=== PATIENT | female | born 1970 | race Caucasian/White ===

== ENCOUNTER 2016-10-04 16:50 | Inpatient (IN) | payer BC, OTHER ==
[~2016-10-04] VITALS: Ht 157.5 cm; Wt 90.0 kg
[~2016-10-04 16:50] MED LIST: ALBU1AER9 INH; BUPR-79 PO; CLOP1TAB5 PO; DOXY1TAB6 PO; LISI-461 PO; OMEP40CA PO; SIMV10TA2 PO
[2016-10-04] MEDS ORDERED: SODIUM CHLORIDE 0.9% 1000ML 1,000 ML IV STA (17:05)
[2016-10-04] MEDS ORDERED: DiphenhydrAMINE HCL 50 MG/ML VIAL IV STA (17:05)
[2016-10-04] MEDS ORDERED: PROCHLORPERAZINE 5 MG/ML 2 ML VIAL IV STA (17:05)
[2016-10-04] MEDS ORDERED: WARF4TAB8 PO (17:19)
[2016-10-04] MEDS ORDERED: GABA-113 PO (17:19)
[2016-10-04] MEDS ORDERED: GLC/500 PO (17:19)
[2016-10-04] MEDS ORDERED: ATOR-24 PO (17:19)
[2016-10-04] MEDS ORDERED: GLIP10TA10 PO (17:19)
--- NOTE | 2016-10-04 17:22 | DIAGNOSTIC IMAGING REPORT ---
HEAD WITHOUT CONTRAST (CT) CT DOSE: 623.48 mGy.cm HISTORY: Mental status change Stroke TECHNIQUE: Multiaxial CT images of the head were performed without the use of intravenous contrast. A dose lowering technique was utilized adhering to the principles of ALARA. Comparison: 02/04/2013 Findings: The paranasal sinuses and mastoid air cells are clear. The calvarium and skull base are intact. The ventricles and sulci are within normal limits. There is no mass, hematoma, midline shift, or acute infarct. Impression: No acute intracranial abnormality. The above report was generated using voice recognition software. It may contain grammatical, syntax or spelling errors. Electronically signed by: Jonnathan Landers M.D. 10/04/2016 5:20 PM Dictated Date/Time: 10/04/2016 5:19 PM
[2016-10-04 17:25] LABS: BASO % 0.3 %; BASO ABS # 0.03 K/uL (0-0.2); COMPLETE YES; EOS % 1.3 %; HEMATOCRIT 46.3 % (37-47); IG% 0.4 %; LYMPH % 24.1 %; LYMPH ABS # 2.79 K/uL (1.2-3.4); MEAN CELL VOLUME 91.1 fL (80-100); MEAN CORPUSCULAR HEMOGLOBIN 30.9 pg (25-34); MEAN CORPUSCULAR HGB CONC 33.9 g/dl (32-36); MEAN PLATELET VOLUME 11.5 fL (7.4-10.4); MONO % 4.8 %; NEUT % 69.1 %; PLATELET COUNT 243 K/uL (130-400); RED BLOOD COUNT 5.08 M/uL (4.2-5.4); WHITE BLOOD COUNT 11.58 K/uL (4.8-10.8)
--- NOTE | 2016-10-04 17:32 | DIAGNOSTIC IMAGING REPORT ---
CHEST ONE VIEW PORTABLE CLINICAL HISTORY: Stroke dyspnea COMPARISON STUDY: 11/30/2012 FINDINGS: The bones soft tissues and hemidiaphragms are normal. The cardiomediastinal silhouette is normal. The lungs are clear. The pulmonary vasculature is normal. IMPRESSION: Negative chest. The above report was generated using voice recognition software. It may contain grammatical, syntax or spelling errors. Electronically signed by: Jonnathan Landers M.D. 10/04/2016 5:31 PM Dictated Date/Time: 10/04/2016 5:31 PM
[2016-10-04 17:43] LABS: INR 1.7 (0.9-1.1); PARTIAL THROMBOPLASTIN RATIO 2.1; PROTHROMBIN TIME (PATIENT) 18.3 SECONDS (9.0-12.0)
[2016-10-04 17:46] LABS: BLOOD UREA NITROGEN 7 mg/dl (7-18); BUN/CREATININE RATIO 7.5 (10-20); CARBON DIOXIDE 27 mmol/L (21-32); CHLORIDE 108 mmol/L (98-107); CREATININE 0.89 mg/dl (0.60-1.20); GLUCOSE 135 mg/dl (70-99); SODIUM 140 mmol/L (136-145)
[2016-10-04 17:51] LABS: CKMB/CK RATIO 0.9 (0-3.0)
[2016-10-04 18:18] VITALS: O2SAT 95; BMI 34.7
[2016-10-04] MEDS ORDERED: ACETAMINOPHEN 325 MG TAB PO PRN (18:45)
[2016-10-04] MEDS ORDERED: ONDANSETRON INJ 2 MG/ML 2 ML VIAL IV PRN (18:45)
[2016-10-04] MEDS ORDERED: CMD5 PO (18:47)
[2016-10-04] MEDS ORDERED: ASPIRIN 81 MG ECTAB PO ONE (18:47)
[2016-10-04] MEDS ORDERED: METF1000 PO (18:47)
[2016-10-04] MEDS ORDERED: LISI-461 PO (18:47)
[2016-10-04] MEDS ORDERED: PHARMACIST DISCHARGE MED REC CONSULT PRN (19:00)
[2016-10-04] MEDS ORDERED: DEXTROSE 50% 50 ML SYR IV PRN (19:15)
[2016-10-04] MEDS ORDERED: WARFARIN SOD 2.5 MG TAB PO ONE (19:15)
[2016-10-04] MEDS ORDERED: GLUCOSE 40% GEL 15 GM TUBE PO PRN (19:15)
[2016-10-04] MEDS ORDERED: GLUCOSE 10 TABS/TUBE PO PRN (19:15)
[2016-10-04] MEDS ORDERED: GLUCAGON FOR INJ 1 MG VIAL SQ PRN (19:15)
[2016-10-04] MEDS: WARFARIN SOD 5 MG TAB PO SCH ×3 (19:33→19:35)
[2016-10-04 20:00] VITALS: BP 115/82; PULSE 89; TEMP 36.4; O2SAT 99
[2016-10-04] MEDS: SODIUM CHLORIDE 0.9% 1000ML 1,000 ML IV SCH (20:17)
[2016-10-04] MEDS: INSULIN ASPART 100 UNITS/ML 3 ML PEN SC SCH (20:57)
[2016-10-04] MEDS: GABAPENTIN 300 MG CAP PO SCH (20:58)
--- NOTE | 2016-10-04 21:11 | History and Physical ---
History & Physical Date & Time of Service: Oct 04, 2016 at 18:47 Chief Complaint: Migraine,Dizzy,Balance Issues Primary Care Physician: Hector Sullivan MD History of Present Illness Source: patient, clinic records, hospital records This is a 46 year old female with PMH of CVA x 2 in 2012, HTN, HL, DM type 2, antiphospholipid antibody syndrome on Coumadin, tobacco abuse, migraines, and other problems listed below who presents to the ED for headache. Patient states around 3:15 PM today she developed severe throbbing headache in bilateral frontal regions and behind her left eye. She reports associated worsening baseline balance difficulty, throat tightness, photophobia, chills. She reports visual aura yesterday with black spots. Patient reports similar array of symptoms with prior migraines. She usually takes 4 ibuprofen, a soda, and a candy bar for her migraines, however did not take anything at home today. Shortly after CALHOUN started patient presented to an appointment at Dr. Kebede's office (hematology) and was advised to present to ER via ambulance, however she declined and was driven to ER by her . In the ER patient had an unremarkable head CT. She was treated with compazine and Benadryl and states she is feeling much better. She reports chronic slight right facial droop and LUE and LLE weakness from prior strokes which are unchanged. Has chronic numbness of toes bilaterally from neuropathy but no acute numbness. Has chronic R ear tinnitus and hearing loss. Denies slurred speech, swallowing difficulty, neck stiffness, fever, URI symptoms, cough, SOB, chest pain, vomiting, diarrhea , urinary symptoms. Patient notes 3-4 weeks ago she had a 20 minute episode of worsened balance, "deer in the headlights" look as per her , and difficulty remember the letter "G" when reciting the alphabet. She had a slight CALHOUN at that time. Patient states the episode was "no big deal" and therefore she did not seek evaluation. Patient states she has not seen a neurologist since hospitalization in 2012 due to losing her insurance. She was seen by Dr. Bynum when hospitalized in 2012 twice for left cerebellar stroke and left frontoparietal stroke. JULIET in 01/2013 showed mild atrial septal wall aneurysm but no PFO or ASD. It appears on 01/2013 discharge she was supposed to change from aspirin to Plavix. However according to the patient she was on aspirin until she self- discontinued it in 2012 when she started Coumadin. Patient was recently seen by rheumatology Dr. Roberson who suspected antiphospholipid antibody syndrome and she was continued on Coumadin and referred her to hematology. Pt denies hx of arrhythmia. Past Medical/Surgical History Medical Problems: (1) Antiphospholipid antibody syndrome Status: Chronic (2) CVA (cerebral vascular accident) Status: Chronic (3) DM type 2 (diabetes mellitus, type 2) Status: Chronic (4) Dyslipidemia Status: Chronic (5) Hearing loss Permanent Comment: R ear Status: Chronic (6) Hypertension Status: Chronic (7) Migraine Status: Chronic (8) Migraine with aura Status: Chronic (9) Ovarian cyst Status: Chronic (10) Unspecified ulcers Status: Chronic Surgical Problems: (1) H/O tympanostomy Status: Chronic (2) S/P tonsillectomy and adenoidectomy Status: Chronic Family History Cardiac disorder FATHER Diabetes mellitus FATHER FH: lupus SISTER Hypertension FATHER MOTHER SISTER Social History Smoking Status: Current Every Day Smoker (1/2 ppd, trying to quit) Alcohol Use: occasionally Drug Use: none Marital Status: Housing status: lives with family Occupational Status: other Immunizations History of Influenza Vaccine: Yes Influenza Vaccine Date: Feb 06, 2013 History of Tetanus Vaccine?: Yes Tetanus Immunization Date: Feb 03, 2011 History of Pneumococcal: No History of Hepatitis B Vaccine: No Multi-Drug Resistant Organisms History of MDRO: No Allergies Coded Allergies: No Known Allergies (Verified , 02/03/13) Home Medications Scheduled Atorvastatin (Lipitor), 40 MG PO DAILY Gabapentin (Neurontin), 300 MG PO TID Glipizide (Glipizide), 10 MG PO BID Lisinopril (Lisinopril), 10 MG PO DAILY Metformin Hcl (Glucophage), 500 MG PO QPM Metformin Hcl (Glucophage), 1,000 MG PO QAM Warfarin Sod (Coumadin), 5 MG PO UD Warfarin Sod (Coumadin), 2.5 MG PO UD Review of Systems Ten systems reviewed and negative except as noted in HPI. Physical Exam Vital Signs Date Time Temp Pulse Resp B/P (MAP) Pulse Ox O2 Delivery O2 Flow Rate FiO2 10/04/16 18:18 95 Room Air 10/04/16 18:16 85 124/88 95 Room Air 10/04/16 18:00 82 20 119/78 94 Room Air 10/04/16 17:59 85 10/04/16 17:34 98 Room Air 10/04/16 16:52 37.0 112 16 123/81 93 Room Air General Appearance: WD/WN, no apparent distress, + pertinent finding (alert cooperative 46 year old female) Head: normocephalic, atraumatic Eyes: normal inspection, PERRL, EOMI, sclerae normal ENT: hearing grossly normal, TMs normal, pharynx normal Neck: supple, trachea midline Respiratory/Chest: lungs clear, normal breath sounds, no respiratory distress Cardiovascular: regular rate, rhythm, no murmur Abdomen/GI: normal bowel sounds, non tender, soft Extremities/Musculoskelatal: no calf tenderness, no pedal edema Neurologic/Psych: medical officer psychiatry II-XII nml as tested, alert, normal mood/affect, oriented x 3, + pertinent finding (chronic LUE and LLE mild weakness (motor 4/5 ) from prior stroke. no sensory deficit. no drift. finger to nose intact on the right, not done on the left due to pain from bending elbow at IV site.) Skin: normal color, warm/dry Diagnostics Laboratory Results Results Past 24 Hours Test 10/04/16 17:11 10/04/16 17:12 10/04/16 17:22 Range/Units Bedside Prothrombin Time INR 1.9 0.9-1.1 White Blood Count 11.58 4.8-10.8 K/uL Red Blood Count 5.08 4.2-5.4 M/uL Hemoglobin 15.7 12.0-16.0 g/dL Hematocrit 46.3 37-47 % Mean Corpuscular Volume 91.1 80-100 fL Mean Corpuscular Hemoglobin 30.9 25-34 pg Mean Corpuscular Hemoglobin Concent 33.9 32-36 g/dl Platelet Count 243 130-400 K/uL Mean Platelet Volume 11.5 7.4-10.4 fL Neutrophils (%) (Auto) 69.1 % Lymphocytes (%) (Auto) 24.1 % Monocytes (%) (Auto) 4.8 % Eosinophils (%) (Auto) 1.3 % Basophils (%) (Auto) 0.3 % Neutrophils # (Auto) 8.00 1.4-6.5 K/uL Lymphocytes # (Auto) 2.79 1.2-3.4 K/uL Monocytes # (Auto) 0.56 0.11-0.59 K/uL Eosinophils # (Auto) 0.15 0-0.5 K/uL Basophils # (Auto) 0.03 0-0.2 K/uL RDW Standard Deviation 43.8 36.4-46.3 fL RDW Coefficient of Variation 13.2 11.5-14.5 % Immature Granulocyte % (Auto) 0.4 % Immature Granulocyte # (Auto) 0.05 0.00-0.02 K/uL Prothrombin Time 18.3 9.0-12.0 SECONDS Prothromb Time International Ratio 1.7 0.9-1.1 Activated Partial Thromboplast Time 53.6 21.0-31.0 SECONDS Partial Thromboplastin Ratio 2.1 Sodium Level 140 136-145 mmol/L Potassium Level 4.0 3.5-5.1 mmol/L Chloride Level 108 98-107 mmol/L Carbon Dioxide Level 27 21-32 mmol/L Anion Gap 5.0 3-11 mmol/L Blood Urea Nitrogen 7 7-18 mg/dl Creatinine 0.89 0.60-1.20 mg/dl Est Creatinine Clear Calc Drug Dose 79.5 ml/min Estimated GFR () 89.5 Estimated GFR (Non- 77.2 BUN/Creatinine Ratio 7.5 10-20 Random Glucose 135 70-99 mg/dl Calcium Level 9.0 8.5-10.1 mg/dl Total Creatine Kinase 102 26-192 U/L Creatine Kinase MB 0.9 0.5-3.6 ng/ml Creatine Kinase MB Ratio 0.9 0-3.0 Troponin I < 0.015 0-0.045 ng/ml Bedside Glucose 126 70-90 mg/dl Diagnostic Radiology HEAD WITHOUT CONTRAST (CT)- per radiology Impression: No acute intracranial abnormality. CHEST ONE VIEW PORTABLE- per radiology IMPRESSION: Negative chest. EKG NSR, 84 bpm, no ectopy, no ischemic findings Impression Assessment and Plan HEADACHE With dizziness and throat tightness Possibly 2/2 migraine; rule out acute CVA given hx of CVA x 2, antiphospholipid antibody syndrome (on Coumadin; INR 1.7), HTN, HL, DM 2, tobacco use Hx of left cerebellar stroke and left frontoparietal stroke in 2013 with chronic left sided weakness JULIET in 01/2013- mild atrial septal wall aneurysm but no PFO or ASD CT head- no acute findings Improved with Benadryl, Compazine, IVF's in ER Check MRI brain, MRA head and neck, echo w/ bubble study, telemetry monitoring to r/o arrhythmia Continue Coumadin, statin Add aspirin 81 mg [facility] (seen by Dr. Bynum on prior admissions) PT, OT, speech evaluations HYPERTENSION Continue lisinopril DM TYPE 2 Check A1c Hold oral agents Novolog sliding scale coverage DYSLIPIDEMIA Check lipid panel Continue atorvastatin DVT PROPHYLAXIS On Coumadin FULL CODE DISPOSITION Admit to telemetry Lives w/ Follows with Dr. Sullivan for primary care Patient seen in collaboration with Dr. Zimmer. Please see his addendum. Agree with above hand p. Briefly 46f with hx of prior strokes developed severe headache bifrontal and left occipital region. She has migraines before. She didn 't take any medications for pain and presented to hematology office for her appointment. Also her balance worsened from baseline and has dysphagia feeling and was dizzy. At that time she was advised to go to ER. In the Er after she got compazine and Benadryl symptoms improved though she still has some headache now. Ct head was fine. Currently resting comfortably and hemodynamically stable. 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 Y/N: Yes Risk Level: High Given or contraindicated: Warfarin (Coumadin)
[2016-10-04 23:27] VITALS: BP 114/76; PULSE 76; TEMP 36.6; O2SAT 93
[2016-10-05] VITALS (11 sets, daily range): BP systolic 111–138; BP diastolic 60–79; PULSE 68–94; TEMP 36.4–36.6; O2SAT 90–98; Ht 157.5 cm; Wt 90.0 kg
--- NOTE | 2016-10-05 00:12 | EMERGENCY ROOM VISIT NOTE ---
History Report prepared by Karo: Mariola Zavala Under the Supervision of: Dr. Armando Ji M.D. First contact with patient: 16:56 Chief Complaint: NEURO SYMPTOMS Stated Complaint: MIGRAINE,DIZZY,BALANCE ISSUES History of Present Illness The patient is a 46 year old female who presents to the Emergency Room with complaints of a sudden headache starting two hours ago. The patient states that it is on the left side and that the pain feels like "someone pushed her into a wall." She states that light is making her pain worse. The patient notes that she has a history of migraines. She reports that this feels different then her past migraines because she is also experiencing a loss of balance. The patient reports that she is experiencing weakness on the left side of her body, but notes that this is from a past stroke. She denies experiencing worsening weakness and any numbness. The patient states that she is also feeling someone is choking her and is having a little trouble swallowing. The patient denies vomiting, fever, and change in speech. The patient notes that she normally treats her migraines by taking four Advil, a bottle of Mountain Dew, eating a candy bar, and sleeping for half an hour. She notes that she is on Warfarin for her past strokes. She was diagnosed with lupus anticoagulant. Source of History: patient Onset: two hours ago Position: head Symptom Intensity: severe Quality: other ("someone pushing her into a wall") Timing: other (sudden) Modifying Factors (Worsening): other (light) Associated Symptoms: + weakness, No fevers, No vomiting, No numbness Note: The patient complains of a loss of balance, feeling like someone his choking her , and trouble swallowing. The patient denies any change in speech. Review of Systems See HPI for pertinent positives & negatives. A total of 10 systems reviewed and were otherwise negative. Past Medical & Surgical Medical Problems: (1) Antiphospholipid antibody syndrome (2) CVA (cerebral vascular accident) (3) DM type 2 (diabetes mellitus, type 2) (4) Dyslipidemia (5) Hearing loss (6) Hypertension (7) Migraine (8) Migraine with aura (9) Ovarian cyst (10) Stroke-like symptoms (11) Unspecified ulcers Surgical Problems: (1) H/O tympanostomy (2) S/P tonsillectomy and adenoidectomy Family History No pertinent family history Social History Smoking Status: Current Every Day Smoker Alcohol Use: occasionally Marital Status: Housing Status: lives with family Occupation Status: employed, other Current/Historical Medications Scheduled Atorvastatin (Lipitor), 40 MG PO DAILY Gabapentin (Neurontin), 300 MG PO TID Glipizide (Glipizide), 10 MG PO BID Lisinopril (Lisinopril), 10 MG PO DAILY Metformin Hcl (Glucophage), 500 MG PO QPM Metformin Hcl (Glucophage), 1,000 MG PO QAM Warfarin Sod (Coumadin), 5 MG PO UD Warfarin Sod (Coumadin), 2.5 MG PO UD Allergies Coded Allergies: No Known Allergies (Verified , 02/03/13) Physical Exam Vital Signs Date Time Temp Pulse Resp B/P (MAP) Pulse Ox O2 Delivery O2 Flow Rate FiO2 10/04/16 18:00 82 20 119/78 94 Room Air 10/04/16 17:59 85 10/04/16 17:34 98 Room Air 10/04/16 16:52 37.0 112 16 123/81 93 Room Air Physical Exam Constitutional: Vital signs reviewed. Eyes: Pupils are equal round reactive to light. Conjunctiva are noninjected. ENT: Pharynx is clear without erythema or exudate. Mucous membranes are moist. Neck supple without meningeal signs. Respiratory: Clear to auscultation bilaterally. Breath sounds are equal bilaterally. Cardiovascular: Regular rate and rhythm. No rubs or gallops. GI: Soft, nondistended and nontender. Bowel sounds are present. Musculoskeletal: No peripheral edema. No lower extremity tenderness. Integumentary: No cyanosis. Neurological: The patient is awake and alert. Cranial nerves II-XII are intact except for right-sided chronic hearing loss. Motor is 5 out of 5 all extremities except the left lower extremity which is 4/5. Sensation is intact to light touch all extremities. Normal speech. No pronator drift. No limb ataxia. Psychiatric: Slightly anxious. Medical Decision & Procedures ER Provider Diagnostic Interpretation: Radiology results as stated below per my review and the radiologist's interpretation: HEAD WITHOUT CONTRAST (CT) CT DOSE: 623.48 mGy.cm HISTORY: Mental status change Stroke TECHNIQUE: Multiaxial CT images of the head were performed without the use of intravenous contrast. A dose lowering technique was utilized adhering to the principles of ALARA. Comparison: 02/04/2013 Findings: The paranasal sinuses and mastoid air cells are clear. The calvarium and skull base are intact. The ventricles and sulci are within normal limits. There is no mass, hematoma, midline shift, or acute infarct. Impression: No acute intracranial abnormality. The above report was generated using voice recognition software. It may contain grammatical, syntax or spelling errors. Electronically signed by: Jonnathan Landers M.D. 10/04/2016 5:20 PM Dictated Date/Time: 10/04/2016 5:19 PM CHEST ONE VIEW PORTABLE CLINICAL HISTORY: Stroke dyspnea COMPARISON STUDY: 11/30/2012 FINDINGS: The bones soft tissues and hemidiaphragms are normal. The cardiomediastinal silhouette is normal. The lungs are clear. The pulmonary vasculature is normal. IMPRESSION: Negative chest. The above report was generated using voice recognition software. It may contain grammatical, syntax or spelling errors. Electronically signed by: Jonnathan Landers M.D. 10/04/2016 5:31 PM Dictated Date/Time: 10/04/2016 5:31 PM Laboratory Results 10/04/16 17:12 Red Blood Count 5.08, Mean Corpuscular Volume 91.1, Mean Corpuscular Hemoglobin 30.9, Mean Corpuscular Hemoglobin Concent 33.9, Mean Platelet Volume 11.5, Neutrophils (%) (Auto) 69.1, Lymphocytes (%) (Auto) 24.1, Monocytes (%) (Auto) 4.8, Eosinophils (%) (Auto) 1.3, Basophils (%) (Auto) 0.3, Neutrophils # (Auto) 8.00, Lymphocytes # (Auto) 2.79, Monocytes # (Auto) 0.56, Eosinophils # (Auto) 0.15, Basophils # (Auto) 0.03 10/04/16 17:12 Test 10/04/16 17:11 10/04/16 17:12 Bedside Prothrombin Time INR 1.9 (0.9-1.1) White Blood Count 11.58 K/uL (4.8-10.8) Red Blood Count 5.08 M/uL (4.2-5.4) Hemoglobin 15.7 g/dL (12.0-16.0) Hematocrit 46.3 % (37-47) Mean Corpuscular Volume 91.1 fL (80-100) Mean Corpuscular Hemoglobin 30.9 pg (25-34) Mean Corpuscular Hemoglobin Concent 33.9 g/dl (32-36) Platelet Count 243 K/uL (130-400) Mean Platelet Volume 11.5 fL (7.4-10.4) Neutrophils (%) (Auto) 69.1 % Lymphocytes (%) (Auto) 24.1 % Monocytes (%) (Auto) 4.8 % Eosinophils (%) (Auto) 1.3 % Basophils (%) (Auto) 0.3 % Neutrophils # (Auto) 8.00 K/uL (1.4-6.5) Lymphocytes # (Auto) 2.79 K/uL (1.2-3.4) Monocytes # (Auto) 0.56 K/uL (0.11-0.59) Eosinophils # (Auto) 0.15 K/uL (0-0.5) Basophils # (Auto) 0.03 K/uL (0-0.2) RDW Standard Deviation 43.8 fL (36.4-46.3) RDW Coefficient of Variation 13.2 % (11.5-14.5) Immature Granulocyte % (Auto) 0.4 % Immature Granulocyte # (Auto) 0.05 K/uL (0.00-0.02) Prothrombin Time 18.3 SECONDS (9.0-12.0) Prothromb Time International Ratio 1.7 (0.9-1.1) Activated Partial Thromboplast Time 53.6 SECONDS (21.0-31.0) Partial Thromboplastin Ratio 2.1 Anion Gap 5.0 mmol/L (3-11) Est Creatinine Clear Calc Drug Dose 79.5 ml/min Estimated GFR () 89.5 Estimated GFR (Non- 77.2 BUN/Creatinine Ratio 7.5 (10-20) Calcium Level 9.0 mg/dl (8.5-10.1) Total Creatine Kinase 102 U/L (26-192) Creatine Kinase MB 0.9 ng/ml (0.5-3.6) Creatine Kinase MB Ratio 0.9 (0-3.0) Troponin I < 0.015 ng/ml (0-0.045) Laboratory results as reviewed by me. Medications Administered Medications (Trade) Dose Ordered Sig/Pricilla Route Start Time Stop Time Status Last Admin Dose Admin Prochlorperazine Edisylate (Compazine Inj) 10 mg NOW STAT IV 10/04/16 17:05 10/04/16 17:07 DC 10/04/16 17:43 10 MG Diphenhydramine HCl (Benadryl Inj) 50 mg NOW STAT IV 10/04/16 17:05 10/04/16 17:07 DC 10/04/16 17:43 50 MG Sodium Chloride 1,000 ml @ 999 mls/hr Q1H1M STAT IV 10/04/16 17:05 10/04/16 18:05 DC 10/04/16 17:40 999 MLS/HR ECG Indication: other (stroke symptoms) Rate (beats per minute): 84 Rhythm: normal sinus Findings: no acute ischemic change, other (low voltage QRS) ED Course 1658: The patient was evaluated in room B3. A complete history and physical exam was performed. 1705: Ordered NSS 1000 ml @ 999 mls/hr IV, Benadryl Inj 50 mg IV, Compazine Inj 10 mg IV. 1730: I reevaluated the patient and her headache is improving. I discussed the CT and INR with her. 1753: I reevaluated the patient and she states that her headache is much better now. 1756: I spoke with Dr. Zimmer of [facility]. We discussed the patient and test results. The patient will be further evaluated by Dr. Zimmer. Medical Decision This is a 46-year-old female who presents with headache and dizziness. Differential diagnosis includes migraine headache, tension headache, intracranial hemorrhage, CVA, TIA, intracranial mass. I did perform a limited focused review of portions of the patient's old chart on the electronic medical record. The patient was admitted in 2012 for a cerebella stroke and then again later that year for a left frontal temporal stroke. Blood Pressure Screening: Patient was found to have normal blood pressure on screening and does not require follow-up. Medication Reconciliation: I attest that I have personally reviewed the patient' s current medication list. I did evaluate the patient as noted above. The patient is presenting with a headache starting at 3:15 PM today. She states she has a history of migraines but usually does not have accompanying dizziness. She does have a prior history of cerebellar stroke. She is neurologically intact except for prior deficits. IV access was established. 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 I did call a stroke alert. I did order a stat CT of the head. I did review the images myself as well as the radiology report as described above. There is no evidence of acute hemorrhage or CVA. I did order and personally review the patient's 12-lead EKG and chest x-ray as described above. I did order and review the patient's blood work as noted in the electronic medical record. I did reassess the patient. She states her headache is improving. I did discuss the test results with her. Her INR is 1.9 which is an absolute contraindication for IV TPA. I reassessed her once again and she stated that her headache was significantly improved. I did recommend hospitalization for further workup given her history of multiple strokes and subtherapeutic INR. She will require MRI and MRA of the brain. I did discuss the case with the hospitalist and case folder. Consults Time Called: [phone] Consulting Physician: Dr. Mesha Perkins Returned Call: [phone] Zimmer of [facility]. We discussed the patient and test results. The patient will be further evaluated by Dr. Zimmer. Impression Primary Impression: Dizziness Additional Impressions: Headache Subtherapeutic international normalized ratio (INR) Lupus anticoagulant disorder Scribe Attestation The scribe's documentation has been prepared under my direct and personally reviewed by me in its entirety. I confirm that the note above accurately reflects all work, treatment, procedures, and medical decision making performed by me. Departure Information Dispostion Being Evaluated By Hospitalist Referrals Hector Sullivan MD (PCP) Patient Instructions My [facility] Problem Qualifiers Additional Impressions: Headache Headache type: unspecified Headache chronicity pattern: acute headache Intractability: not intractable Qualified Codes: R51 - Headache
[2016-10-05] MEDS: SODIUM CHLORIDE 0.9% 1000ML 1,000 ML IV SCH (04:51)
--- NOTE | 2016-10-05 06:28 | DIAGNOSTIC IMAGING REPORT ---
MRA NECK COMBO HISTORY: Mental status change Stroke TECHNIQUE: [id number]-[id number] and gadolinium-enhanced MRA of the neck was performed both before and after the intravenous administration of contrast. All measurements were calculated based on NASCET criteria. COMPARISON STUDY: 09/30/2012 FINDINGS: The aortic arch and proximal great vessels are widely patent. Dominant right vertebral artery which has been described previously. Congenitally small left vertebral artery also unchanged. No significant stenotic process of the carotid vasculature. IMPRESSION: No significant stenosis, occlusion, or dissection identified within the carotid or vertebral arteries. Congenitally small left vertebral artery unchanged from prior studies The above report was generated using voice recognition software. It may contain grammatical, syntax or spelling errors. Electronically signed by: Jonnathan Landers M.D. 10/05/2016 6:27 AM Dictated Date/Time: 10/05/2016 6:23 AM
--- NOTE | 2016-10-05 06:41 | DIAGNOSTIC IMAGING REPORT ---
MRA HEAD WITHOUT CONTRAST HISTORY: No status change Stroke - Attention to [facility] [place] TECHNIQUE: 3-D [id number] MRA of the brain was performed without contrast. COMPARISON STUDY: 02/03/2013 FINDINGS: Visualized intracranial internal carotid arteries, distal vertebral arteries, and basilar artery are widely patent. 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 Congenitally small left vertebral artery IMPRESSION: No significant stenosis, occlusion, or aneurysm within the [place] of [place]. Congenitally small left vertebral artery which has been described previously The above report was generated using voice recognition software. It may contain grammatical, syntax or spelling errors. Electronically signed by: Jonnathan Landers M.D. 10/05/2016 6:40 AM Dictated Date/Time: 10/05/2016 6:39 AM
[2016-10-05] MEDS: GABAPENTIN 300 MG CAP PO SCH ×2 (07:02→12:47)
[2016-10-05 07:12] LABS: ESTIMATED AVERAGE GLUCOSE 220 mg/dl; HA1C FLAG Normal (Normal)
[2016-10-05 07:17] LABS: BASO % 0.1 %; BASO ABS # 0.01 K/uL (0-0.2); COMPLETE YES; EOS % 1.8 %; HEMATOCRIT 40.2 % (37-47); IG% 0.5 %; LYMPH % 30.7 %; LYMPH ABS # 2.33 K/uL (1.2-3.4); MEAN CELL VOLUME 92.2 fL (80-100); MEAN CORPUSCULAR HEMOGLOBIN 31.7 pg (25-34); MEAN CORPUSCULAR HGB CONC 34.3 g/dl (32-36); MEAN PLATELET VOLUME 11.6 fL (7.4-10.4); MONO % 6.6 %; NEUT % 60.3 %; PLATELET COUNT 180 K/uL (130-400); RED BLOOD COUNT 4.36 M/uL (4.2-5.4); WHITE BLOOD COUNT 7.58 K/uL (4.8-10.8)
--- NOTE | 2016-10-05 07:18 | DIAGNOSTIC IMAGING REPORT ---
BRAIN WITHOUT CONTRAST HISTORY: 46 years-old Female acute strokelike symptoms with headache. History of prior left frontal infarction COMPARISON: MRA of the brain 10/04/2016, CT head 10/04/2016, MRI brain 02/03/2013. TECHNIQUE: Multiplanar multisequence MRI of the brain was obtained without contrast. FINDINGS: There is no evidence of restricted diffusion to suggest acute ischemia. The corpus callosum, brainstem, optic chiasm, pituitary and pineal glands appear unremarkable. No cerebellar tonsillar herniation. There is no pathologic blooming artifact identified. There is no acute intracranial hemorrhage, midline shift, hydrocephalus, intracranial mass or abnormal extra-axial collections identified. There are a few scattered areas of T2/flair prolongation within the subcortical white matter of the cerebral hemispheres bilaterally, seen best on the coronal FLAIR sequence, likely of no clinical significance. These may reflect minimal chronic microvascular ischemic changes. No significant gliosis or volume loss seen within the area of prior small cortical infarction of the left frontoparietal lobe. There is a small right mastoid effusion. Mild to moderate ethmoid sinus disease noted with rightward bowing of the nasal septum. 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 Flow voids at the skull base appear patent. IMPRESSION: 1. No acute intracranial abnormality. Negative for acute ischemia. 2. Small right mastoid effusion with mild to moderate ethmoid sinus disease. The above report was generated using voice recognition software. It may contain grammatical, syntax or spelling errors. Electronically signed by: Abiodun Cope M.D. 10/05/2016 7:17 AM Dictated Date/Time: 10/05/2016 7:04 AM
[2016-10-05 07:23] LABS: INR 1.5 (0.9-1.1); PROTHROMBIN TIME (PATIENT) 16.1 SECONDS (9.0-12.0)
[2016-10-05 07:48] LABS: BUN/CREATININE RATIO 11.2 (10-20); CALCIUM 8.3 mg/dl (8.5-10.1); CREATININE 0.6 mg/dl (0.60-1.20); POTASSIUM 3.8 mmol/L (3.5-5.1)
[2016-10-05 07:51] LABS: CHOLESTEROL/HDL RATIO 3.2
[2016-10-05] MEDS: INSULIN ASPART 100 UNITS/ML 3 ML PEN SC SCH ×2 (08:00→12:51)
[2016-10-05] MEDS ORDERED: ASPIRIN 81 MG ECTAB PO SCH (09:00)
[2016-10-05] MEDS ORDERED: ATORVASTATIN 40 MG TAB PO SCH (09:00)
[2016-10-05] MEDS ORDERED: LISINOPRIL 10 MG TAB PO SCH (09:00)
--- NOTE | 2016-10-05 11:09 | Neurology Consultation ---
Neurology Consultation Date of Consultation: Oct 05, 2016. Attending Physician: Serafin Feliz DO Primary Care Physician: Hector Sullivan MD Reason for Consultation: Consult for stroke like symptoms with headaches History of Present Illness Source: patient, hospital records This is a 46-year-old female who presented to the hospital due to severe intractable headache. Patient reports that normally she only rarely gets a migraine headache. She's been getting migraine headaches since her 20s. She will get light and sound sensitivity with her headaches. She will get nausea. She reports that she's been having an intractable daily migraine headache for the last week. She reports that the headache is similar in quality past migraine headaches except that it was lasting longer than normal. Typically for migraine headaches do not last more than a day. Typically she will take a Mountain Dew, ibuprofen, and a candy bar with good results of resolving her headache. She reports that she did do this time because of concerns about her diabetes. In addition she is not supposed to be taking NSAIDs due to Coumadin use. Patient denies any new neurological deficits. She reports having baseline mild left-sided weakness due to previous stroke in 2012. She also reports that friends and family noticed sometimes her having a mild right facial droop since her stroke in 2012. She also reports decreased hearing and tinnitus on the right since her stroke in 2012. Also has chronic toe numbness. For this admission she denies any new numbness or weakness. Denies any changes in her vision or speech. Denies any trouble eating or swallowing. Denies any changes with her walking or gait. She reports that she since her stroke she always feels a little off balance or discoordinated. She reports that since getting Compazine and Benadryl in the emergency room, her headache is currently a 2 or 3 out of 10 this morning. In the past the patient used Imitrex injections in her 20s with good results but has not had any prescription headache medication since then. MRI of the brain report and images were reviewed by myself and unremarkable. No acute stroke MRA of head and neck was also unremarkable Total cholesterol 93, LDL 25, HDL 29, triglycerides 193, and hemoglobin A1c 9.3 Patient reports that her sleep is poor. She has trouble with sleep maintenance. There is reports of mild snoring. She is already set up to see a sleep medicine for evaluation. No caffeine overuse. She reports that she drinks one soda per day. In terms of the patient's stroke history, patient initially had 2 strokes a few months apart in 2013. She was originally evaluated by Dr. Bynum in hospital but was lost to follow up due to insurance issues. At the time of her evaluation of her last stroke there was some signs of mild expressive aphasia but this appeared to have improved. Patient later on as an outpatient was found to have what was believed to be an antiphospholipid antibody syndrome and a positive lupus anticoagulant which would predispose her towards increased clotting and likely the etiology for her 2 strokes in 2013. The patient denies any additional stroke like symptoms since 2013 and being put on Coumadin. The patient is still smoking. She also has other vascular risk factors such as diabetes type 2, dyslipidemia, and hypertension. Past Medical/Surgical History Medical Problems: (1) Dizziness Status: Acute (2) Headache Status: Acute (3) Lupus anticoagulant disorder Status: Acute (4) Subtherapeutic international normalized ratio (INR) Status: Acute PMHx: Ischemic strokes 2 in 2013 believed to be secondary to antiphospholipid antibody syndrome, hypertension, dyslipidemia, diabetes type 2, tobacco use, migraine headaches Family History Family history is negative for grandmother with strokes in her 40s No significant family history of migraine headaches Social History Patient is normally independent in her activities of daily living. She smokes a half a pack to 1 pack of cigarettes per day. Rare alcohol use. No illegal drug use or supplement use. No stimulant use. Smoking Status: Current every day smoker Alcohol Use: occasionally Drug Use: none Marital Status: Housing Status: lives with family Occupation Status: employed, other Allergies Coded Allergies: No Known Allergies (Verified , 02/03/13) Current Inpatient Medications Current Inpatient Medications Medications (Trade) Dose Ordered Sig/Pricilla Route Start Time Stop Time Status Last Admin Dose Admin Acetaminophen (Tylenol Tab) 650 mg Q4H PRN PO 10/04/16 18:45 11/03/16 18:44 10/04/16 23:39 650 MG Ondansetron HCl (Zofran Inj) 4 mg Q6H PRN IV 10/04/16 18:45 11/03/16 18:44 Aspirin (Ecotrin Tab) 81 mg QAM PO 10/05/16 09:00 11/04/16 08:59 10/05/16 07:02 81 MG Miscellaneous Information (Pharmacist Discharge Med Rec Consult) 1 ea UD PRN N/A 10/04/16 19:00 11/03/16 18:59 Sodium Chloride 1,000 ml @ 100 mls/hr Q10H IV 10/04/16 18:47 11/03/16 18:46 10/05/16 04:51 100 MLS/HR Atorvastatin Calcium (Lipitor Tab) 40 mg DAILY PO 10/05/16 09:00 11/04/16 08:59 10/05/16 07:02 40 MG Gabapentin (Neurontin Cap) 300 mg TID PO 10/04/16 21:00 11/03/16 20:59 10/05/16 07:02 300 MG Lisinopril (Zestril Tab) 10 mg DAILY PO 10/05/16 09:00 11/04/16 08:59 10/05/16 07:03 10 MG Warfarin Sodium (Coumadin Tab) 2.5 mg SuTuThSa@1600 PO 10/06/16 16:00 11/05/16 15:59 Warfarin Sodium (Coumadin Tab) 5 mg MoWeFr@1600 PO 10/05/16 16:00 11/04/16 15:59 10/04/16 19:35 5 MG Insulin Aspart (novoLOG ASPART) SLIDING SCALE If C... ACHS SC 10/04/16 21:00 11/03/16 20:59 10/05/16 08:00 4 UNITS Glucose (Glucose 40% Gel) 15-30 GRAMS 15 GRAMS... UD PRN PO 10/04/16 19:15 11/03/16 19:14 Glucose (Glucose Chew Tab) 4-8 Tablets 4 Tabl... UD PRN PO 10/04/16 19:15 11/03/16 19:14 Dextrose (Dextrose 50% 50ML Syringe) 25-50ML OF 50% DW IV FOR... UD PRN IV 10/04/16 19:15 11/03/16 19:14 Glucagon (Glucagon Inj) 1 mg UD PRN SQ 10/04/16 19:15 11/03/16 19:14 Warfarin Sodium (Coumadin Tab) 5 mg NOW ONCE PO 10/05/16 10:45 10/05/16 10:46 UNV Review of Systems Complete review of systems otherwise negative except for the above noted in history of present illness Physical Exam Vital Signs (Past 24 Hrs): Date Time Temp Pulse Resp B/P (MAP) Pulse Ox O2 Delivery O2 Flow Rate FiO2 10/05/16 10:19 97 10/05/16 08:44 98 Room Air 10/05/16 08:41 98 Room Air 10/05/16 07:15 36.5 74 18 138/79 (98) 98 Room Air 10/05/16 04:00 Room Air 10/05/16 03:59 36.4 68 19 121/79 (93) 96 Room Air 10/05/16 00:00 Room Air 10/04/16 23:27 36.6 76 19 114/76 (89) 93 Room Air 10/04/16 20:00 36.4 89 18 115/82 (93) 99 Room Air 10/04/16 20:00 Room Air 10/04/16 18:18 95 Room Air 10/04/16 18:16 85 124/88 95 Room Air 10/04/16 18:00 82 20 119/78 94 Room Air 10/04/16 17:59 85 10/04/16 17:34 98 Room Air 10/04/16 16:52 37.0 112 16 123/81 93 Room Air Gen.: Patient is alert and sitting on the side of the bed, in no acute distress. HEENT: Normocephalic /atraumatic, no scleral icterus Heart: Regular rate and rhythm Extremities: No gross deformities or rashes noted Neurological examination: Mental status: Patient is alert and oriented x3. Attention and concentration normal for the situation. Good fund of knowledge. Able to give her own history. Speech is fluent without any dysarthria or aphasia noted Cranial nerve: Funduscopic examination was unremarkable. No papilledema. Pupils equally round and reactive to light. Extraocular muscles intact without nystagmus. No facial asymmetry noted. Facial sensation intact. Tongue is midline. Good palatal elevation. Good shoulder shrug bilaterally. Hearing grossly intact to voice. Strength: 5/5 both proximal and distally in all extremities with the exception of 4+/5 in left upper and lower extremity. There is no arm drift. Sensation: Grossly intact to light touch in all extremities. Deep tendon reflexes: +1 in bilateral biceps, brachioradialis and patellar. Coordination: Patient had good finger to nose without dysmetria Station sitting on the side of the bed was normal Laboratory Results Past 24 Hours: 10/05/16 06:45 Red Blood Count 4.36, Mean Corpuscular Volume 92.2, Mean Corpuscular Hemoglobin 31.7, Mean Corpuscular Hemoglobin Concent 34.3, Mean Platelet Volume 11.6, Neutrophils (%) (Auto) 60.3, Lymphocytes (%) (Auto) 30.7, Monocytes (%) (Auto) 6.6, Eosinophils (%) (Auto) 1.8, Basophils (%) (Auto) 0.1, Neutrophils # (Auto) 4.56, Lymphocytes # (Auto) 2.33, Monocytes # (Auto) 0.50, Eosinophils # (Auto) 0.14, Basophils # (Auto) 0.01 10/05/16 06:45 Test 10/04/16 17:11 10/04/16 17:12 10/05/16 06:29 10/05/16 06:45 Bedside Prothrombin Time INR 1.9 (0.9-1.1) Activated Partial Thromboplast Time 53.6 SECONDS (21.0-31.0) Partial Thromboplastin Ratio 2.1 Estimated Average Glucose 220 mg/dl Hemoglobin A1c 9.3 % (4.5-5.6) Total Creatine Kinase 102 U/L (26-192) Creatine Kinase MB 0.9 ng/ml (0.5-3.6) Creatine Kinase MB Ratio 0.9 (0-3.0) Troponin I < 0.015 ng/ml (0-0.045) Bedside Glucose 161 mg/dl (70-90) White Blood Count 7.58 K/uL (4.8-10.8) Red Blood Count 4.36 M/uL (4.2-5.4) Hemoglobin 13.8 g/dL (12.0-16.0) Hematocrit 40.2 % (37-47) Mean Corpuscular Volume 92.2 fL (80-100) Mean Corpuscular Hemoglobin 31.7 pg (25-34) Mean Corpuscular Hemoglobin Concent 34.3 g/dl (32-36) Platelet Count 180 K/uL (130-400) Mean Platelet Volume 11.6 fL (7.4-10.4) Neutrophils (%) (Auto) 60.3 % Lymphocytes (%) (Auto) 30.7 % Monocytes (%) (Auto) 6.6 % Eosinophils (%) (Auto) 1.8 % Basophils (%) (Auto) 0.1 % Neutrophils # (Auto) 4.56 K/uL (1.4-6.5) Lymphocytes # (Auto) 2.33 K/uL (1.2-3.4) Monocytes # (Auto) 0.50 K/uL (0.11-0.59) Eosinophils # (Auto) 0.14 K/uL (0-0.5) Basophils # (Auto) 0.01 K/uL (0-0.2) RDW Standard Deviation 45.1 fL (36.4-46.3) RDW Coefficient of Variation 13.3 % (11.5-14.5) Immature Granulocyte % (Auto) 0.5 % Immature Granulocyte # (Auto) 0.04 K/uL (0.00-0.02) Prothrombin Time 16.1 SECONDS (9.0-12.0) Prothromb Time International Ratio 1.5 (0.9-1.1) Anion Gap 8.0 mmol/L (3-11) Est Creatinine Clear Calc Drug Dose 120.9 ml/min Estimated GFR () 125.8 Estimated GFR (Non- 108.5 BUN/Creatinine Ratio 11.2 (10-20) Calcium Level 8.3 mg/dl (8.5-10.1) Triglycerides Level 193 mg/dl (0-150) Cholesterol Level 93 mg/dl (0-200) HDL Cholesterol 29 mg/dl LDL Cholesterol, Calculated 25 mg/dl VLDL Cholesterol, Calculated 39 mg/dl Cholesterol/HDL Ratio 3.2 Imaging As noted above in history of present illness Impression This is a 46-year-old female who presented with intractable migraine headaches for the last week. Patient does not have any new focal neurological symptoms concerning for acute stroke. Patient does have a history of stroke in 2013 secondary to antiphospholipid antibody syndrome with residual mild left hemiplegia and likely balance issues. Patient's migraine headache is improved although not completely resolved after IV Compazine and Benadryl in the emergency room. Plan Recommend as an outpatient patient try Compazine 10 mg with [id number] Benadryl as needed for migraine headaches. Can take with caffeine as well. If the above combination is ineffective, could consider limited prescription of Fioricet as needed for migraine headaches. Should not take Fioricet more than 2 days out of the week to avoid rebound headaches. Avoid vasoconstrictive medications in the setting of stroke history. Unfortunately the patient cannot use NSAIDs either secondary to being on Coumadin. No additional neurological workup indicated at this time. If the patient continues to have frequent or intractable migraine headaches as an outpatient, could consider follow-up in neurology clinic for further evaluation and treatment. I did briefly consider treatment of steroids for the patient due to her intractable migraine headaches for the past week, but likely would not do well considering her current uncontrolled diabetes. Thank you for allowing me to participate in this patient's care. If there is any questions or concerns, feel free to call/page me
[2016-10-05] MEDS ORDERED: WARFARIN SOD 5 MG TAB PO ONE (11:30)
--- NOTE | 2016-10-05 11:38 | Progress Note ---
Subjective Date of Service: Oct 05, 2016. Subjective Pt evaluation today including: conversation w/ patient, physical exam, lab review, review of studies, review of inpatient medication list Saw/examined the patient in room 242 patient is doing okay today, headache is much improved No other symptoms Would like to go home Discussed her uncontrolled diabetes - okay with speaking with diabetic education and pharmacy regarding possible insulin Problem List Medical Problems: (1) Dizziness Status: Acute (2) Headache Status: Acute (3) Lupus anticoagulant disorder Status: Acute (4) Subtherapeutic international normalized ratio (INR) Status: Acute Review of Systems Constitutional: No fever, No chills, No weakness ENT: + problem reported (+headache, improved) Respiratory: No cough, No sputum, No wheezing, No shortness of breath, No dyspnea on exertion, No dyspnea at rest, No hemoptysis Cardiac: No chest pain, No edema, No palpitations Abdomen: No pain, No nausea (resolved), No vomiting, No diarrhea, No constipation, No GI bleeding Neurologic: No memory loss, No paralysis, No weakness, No numbness/tingling, No vertigo, No balance problems Medications Current Inpatient Medications Medications (Trade) Dose Ordered Sig/Pricilla Route Start Time Stop Time Status Last Admin Dose Admin Acetaminophen (Tylenol Tab) 650 mg Q4H PRN PO 10/04/16 18:45 11/03/16 18:44 10/04/16 23:39 650 MG Ondansetron HCl (Zofran Inj) 4 mg Q6H PRN IV 10/04/16 18:45 11/03/16 18:44 Aspirin (Ecotrin Tab) 81 mg QAM PO 10/05/16 09:00 11/04/16 08:59 10/05/16 07:02 81 MG Miscellaneous Information (Pharmacist Discharge Med Rec Consult) 1 ea UD PRN N/A 10/04/16 19:00 11/03/16 18:59 Sodium Chloride 1,000 ml @ 100 mls/hr Q10H IV 10/04/16 18:47 11/03/16 18:46 10/05/16 04:51 100 MLS/HR Atorvastatin Calcium (Lipitor Tab) 40 mg DAILY PO 10/05/16 09:00 11/04/16 08:59 10/05/16 07:02 40 MG Gabapentin (Neurontin Cap) 300 mg TID PO 10/04/16 21:00 11/03/16 20:59 10/05/16 07:02 300 MG Lisinopril (Zestril Tab) 10 mg DAILY PO 10/05/16 09:00 11/04/16 08:59 10/05/16 07:03 10 MG Warfarin Sodium (Coumadin Tab) 2.5 mg SuTuThSa@1600 PO 10/06/16 16:00 11/05/16 15:59 Warfarin Sodium (Coumadin Tab) 5 mg MoWeFr@1600 PO 10/05/16 16:00 11/04/16 15:59 10/04/16 19:35 5 MG Insulin Aspart (novoLOG ASPART) SLIDING SCALE If C... ACHS SC 10/04/16 21:00 11/03/16 20:59 10/05/16 08:00 4 UNITS Glucose (Glucose 40% Gel) 15-30 GRAMS 15 GRAMS... UD PRN PO 10/04/16 19:15 11/03/16 19:14 Glucose (Glucose Chew Tab) 4-8 Tablets 4 Tabl... UD PRN PO 10/04/16 19:15 11/03/16 19:14 Dextrose (Dextrose 50% 50ML Syringe) 25-50ML OF 50% DW IV FOR... UD PRN IV 10/04/16 19:15 11/03/16 19:14 Glucagon (Glucagon Inj) 1 mg UD PRN SQ 10/04/16 19:15 11/03/16 19:14 Objective Vital Signs Date Time Temp Pulse Resp B/P (MAP) Pulse Ox O2 Delivery O2 Flow Rate FiO2 10/05/16 08:44 98 Room Air 10/05/16 08:41 98 Room Air 10/05/16 07:15 36.5 74 18 138/79 (98) 98 Room Air 10/05/16 04:00 Room Air 10/05/16 03:59 36.4 68 19 121/79 (93) 96 Room Air 10/05/16 00:00 Room Air 10/04/16 23:27 36.6 76 19 114/76 (89) 93 Room Air 10/04/16 20:00 36.4 89 18 115/82 (93) 99 Room Air 10/04/16 20:00 Room Air 10/04/16 18:18 95 Room Air 10/04/16 18:16 85 124/88 95 Room Air 10/04/16 18:00 82 20 119/78 94 Room Air 10/04/16 17:59 85 10/04/16 17:34 98 Room Air 10/04/16 16:52 37.0 112 16 123/81 93 Room Air Physical Exam General Appearance: no apparent distress Respiratory/Chest: lungs clear, normal breath sounds, no respiratory distress, no accessory muscle use Cardiovascular: regular rate, rhythm, no edema, no murmur Abdomen: normal bowel sounds, non tender, soft Extremities: normal inspection, no pedal edema Neurologic/Psychiatric: no motor/sensory deficits, alert, normal mood/affect Skin: normal color Laboratory Results Last 24 Hours Test 10/04/16 17:11 10/04/16 17:12 10/04/16 17:22 10/04/16 20:19 Bedside Prothrombin Time INR 1.9 White Blood Count 11.58 K/uL Red Blood Count 5.08 M/uL Hemoglobin 15.7 g/dL Hematocrit 46.3 % Mean Corpuscular Volume 91.1 fL Mean Corpuscular Hemoglobin 30.9 pg Mean Corpuscular Hemoglobin Concent 33.9 g/dl Platelet Count 243 K/uL Mean Platelet Volume 11.5 fL Neutrophils (%) (Auto) 69.1 % Lymphocytes (%) (Auto) 24.1 % Monocytes (%) (Auto) 4.8 % Eosinophils (%) (Auto) 1.3 % Basophils (%) (Auto) 0.3 % Neutrophils # (Auto) 8.00 K/uL Lymphocytes # (Auto) 2.79 K/uL Monocytes # (Auto) 0.56 K/uL Eosinophils # (Auto) 0.15 K/uL Basophils # (Auto) 0.03 K/uL RDW Standard Deviation 43.8 fL RDW Coefficient of Variation 13.2 % Immature Granulocyte % (Auto) 0.4 % Immature Granulocyte # (Auto) 0.05 K/uL Prothrombin Time 18.3 SECONDS Prothromb Time International Ratio 1.7 Activated Partial Thromboplast Time 53.6 SECONDS Partial Thromboplastin Ratio 2.1 Sodium Level 140 mmol/L Potassium Level 4.0 mmol/L Chloride Level 108 mmol/L Carbon Dioxide Level 27 mmol/L Anion Gap 5.0 mmol/L Blood Urea Nitrogen 7 mg/dl Creatinine 0.89 mg/dl Est Creatinine Clear Calc Drug Dose 79.5 ml/min Estimated GFR () 89.5 Estimated GFR (Non- 77.2 BUN/Creatinine Ratio 7.5 Random Glucose 135 mg/dl Estimated Average Glucose 220 mg/dl Hemoglobin A1c 9.3 % Calcium Level 9.0 mg/dl Total Creatine Kinase 102 U/L Creatine Kinase MB 0.9 ng/ml Creatine Kinase MB Ratio 0.9 Troponin I < 0.015 ng/ml Bedside Glucose 126 mg/dl 134 mg/dl Test 10/05/16 06:29 10/05/16 06:45 Bedside Glucose 161 mg/dl White Blood Count 7.58 K/uL Red Blood Count 4.36 M/uL Hemoglobin 13.8 g/dL Hematocrit 40.2 % Mean Corpuscular Volume 92.2 fL Mean Corpuscular Hemoglobin 31.7 pg Mean Corpuscular Hemoglobin Concent 34.3 g/dl Platelet Count 180 K/uL Mean Platelet Volume 11.6 fL Neutrophils (%) (Auto) 60.3 % Lymphocytes (%) (Auto) 30.7 % Monocytes (%) (Auto) 6.6 % Eosinophils (%) (Auto) 1.8 % Basophils (%) (Auto) 0.1 % Neutrophils # (Auto) 4.56 K/uL Lymphocytes # (Auto) 2.33 K/uL Monocytes # (Auto) 0.50 K/uL Eosinophils # (Auto) 0.14 K/uL Basophils # (Auto) 0.01 K/uL RDW Standard Deviation 45.1 fL RDW Coefficient of Variation 13.3 % Immature Granulocyte % (Auto) 0.5 % Immature Granulocyte # (Auto) 0.04 K/uL Prothrombin Time 16.1 SECONDS Prothromb Time International Ratio 1.5 Sodium Level 143 mmol/L Potassium Level 3.8 mmol/L Chloride Level 111 mmol/L Carbon Dioxide Level 24 mmol/L Anion Gap 8.0 mmol/L Blood Urea Nitrogen 7 mg/dl Creatinine 0.60 mg/dl Est Creatinine Clear Calc Drug Dose 120.9 ml/min Estimated GFR () 125.8 Estimated GFR (Non- 108.5 BUN/Creatinine Ratio 11.2 Random Glucose 146 mg/dl Calcium Level 8.3 mg/dl Triglycerides Level 193 mg/dl Cholesterol Level 93 mg/dl HDL Cholesterol 29 mg/dl LDL Cholesterol, Calculated 25 mg/dl VLDL Cholesterol, Calculated 39 mg/dl Cholesterol/HDL Ratio 3.2 Assessment and Plan This is a 46 year old female with a PMH of antiphospholipid syndrome on Coumadin , hx. of multiple ischemic CVAs in 2012, HTN, uncontrolled DM2, tobacco use disorder presents with headache, nausea Migraine Headache in the setting of previous CVA admitted to r/o stroke Head CT, Brain MRI/MRA shows no acute infarct seems to suggest more of a sinus headache aspirin 81mg started and should be continued will monitor and manage risk factors continue Lipitor 40mg daily continue Coumadin with a goal INR of 2-3 Compazine 10mg and Benadryl as outpatient if migraine persists Uncontrolled DM2 Ha1c = 9.3% patient takes metformin and glipizide at home states she has had issues with metformin side effects discussed insulin - she is agreeable to start insulin if it is not expensive diabetic education consult placed; spoke with pharmacy glycemic control consult - will come up with an insulin regimen as outpatient while in patient we can continue the sliding scale Antiphospholipid Syndrome continue Coumadin will give an extra dose of Coumadin 5mg today (10/05) INR goal of 2-3; outpatient f/u with rheumatology Tobacco Use Disorder smoking cessation discussed she is attempting to wean off herself does not want nicotine patch HTN continue Lisinopril BP stable DVT ppx Coumadin FULL CODE
--- NOTE | 2016-10-05 13:10 | ECHOCARDIOGRAM REPORT ---
*NOTICE TO RECEIVING CONSTITUTION PARTY AGENCY This information is strictly Confidential and protected under [place] law. [place] law prohibits you from making any further disclosure of this information unless further disclosure is expressly permitted by the written consent of the person to whom it pertains or is authorized by law. A general authorization for the release of medical or other information is not sufficient for this purpose. Hospital accepts no responsibility if the information is made available to any other person, INCLUDING THE PATIENT. Interpretation Summary * Name: MARGE MAI Study Date: 10/05/2016 08:32 AM BP: 121/79 mmHg * Patient Location: C.2T\S\S242\S\2 HR: 77 * : 1970 (M/d/yyyy) Gender: Female Height: 62 in * Age: 46 yrs Ethnicity: CA Weight: 189 lb * Ordering Physician: Dalia Barrios * Referring Physician: Smiley Kebede * Performed By: Keturah Mosquera RCS * * Reason For Study: STROKE * BSA: 1.9 m2 * The study was technically adequate. * Compared to prior study, there is no significant change. * -- Conclusions -- * Ejection Fraction = 65-70%. * The left ventricular wall motion is normal. * No significant valvular pathology. * Injection of contrast documented no interatrial shunt. Procedure Details * A saline contrast injection was performed to assess for cardiac shunting. * A total of 18 cc of agitated saline was given. * The injection was performed through an intravenous line in the left arm. * The attending nurse who injected the saline contrast was TOMASZ Alba. * A complete two-dimensional transthoracic echocardiogram was performed (2D, M-mode, Doppler and color flow Doppler). Left Ventricle * The left ventricle is normal in size. * There is no thrombus. * There is normal left ventricular wall thickness. * Ejection Fraction = 65-70%. * Left ventricular systolic function is normal. * The left ventricular wall motion is normal. Right Ventricle * The right ventricular cavity size is normal (basal dimension <4.2 cm in right ventricular apical 4-chamber view). * The right ventricular systolic function is normal as assessed by tricuspid annular plane systolic excursion (TAPSE) (normal >1.5 cm). Atria * The left atrial size is normal. * Right atrial size is normal. * Injection of contrast documented no interatrial shunt. Mitral Valve * The mitral valve is normal. * There is no mitral valve stenosis. * Significant mitral regurgitation is absent. Tricuspid Valve * The tricuspid valve is normal. * There is no tricuspid stenosis. * There is trace tricuspid regurgitation. Aortic Valve * The aortic valve is trileaflet. * Aortic stenosis is absent. * There is no significant aortic regurgitation. Pulmonic Valve * The pulmonary valve is not well seen, but the Doppler examination is normal without significant regurgitation or stenosis. Great Vessels * The aortic root and proximal ascending aorta are normal sized. Pericardium/Pleural * There is no pericardial effusion. Great Vessels * Normal inferior vena cava diameter and respiratory variation suggests normal central venous pressure. Left Ventricular Diastolic Function * Tissue doppler was not performed. MMode 2D Measurements and Calculations IVSd 0.95 cm LVIDd 3.6 cm LVIDs 2.2 cm LVPWd 0.89 cm IVS/LVPW 1.1 FS 39.2 % EDV(Teich) 56.1 ml ESV(Teich) 16.5 ml EF(Teich) 70.6 % EDV(cubed) 48.4 ml ESV(cubed) 10.9 ml EF(cubed) 77.6 % LV mass(C)d 97.5 grams LV mass(C)dI 52.3 grams/m\S\2 SV(Teich) 39.6 ml SI(Teich) 21.2 ml/m\S\2 SV(cubed) 37.5 ml SI(cubed) 20.1 ml/m\S\2 Ao root diam 2.7 cm Ao root area 5.6 cm\S\2 LVOT diam 2.0 cm LVOT area 3.2 cm\S\2 LVAd ap4 24.8 cm\S\2 LVLd ap4 8.4 cm EDV(MOD-sp4) 59.6 ml EDV(sp4-el) 62.7 ml LVAs ap4 14.0 cm\S\2 LVLs ap4 6.7 cm ESV(MOD-sp4) 25.3 ml ESV(sp4-el) 24.9 ml EF(MOD-sp4) 57.5 % EF(sp4-el) 60.3 % LVAd ap2 23.6 cm\S\2 LVLd ap2 8.8 cm EDV(MOD-sp2) 51.3 ml EDV(sp2-el) 54.1 ml LVAs ap2 8.3 cm\S\2 LVLs ap2 6.1 cm ESV(MOD-sp2) 9.9 ml ESV(sp2-el) 9.5 ml EF(MOD-sp2) 80.6 % EF(sp2-el) 82.4 % LVLd %diff 4.5 % EDV(MOD-bp) 56.1 ml LVLs %diff -8.73 % ESV(MOD-bp) 16.5 ml EF(MOD-bp) 70.7 % SV(MOD-sp4) 34.2 ml SI(MOD-sp4) 18.3 ml/m\S\2 SV(MOD-sp2) 41.4 ml SI(MOD-sp2) 22.2 ml/m\S\2 SV(MOD-bp) 39.7 ml SI(MOD-bp) 21.3 ml/m\S\2 SV(sp4-el) 37.8 ml SI(sp4-el) 20.3 ml/m\S\2 SV(sp2-el) 44.6 ml SI(sp2-el) 23.9 ml/m\S\2 Doppler Measurements and Calculations MV E max sonny 102.5 cm/sec MV A max sonny 60.9 cm/sec MV E/A 1.7 MV dec time 0.13 sec Ao V2 max 130.7 cm/sec Ao max PG 6.8 mmHg Ao max PG (full) 3.2 mmHg RACHANA(V,A) 2.3 cm\S\2 RACHANA(V,D) 2.3 cm\S\2 LV V1 max PG 3.6 mmHg LV V1 max 95.4 cm/sec TR max sonny 184.8 cm/sec
[2016-10-05] MEDS ORDERED: ASPEC81 PO (13:28)
[2016-10-05] MEDS ORDERED: INSDGIPEN SC (13:28)
[2016-10-05] MEDS ORDERED: PROC1TAB5 PO (15:25)
[2016-10-05] MEDS ORDERED: DIPH25CA65 PO (15:25)
--- NOTE | 2016-10-05 15:45 | Discharge Instructions ---
Discharge Instructions Date of Service Oct 05, 2016. Admission Reason for Admission: Stroke-Like Symptoms Discharge Discharge Diagnosis / Problem: Migraine headache, Hx. of CVA, Uncontrolled DM2 Discharge Goals Goal(s): Decrease discomfort, Improve function, Diagnostic testing, Therapeutic intervention Activity Recommendations Activity Limitations: resume your previous activity . Instructions / Follow-Up Instructions / Follow-Up Please follow-up with Dr. Sullivan on October 10 at 12:45PM Your diabetes is uncontrolled - please follow-up with diabetic education as outpatient Take Compazine 10mg as needed for migraines Current Hospital Diet Patient's current hospital diet: AHA Diet (Heart Healthy), Diabetes Type 2 Diet Discharge Diet Recommended Diet: AHA Diet (Heart Healthy), Diabetes Type 2 Diet Pending Studies Studies pending at discharge: no Laboratory Results Hemoglobin A1c Test 10/04/16 17:12 Range/Units Estimated Average Glucose 220 mg/dl Hemoglobin A1c 9.3 H 4.5-5.6 % Lipid Panel Test 10/05/16 06:45 Range/Units Triglycerides Level 193 H 0-150 mg/dl Cholesterol Level 93 0-200 mg/dl HDL Cholesterol 29 mg/dl Cholesterol/HDL Ratio 3.2 LDL Cholesterol, Calculated 25 mg/dl Medical Emergencies . Who to Call and When: Medical Emergencies: If at any time you feel your situation is an emergency, please call 911 immediately. . Non-Emergent Contact Non-Emergency issues call your: Primary Care Provider . . "Provider Documentation" section prepared by Serafin Feliz. . VTE Core Measure Inpt VTE Proph given/why not?: Warfarin (Coumadin)
--- NOTE | 2016-10-05 15:53 | Discharge Summary ---
Discharge Summary Date of Service Oct 05, 2016. Discharge Summary Admission Date: Oct 04, 2016 at 18:04 Discharge Date: Oct 05, 2016 Discharge Disposition: Home Principal Diagnosis: Migraine Hx. of CVA Uncontrolled DM2 Medication Reconciliation New Medications: Diphenhydramine Hcl (Benadryl Allergy) 25 Mg Cap 1 CAP PO HS PRN for Migraine for 10 Days, #30 CAP 0 Refills Prochlorperazine Maleate (Compazine) 10 Mg Tab 1 TAB PO Q6 PRN for Migraine for 10 Days, #40 TAB 0 Refills Aspirin (Aspirin EC Low Dose) 81 Mg Ectab 81 MG PO QAM for 30 Days, #30 TABS Continued Medications: Atorvastatin (Lipitor) 40 Mg Tab 40 MG PO DAILY, TAB Gabapentin (Neurontin) 300 Mg Cap 300 MG PO TID, CAP Glipizide (Glipizide) 10 Mg Tab 10 MG PO BID Lisinopril (Lisinopril) 10 Mg Tab 10 MG PO DAILY Metformin Hcl (Glucophage) 500 Mg Tab 500 MG PO QPM, TAB Metformin Hcl (Glucophage) 1,000 Mg Tab 1000 MG PO QAM, TAB Warfarin Sod (Coumadin) 5 Mg Tab 5 MG PO UD Take 5 mg by mouth on Saturday, Saturday, and Saturday. Warfarin Sod (Coumadin) 5 Mg Tab 2.5 MG PO UD Take 2.5 mg by mouth on Saturday, Saturday, , Saturday. Admission Information HPI (per Admitting provider): This is a 46 year old female with PMH of CVA x 2 in 2012, HTN, HL, DM type 2, antiphospholipid antibody syndrome on Coumadin, tobacco abuse, migraines, and other problems listed below who presents to the ED for headache. Patient states around 3:15 PM today she developed severe throbbing headache in bilateral frontal regions and behind her left eye. She reports associated worsening baseline balance difficulty, throat tightness, photophobia, chills. She reports visual aura yesterday with black spots. Patient reports similar array of symptoms with prior migraines. She usually takes 4 ibuprofen, a soda, and a candy bar for her migraines, however did not take anything at home today. Shortly after CALHOUN started patient presented to an appointment at Dr. Kebede's office (hematology) and was advised to present to ER via ambulance, however she declined and was driven to ER by her . In the ER patient had an unremarkable head CT. She was treated with compazine and Benadryl and states she is feeling much better. She reports chronic slight right facial droop and LUE and LLE weakness from prior strokes which are unchanged. Has chronic numbness of toes bilaterally from neuropathy but no acute numbness. Has chronic R ear tinnitus and hearing loss. Denies slurred speech, swallowing difficulty, neck stiffness, fever, URI symptoms, cough, SOB, chest pain, vomiting, diarrhea , urinary symptoms. Patient notes 3-4 weeks ago she had a 20 minute episode of worsened balance, "deer in the headlights" look as per her , and difficulty remember the letter "G" when reciting the alphabet. She had a slight CALHOUN at that time. Patient states the episode was "no big deal" and therefore she did not seek evaluation. Patient states she has not seen a neurologist since hospitalization in 2012 due to losing her insurance. She was seen by Dr. Bynum when hospitalized in 2012 twice for left cerebellar stroke and left frontoparietal stroke. JULIET in 01/2013 showed mild atrial septal wall aneurysm but no PFO or ASD. It appears on 01/2013 discharge she was supposed to change from aspirin to Plavix. However according to the patient she was on aspirin until she self- discontinued it in 2012 when she started Coumadin. Patient was recently seen by rheumatology Dr. Roberson who suspected antiphospholipid antibody syndrome and she was continued on Coumadin and referred her to hematology. Pt denies hx of arrhythmia. Physical Exam (per Admitting): General Appearance: WD/WN, no apparent distress, + pertinent finding (alert cooperative 46 year old female) Head: normocephalic, atraumatic Eyes: normal inspection, PERRL, EOMI, sclerae normal ENT: hearing grossly normal, TMs normal, pharynx normal Neck: supple, trachea midline Respiratory/Chest: lungs clear, normal breath sounds, no respiratory distress Cardiovascular: regular rate, rhythm, no murmur Abdomen/GI: normal bowel sounds, non tender, soft Extremities/Musculoskelatal: no calf tenderness, no pedal edema Neurologic/Psych: testing shaking shipping II-XII nml as tested, alert, normal mood/affect, oriented x 3, + pertinent finding (chronic LUE and LLE mild weakness (motor 4/5 ) from prior stroke. no sensory deficit. no drift. finger to nose intact on the right, not done on the left due to pain from bending elbow at IV site.) Skin: normal color, warm/dry Hospital Course This is a 46 year old female with a PMH of antiphospholipid syndrome on Coumadin , hx. of multiple ischemic CVAs in 2012, HTN, uncontrolled DM2, tobacco use disorder presents with headache, nausea Migraine Headache in the setting of previous CVA admitted to r/o stroke Head CT, Brain MRI/MRA shows no acute infarct seems to suggest more of a sinus headache aspirin 81mg started and should be continued will monitor and manage risk factors continue Lipitor 40mg daily continue Coumadin with a goal INR of 2-3 Compazine 10mg and Benadryl as outpatient if migraine persists Uncontrolled DM2 Ha1c = 9.3% patient takes metformin and glipizide at home states she has had issues with metformin side effects discussed insulin - she is agreeable to start insulin if it is not expensive diabetic education consult placed; spoke with pharmacy glycemic control consult - will come up with an insulin regimen as outpatient while in patient we can continue the sliding scale Antiphospholipid Syndrome continue Coumadin will give an extra dose of Coumadin 5mg today (10/05) INR goal of 2-3; outpatient f/u with rheumatology Tobacco Use Disorder smoking cessation discussed she is attempting to wean off herself does not want nicotine patch HTN continue Lisinopril BP stable DVT ppx Coumadin FULL CODE Total time spent on discharge = 55 minutes This includes examination of the patient, discharge planning, medication reconciliation, and communication with other providers. Discharge Instructions Please follow-up with Dr. Sullivan on October 10 at 12:45PM Your diabetes is uncontrolled - please follow-up with diabetic education as outpatient Take Compazine 10mg as needed for migraines
[2016-10-06] MEDS ORDERED: WARFARIN SOD 2.5 MG TAB PO SCH (16:00)
== END 2016-10-05 16:10 | disposition home or self-care (01) | DRG 103 ==
LOC: C.EDB 16:51 → C.2T 18:04 → ENRESERV 18:08 → C.2T 19:02
PROVIDERS: ADMIT Internal Medicine; ATTEND Family Medicine
DX: G43.919 Migraine, unspecified, intractable, without status migrainosus (principal); I69.354 Hemiplegia and hemiparesis following cerebral infarction affecting left non-dominant side; D68.62 Lupus anticoagulant syndrome; E11.65 Type 2 diabetes mellitus with hyperglycemia; E78.5 Hyperlipidemia, unspecified; I10 Essential (primary) hypertension; F17.200 Nicotine dependence, unspecified, uncomplicated; Z79.01 Long term (current) use of anticoagulants; Z79.84 Long term (current) use of oral hypoglycemic drugs; Z79.899 Other long term (current) drug therapy; Z83.3 Family history of diabetes mellitus

== ENCOUNTER → 2016-12-08 | Outpatient (CLI) | payer OTHER ==
[~2016-12-08] MED LIST changes: -ALBU1AER9 INH; +ASPEC81 PO; +ATOR-24 PO; -BUPR-79 PO; -CLOP1TAB5 PO; +CMD5 PO; +DIPH25CA65 PO; -DOXY1TAB6 PO; +GABA-113 PO; +GLC/500 PO; +GLIP10TA10 PO; +METF1000 PO; -OMEP40CA PO; +PROC1TAB5 PO; -SIMV10TA2 PO
--- NOTE | 2016-12-09 06:04 | PAP/PSG TECHNICIAN REPORT ---
[facility] Chain Sales Consultant Polysomnogram Report Study name: None Report date: 12/09/2016 Study date: 12/08/2016 Referring Physician: Minda JONES M.D. Name: MARGE HERRERA Interpreting Physician: Jaleesa Jones M.D. Date of : 1970 Chain Sales Consultant: Andreea Reynolds RPSGT. Sex: Female Age: 46 Study Type: PSG Weight: 190 lbs 15.5 in Height: 46 years, Height 5' 2" Neck Circum: BMI: 34.75 Medications: ASPIRIN 81 MG, METFORMIN 500 MG, GLIPIZIDE 10 MG, ATORVASTATIN 40 MG, LISINOPRIL 10 MG, WARFARIN 5 MG, GABAPENTIN 300 MG Patient History 46 yr-old female here for a baseline/split study. She has a history some insomnia, frequent awakenings, daytime sleepiness, and has had 2 CVAs that left her with balance and weakness issues. Her [place] scale is 13. The test was started on room air. ETCO2 testing was not utilized during this study. Room 1 Parameters Monitored NPSG: E1-M2, E2-M1, Fp1-M2, Fp2-M1, F3-M2, F4-M2, F4-M1, C3-M2, C4-M2, C4-M1, O1-M2, O2-M2, O2-M1, T3-M2, T4-M1, P3-M2, P4-M1, CHIN1, CHIN2, HR, EKG, Legs, PFLOW, SNOR, FLOW, CFLOW, Tidal Volume, THOR, ABDO, SpO2, PLTH, CPRESS, ETCO2 Wave, ETCO2, pH Sleep Architecture Sleep Stages Time at Lights Off 9:34:29 PM STAGES Time (min.) TST (%) Time at Lights On 5:37:59 AM Wake 76.5 -- Total Recording Time (TRT) 483.50 min. N1 37.0 9 Total Sleep Period (TSP) 473.5 min. N2 266.5 65 Total Sleep Time (TST) 407.0min. N3 35.0 9 Awake Time 76.5 min. REM 68.5 17 Wake after Sleep Onset 66.5 min. Sleep Efficiency (SE) 84 % Sleep Onset Latency (EDDIE) 10.0 min. Number of Stage 1 Shifts None Awakenings 14 Stage Changes 82 Number of REM periods 6 REM 68.5 17 REM Latency 86.0 min. NREM 338.5 83 Body Position Analysis Supine Right Left Side Prone Vertical Total Sleep Time (min.) 276.3 139.7 52.5 192.22 0.0 0.4 Total Sleep Time (%) 53% 34% 13% 47 0% N/A% Total Sleep Time REM (min.) 52.5 16.0 0.0 None 0.0 0.0 Total Sleep Time NREM (min.) 162.3 123.7 52.5 None 0.0 0.0 Intermittent Wake (min.) 61.5 5.6 8.8 None 0.0 0.4 Total Sleep Period (%) 56% None None None None None Arousals Myoclonus (PLM) * Events Count Index Events Count Index Spontaneous 19 3 Events Awake (PLMW) 89 69.8 Respiratory 8 1.2 Events Asleep w/ Arousal (PLMA) 9 1.3 PLM 9 1 Events Asleep w/o Arousal (PLMS) 24 3.5 Snoring 13 2 Total Asleep 33 4.9 Total 48 7 Total 122 15 Respiratory Analysis * CA OA MA CH H RERA Total Count 1 5 0 0 74 1 80 Index 0.1 0.7 0.0 0 10.9 0 11.9 Mean Duration 12.4 16.0 0.0 0.00 16.0 18.7 16.0 Longest Duration 12.4 23.4 0.0 0.00 0.0 18.7 43.6 Respiratory Event Summary Total Supine ~Supine Right Left Prone REM NREM Apneas Count 6 1 5 5 0 N/A 6 0 Index 0.9 0 2 2.1 0.0 N/A 5 0 Hypopneas (4% Desat) Count 74 66 8 8 0 N/A 65 9 Index 10.9 18.4 2 3.4 0.0 N/A 56.9 1.6 Apneas & All Hypopneas Count 80 67 13 13 0 N/A 71 9 Index 11.8 19 4 6 0 N/A 62.2 1.6 Respiratory Events (Pharmacy Customer Care Specialist+All Hyp+RERA) Count 80 68 13 13 0 N/A 71 9 Index 11.9 19 4 5.6 0.0 N/A 62.2 1.8 Respiratory Related Arousal Count 8 68 2 2 0 N/A 6 2 Index 1.2 2 1 1 0 N/A 5 0 Snoring Analysis Supine Right Left Prone REM NREM Total Snore duration 119.1 min Snores count 2,305 2,022 849 N/A 910 4,266 5,176 Snore mean duration 1.4 Sec Snores index 644 868 970 N/A 797.1 756.2 763.0 TST with snoring (%) 29.3% Desaturation Event Summary: Minimum %SpO2 Event Count Mean/Min/Max Duration(sec.) Desaturation Index % Time In Bed > 90 47 30.8 / 12.8 / 60.0 87.5 6.8 86 - 90 66 25.1 / 5.8 / 59.8 17.6 47.3 81 - 85 47 17.6 / 5.8 / 47.0 13.5 43.9 76 - 80 2 10.0 / 9.0 / 11.0 13.8 1.8 71 - 75 0 N/A 0.0 0.1 66 - 70 0 N/A 0.0 0.0 61 - 65 0 N/A 0.0 0.0 56 - 60 0 N/A 0.0 0.0 51 - 55 0 N/A 0.0 0.0 < 50 0 N/A 0.0 0.0 Total REM NREM Awake <50% 0.0 min. 0.0 min. 0.0 min. 0.0 min. 51 - 60% 0.0 min. 0.0 min. 0.0 min. 0.0 min. 61 - 70% 0.0 min. 0.0 min. 0.0 min. 0.0 min. 71 - 80% 9.3 min. 9.0 min. 0.3 min. 0.1 min. 81 - 90% 433.1 min. 55.4 min. 330.1 min. 47.6 min. 91 - 100% 32.2 min. 4.1 min. 8.1 min. 20.0 min. Average 86 85 86 89 Minimum SpO2 70 70 77 80 Desaturation Event Index 15.3 70.1 3.2 20.4 # Desat. Events below 89% 113 79 18 16 Time(%) with Saturation below 89% 77.4 11.8 57.8 7.8 Time(min.) with Saturation below 89% 367.3 56.0 274.5 36.8 Time (mins) REM (mins) NREM (mins) % of TST SpO2 Below 90% 97 79 N18 90.6 SpO2 Below 88% 38 0 0 70 Heart Rate Analysis Min (bpm) Max (bpm) Average (bpm) Awake 63 108 76 NREM 61 98 75 REM 61 96 79 Overall 61 98 76 Supplemental O2 Values Minimum O2 level: None Value Start Time End Time Chain Sales Consultant Comments Ms. Herrera slept in the right, left, and supine positions. No cardiac arrhythmias or PLMs noted. No bruxism noted. Snoring was noted and scored as a 3 on a scale of 1 through 5. (0=no snoring, 5=snoring loud enough to be heard through a closed door or down the carr way) She did not meet specific Split-Night criteria during the diagnostic portion of this study. She awoke to use the restroom two times during the night. Ms. Herrera stated that she slept poorly. The final report will be interpreted and signed by a sleep physician. The completed physician report will then be placed in the patient medical record. Therapy (cm H2O) 0 TIB (min.) 483.5 TST (min.) 407.0 Sleep Onset (min.) 10.0 REM Onset From Sleep (min.) 86.0 Sleep Efficiency % 84 Wakefulness (%) 16 Wakefulness (min.) 76.5 NREM 1 (%) 9 NREM 1 (min.) 37.0 NREM 2 (%) 65 NREM 2 (min.) 266.5 NREM 3 (%) 9 NREM 3 (min.) 35.0 REM (%) 17 REM (min.) 68.5 # Arousals 48 Arousal Index 7 # Snore 5,176 Snore Index 763.0 AHI 11.8 AHI Supine 19 AHI Non-Supine 4 NREM AHI 1.6 REM AHI 62.2 RDI 11.9 # Obstructive Apnea 5 # Central Apnea 1 # Mixed Apnea 0 # Hypopneas 74 RERAs 1 Total Respiratory Events 81 Time Below SpO2 89% (min.) 330.5 Mean NREM SpO2 (%) 86 Mean REM SpO2 (%) 85 Mean Sleep SpO2 (%) 86 Min NREM SpO2 (%) 77 Min REM SpO2 (%) 70 Position Supine (min.) 276.3 Position Non-supine (min.) 192.2 LM Index Sleep 4.9 LM Index NREM 3.9 LM Index REM 9.6 Mean Heart Rate (bpm) 76 Min Heart Rate (bpm) 61
--- NOTE | 2016-12-24 19:20 | POLYSOMNOGRAPH REPORT ---
REFERRING PERSON: Dr. Shen Jones. 8TH GRADE TEACHER: Andreea Reynolds. Ms. Herrera is a 46-year-old female sent for baseline sleep study. She has a history of some insomnia, frequent awakenings, excessive daytime sleepiness and has had 2 CVAs that have left her with balance and weakness tissues. Her [place] sleepiness scale score on the evening of this study is 13. BMI is 34.75. Following the technical and digital specifications of the [place] [employer] (AASM) a standard diagnostic polysomnogram was performed monitoring EEG, EOG, EMG (chin and leg deviations), oxygen saturation, body position, digital video, respiratory effort and airflow. The sleep Stage and event scoring was based on the AASM Manual for the Scoring of Sleep and Associated Events 2007 edition. Apneas are defined as a drop in the peak thermal sensor excursion by >90% of baseline for at least 10 seconds. Hypopneas were scored using the 4% oxygen desaturation rule (4A-Medicare) and a decrease in the nasal pressure excursions by >30% of baseline for at least 10 seconds. Respiratory effort-related arousal (RERA's) is defined as a sequence of breaths lasting at least 10 seconds characterized by increasing respiratory effort or flattening of the nasal pressure waveform leading to an arousal from sleep when the sequence of breaths does not meet criteria for an apnea or hypopnea. Apnea Hypopnea index (AHI) is defined as the number of apneas and hypopneas occurring in an hour of sleep. Respiratory disturbance index (RDI) is defined as the number of apneas, hypopneas, and RERA's occurring in an hour of sleep. Ms. Herrera's total sleep period time was 473.5 minutes. Total sleep time was 407 minutes. Sleep efficiency was 84%. Latency to sleep onset was 10 minutes. Wake after sleep onset was 66.5 minutes. Total non-REM sleep time was 338.5 minutes. She spent 9% of that time in N1 sleep, 65% in N2 sleep and 9% in N3 sleep. REM latency was 86 minutes. Total REM sleep time was 68.5 minutes or 17% of total sleep time. There were 48 cortical arousals from sleep. Nineteen of these arousals were spontaneous, 8 were due to respiratory events, 9 were due to periodic limb movements of sleep and 13 were due to snoring. There were 33 periodic limb movements noted on this test. Limb movement index was 4.9. Limb movement with arousal index was 1.3. There was 1 central, 5 obstructive and no mixed apnea on this test. There were 74 hypopneas and 1 RERA. Apnea-hypopnea index was 11.8 consistent with mild sleep apnea. Supine AHI was 19 and REM AHI was 62.2. Most of these respiratory events did occur when the patient was in REM sleep. Five thousand one hundred and seventy six snoring events were recorded. Total sleep time with snoring was 29.3%. This is significant snoring on this test. Mean saturation was low at 86% with desaturations with respiratory events to 70%. Saturations were less than 89% for 367.3 minutes of recorded time. This is very significant nocturnal hypoxemia. There was no cardiac ectopy noted on this study. Heart rates during sleep ranged from a low of 61 beats per minute to a high of 98 beats per minute during sleep. IMPRESSION AND PLAN: Ms. Herrera is a 46-year-old female with mild obstructive sleep apnea which is worse on her back and when in REM sleep, but this is very significant nocturnal hypoxemia which also worsens in REM sleep. 1. This patient would likely benefit from positive airway pressure therapy. She should return to sleep lab for a full night titration and then based on those results be started on equipment at home. A download from her machine should be reviewed in 1 month both to check compliance as well as apnea-hypopnea index and further pressure adjustments can occur at that time. 2. Should this patient be unwilling or unable to tolerate CPAP therapy, she should be started on nocturnal oxygen (if her insurance allows) and be referred to ear, nose and throat or oral surgery/dental medicine to discuss alternative treatments for sleep disorder breathing.
== END | disposition home or self-care (01) ==
LOC: C.NEUR 20:00
PROVIDERS: ATTEND Family Medicine
DX: G47.33 Obstructive sleep apnea (adult) (pediatric) (principal)

== ENCOUNTER 2017-07-14 13:09 | Emergency (ER) | payer OTHER ==
[~2017-07-14] VITALS: Ht 157.5 cm; Wt 92.5 kg
[~2017-07-14 13:09] MED LIST changes: -ASPEC81 PO; +ASPI-320 PO
[2017-07-14 13:12] VITALS: TEMP 36.6; Ht 157.5 cm; Wt 92.5 kg
[2017-07-14] MEDS ORDERED: SODIUM CHLORIDE 0.9% 1000ML 1,000 ML IV ONE (13:45)
[2017-07-14 14:07] LABS: BASO % 0.2 %; BASO ABS # 0.02 K/uL (0-0.2); EOS ABS # 0.17 K/uL (0-0.5); HEMATOCRIT 39.7 % (37-47); HEMOGLOBIN 14.1 g/dL (12.0-16.0); IG# 0.04 K/uL (0.00-0.02); LYMPH % 22.4 %; LYMPH ABS # 1.92 K/uL (1.2-3.4); MEAN CELL VOLUME 91.1 fL (80-100); MEAN CORPUSCULAR HEMOGLOBIN 32.3 pg (25-34); MEAN CORPUSCULAR HGB CONC 35.5 g/dl (32-36); MEAN PLATELET VOLUME 10.9 fL (7.4-10.4); MONO % 4.8 %; MONO ABS # 0.41 K/uL (0.11-0.59); NEUT % 70.1 %; NEUT ABS # 6.01 K/uL (1.4-6.5); PLATELET COUNT 209 K/uL (130-400); RED CELL DISTRIBUTION WIDTH CV 13.5 % (11.5-14.5); RED CELL DISTRIBUTION WIDTH SD 44.6 fL (36.4-46.3); WHITE BLOOD COUNT 8.57 K/uL (4.8-10.8)
[2017-07-14] MEDS ORDERED: CITA-295 PO (14:18)
[2017-07-14 14:25] LABS: ALBUMIN 3.3 gm/dl (3.4-5.0); CALCIUM 8.6 mg/dl (8.5-10.1); CREATININE 0.85 mg/dl (0.60-1.20); INR 1.8 (0.9-1.1); POTASSIUM 3.4 mmol/L (3.5-5.1)
--- NOTE | 2017-07-14 14:26 | DIAGNOSTIC IMAGING REPORT ---
CT SCAN OF THE ABDOMEN AND PELVIS WITHOUT IV CONTRAST CLINICAL HISTORY: Low back pain. Hematuria. COMPARISON STUDY: Pelvic ultrasound dated 12/02/2008. TECHNIQUE: CT scan of the abdomen and pelvis is performed from the lung bases to the proximal femora. Images are reviewed in the axial, sagittal, and coronal planes. IV contrast was not administered for this examination as per the referring clinician. Note that the examination was performed in suboptimal fashion without oral and IV contrast A dose lowering technique was utilized adhering to the principles of ALARA. CT DOSE: 786.63 mGy.cm FINDINGS: Lung bases: The heart is normal in size and without pericardial effusion. The lung bases are clear noting dependent atelectasis. Liver: The unenhanced liver is enlarged, measuring 19.3 cm in length. The liver demonstrates diffusely diminished attenuation consistent with hepatic steatosis. Fatty sparing is seen adjacent to gallbladder fossa. There is no intrahepatic biliary ductal dilatation. Gallbladder: Unremarkable. Spleen: Normal in size and attenuation. Pancreas: Unremarkable. Adrenal glands: Unremarkable. Kidneys: The unenhanced kidneys are normal in size and without hydronephrosis. There are no renal calculi identified. There is no evidence of contour deforming renal mass lesion. Abdominal vasculature: The abdominal aorta is normal in course and caliber. Bowel: The small bowel and colon are normal in course and caliber. The appendix is well-visualized and normal. Peritoneum: There is no intraperitoneal free air or abdominal ascites. There is a fat-containing umbilical hernia. Lymphadenopathy: None. Pelvic viscera: The bladder, uterus, and adnexa are normal as visualized. Skeletal structures: No lytic or blastic lesions are seen. IMPRESSION: 1. There are no acute infectious or inflammatory findings in the abdomen or pelvis. 2. Hepatomegaly and mild hepatic steatosis. Electronically signed by: Natan Hyde M.D. 07/14/2017 2:25 PM Dictated Date/Time: 07/14/2017 2:20 PM
[2017-07-14 14:28] LABS: TOTAL PROTEIN 7.3 gm/dl (6.4-8.2)
[2017-07-14 14:32] LABS: PTT PATIENT 49.3 SECONDS (21.0-31.0)
[2017-07-14 15:27] VITALS: BP 120/62; PULSE 73; O2SAT 97
[2017-07-14] MEDS ORDERED: CEPHALEXIN 500MG HOME PACK 1 EA BTL PO ONE (15:30)
[2017-07-14] MEDS ORDERED: CEPH500C PO (15:36)
--- NOTE | 2017-07-14 19:22 | EMERGENCY ROOM VISIT NOTE ---
History First contact with patient: 13:20 Chief Complaint: URINARY SYMPTOMS Stated Complaint: PEEING BLOOD,LEFT SIDE PAIN History of Present Illness The patient is a 47 year old female who presents to the Emergency Room with complaints of blood in her urine that began first thing this morning upon awakening. The patient states that she is on blood thinners for history of TIA/ CVA, and her last Coumadin number was 2.7. She forgot to take her dose last night. The patient is complaining of some very low left-sided back pain that began spontaneously today as well. The pain is not colicky and does not radiate. She has not had fever or chills. No chest pain, chest tightness, shortness of breath, or abdominal pain. The patient has not had similar symptoms like this in the past. She rates her current discomfort as 0/10. Review of Systems More than 10 systems were reviewed and otherwise negative with the exception of history of present illness. Past Medical/Surgical History Medical Problems: (1) Antiphospholipid antibody syndrome (2) CVA (cerebral vascular accident) (3) DM type 2 (diabetes mellitus, type 2) (4) Dyslipidemia (5) Hearing loss (6) Hypertension (7) Migraine (8) Migraine with aura (9) Ovarian cyst (10) Stroke-like symptoms (11) Unspecified ulcers Surgical Problems: (1) H/O tympanostomy (2) S/P tonsillectomy and adenoidectomy Family History Cardiac disorder FATHER Diabetes mellitus FATHER FH: lupus SISTER Hypertension FATHER MOTHER SISTER Social History Smoking Status: Current Every Day Smoker Alcohol Use: occasionally Drug Use: none Marital Status: Housing Status: lives with family Occupation Status: employed, other Current/Historical Medications Scheduled Aspirin (Aspirin EC Low Dose), 81 MG PO QAM Atorvastatin (Lipitor), 40 MG PO DAILY Cephalexin Monohydrate (Keflex), 500 MG PO TID Citalopram Hydrobromide (Citalopram), 20 MG PO DAILY Gabapentin (Neurontin), 300 MG PO TID Glipizide (Glipizide), 10 MG PO BID Lisinopril (Lisinopril), 10 MG PO DAILY Metformin Hcl (Glucophage), 500 MG PO AMPM Warfarin Sod (Coumadin), 5 MG PO 5XWK Warfarin Sod (Coumadin), 2.5 MG PO 2XWK Physical Exam Vital Signs Date Time Temp Pulse Resp B/P (MAP) Pulse Ox O2 Delivery O2 Flow Rate FiO2 07/14/17 15:27 73 18 120/62 97 Room Air 07/14/17 14:54 75 18 116/86 98 Room Air 07/14/17 13:12 36.6 93 18 128/86 96 Room Air Physical Exam VITALS: Vitals are noted on the nurse's note and reviewed by myself. Vital signs stable. GENERAL: Well-developed, well-nourished, white female, who is in no acute distress and resting comfortably. Patient is cooperative with the examination. HEAD: Normocephalic atraumatic. HEART: Regular rate and rhythm without murmurs gallops or rubs. LUNGS: Clear to auscultation bilaterally without wheezes, rales or rhonchi. No retractions or accessory muscle use. ABDOMEN: Positive normal bowel sounds x 4. Soft, nontender, without masses or organomegaly. No guarding or rebound tenderness. No CVA tenderness. MUSCULOSKELETAL: No muscle atrophy, erythema, or edema noted. Full range of motion in all extremities. No tenderness to palpation. Medical Decision & Procedures ER Provider Diagnostic Interpretation: CT SCAN OF THE ABDOMEN AND PELVIS WITHOUT IV CONTRAST CLINICAL HISTORY: Low back pain. Hematuria. COMPARISON STUDY: Pelvic ultrasound dated 12/02/2008. TECHNIQUE: CT scan of the abdomen and pelvis is performed from the lung bases to the proximal femora. Images are reviewed in the axial, sagittal, and coronal planes. IV contrast was not administered for this examination as per the referring clinician. Note that the examination was performed in suboptimal fashion without oral and IV contrast A dose lowering technique was utilized adhering to the principles of ALARA. CT DOSE: 786.63 mGy.cm FINDINGS: Lung bases: The heart is normal in size and without pericardial effusion. The lung bases are clear noting dependent atelectasis. Liver: The unenhanced liver is enlarged, measuring 19.3 cm in length. The liver demonstrates diffusely diminished attenuation consistent with hepatic steatosis. Fatty sparing is seen adjacent to gallbladder fossa. There is no intrahepatic biliary ductal dilatation. Gallbladder: Unremarkable. Spleen: Normal in size and attenuation. Pancreas: Unremarkable. Adrenal glands: Unremarkable. Kidneys: The unenhanced kidneys are normal in size and without hydronephrosis. There are no renal calculi identified. There is no evidence of contour deforming renal mass lesion. Abdominal vasculature: The abdominal aorta is normal in course and caliber. Bowel: The small bowel and colon are normal in course and caliber. The appendix is well-visualized and normal. Peritoneum: There is no intraperitoneal free air or abdominal ascites. There is a fat-containing umbilical hernia. Lymphadenopathy: None. Pelvic viscera: The bladder, uterus, and adnexa are normal as visualized. Skeletal structures: No lytic or blastic lesions are seen. IMPRESSION: 1. There are no acute infectious or inflammatory findings in the abdomen or pelvis. 2. Hepatomegaly and mild hepatic steatosis. Laboratory Results 07/14/17 13:50 Red Blood Count 4.36, Mean Corpuscular Volume 91.1, Mean Corpuscular Hemoglobin 32.3, Mean Corpuscular Hemoglobin Concent 35.5, Mean Platelet Volume 10.9, Neutrophils (%) (Auto) 70.1, Lymphocytes (%) (Auto) 22.4, Monocytes (%) (Auto) 4.8, Eosinophils (%) (Auto) 2.0, Basophils (%) (Auto) 0.2, Neutrophils # (Auto) 6.01, Lymphocytes # (Auto) 1.92, Monocytes # (Auto) 0.41, Eosinophils # (Auto) 0.17, Basophils # (Auto) 0.02 07/14/17 13:50 Test 07/14/17 13:50 White Blood Count 8.57 K/uL (4.8-10.8) Red Blood Count 4.36 M/uL (4.2-5.4) Hemoglobin 14.1 g/dL (12.0-16.0) Hematocrit 39.7 % (37-47) Mean Corpuscular Volume 91.1 fL (80-100) Mean Corpuscular Hemoglobin 32.3 pg (25-34) Mean Corpuscular Hemoglobin Concent 35.5 g/dl (32-36) Platelet Count 209 K/uL (130-400) Mean Platelet Volume 10.9 fL (7.4-10.4) Neutrophils (%) (Auto) 70.1 % Lymphocytes (%) (Auto) 22.4 % Monocytes (%) (Auto) 4.8 % Eosinophils (%) (Auto) 2.0 % Basophils (%) (Auto) 0.2 % Neutrophils # (Auto) 6.01 K/uL (1.4-6.5) Lymphocytes # (Auto) 1.92 K/uL (1.2-3.4) Monocytes # (Auto) 0.41 K/uL (0.11-0.59) Eosinophils # (Auto) 0.17 K/uL (0-0.5) Basophils # (Auto) 0.02 K/uL (0-0.2) RDW Standard Deviation 44.6 fL (36.4-46.3) RDW Coefficient of Variation 13.5 % (11.5-14.5) Immature Granulocyte % (Auto) 0.5 % Immature Granulocyte # (Auto) 0.04 K/uL (0.00-0.02) Prothrombin Time 18.6 SECONDS (9.0-12.0) Prothromb Time International Ratio 1.8 (0.9-1.1) Activated Partial Thromboplast Time 49.3 SECONDS (21.0-31.0) Partial Thromboplastin Ratio 1.9 Urine Color YELLOW Urine Appearance CLEAR (CLEAR) Urine pH 5.5 (4.5-7.5) Urine Specific Jenison 1.030 (1.000-1.030) Urine Protein NEG (NEG) Urine Glucose (UA) 3+ (NEG) Urine Ketones TRACE (NEG) Urine Occult Blood 2+ (NEG) Urine Nitrite NEG (NEG) Urine Bilirubin NEG (NEG) Urine Urobilinogen NEG (NEG) Urine Leukocyte Esterase NEG (NEG) Urine WBC (Auto) 1-5 /hpf (0-5) Urine RBC (Auto) 0-4 /hpf (0-4) Urine Hyaline Casts (Auto) 1-5 /lpf (0-5) Urine Epithelial Cells (Auto) >30 /lpf (0-5) Urine Bacteria (Auto) NEG (NEG) Urine Test NEG (NEG) Anion Gap 8.0 mmol/L (3-11) Est Creatinine Clear Calc Drug Dose 85.7 ml/min Estimated GFR () 93.9 Estimated GFR (Non- 81.0 BUN/Creatinine Ratio 11.3 (10-20) Calcium Level 8.6 mg/dl (8.5-10.1) Total Bilirubin 0.5 mg/dl (0.2-1) Aspartate Amino Transf (AST/SGOT) 17 U/L (15-37) Alanine Aminotransferase (ALT/SGPT) 38 U/L (12-78) Alkaline Phosphatase 124 U/L (45-117) Total Protein 7.3 gm/dl (6.4-8.2) Albumin 3.3 gm/dl (3.4-5.0) Globulin 4.0 gm/dl (2.5-4.0) Albumin/Globulin Ratio 0.8 (0.9-2) Lipase 291 U/L (73-393) Medications Administered Medications (Trade) Dose Ordered Sig/Pricilla Route Start Time Stop Time Status Last Admin Dose Admin Sodium Chloride 1,000 ml @ 999 mls/hr Q1H1M ONCE IV 07/14/17 13:45 07/14/17 14:45 DC 07/14/17 13:45 999 MLS/HR Cephalexin Monohydrate (Keflex 500MG Home Pack) 1 homepack NOW ONCE PO 07/14/17 15:30 07/14/17 15:31 DC 07/14/17 15:24 1 HOMEPACK ED Course Physical exam and history were performed. Nursing notes, EMR, and Medication List were personally reviewed. Patient appears to have hematuria with some vague left-sided low back pain that began today. The patient does have a picture of her toilet with obvious blood in the urine. The patient is on Coumadin. IV access was established and labs were obtained. She was hydrated with normal saline. Because of her discomfort I did elect to perform a CT scan of the abdomen and pelvis. The patient's blood work is as above and was reviewed. She does not have a significantly elevated white blood cell count, gross anemia, bandemia, or significant electrolyte imbalance. Transaminases are not diagnostic. Her urine does have blood. She is not . INR is 1.8. CT scan is as above and was reviewed by myself and radiology as showing no significant acute process. Specifically the patient does not appear to have a ureteral calculi or evidence of infection on CT. The patient case was discussed with my attending physician, Dr. Franco, who also independently evaluated the patient. The patient appears well and is felt to be stable for discharge home. She will be started on a short course of Keflex as infection may be the etiology of her symptoms with cultures pending. The patient is to follow-up with her PCP in the next few days for a recheck. She may need cystoscopy if symptoms persist without further obvious findings. The patient was otherwise invited back to the ER with any new, worsening, or concerning symptoms. She was pleased with this plan and voiced understanding. She was discharged home under the care of her who is acting as a motor pool driver today. The chart was completed utilizing [employer] Speech Voice Recognition Software. Grammatical errors, random word insertions, pronoun errors, and incomplete sentences are an occasional consequence of this system due to software limitations, ambient noise, and hardware issues. Any formal questions or concerns about the content, text, or information contained within the body of this dictation should be directly addressed to the provider for clarification. . Medical Decision Differential diagnosis: Etiologies such as renal colic, appendicitis, diverticulitis, mesenteric ischemia, aortic pathology, infections, inflammatory bowel disease, PUD, biliary pathology, UTI, as well as others were entertained. Impression Primary Impression: Hematuria Departure Information Dispostion Home / Self-Care Condition GOOD Prescriptions Cephalexin Monohydrate (Keflex) 500 Mg Cap 500 MG PO TID for 6 Days, #18 CAP Prov: Edgar Fung PA-C 07/14/17 Forms HOME CARE DOCUMENTATION FORM, IMPORTANT VISIT INFORMATION Patient Instructions My [facility] Additional Instructions You were seen and evaluated today on an emergency basis only. This is not a substitute for, or an effort to provide, complete comprehensive medical care. It is not possible to recognize and treat all injuries or illnesses in a single emergency department visit. For this reason it is recommended that you followup with your primary care physician this week for ongoing care and evaluation. Cephalexin(Keflex) 500mg: Take one pill 3 times daily for 7 total days for possible urine infection. All antibiotics can cause diarrhea. If this occurs and you feel worse or it does not resolve in 1-2 days follow up with your doctor or return to the Emergency Department as this could be signs of serious underlying problems. Any medication can cause an allergic reaction, stop the pills immediately and return to the ER for rash, hives, breathing difficulties, or swelling. Let your Coumadin clinic know that you were started on Keflex. They may wish to change your dosing. If symptoms continue you may need a scope (camera) of your bladder. This can be facilitated by your primary care physician's office. You are welcome to return to the emergency department anytime with new, worsening, or concerning symptoms.
--- NOTE | 2017-07-14 19:54 | EMERGENCY ROOM VISIT NOTE ---
ED Visit Note First contact with patient: 13:20 I have personally evaluated and examined this patient. I agree with assessment and plan of Edgar Fung PA-C.
== END 2017-07-14 15:40 | disposition home or self-care (01) ==
LOC: C.EDB 13:11
DX: R31.9 Hematuria, unspecified (principal); Z86.73 Personal history of transient ischemic attack (TIA), and cerebral infarction without residual deficits; E11.9 Type 2 diabetes mellitus without complications; I10 Essential (primary) hypertension; E78.5 Hyperlipidemia, unspecified; F17.200 Nicotine dependence, unspecified, uncomplicated; Z83.3 Family history of diabetes mellitus; Z82.49 Family history of ischemic heart disease and other diseases of the circulatory system; Z82.69 Family history of other diseases of the musculoskeletal system and connective tissue; Z79.01 Long term (current) use of anticoagulants; Z79.82 Long term (current) use of aspirin; Z79.84 Long term (current) use of oral hypoglycemic drugs; Z79.899 Other long term (current) drug therapy

== ENCOUNTER 2018-08-03 12:19 | Inpatient (IN) ==
--- OUTSIDE RECORDS SUMMARY | 2018-08-03 12:22 | External Medical Summary | Continuity of Care Document ---
:1970 Author Name Ashanti Olson Address Unavailable Unavailable , Care Team Providers Name Role Phone Srikanth Rosa M.D. Unavailable [email or web address] Thomas Unavailable Unavailable Unavailable Unavailable Unavailable Problems Ischemic Stroke (434.91) Type 2 diabetes mellitus (250.00) (E11.9) Hypertension (401.9) (I10) Esophageal reflux (530.81) (K21.9) Nicotine dependence (305.1) (F17.200) Lupus anticoagulant disorder (289.81) (D68.62) Primary hypercoagulable state (289.81) (D68.59) Depression with anxiety (300.4) (F41.8) Hyperlipidemia (272.4) (E78.5) Migraine headache (346.90) (G43.909) Allergies and Adverse Reactions No Known Drug Allergies (Allergy) Medications PriLOSEC 40 MG CPDR; TAKE 1 CAPSULE Bedtime Refills: 0 Simvastatin 10 MG Oral Tablet; Take 1 tablet twice daily Refills: 0 buPROPion HCl - 75 MG Oral Tablet; TAKE 2 TABLETS TWICE JHONATAN Y Refills: 0 Clopidogrel Bisulfate 75 MG Oral Tablet; TAKE 1 TABLET DAILY . Refills: 0 metFORMIN HCl - 500 MG Oral Tablet; TAKE 1 TABLET DAILY. Refills: 0 Lisinopril 10 MG Oral Tablet; TAKE 1 TABLET DAILY. Refills: 0 clonazePAM 0.5 MG Oral Tablet; TAKE 1 TABLET AT BEDTIME. Refills: 0 Procedures History of Tonsillectomy Status: Complet ed Immunizations Influenza On: Jan-2013 Family History Mother Family history of Hypertension (V17.49) Status: Active Father Family history of Diabetes Mellitus (V18.0) Status: Active Family history of Hypertension (V17.49) Status: Active Sister Family history of Hypertension (V17.49) Status: Active Family history of Hypertension (V17.49) Status: Active Plan of Treatment Planned Observations Planned Goals not documented Results No Known Results Results not documented
[2018-08-03] MEDS ORDERED: MECLIZINE HCL 25 MG TAB PO STA (12:40)
[2018-08-03 12:57] LABS: Basophils # (auto) 0.02 K/uL (0-0.2); Basophils % (auto) 0.2 %; Eosinophils # (auto) 0.22 K/uL (0-0.5); Eosinophils % (auto) 2.3 %; Hemoglobin 15.1 g/dL (12.0-16.0); Immature Granulocytes # (auto) 0.09 K/uL (0.00-0.02); Lymphocytes # (auto) 2.68 K/uL (1.2-3.4); Lymphocytes % (auto) 28.5 %; Mean Corpuscular Hgb Conc 36.8 g/dL (32-36); Mean Corpuscular Volume 90.1 fL (80-100); Mean Platelet Volume 11.8 fL (7.4-10.4); Monocytes # (auto) 0.48 K/uL (0.11-0.59); Monocytes % (auto) 5.1 %; Neutrophils # (auto) 5.93 K/uL (1.4-6.5); Neutrophils % (auto) 62.9 %; Platelet Count 213 K/uL (130-400); RDW Coefficient of Variation 13.9 % (11.5-14.5); RDW Standard Deviation 45.7 fL (36.4-46.3); Red Blood Count 4.55 M/uL (4.2-5.4); White Blood Count 9.42 K/uL (4.8-10.8)
--- NOTE | 2018-08-03 12:57 | CT Scan Report ---
CT OF THE HEAD WITHOUT CONTRAST CLINICAL HISTORY: Ataxia. COMPARISON STUDY: Head CT and MRI of the brain October 04, 2016. CT DOSE: 537.48 mGy.cm TECHNIQUE: Helical axial images of the head were obtained without IV contrast. Automated exposure con trol was utilized for the study. A dose lowering technique was utilized adhering to the principles o f ALARA. FINDINGS: No acute intracranial hemorrhage, midline shift or mass effect is present. Ventricular syst em is normal. Basilar cisterns are patent. There are no extra-axial collections. There are no finding s to suggest acute dural sinus thrombosis or acute territorial infarct. There is an old lacunar infar ct within left cerebellar hemisphere. There are no significant calvarial abnormalities. IMPRESSION: 1. No acute intracranial findings. 2. No change in an old lacunar infarct within the left cerebellar hemisphere. Electronically signed by: Kraig Blair M.D. 08/03/2018 12:56 PM
[2018-08-03 13:20] LABS: INR 1.9 (0.9-1.1); Prothrombin Time 18.3 Seconds (9.0-12.0)
[2018-08-03 13:22] LABS: Partial Thromboplastin Time 53.2 Seconds (21.0-31.0)
[2018-08-03 13:37] LABS: Alanine Aminotransferase 32 U/L (12-78); Albumin Level 3.6 gm/dl (3.4-5.0); Alkaline Phosphatase 113 U/L (45-117); BUN Creatinine Ratio 8.5 (10-20); Bilirubin,Total 0.4 mg/dl (0.2-1); Blood Urea Nitrogen 9 mg/dl (7-18); Calcium 8.5 mg/dl (8.5-10.1); Carbon Dioxide 22 mmol/L (21-32); Chloride 105 mmol/L (98-107); Creatinine Clr Calc Pharmacy 68.3 ml/min; Est GFR (African American) 71.4; Est GFR (Non-African American) 61.6; Globulin 3.7 gm/dl (2.5-4.0); Glucose 278 mg/dl (70-99); Total Protein 7.3 gm/dl (6.4-8.2); Troponin I < 0.015 ng/ml (0-0.045)
[2018-08-03 13:51] LABS: Aspartate Aminotransferase 17 U/L (15-37); Magnesium 1.3 mg/dl (1.8-2.4); Potassium 3.9 mmol/L (3.5-5.1)
[2018-08-03 13:52] LABS: Sodium 137 mmol/L (136-145)
[2018-08-03] MEDS: MAGNESIUM SULFATE / D5W 1 GM/100 ML BAG IV SCH ×4 (14:29→19:12)
--- NOTE | 2018-08-03 15:17 | History & Physical Report ---
Date of Service August 03, 2018 Assessment & Plan (1) Dizziness: (2) Paresthesias: This is a 48-year-old female who has a significant past medical history of antiphospholipid antibody syndrome on long-term anti-coagulation with Coumadin, history of CVA x2 with residual left-sided weakness and left hearing loss, T2DM, HTN, HLD, DAIN on CPAP, history of migraine who presents to [facility] ED secondary to dizziness x2 days. In ED patient's CBC, BMP is relatively unremarkable except elevated glucose 278, troponin and LFTs WNL, Magnesium 1.3 CT brain revealed old left lacunar cerebellar infarct Brain MRI ordered and revealed : No areas of restricted diffusion to suggest a cute infarction. Small right mastoid effusion is again noted. The paranasal sinuses and left mastoid air cells are clear. The orbits are unremarkable. The major vascular flow-voids at the skull base are well-maintained. Old lacunar infarct within the left cerebellar hemisphere is again noted. There is no mass, hematoma, midline shift. The ventricles are normal in size. A single punctate focus of T2 hyperintensity seen within the white matter of the left posterior frontal lobe. This is of doubtful clinical significance and may be due to chronic microvascular ischemic change. This remains unchanged. IMPRESSION: No significant change compared to the prior study. No acute intracranial abnormality. Given history symptoms concerning initially for acute CVA or central lesion. MRI unchanged. ? If secondary to peripheral etiology of vertigo admit to med/surg tele consult neurology given hx of prior cva and antiphospholipid syndrome Patient had MRI of head and neck back in 2017 which was unremarkable except for congenitally small left vertebral artery Consult PT/OT/ST Replace electrolytes and repeat in a.m. Neuro checks (3) Hypomagnesemia: Mag 1.3 in ED 4 g mag sulfate ordered Repeat mag in a.m. (4) History of CVA (cerebrovascular accident): x 2 in 2012 and left cerebellar and left frontal parietal region She is left-hand dominant and has residual deficits of left-sided weakness, ambulates with walker, hearing loss, dizziness and off-balance Continue ASA, statin, warfarin (5) Antiphospholipid antibody syndrome: Continue warfarin INR subtherapeutic at 1.9 On 08/01 was 1.3 and she was encouraged to take 10 mg Coumadin that day and to increase to 5 mg daily Will continue 5 mg daily Repeat INR in a.m. (6) DM type 2 (diabetes mellitus, type 2): Last A1c 8.7 02/04/2018 Check A1c in a.m. Hold outpatient metformin and glipizide Lantus/NovoLog per sliding scale adjust accordingly (7) Hypertension: Blood pressure controlled continue lisinopril (8) Dyslipidemia: Continue statin Lipid panel in a.m. (9) DAIN on CPAP: CPAP at bedtime (10) DVT prophylaxis: Continue warfarin Disposition: DC to home when able, PT/OT/ST consult Follow-up: Dr. Sullivan upon discharge as well as appropriate neurology follow-up Patient was seen and examined in collaboration with Dr. Berg, please see addendum History of Present Illness Chief Complaint: Dizziness x 2 days. Primary Care Provider: Hector Sullivan MD This is a 48-year-old female who has a significant past medical history of antiphospholipid antibody syndrome on long-term anti-coagulation with Coumadin, history of CVA x2 with residual left-sided weakness and left hearing loss, T2DM, HTN, HLD, DAIN on CPAP, history of migraine who presents to [facility] ED secondary to dizziness x2 days. Of significance patient does have a history of 2 prior CVAs back in 2012 left cerebellar and left frontoparietal which has left her with residual left-sided weakness and left-sided hearing loss as well as positional dizziness and being off-balance. She ambulates with a cane/walker. Prior to previous stroke she was left side dominant. She does have frequent falls secondary to being off balance no recent injury. She presents today due to worsening of her dizziness over the past 2 days. She states she feels like her tongue and lips are tingling. She describes episodes as a "zap or jolt, like getting electrocuted." Symptoms last seconds and then resolve but over the past 24 hours have become more frequent. Exacerbated with quick movements or lying flat. She denies any headache or burning sensation. She describes episodes as quick dizzy spells like, "everything is bottoming out." Increasingly feeling off balance and has nausea associated with. Further describes her heart racing. She denies any recent illness, fever, chills, sweats, syncope, lightheadedness or presyncope, chest pain, shortness of breath, MILTON, cough, hemoptysis, emesis, abdominal pain, change in her bowel or urinary habits. Her appetite has been normal and she denies any weight gain or loss. She is a diabetic in which she takes metformin and glipizide. She did monitor her blood sugar during events and was elevated last being 240s. During my examination when having patient lie flat and moving head quickly to right she developed an episode where she states, "my arms are heavy I cannot move them." Patient became very tearful and frightened. She states "this happens out of a blue romano I have been telling my doctor this but nobody knows what is going on." She states this is not the symptoms that she has been experienced over the past 2 days. Initially patient was unable to lift right arm but after approximately 1 minute she was able to. Again patient very tearful and states "I am sorry." She overall gets a feeling of her arms and s houlder being very heavy. "It is like I have been swimming for miles in my arms and shoulders are just exhausted." Allergies Allergy/AdvReac Type Severity Reaction Status Date / Time No Known Allergies Allergy Verified 08/03/18 13:31 Home Medications Home Medications Medication Instructions Recorded Confirmed Type aspirin [Aspirin Low Dose] 81 mg PO QPM 08/03/18 08/03/18 History atorvastatin 40 mg PO QPM 08/03/18 08/03/18 History citalopram 20 mg PO QPM 08/03/18 08/03/18 History glipizide 10 mg PO BID 08/03/18 08/03/18 History lisinopril 10 mg PO QPM 08/03/18 08/03/18 History metformin 500 mg PO BID 08/03/18 08/03/18 History warfarin 5 mg PO DAILY 08/03/18 08/03/18 History Past Med/Surg History Medical History History of CVA (cerebrovascular accident) DAIN on CPAP (Chronic) Depression (Chronic) CVA (cerebral infarction) (Chronic) Hypertension (Chronic) Dyslipidemia (Chronic) Migraine with aura (Chronic) DM type 2 (diabetes mellitus, type 2) (Chronic) Hearing loss (Chronic) "R ear" Antiphospholipid antibody syndrome (Chronic) Ovarian cyst (Chronic) CVA (cerebral vascular accident) (Acute) Diabetes (Chronic) HTN (hypertension) (Chronic) Hearing loss (Chronic) Surgical History History of cystoscopy (Chronic) H/O tympanostomy (Chronic) S/P tonsillectomy and adenoidectomy (Chronic) Family History Father Diabetes Hypertension Mother Aneurysm brain and aortic Hypertension Sister Lupus Sister Thyroid disease Grandmother (Maternal) Stroke Social History Preferred Language: Polish Communication Ability: Effective Beliefs That Will Affect Care: None Current Living Situation: Spouse Other Information That Helps Us Care for You: No Feels Safe at Home: Yes Safety Concerns: Feels Safe At This Time Smoking Status: Current every day smoker Tobacco Type: cigarettes Age Started Using Tobacco: 12 packs per day: 0.5 Years Smoked: 40 Cigarettes Per Day: 10 Do You Dip or Chew Tobacco: No Tobacco Cessation Education Requested by Patient: No Hx Alcohol Use: No Hx Substance Use: No Review of Systems Review of Systems: As noted per HPI, 10 systems reviewed and negative unless noted above. Physical Exam Physical Exam: Gen: WD/WN, F, NAD, sitting up in bed, pleasant, conversing easily Head: Normocephalic, Atraumatic Eyes: Sclera normal, no conjunctival injection, PERRLA, EOMI ENT: Gross hearing intact, normal pharynx, mucous membranes moist Neck: supple, no adenopathy, No JVD, no bruit, Resp: Clear to auscultation b/l, no wheeze, rales, rhonchi. 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 Requested to move head quickly to left which did not reproduce symptoms. She then quickly moved head to right when she developed a episode that brought on significant fearfulness, anxiety, patient became very tearful and stating "I cannot move my arm." She states this is happened in the past and states it occurs in a, "blue romano." The symptoms are not similar to what brought her in today. Symptoms resolved with rest the patient was very anxious and tearful. Initially patient was unable to lift right arm but it approximately 30 seconds to 1 minute symptoms resolved. She did not have any further neurological deficit at that time. Results & Data Vital Signs (Past 12 Hours) Vital Signs Temp Pulse Pulse Resp BP BP Pulse Ox 08/03/18 14:28 79 20 137/81 100 08/03/18 12:52 85 18 120/83 100 08/03/18 12:24 36.5 C 97 H 20 98 Laboratory Results Short CBC 08/03/18 Range/Units 12:39 WBC 9.42 (4.8-10.8) K/uL Hgb 15.1 (12.0-16.0) g/dL Hct 41.0 (37-47) % Plt Count 213 (130-400) K/uL BMP 08/03/18 12:39 Sodium 137 Potassium 3.9 Chloride 105 Carbon Dioxide 22 BUN 9 Creatinine 1.06 Glucose 278 H Calcium 8.5 Cardiac Enzymes 08/03/18 Range/Units 12:39 Troponin I < 0.015 (0-0.045) ng/ml Liver Function 08/03/18 Range/Units 12:39 Total Bilirubin 0.4 (0.2-1) mg/dl AST 17 (15-37) U/L ALT 32 (12-78) U/L Alkaline Phosphatase 113 (45-117) U/L Albumin 3.6 (3.4-5.0) gm/dl Diagnostic Findings Head CT: IMPRESSION: 1. No acute intracranial findings. 2. No change in an old lacunar infarct within the left cerebellar hemisphere. MRI: FINDINGS: No areas of restricted diffusion to suggest acute infarction. Small right mastoid effusion is again noted. The paranasal sinuses and left mastoid air cells are clear. The orbits are unremarkable. The major vascular flow-voids at the skull base are well-maintained. Old lacunar infarct within the left cerebellar hemisphere is again noted. There is no mass, hematoma, midline shift. The ventricles are normal in size. A single punctate focus of T2 hyperintensity seen within the white matter of the left posterior frontal lobe. This is of doubtful clinical significance and may be due to chronic microvascular ischemic change. This remains unchanged. IMPRESSION: No significant change compared to the prior study. No acute intracranial abnormality. Medications Administered Magnesium Sulfate/Dextrose (Magnesium Sulfate / D5w) 1 gm in 100 mls @ 100 mls/hr IV Q1H ANTWAN Stop: 08/03/18 15:59 Last Admin: 08/03/18 14:29 Dose: 100 mls/hr Documented by: [id number] Discontinued Medications Meclizine HCl (Antivert) 25 mg PO NOW STA Stop: 08/03/18 12:41 Last Admin: 08/03/18 13:03 Dose: 25 mg Documented by: [id number] ECG Rhythm: normal sinus Code Status & VTE Plan Code Status Full code VTE Prophylaxis Plan VTE Prophylaxis will be ordered: Yes Supervising Physician Co-Signing Physician Notes I have seen and examined the patient and have discussed the case with the provider above. I agree with the assessment and plan as stated with the following exceptions. Ms. Herrera is not describing vertigo to me, only more disequilibrium, but even this is questionable as this is more chronic for her. She does report 2-3 bowel movements daily which may be contributing to her hypomagnesemia. Symptoms including tetanic symptoms experienced on occasion where her arms stiffen up are consistent with possible hypomagnesemia. Perioral numbness would be more worse consistent with hypocalcemia which is not present, however this may also be associated with this electrolyte disturbance. She is reporting more of a zing as if touching an electric fence, that is fleeting. She does not examine to have a new focal neurologic deficit and repeat MRI of the brain is negative. Physical exam reveals no focal deficit and normal strength throughout. I do not see a reason for a repeat echocardiogram at this time. This patient had an echocardiogram on 10/05/2016 revealing ejection fraction 65 to 70% with normal wall motion and no significant valvular pathology. Injection of contrast documented no intra-atrial shunt at that time. Appreciate neurology recommendations on this and the need for further work-up. At this time will continue with repletion of magnesium and repeat in a.m. We will also check TSH, parathyroid, and vitamin D levels which may be associated. Calcium again was normal and we will repeat this in the morning. Uncertain cause for multiple bowel movements, but in this setting would discharge her with chronic magnesium supplementation and close follow-up with primary care. DO Otis
--- NOTE | 2018-08-03 15:45 | Magnetic Resonance Report ---
Brain MRI WITHOUT CONTRAST HISTORY: Stroke symptoms. TECHNIQUE: Multiplanar multisequence MRI of the brain was performed without the use of contrast. COMPARISON STUDY: Brain MRI 10/04/2016. Head CT 08/03/2018. FINDINGS: No areas of restricted diffusion to suggest acute infarction. Small right mastoid effusion is again noted. The paranasal sinuses and left mastoid air cells are clear. The orbits are unremarkab le. The major vascular flow-voids at the skull base are well-maintained. Old lacunar infarct within t he left cerebellar hemisphere is again noted. There is no mass, hematoma, midline shift. The ventricl es are normal in size. A single punctate focus of T2 hyperintensity seen within the white matter of t he left posterior frontal lobe. This is of doubtful clinical significance and may be due to chronic m icrovascular ischemic change. This remains unchanged. IMPRESSION: No significant change compared to the prior study. No acute intracranial abnormality. Electronically signed by: Angel Justin M.D. 08/03/2018 3:44 PM
[2018-08-03] MEDS ORDERED: MAGNESIUM HYDROXIDE SUSP 30 ML UDC PO PRN (16:17)
[2018-08-03] MEDS ORDERED: ONDANSETRON INJ 2 MG/ML 2 ML VIAL IV PRN (16:17)
[2018-08-03] MEDS ORDERED: GLUCOSE 40% GEL 15 GM TUBE PO PRN (16:17)
[2018-08-03] MEDS ORDERED: PHARMACIST DISCHARGE MED REC CONSULT PRN (16:17)
[2018-08-03] MEDS ORDERED: ALUMINUM/MAGNESIUM SUSP 30 ML UDC PO PRN (16:17)
[2018-08-03] MEDS ORDERED: GLUCAGON FOR INJ 1 MG VIAL SQ PRN (16:17)
[2018-08-03] MEDS ORDERED: DEXTROSE 50% 50 ML SYRINGE IV PRN (16:17)
[2018-08-03] MEDS ORDERED: GLUCOSE 10 TABS/TUBE PO PRN (16:17)
[2018-08-03] MEDS ORDERED: POLYETHYLENE (MIRALAX) 17 GM PACK PO PRN (16:17)
[2018-08-03] MEDS ORDERED: ACETAMINOPHEN 325 MG TAB PO PRN (16:17)
[2018-08-03] MEDS ORDERED: CARBOHYDRATES FOR HYPOGLYCEMIA PO PRN (16:17)
[2018-08-03] MEDS ORDERED: WARFARIN SOD 5 MG TAB PO SCH (17:00)
[2018-08-03] MEDS: INSULIN ASPART 100 UNITS/ML 3 ML PEN SC SCH ×2 (17:18→20:39)
--- NOTE | 2018-08-03 17:35 | Emergency Department Note ---
Entered by Silke Licona acting as a scribe for Armando Ji MD History of Present Illness General Chief complaint: Neuro Symptoms/Deficit Stated complaint: TONGUE AND LIPS NUMBNESS,HEART POUNDING HARD Source: patient and family History of Present Illness Provider complaint: stroke symptoms Onset (ago): day(s) 2 Location: head and face Quality: + other (stroke symptoms) Associated symptoms: + denies other symptoms (denies problems with speech) and + other (feels "electric shocks" all over head, heart pounding, numbness in tongue); no chest pain, no fever/chills and no nausea/vomiting The patient is a 48 year old female who presents to the Emergency Department with complaints of stroke symptoms beginning 2 nights ago. She states that her symptoms worsened yesterday. The patient states that she feels "electric shocks" all over her head. The patient also reports that she can feel her heart pounding and states that her tongue has been numb since yesterday. She also reports having numbness in her lips since yesterday. She denies having problems with her speech. She denies having chest pain, fevers, and vomiting. The patient reports that she felt "sick to her stomach" 2 days ago. Per , the patient has been more unsteady than usual the last couple of days. The patient reports that she has had more than 4 strokes in the past. Her states that her first stroke was in 2012 and that it affected the left side of her body. Her states that the patient still has weakness from this stroke. Per , the patient's second stroke affected her speech. The patient reports that she lost hearing in her right ear. The patient denies having ringing in her ears. She states that she is on Warfarin as she has antiphospolipid syndrome. She states that her INR has been low lately at 1.3. She states that she has been taking her Warfarin. The patient states that her symptoms today feel different than her strokes in the past. Home Medications Home Medications Medication Instructions Recorded Confirmed Type aspirin [Aspirin Low Dose] 81 mg PO QPM 08/03/18 08/03/18 History atorvastatin 40 mg PO QPM 08/03/18 08/03/18 History citalopram 20 mg PO QPM 08/03/18 08/03/18 History glipizide 10 mg PO BID 08/03/18 08/03/18 History lisinopril 10 mg PO QPM 08/03/18 08/03/18 History metformin 500 mg PO BID 08/03/18 08/03/18 History warfarin 5 mg PO DAILY 08/03/18 08/03/18 History Allergies Allergy/AdvReac Type Severity Reaction Status Date / Time No Known Allergies Allergy Verified 08/03/18 13:31 Past Med/Surg History Medical History History of CVA (cerebrovascular accident) DAIN on CPAP (Chronic) Depression (Chronic) CVA (cerebral infarction) (Chronic) Hypertension (Chronic) Dyslipidemia (Chronic) Migraine with aura (Chronic) DM type 2 (diabetes mellitus, type 2) (Chronic) Hearing loss (Chronic) "R ear" Antiphospholipid antibody syndrome (Chronic) Ovarian cyst (Chronic) CVA (cerebral vascular accident) (Acute) Diabetes (Chronic) HTN (hypertension) (Chronic) Hearing loss (Chronic) Surgical History History of cystoscopy (Chronic) H/O tympanostomy (Chronic) S/P tonsillectomy and adenoidectomy (Chronic) Family History Father Diabetes Hypertension Mother Aneurysm brain and aortic Hypertension Sister Lupus Sister Thyroid disease Grandmother (Maternal) Stroke Social History Preferred Language: Pashto Communication Ability: Effective Beliefs That Will Affect Care: None Current Living Situation: Spouse Other Information That Helps Us Care for You: No Feels Safe at Home: Yes Safety Concerns: Feels Safe At This Time Smoking Status: Current every day smoker Tobacco Type: cigarettes Age Started Using Tobacco: 12 packs per day: 0.5 Years Smoked: 40 Cigarettes Per Day: 10 Do You Dip or Chew Tobacco: No Tobacco Cessation Education Requested by Patient: No Hx Alcohol Use: No Hx Substance Use: No Review of Systems See HPI for pertinent positives & negatives. and A total of 10 systems reviewed and were otherwise negative Physical Exam Vital Signs Vital Signs - 24 hr 08/03/18 12:24 08/03/18 12:52 08/03/18 13:59 Temperature 36.5 C Temperature Source Oral Sepsis Recent Fever Within 48 Hours No Sepsis New/Unexplained Change in Mental Status No Sepsis Action Taken by Nursing No Action Required Pulse Rate 97 H 85 Pulse Rate [Finger] Pulse Rate from SpO2 Sensor 84 Pulse Rhythm Regular Pulse Strength Normal Respiratory Rate 20 18 Respiratory Effort / Characteristics Non-Labored Respiratory Depth Normal Respiratory Pattern Regular Regular Blood Pressure 120/83 Blood Pressure [Right Arm] Blood Pressure Mean 95 Blood Pressure Mean [Right Arm] Blood Pressure Position [Right Arm] Pulse Oximetry 98 100 Oxygen Delivery Method Room Air Room Air 08/03/18 14:28 Temperature Temperature Source Sepsis Recent Fever Within 48 Hours Sepsis New/Unexplained Change in Mental Status Sepsis Action Taken by Nursing Pulse Rate Pulse Rate [Finger] 79 Pulse Rate from SpO2 Sensor Pulse Rhythm Pulse Strength Respiratory Rate 20 Respiratory Effort / Characteristics Non-Labored Respiratory Depth Normal Respiratory Pattern Blood Pressure Blood Pressure [Right Arm] 137/81 Blood Pressure Mean Blood Pressure Mean [Right Arm] 99 Blood Pressure Position [Right Arm] Sitting Pulse Oximetry 100 Oxygen Delivery Method Room Air Constitutional: Vital signs reviewed. Eyes: Pupils are equal round reactive to light. Conjunctiva are noninjected. ENT: Pharynx is clear without erythema or exudate. Mucous membranes are moist. Neck supple without meningeal signs. Respiratory: Clear to auscultation bilaterally. Breath sounds are equal bilaterally. Cardiovascular: Regular rate and rhythm. No rubs or gallops. GI: Soft, nondistended and nontender. Bowel sounds are present. Musculoskeletal: No peripheral edema. No lower extremity tenderness. Integumentary: No cyanosis. Neurological: The patient is awake and alert. Cranial nerves II-XII are intact, except for chronic hearing loss to the right ear. Motor is 5 out of 5 all extremities. Sensation is intact to light touch all extremities. Normal speech. No pronator drift. No limb ataxia. Psychiatric: Very anxious. Course 1229: The patient was evaluated in room B1. A history and physical were performe d. 1348: The patient states that her dizziness is better but that she occasionally still has the electric shocks. 1356: The patient was unsteady when I tried to walk her but stated that this is not much above average for her. I recommended hospitalization and she agreed. 1401: I discussed the patient's case with Savannah Perkins who will evaluate the patient for further management. Consultations Consultation #1: Savannah Perkins Time: 14:01 Administered Medications Insulin Aspart (Novolog Flexpen) 0 units SC ACHS ANTWAN Stop: 09/02/18 16:29 Last Admin: 08/03/18 17:18 Dose: 4 units Documented by: [id number] Cosigned by: [id number] Warfarin Sodium (Coumadin) 5 mg PO DAILY@1600 ANTWAN Stop: 09/02/18 16:59 Last Admin: 08/03/18 17:19 Dose: 5 mg Documented by: [id number] Discontinued Medications Magnesium Sulfate/Dextrose (Magnesium Sulfate / D5w) 1 gm in 100 mls @ 100 mls/hr IV Q1H ANTWAN Stop: 08/03/18 15:59 Last Admin: 08/03/18 16:29 Dose: 100 mls/hr Documented by: [id number] Infusion: 08/03/18 15:29 Dose: 100 mls/hr Documented by: [id number] Admin: 08/03/18 14:29 Dose: 100 mls/hr Documented by: [id number] Meclizine HCl (Antivert) 25 mg PO NOW STA Stop: 08/03/18 12:41 Last Admin: 08/03/18 13:03 Dose: 25 mg Documented by: [id number] Medical Decision Making Differential Diagnosis Differentials include tension headache, migraine, ICH, CVA, BPVP, and neuralgia. Medical Records Attestation: I reviewed the patient's medical records. I did perform a limited focused review of portions of the patient's old chart on the electronic medical record. The patient was admitted for a migraine in 2017. Home Medications Current Medication List: was personally reviewed by me Laboratory Data Attestation: I reviewed the patient's lab results. Result diagrams: 08/03/18 12:39 08/03/18 12:39 Lab Results 08/03/18 08/03/18 08/03/18 Range/Units 12:39 12:39 12:39 WBC 9.42 (4.8-10.8) K/uL RBC 4.55 (4.2-5.4) M/uL Hgb 15.1 (12.0-16.0) g/dL Hct 41.0 (37-47) % MCV 90.1 (80-100) fL MCH 33.2 (25-34) pg MCHC 36.8 H (32-36) g/dL RDW Std Deviation 45.7 (36.4-46.3) fL RDW Coeff of Angelica 13.9 (11.5-14.5) % Plt Count 213 (130-400) K/uL MPV 11.8 H (7.4-10.4) fL Immature Gran % (Auto) 1.0 % Neut % (Auto) 62.9 % Lymph % (Auto) 28.5 % Banks % (Auto) 5.1 % Eos % (Auto) 2.3 % Baso % (Auto) 0.2 % Immature Gran # (Auto) 0.09 H (0.00-0.02) K/uL Neut # (Auto) 5.93 (1.4-6.5) K/uL Lymph # (Auto) 2.68 (1.2-3.4) K/uL Banks # (Auto) 0.48 (0.11-0.59) K/uL Eos # (Auto) 0.22 (0-0.5) K/uL Baso # (Auto) 0.02 (0-0.2) K/uL PT 18.3 H (9.0-12.0) Seconds INR 1.9 H (0.9-1.1) APTT 53.2 H* (21.0-31.0) Seconds PTT Ratio 2.0 Sodium 137 (136-145) mmol/L Potassium 3.9 (3.5-5.1) mmol/L Chloride 105 (98-107) mmol/L Carbon Dioxide 22 (21-32) mmol/L Anion Gap 12.0 H (3-11) BUN 9 (7-18) mg/dl Creatinine 1.06 (0.6-1.2) mg/dl Est Cr Clr Drug Dosing 68.3 ml/min Est GFR ( Amer) 71.4 Est GFR (Non-Af Amer) 61.6 BUN/Creatinine Ratio 8.5 L (10-20) Glucose 278 H (70-99) mg/dl Calcium 8.5 (8.5-10.1) mg/dl Magnesium 1.3 L (1.8-2.4) mg/dl Total Bilirubin 0.4 (0.2-1) mg/dl AST 17 (15-37) U/L ALT 32 (12-78) U/L Alkaline Phosphatase 113 (45-117) U/L Troponin I < 0.015 (0-0.045) ng/ml Total Protein 7.3 (6.4-8.2) gm/dl Albumin 3.6 (3.4-5.0) gm/dl Globulin 3.7 (2.5-4.0) gm/dl Albumin/Globulin Ratio 1.0 (0.9-2) Specimen Hemolysis Imaging Data Radiologist's Impression: Radiology results as stated below per my review and the radiologist's interpretation: CT OF THE HEAD WITHOUT CONTRAST CLINICAL HISTORY: Ataxia. COMPARISON STUDY: Head CT and MRI of the brain October 04, 2016. CT DOSE: 537.48 mGy.cm TECHNIQUE: Helical axial images of the head were obtained without IV contrast. Automated exposure control was utilized for the study. A dose lowering technique was utilized adhering to the principles of ALARA. FINDINGS: No acute intracranial hemorrhage, midline shift or mass effect is present. Ventricular system is normal. Basilar cisterns are patent. There are no extra-axial collections. There are no findings to suggest acute dural sinus thrombosis or acute territorial infarct. There is an old lacunar infarct within left cerebellar hemisphere. There are no significant calvarial abnormalities. IMPRESSION: 1. No acute intracranial findings. 2. No change in an old lacunar infarct within the left cerebellar hemisphere. Electronically signed by: Kraig Blair M.D. 08/03/2018 12:56 PM ECG Data Attestation: I personally reviewed and interpreted this ECG as follows: Indication: other (ataxia) Rate (beats per minute): 81 Rhythm: normal sinus Findings: no PVC and no ST elevation Blood Pressure Blood Pressure Findings: Normal blood pressure MDM Narrative I did evaluate the patient as noted above. The patient is presenting with paresthesias with a headache as well as ataxia and some vertigo. She has a prior history of multiple strokes due to antiphospholipid syndrome. She states she is on Coumadin but her last INR was low. A stroke alert was called by the nurse but she does not meet any criteria for IV TPA. Her symptoms started last night. The patient is also on Coumadin. Other than ataxia the patient is neurologically intact. She does have chronic hearing loss to the right ear. IV access was established. The patient was placed on a continuous clark driver. I did treat the patient with Antivert. I did order and personally review the patient's 12-lead EKG as described above. There is no evidence of acute ischemia. I did order and review the patient's blood work as noted in the electronic medical record. INR is 1.9. I did order a CT of the head. I did review the images myself as well as the radiology report as described above. There is no evidence of acute infarct. She does have an old cerebellar infarct. I did reassess the patient. She does state that she feels better. The pins and needle on electric sensation seems to have gotten better. She also states her dizziness is better. I did try to have her walk but she was still ataxic although she states this is not significantly above her baseline. The patient was fairly unsteady and she has a subtherapeutic INR with a history of multiple strokes including cerebellar strokes. I did feel she should be hospitalized for further evaluation and MRI. She was agreeable with this plan. I did discuss the case with the hospitalist and immigration case manager. Impression & Plan Ataxia, Headache, Paresthesias, Hypomagnesemia, Subtherapeutic international normalized ratio (INR) Discharge Plan Visit Data *Final* Discharge Date/Time: 08/03/18 15:27 Chief Complaint: Neuro Symptoms/Deficit Stated Complaint: TONGUE AND LIPS NUMBNESS,HEART POUNDING HARD ED Provider: Armando Ji Discharge Problem: Ataxia, Headache, Paresthesias, Hypomagnesemia, Subtherapeutic international normalized ratio (INR) Patient Disposition: Admitted As Inpatient Discharge Instructions Interventions: ED Discharge Assessment Last Done: 08/03/18 15:27 Discharge Problem: Headache Qualifiers: Headache type: unspecified Headache chronicity pattern: unspecified pattern Intractability: not intractable Qualified Code(s): R51 - Headache The jeanneibe's documentation has been prepared under my direction and personally reviewed by me in its entirety. I confirm that the note above accurately reflects all work, treatment, procedures, and medical decision making performed by me.
[2018-08-03] MEDS: INSULIN GLARGINE SOLOSTAR 100 UNITS/ML 3 ML PEN SC SCH (20:36)
[2018-08-03] MEDS ORDERED: ASPIRIN 81 MG ECTAB PO SCH (21:00)
[2018-08-03] MEDS ORDERED: CITALOPRAM 20 MG TAB PO SCH (21:00)
[2018-08-03] MEDS ORDERED: ATORVASTATIN 40 MG TAB PO SCH (21:00)
[2018-08-03] MEDS ORDERED: LISINOPRIL 10 MG TAB PO SCH (21:00)
[2018-08-04 06:09] LABS: Basophils # (auto) 0.02 K/uL (0-0.2); Basophils % (auto) 0.2 %; Eosinophils # (auto) 0.17 K/uL (0-0.5); Hematocrit (blood only) 41.3 % (37-47); Hemoglobin 14.5 g/dL (12.0-16.0); Immature Granulocytes # (auto) 0.04 K/uL (0.00-0.02); Immature Granulocytes % (auto) 0.5 %; Lymphocytes # (auto) 1.92 K/uL (1.2-3.4); Lymphocytes % (auto) 22.1 %; Mean Corpuscular Hgb Conc 35.1 g/dL (32-36); Mean Corpuscular Volume 91.8 fL (80-100); Mean Platelet Volume 11.6 fL (7.4-10.4); Monocytes # (auto) 0.49 K/uL (0.11-0.59); Monocytes % (auto) 5.7 %; Neutrophils # (auto) 6.03 K/uL (1.4-6.5); Neutrophils % (auto) 69.5 %; Platelet Count 196 K/uL (130-400); RDW Coefficient of Variation 13.9 % (11.5-14.5); RDW Standard Deviation 46.9 fL (36.4-46.3); White Blood Count 8.67 K/uL (4.8-10.8)
[2018-08-04 06:20] LABS: Estimated Average Glucose 229 mg/dl; Hemoglobin A1C 9.6 % (4.5-5.6)
[2018-08-04 06:24] LABS: INR 1.9 (0.9-1.1); Prothrombin Time 18.9 Seconds (9.0-12.0)
[2018-08-04 06:45] LABS: BUN Creatinine Ratio 11.1 (10-20); Calcium 8.5 mg/dl (8.5-10.1); Creatinine Clr Calc Pharmacy 83.2 ml/min; Est GFR (African American) 90.7; Est GFR (Non-African American) 78.2; Magnesium 2.1 mg/dl (1.8-2.4); Potassium 4.3 mmol/L (3.5-5.1)
[2018-08-04] MEDS: INSULIN GLARGINE SOLOSTAR 100 UNITS/ML 3 ML PEN SC SCH (08:22)
[2018-08-04] MEDS: INSULIN ASPART 100 UNITS/ML 3 ML PEN SC SCH ×2 (08:24→12:51)
--- NOTE | 2018-08-04 13:57 | Neurology Consultation ---
Date of Consultation August 04, 2018 Assessment & Plan (1) History of CVA (cerebrovascular accident): 1. MRI with no new findings 2. TTE - not ordered for this event- not needed 3. carotid doppler not assessed-not needed 4. PT/OT speech for discharge needs 5. continue aspirin 81 mg 6. coumadin -needs therapeutic INR - 2.0-3.0 7. optimize HTN, HLD, DM LDL <70 8. smoking cessation strongly recommended 9. ok to discharge when medically stable (2) Subtherapeutic international normalized ratio (INR): 1. outpatient monitoring for INR 2.0-3.0 Supervising Physician Co-Signing Physician Notes I have seen and discussed above patient with Dr Papito Lockwood. Patient was seen and examined. at bedside. Reports back to baseline. Denies symptoms. Had dizziness yesterday with tinnitus in right ear. MRI brain reviewed. No acute stroke. Left cerebellar encephalomalcia and T2 hyperintensity in left frontal lobe. Continue home medications. Discussed INR was subtheraputic. Agree with magnesium replacement. Patient can follow up with PCP. History of Present Illness Reason for Consultation: CVA with antiphosolipid antibody hx of CVA x 2 Requesting Physician: Bren Berg DO Attending Physician: Bren Berg DO History of Present Illness Colette is a 45 year old female who has a PMH- antiphospholipid antibody syndrome on long-term anti-coagulation with Coumadin, history of CVA x2 with residual left-sided weakness and left hearing loss, DM2, HTN, HLD, DAIN on CPAP, history of migraine who presents to [facility] ED secondary to dizziness x2 days. Her stroke in 2012 was a left cerebellar and left frontoparietal which has left her with residual left-sided weakness and left- sided hearing loss as well as positional dizziness and being off-balance. She ambulates with a cane/walker. She does have frequent falls secondary to being off balance no recent injury. She states she feels like her tongue and lips are tingling. She describes episodes as a "zap or jolt, like getting electrocuted." Symptoms last seconds and then resolve but over the past 24 hours have become more frequent. Exacerbated with quick movements or lying flat. She does have some heart racing. Her appetite has been normal and she denies any weight gain or loss. She is a diabetic in which she takes metformin and glipizide. She is not always compliant with her DM diet and she is also a smoker of 1/2 ppd cigarettes. Currently she states she is back to baseline and wants to be discharged. denies CP, SOB, abdominal pain, vision changes, bowel or bladder symptoms, N, V. Allergies Allergy/AdvReac Type Severity Reaction Status Date / Time No Known Allergies Allergy Verified 08/03/18 13:31 Home Medications Home Medications Medication Instructions Recorded Confirmed Type aspirin [Aspirin Low Dose] 81 mg PO QPM 08/03/18 08/03/18 History atorvastatin 40 mg PO QPM 08/03/18 08/03/18 History citalopram 20 mg PO QPM 08/03/18 08/03/18 History glipizide 10 mg PO BID 08/03/18 08/03/18 History lisinopril 10 mg PO QPM 08/03/18 08/03/18 History metformin 500 mg PO BID 08/03/18 08/03/18 History warfarin 5 mg PO DAILY 08/03/18 08/03/18 History ergocalciferol (vitamin D2) 50,000 units PO Q7D #12 cap 08/04/18 Rx magnesium oxide 400 mg PO BID #60 tab 08/04/18 Rx Patient History Medical History History of CVA (cerebrovascular accident) DAIN on CPAP (Chronic) Depression (Chronic) CVA (cerebral infarction) (Chronic) Hypertension (Chronic) Dyslipidemia (Chronic) Migraine with aura (Chronic) DM type 2 (diabetes mellitus, type 2) (Chronic) Hearing loss (Chronic) "R ear" Antiphospholipid antibody syndrome (Chronic) Ovarian cyst (Chronic) CVA (cerebral vascular accident) (Acute) Diabetes (Chronic) HTN (hypertension) (Chronic) Hearing loss (Chronic) Surgical History History of cystoscopy (Chronic) H/O tympanostomy (Chronic) S/P tonsillectomy and adenoidectomy (Chronic) Family History Father Diabetes Hypertension Mother Aneurysm brain and aortic Hypertension Sister Lupus Sister Thyroid disease Grandmother (Maternal) Stroke Social History Preferred Language: Armenian Communication Ability: Effective Beliefs That Will Affect Care: None marital status: Current Living Situation: Spouse Other Information That Helps Us Care for You: No Feels Safe at Home: Yes Safety Concerns: Feels Safe At This Time Smoking Status: Current every day smoker Tobacco Type: cigarettes Age Started Using Tobacco: 12 packs per day: 0.5 Years Smoked: 40 Cigarettes Per Day: 10 Do You Dip or Chew Tobacco: No Tobacco Cessation Education Requested by Patient: No Hx Alcohol Use: No Hx Substance Use: No Physical Exam Physical Exam: Physical Exam: Constitutional: appearance over nourished, healthy Ears, Nose, Mouth and Throat: mucous membranes moist, no injection and skin normal, eyes normal Cardiovascular: normal S-1 and S-2 and regular rate and rhythm Respiratory: inspiratory wheezing KISHOR Musculoskeletal: no peripheral edema Skin: no stigmata of neurocutaneous disease noted and normal and intact Eyes: extraocular muscles intact (EOMI) and pupils equal, round and reactive to light (PERRL) NEUROLOGIC EXAMINATION: Mental status: Alert and interactive Oriented to full date and location Oriented to person Speech fluent no slurring of speech Cranial Nerves smile eye brow raise symmetric Reflexes: Deep tendon reflexes were symmetrical and graded 2/5. Sensory: intact to cool and light touch Coordination: finger to nose no bi pass. romberg + with eyes closed Gait/Stance: Posture sitting on bed able to reposition and rise from sitting without assistance. walks with right limp (from previous stroke) Motor: Negative for pronator drift of out stretched arms with eyes closed. Strength: Normal - 5/5 all extremities Results & Data Vital Signs (Past 12 Hours) Vital Signs Temp Pulse Pulse Resp BP Pulse Ox 08/04/18 11:49 36.6 C 66 18 135/86 98 08/04/18 07:51 36.7 C 66 70 18 142/86 H 96 08/04/18 04:29 36.5 C 69 18 108/79 91 Laboratory Results Abnormal lab results 08/03/18 08/03/18 08/04/18 Range/Units 17:00 20:13 05:49 RDW Std Deviation 46.9 H (36.4-46.3) fL MPV 11.6 H (7.4-10.4) fL Immature Gran # (Auto) 0.04 H (0.00-0.02) K/uL PT (9.0-12.0) Seconds INR (0.9-1.1) Glucose (70-99) mg/dl POC Glucose 167 H 205 H (70-99) Hemoglobin A1c (4.5-5.6) % Triglycerides (0-150) mg/dl 25-OH Vitamin D Total (30-100) ng/ml PTH Intact (18.4-80.1) pg/ml 08/04/18 08/04/18 08/04/18 Range/Units 05:49 05:49 05:49 RDW Std Deviation (36.4-46.3) fL MPV (7.4-10.4) fL Immature Gran # (Auto) (0.00-0.02) K/uL PT 18.9 H (9.0-12.0) Seconds INR 1.9 H (0.9-1.1) Glucose 243 H (70-99) mg/dl POC Glucose (70-99) Hemoglobin A1c 9.6 H (4.5-5.6) % Triglycerides 247 H (0-150) mg/dl 25-OH Vitamin D Total (30-100) ng/ml PTH Intact (18.4-80.1) pg/ml 08/04/18 08/04/18 08/04/18 Range/Units 05:49 05:49 07:46 RDW Std Deviation (36.4-46.3) fL MPV (7.4-10.4) fL Immature Gran # (Auto) (0.00-0.02) K/uL PT (9.0-12.0) Seconds INR (0.9-1.1) Glucose (70-99) mg/dl POC Glucose 252 H (70-99) Hemoglobin A1c (4.5-5.6) % Triglycerides (0-150) mg/dl 25-OH Vitamin D Total 15.6 L (30-100) ng/ml PTH Intact 85.1 H (18.4-80.1) pg/ml 08/04/18 Range/Units 12:02 RDW Std Deviation (36.4-46.3) fL MPV (7.4-10.4) fL Immature Gran # (Auto) (0.00-0.02) K/uL PT (9.0-12.0) Seconds INR (0.9-1.1) Glucose (70-99) mg/dl POC Glucose 251 H (70-99) Hemoglobin A1c (4.5-5.6) % Triglycerides (0-150) mg/dl 25-OH Vitamin D Total (30-100) ng/ml PTH Intact (18.4-80.1) pg/ml Diagnostic Findings MRI brain- No areas of restricted diffusion to suggest acute infarction. Small right mastoid effusion is again noted. The paranasal sinuses and left mastoid air cells are clear. The orbits are unremarkable. The major vascular flow-voids at the skull base are well-maintained. Old lacunar infarct within the left cerebellar hemisphere is again noted. There is no mass, hematoma, midline shift. The ventricles are normal in size. A single punctate focus of T2 hyperintensity seen within the white matter of the left posterior frontal lobe. This is of doubtful clinical significance and may be due to chronic microvascular ischemic change. This remains unchanged. CT head- No acute intracranial findings. No change in an old lacunar infarct within the left cerebellar hemisphere.
[2018-08-04] MEDS ORDERED: STROKE PATIENT DISCHARGE STA (15:13)
--- NOTE | 2018-08-04 15:13 | Discharge Summary ---
Date of Service August 04, 2018 Admission HPI Per Admitting Provider This is a 48-year-old female who has a significant past medical history of antiphospholipid antibody syndrome on long-term anti-coagulation with Coumadin, history of CVA x2 with residual left-sided weakness and left hearing loss, T2DM, HTN, HLD, DAIN on CPAP, history of migraine who presents to [facility] ED secondary to dizziness x2 days. Of significance patient does have a history of 2 prior CVAs back in 2012 left cerebellar and left frontoparietal which has left her with residual left-sided weakness and left-sided hearing loss as well as positional dizziness and being off-balance. She ambulates with a cane/walker. Prior to previous stroke she was left side dominant. She does have frequent falls secondary to being off balance no recent injury. She presents today due to worsening of her dizziness over the past 2 days. She states she feels like her tongue and lips are tingling. She describes episodes as a "zap or jolt, like getting electrocuted." Symptoms last seconds and then resolve but over the past 24 hours have become more frequent. Exacerbated with quick movements or lying flat. She denies any headache or burning sensation. She describes episodes as quick dizzy spells like, "everything is bottoming out." Increasingly feeling off balance and has nausea associated with. Further describes her heart racing. She denies any recent illness, fever, chills, sweats, syncope, lightheadedness or presyncope, chest pain, shortness of breath, MILTON, cough, hemoptysis, emesis, abdominal pain, change in her bowel or urinary habits. Her appetite has been normal and she denies any weight gain or loss. She is a diabetic in which she takes metformin and glipizide. She did monitor her blood sugar during events and was elevated last being 240s. During my examination when having patient lie flat and moving head quickly to right she developed an episode where she states, "my arms are heavy I cannot move them." Patient became very tearful and frightened. She states "this happens out of a blue romano I have been telling my doctor this but nobody knows what is going on." She states this is not the symptoms that she has been experienced over the past 2 days. Initially patient was unable to lift right arm but after approximately 1 minute she was able to. Again patient very tearful and states "I am sorry." She overall gets a feeling of her arms and shoulder being very heavy. "It is like I have been swimming for miles in my arms and shoulders are just exhausted." Admission Exam Per Admitting Provider Gen: WD/WN, F, NAD, sitting up in bed, pleasant, conversing easily Head: Normocephalic, Atraumatic Eyes: Sclera normal, no conjunctival injection, PERRLA, EOMI ENT: Gross hearing intact, normal pharynx, mucous membranes moist Neck: supple, no adenopathy, No JVD, no bruit, Resp: Clear to auscultation b/l, no wheeze, rales, rhonchi. 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 Requested to move head quickly to left which did not reproduce symptoms. She then quickly moved head to right when she developed a episode that brought on significant fearfulness, anxiety, patient became very tearful and stating "I cannot move my arm." She states this is happened in the past and states it occurs in a, "blue romano." The symptoms are not similar to what brought her in today. Symptoms resolved with rest the patient was very anxious and tearful. Initially patient was unable to lift right arm but it approximately 30 seconds to 1 minute symptoms resolved. She did not have any further neurological deficit at that time. Principal Diagnosis Hypomagnesemia h/o CVA vitamin D deficiency Discharge Data Allergies Allergy/AdvReac Type Severity Reaction Status Date / Time No Known Allergies Allergy Verified 08/03/18 13:31 Consultations 08/03/18 14:02 ED Decision to Admit Stat 08/03/18 16:17 Consult Case Management - Discharge Planning Routine Consult Case Management - Discharge Planning Routine Consult Neurology Routine Ordered Studies 08/03/18 12:39 CT head/brain wo con Stat 08/03/18 14:58 MR brain wo con Routine Hospital Course (1) Hypomagnesemia: (2) Dizziness: (3) Paresthesias: (4) History of CVA (cerebrovascular accident): (5) Antiphospholipid antibody syndrome: (6) DM type 2 (diabetes mellitus, type 2): (7) Hypertension: (8) Dyslipidemia: (9) DAIN on CPAP: 48-year-old female with history of stroke presented to the emergency room with electric shocks all over her head, which were fleeting. She also had some tongue numbness and lip numbness that persisted. A stroke alert was called by the nurse but she did not meet IV TPA criteria as her symptoms had started the night before and she was also on Coumadin. Work-up in the ER revealed CT scan of the head without contrast with no acute intracranial findings and no changes in an old lacunar infarct within the left cerebellar hemisphere. EKG revealed sinus rhythm with a rate of 81 and no evidence of ST elevations. On exam she was neurologically intact other than ataxia. She was given 1 dose of meclizine with some improvement. INR was noted at 1.9. She was walked in the ER but thought she was too unsteady to go home, so she was admitted to the hospitalist service for further evaluation. An MRI was performed which revealed no acute intracranial abnormalities. Neurology was consulted and agreed there was no acute stroke, and she should continue her home therapy with no changes. Notably on lab work she was seen to have low magnesium, 1.3. She was given magnesium replacement with a repeat magnesium the following day of 2.1 and a resolution of her symptoms. Vitamin D was also low and was given at discharge for the next 3 months. Close primary care follow-up is recommended to ensure magnesium has not fallen again. At time of discharge she was hemodynamically stable and afebrile and mentating at baseline. She was somewhat agitated because she wanted to leave the hospital as she felt better. There was no neurologic deficit on exam and physical exam was otherwise unremarkable. She was discharged in stable condition. Total Time Total Time Spent Total Time Spent (In Minutes): 60 Total Time Includes: Examination of the Patient, Discharge Planning, Medication Reconciliation, Communication With Other Providers and Other (followup scheduling) Discharge Plan Discharge Items Patient Disposition: Home - Self-Care Reason For Visit: DIZZINESS,INCREASED WEAKNESS Discharge Diagnosis: Hypomagnesemia h/o CVA vitamin D deficiency Condition: Good Discharge Goals: Increase independence Activity: Resume your previous activity Non-emergency contact: Primary Care Provider Call non-emergency contact if: you have any medication questions, your symptoms worsen, your pain is not controlled and you have a fever Follow-up/Referrals: Hector Sullivan MD [Primary Care Provider] - Diet: Carb Consistent or DM2 and Low Sodium (2gm) Addtl Provider Instructions: Please take all medications as instructed on discharge list below. PRIMARY CARE FOLLOW-UP: 08/08/2018 11:20 AM Hector Sullivan MD General Internal Medicine [facility] It was a pleasure taking care of you! Please call if you have any questions or problems. You can reach a [facility] hospitalist on duty at [facility] 24 hours a day by calling [phone]. Take care of yourself. DO [facility] Prescriptions: New magnesium oxide 400 mg (241.3 mg magnesium) tablet 400 mg PO BID Qty: 60 RF: 1 ergocalciferol (vitamin D2) 50,000 unit capsule 50,000 units PO Q7D Qty: 12 RF: 0 Continued atorvastatin 40 mg tablet 40 mg PO QPM RF: 0 metformin 500 mg Tablet 500 mg PO BID RF: 0 glipizide 10 mg Tablet 10 mg PO BID RF: 0 aspirin [Aspirin Low Dose] 81 mg Tablet,Delayed Release (Dr/Ec) 81 mg PO QPM RF: 0 citalopram 20 mg tablet 20 mg PO QPM RF: 0 lisinopril 10 mg tablet 10 mg PO QPM RF: 0 warfarin 5 mg tablet 5 mg PO DAILY RF: 0 Stand-Alone Forms: [facility] Discharge Orders: Discharge Order (Routine); Ordered 08/04/18 Ordered By: Bren Berg Admission Data Admit Date/Time: 08/03/18 14:58 Attending Provider: Bren Berg Admit Provider: Bren Berg Primary Care Provider: Hector Sullivan Other Providers: Papito Lockwood ; Bren Berg Service: Telemetry Medical Other Interventions: Discharge Summary Assessment (RN) Last Done: 08/04/18 15:38 DC Date/Time DO NOT enter until pt leaves facility: 08/04/18 15:49
== END 2018-08-04 15:49 | disposition home or self-care (01) | DRG 92 ==
LOC: ED 12:19 → 2N 14:58

== ENCOUNTER 2024-07-11 11:32 | Inpatient (IN) ==
--- OUTSIDE RECORDS SUMMARY | 2024-07-11 11:37 | External Medical Summary | Summary of Care ---
Author Name Unknown Organization [facility] Address [address] [place] [address] Phone [phone] Care Team Providers Care Photographic Equipment Assembler Name Role Phone Hector Sullivan MD Primary Care Provider + Reason for Visit * Reason Comments Outpatient Testing Encounter Details Date Type Department Care Team (Late st Contact Info) Description 07/04/2024 1:50 PM EDT Laboratory Laboratory, [facility] [address] [place] [id number] [facility] [address] [place] [address] History of CVA (cerebrovascular accident) Allergies No known active allergiesdocumented as of this encounter (statuses as of 07/04/2024) Medications Glucose Blood In Vitro Strip Test once daily. Active Blood Glucose Monitoring Suppl (RELION CONFIRM GLUCOSE MONITOR) W/DEVICE KIT Use as directed. Active Aspirin 81 MG Tablet Take 1 Tablet by mouth at bedtime. Active Slow Magnesium/Calcium 70-117 MG Oral Tablet Delayed Release (Magnesium Cl-Calcium Carbonate)Indicat ions:Hypomagnesem ia 2 tablets in PM 180 Tab 3 1 Active CPAP every night at bedtime. Active B Complex Vitamins Oral Capsule Take 1 Capsule by mouth in the morning. Active Iron 325 (65 Fe) MG Oral Tablet Take 1 Tablet by mouth in the morning. Active Childrens Chewable Multi Vits Oral Tablet Chewable Take 1 Tablet by mouth in the morning and 1 Tablet before bedtime. Active Calcium Citrate+D3 Petites 200-6.25 MG-MCG Oral Tablet (Calcium Citrate-Vitamin D) Take 2 Tablets by mouth in the morning and 2 Tablets at noon and 2 Tablets before bedtime. Active Cyanocobalamin 1000 MCG/ML Injection Solution (Cyanocobalamin)I ndications:Postsu rgical nonabsorption,Int estinal postoperative nonabsorption,S/P gastric bypass Inject 1 mL into a large muscle every 3 months. 1 mL 5 4 Active Folic Acid 1 MG Oral Tablet Take 1 Tablet by mouth in the morning. 30 Tablet 1 4 Active Warfarin Sodium 5 MG Oral Tablet (Coumadin)Indicat ions:Cerebrovascu lar accident (CVA) due to other mechanism (HCC) Take 1 Tablet by mouth every evening Or as directed by antico clinic. 100 Tablet 3 03/31/2024 8:41 AM EST 5 03/27/19 26 Active Citalopram Hydrobromide 40 MG Oral Tablet (CeleXA) TAKE ONE TABLET BY MOUTH EVERY MORNING 90 Tablet 1 06/26/2024 5:09 PM EDT 5 03/30/19 26 Active buPROPion HCl ER (XL) 150 MG Oral Tablet Extended Release 24 Hour (Wellbutrin XL)Indications:Ma lucia depressive disorder with single episode, in partial remission (HCC) TAKE ONE TABLET BY MOUTH EVERY MORNING 90 Tablet 1 06/26/2024 5:09 PM EDT 5 03/30/19 26 Active Zinc Sulfate 220 (50 Zn) MG Oral Capsule Take 1 Capsule by mouth in the morning. 30 Capsule 5 Active Mometasone Furoate 0.1 % External OintmentIndicatio ns:Vulvar pruritus,Vulvar dermatitis Apply topically to affected area daily. For up to 2 weeks at one time as needed. 45 g 5 Active Luer Lock Safety Syringes 25G X 5/8" 3 ML (Syringe/Needle (Disp))Indication s:Postsurgical nonabsorption,Int estinal postoperative nonabsorption,S/P gastric bypass USE FOR VITAMIN B12 INJECTIONS 4 Each 5 Active documented as of this encounter (statuses as of 07/04/2024) Active Problems Problem Noted Date Diagnosed Date 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 S/P gastric bypass 01/03/2023 AMANDA (nonalcoholic steatohepatitis) 01/03/2023 Gastroesophageal reflux disease 01/03/2023 Former smoker 01/03/2023 Type 2 diabetes mellitus wit hout complication, with long-term current use of insulin 01/03/2023 AMANDA RESEARCH OTHER*[id number] 12/26/2022 Hemiplegia and hemiparesis f ollowing cerebral infarction affecting left non-dominant side 07/26/2022 Food insecurity 04/30/2022 Overview: Per [facility] Protocol Type 2 diabetes mellitus wit h diabetic neuropathy, without long-term current use of insulin 03/23/2020 Light chain disease 12/18/2019 Hypomagnesemia 12/18/2019 APL (antiphospholipid syndrome) 04/20/2019 Major depressive disorder wi th single episode, in partial remission 02/04/2018 History of CVA (cerebrovascular accident) 2017 DAIN on CPAP 01/08/2017 Overview (01/25/2017): CPAP 7 cwp Care Plus Oxygen Mixed conductive and sensori neural hearing loss of right ear with restricted hearing of left ear 12/04/2016 Type 2 diabetes mellitus wit h hemoglobin A1c goal of less than 8.0% 06/13/2016 HTN, goal below 140/90 06/13/2016 Hyperlipidemia 06/13/2016 Systemic lupus erythematosus , unspecified SLE type, unspecified organ involvement status 06/13/2016 Overview (12/17/2023): ICD-10 update of inactive term DM type 2 with diabetic peripheral neuropathy OVARIAN CYST NEC-NOS 07/19/1999 CLASSICAL MIGRAINE WITHOU MENTION OF INTRACTABLE MIGRAINE 06/05/1999 documented as of this encounter (statuses as of 07/04/2024) Resolved Problems Problem Noted Date Diagnosed Date Resolved Date Morbid obesity 01/03/2023 08/16/2023 Major depressive disorder 01/03/2023 Hypertension 01/03/2023 08/16/2023 Pre-operative examination 12/25/2022 PMB (postmenopausal bleeding) 01/19/2021 01/15/2022 Food insecurity 11/28/2020 12/29/2020 Overview: Per [facility] Protocol Neuropathy 03/23/2020 01/15/2022 Tobacco abuse 09/17/2019 12/18/2019 Cigarette nicotine dependenc e without complication 02/04/2018 07/26/2022 Depression with anxiety 04/05/201707/17 Sensorineural hearing loss (SNHL) of left ear 12/05/19 17 01/15/2022 CVA (cerebrovascular accident) 06/13/2016 07/30/2017 Overview (06/13/2016): x2 Hearing loss 06/13/2016 01/15/2022 ACUTE PEPTIC ULCER NOS 06/01/200306/13 Overview (06/17/2024): ICD-10 Update of Inactive Term Hematuria 08/10/2001 10/31/2018 Overview (06/09/2015): ICD-10 update of inactive term Tension headache 06/05/1999 06/13/2016 History of tobacco use 04/26/199908/15 documented as of this encounter (statuses as of 07/04/2024) Immunizations Name Administration Dates Next Due COVID-19 mRNA, LNP-s, No Pre serve, 2-Dose Series (Moderna) 08/19/2020,07/22/2020 Hepatitis B, 20+ yrs 02/08/2017,09/06/2016,08/06 Pneumococcal Conjugate Vacci ne, 20-valent (Ctcpkat19) 09/05/2021 Pneumococcal Polysaccharide PPV23 (Pneumovax) 06/13/2016 Seasonal Influenza, PF, 6 M & above, IM , (FluLaval or Fluzone) 01/06/2023,12/18/2021,12/12/2020,12/17,02/04/2019,01/30/2017 Seasonal Influenza, Trivalen t, (IIV3), PF, (Fluzone) 03/09/2024 TDAP (age 10 and older)(Boostrix) 08/16/2023 TDAP, Age 7 and older, IM (Adacel) 03/26/2011 Zoster Vaccine Recombinant (Shingrix) 08/16/2023 documented as of this encounter Social History Tobacco Use Types Packs/Day Years Used Date Smoking Tobacco: Former Cigarettes 0.5 35 0 04/01/2022 - 06/2022 Smokeless Tobacco: Never Alcohol Use Standard Drinks/Week Comments Not Currently 0 (1 standard drink = 0.6 oz pur e alcohol) "once in a blue romano" AUDIT-C Answer Date Recorded Frequency of Alcohol Consumption Never 08/21/2018 Average Number of Drinks Not on file 019 Frequency of Binge Drinking Not on file 08/2018 PHQ-2 Answer Date Recorded PHQ Adult Total Score 4 05/08/2022 Hunger Vital Sign Answer Date Recorded Within the past 12 months, y ou worried that your food would run out before you got the money to buy more. Sometimes true Within the past 12 months, t he food you bought just didn't last and you didn't have money to get more. Sometimes true 05/2022 Personal Safety Answer Date Recorded Do you feel unsafe or have concerns for your saf ety? No 01/03/2023 Do you have concerns for you r family's safety? (Household - for ages 0-17 years) Not on file 01/03/2023 Utilities Answer Date Recorded Do you have trouble paying y our heating, water, or electric bill? No 01/03/2023 Is your family able to pay t he heat, water, or electric bill? (Household - for ages 0-17 years) Not on file 01/03/2023 Does your family have access to good internet? (Household - for ages 0-17 years) Not on file 01/03/2023 Transportation Needs Answer Date Record ed READ ONLY Do you have troubl e getting a ride to medical visits or work? Never True 01/03/2023 Does your family have a hard time getting a ride to doctors visits? (Household - for ages 0-17 years) Not on file 01/03/2023 Has lack of transportation k ept you from medical appointments, meetings, work, or from getting things needed for daily living? Check all that apply. (Adult - for ages 18 years and over) Not on file 01/03/2023 Do you (or your family) have trouble finding or paying for a ride (transportation)? (Household - for ages 0-17 years) Not on file 01/03/2023 Housing Stability Answer Date Recorded Do you currently live in a s helter or have no steady place to sleep at night? (Adult - for ages 18 years and over) Not on file 01/03/2023 READ ONLY Do you think you a re at risk of becoming homeless? No 01/03/2023 Does your family worry about paying for your home or becoming homeless? (Household - for ages 0-17 years) Not on file 1 Are you homeless or worried that you might be in the future? (Adult - for ages 18 years and over) Not on file Are you (or your family) lorna eless or worried that you might be in the future? (Household - for ages 0-17 years) Not on file Food Insecurity Answer Date Recorded Do you need food for this week? No 01/03/2023 Are you able to get enough f ood for your family? (Household - for ages 0-17 years) Not on file 01/03/2023 Does your family need food t his week? (Household - for ages 0-17 years) Not on file 01/03/2023 Do you always have enough fo od for your family? (Household - for ages 0-17 years) Not on file 01/03/2023 Comments No Sex and Gender Information Value Date Recorded Sex Assigned at Female 10/31/2018 8:52 AM EDT Legal Sex Female 5:55 AM EST Gender Identity Female 10/31/2018 8:52 AM EDT Sexual Orientation Straight 10/31/2018 8: 52 AM EDT Occupation Industry Job Start Date Job End Date disabled Not on file Not on file Not on file documented as of this encounter Functional Status * Are you deaf or do you have serious difficulty hearing? Answer Date of Assessment Author No 01/03/2023 6:47 PM EDT Mariana Minaya RN * Are you blind or do you have serious difficulty seeing, even when wearing glasses? Answer Date of Assessment Author No 01/03/2023 6:47 PM EDT Mariana Minaya RN * Do you have serious difficulty walking or climbing stairs? (5 years old or older) Answer Date of Assessment Author No 01/03/2023 6:47 PM EDT Mariana Minaya RN * Do you have difficulty dressing or bathing? (5 years old or older) Answer Date of Assessment Author No 01/03/2023 6:47 PM EDT Mariana Minaya RN * Because of a physical, mental, or emotional condition, do you have difficulty doing errands alone such as visiting a doctor’s office or shopping? (15 years old or older) Answer Date of Assessment Author No 01/03/2023 6:47 PM EDT Mariana Minaya RN documented as of this encounter Mental Status * Because of a physical, mental, or emotional condition, do you have serious difficulty concentrating, remembering, or making decisions? (5 years old or older) Answer Entry Date Author No 01/03/2023 6:47 PM EDT Mariana Minaya RN documented in this encounter Plan of Treatment Upcoming Encounters Date Type Department Care Team (Late st Contact Info) Description 07/06/2024 6:15 AM EDT Anticoagulation [facility], [facility] [address] [place] [address] [place] [address] [place] [id number] 08/21/2024 9:00 AM EDT Imaging Radiology [facility] [address] [place] [phone] 09/04/2024 10:20 AM EDT Office Visit Dermatology [facility] [address] [place] [address] Shelia Cota PA-C [address] [place] [address] Pending Results Name Type Priority Associated Diagnoses Date /Time PT INR Lab Routine History of CVA (cerebrovascular accident) 07/04/2024 1:48 PM EDT Scheduled Procedures Name Priority Associated Diagnoses Date/Ti me COLONOSCOPY FLEXIBLE PROXIMAL DIAGNOSTIC Recall Screen for colon cancer Health Maintenance Due Date Last Done Comments Cologuard 2014 Fecal Occult Blood Test 2014 Sigmoidoscopy 2014 Depression Monitoring 05/08/2023 05/08/2022 Zoster Vaccines (2 of 2) 10/11/2023 08/16/2023 COVID-19 Vaccine ( season) 2023 08/19/2020, 07/22/2020 Diabetic Eye Exam 07/09/2024 07/10/2023, , 07/06/2022, Additional history exists Diabetic Foot Exam 08/15/2024 08/16/2023, 0 04/20/2022, 04/20/2022, Additional history exists Mammogram 08/15/2024 08/16/2023, 0504/2022, 08/06/2022, Additional history exists HbA1c 09/11/2024 03/13/2024, 09/15, 05/25/2023, Additional history exists Albumin/Creatinine Ratio 10/02/202410/02/ 024, 10/31/2022, 07/08/2021, Additional history exists B-12 03/13/2025 03/13/2024, 03/0 11/2023, 10/31/2022, Additional history exists GFR 03/13/2025 03/13/2024, 120 09/2023, 10/03/2023, Additional history exists Colonoscopy 08/03/2025 08/03/2020, 07/16, 03/24/2019, Additional history exists Colorectal Cancer Screening 08/03/2025 Pap Smear 10/17/2026 10/18/2023, 06/0 11/2019, 06/28/2016, Additional history exists Cervical Cancer Screening 10/17/2028 HPV/Co-Test 10/17/2028 10/18/2023 Lipid Panel 03/27/2029 03/27/2024, 09/15, 05/25/2023, Additional history exists DTap/Tdap Vaccines (3 - Td or Tdap) 08/15/2033 08/16/2023, 03/26/2011, 09/26/1998 Hepatitis B Vaccine Completed 02/08/2017, 09/06/2016, 08/06/2016 RETIRED - COLONOSCOPY-ANNUAL AGES 18-100 Discontinued 08/03/2020, 08/03/2020, 03/24/2019, Additional history exists RETIRED - COLONOSCOPY-EVERY 5 YRS AGES 18-100 Discontinued 08/03/2020, 08/03/2020, 03/24/2019, Additional history exists Pneumococcal Vaccine: 50+ Years Completed 09/05/2021, 06/13/2016 Influenza Vaccine (FLU shot) Completed 03/09/2024, 01/06/2023, 12/18/2021, Additional history exists HPV (Gardasil) Vaccine Aged Out No lo nger eligible based on patient's age to complete this topic MENINGOCOCCAL (MENACTRA/MENVEO) Aged Out No longer eligible based on patient's age to complete this topic Meningitis B Vaccine (Bexsero/Trumemba) Aged Out No longer eligible based on patient's age to complete this topic documented as of this encounter Medical Devices Not on filedocumented as of this encounter Visit Diagnoses Diagnosis History of CVA (cerebrovascular accident) Transient ischemic attack (TIA), and cerebral infarction without residual deficits documented in this encounter Advance Directives * Full Code (Latest Code Status on File) Date Activated Date Inactivated Comments 01/03/2023 4:53 PM 01/06/2023 3:50 PM This order reflects the patients wishes and were consensually agreed upon. Question Answer Comments Discussion of Advance Directives occurred with: Patient * Full Code Date Activated Date Inactivated Comments 01/03/2023 11:01 AM 01/03/2023 4:53 PM This orde r reflects the patients wishes and were consensually agreed upon. Question Answer Comments Discussion of Advance Directives occurred with: Patient Does the patient have a Living Will? No Does the patient have Health Care Power of Attor pat? No Care Teams Photographic Equipment Assembler Relationship Specialty Start Date End Date Hector Sullivan MD [address] [place] [address] PCP - General Internal Medicine 06/24/17 documented as of this encounter
--- OUTSIDE RECORDS SUMMARY | 2024-07-11 11:37 | External Medical Summary ---
Author Name Unknown Address Unknown Organization K0G:[facility] [address] [place] [address] Laboratory Report Ordering Provider Test Date Status KIARALISSET 06/13/2024 12:25:23 Final Please draw PT/INR every 1-4 weeks or as requested by the [facility] Coumadin Clinic

Warfarin Therapy
INR: 2.0-3.0 conventional anticoagulation
INR: 2.5-3.5 high intensity anticoagulation Observation Date Value Abnormality Reference (Units ) Status PT 06/13/2024 12:25:23 24.5 Above high normal 11 .6-15.2 (seconds) Final INR 06/13/2024 12:25:23 2.2 Above high normal 0. 8-1.2 Final Performing Location [facility] [place] [id number]
--- OUTSIDE RECORDS SUMMARY | 2024-07-11 11:37 | External Medical Summary | Summary of Care ---
Author Name Unknown Organization [facility] Address [address] [facility] [place] [address] Phone [phone] Care Team Providers Care Policeman Name Role Phone Hector Sullivan MD Primary Care Provider + Reason for Visit * Reason Comments Dosage Adjustment Via Phone (anticoag Cl inic) Encounter Details Date Type Department Care Team (Late st Contact Info) Description 07/06/2024 6:15 AM EDT Anticoagulation Centralized Clinical Pharmacy Services, Lucretia Pealr [address] [place] [address] [place] [address] [place] [address] Systemic lupus erythematosus, unspecified SLE type, unspecified organ involvement status (HCC)*; History of CVA (cerebrovascular accident) Allergies No known active allergiesdocumented as of this encounter (statuses as of 07/07/2024) Medications Glucose Blood In Vitro Strip Test [...] directed by antico clinic. 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 S/P gastric bypass 01/03/2023 AMANDA (nonalcoholic steatohepatitis) 01/03/2023 Gastroesophageal reflux disease 01/03/2023 Former smoker 01/03/2023 Type 2 diabetes mellitus wit hout complication, with long-term current use of insulin 01/03/2023 AMANDA RESEARCH OTHER*[id number] 12/26/2022 Hemiplegia and hemiparesis f ollowing cerebral infarction affecting left non-dominant side 07/26/2022 Food insecurity 04/30/2022 Overview: Per [facility] Protocol Type 2 diabetes mellitus [...] as of this encounter (statuses as of 07/07/2024) Resolved Problems Problem Noted Date Diagnosed Date [...] as of this encounter (statuses as of 07/07/2024) Immunizations Name Administration Dates Next Due COVID-19 mRNA, LNP-s, No Pre serve, 2-Dose Series (Moderna) 08/19/2020,07/22/2020 Hepatitis B, 20+ yrs 02/08/2017,09/06/2016,08/06 Pneumococcal Conjugate Vacci ne, 20-valent ([id number]) 09/05/2021 Pneumococcal Polysaccharide PPV23 (Pneumovax) 06/13/2016 Seasonal [...] Author No 01/03/2023 6:47 PM EDT Mariana Minaya, RN * Are you blind or do [...] Mariana Minaya RN documented in this encounter Progress Notes * Dalia Bauer RPh - 07/06/2024 9:17 AM EDT Agree with plan. Dalia Bauer Rph, Pharm.D. Clinical Pharmacist Telepharmacy [phone] 07/06/2024,9:17 AM documented in this encounter Plan of Treatment Upcoming Encounters Date Type Department Care Team (Late st Contact Info) Description 07/24/2024 1:50 PM EDT Laboratory Laboratory State Leti Salcedo [address] [place] [phone] Elvira Lim [address] [facility] [place] [address] 07/27/2024 6:15 AM EDT [facility] Clinical Pharmacy Services, Lucretia Pearl [address] [place] [address] [place] [address] [facility] [address] [place] [address] 08/21/2024 9:00 AM EDT Imaging Radiology [facility] [address] [place] [phone] 09/04/2024 10:20 AM EDT Office Visit Dermatology [facility] [address] [place] [address] Shelia Cota PA-C [address] [place] [address] Scheduled Procedures Name Priority Associated Diagnoses Date/Ti [...] 04/20/2022, Additional history exists Mammogram 08/15/2024 08/16/2023, 07/17, 08/06/2022, Additional history exists HbA1c 09/11/2024 03/13/2024, 09/15, 05/25/2023, Additional history exists Albumin/Creatinine Ratio 10/02/2024 024, 10/31/2022, 07/08/2021, Additional history exists B-12 03/13/2025 03/13/2024, 03/0 11/2023, 10/31/2022, Additional history exists GFR 03/13/2025 03/13/2024, 09/2023, 10/03/2023, Additional history exists Colonoscopy 08/03/2025 08/03/2020, 07/16, 03/24/2019, Additional history exists Colorectal Cancer Screening 08/03/2025 Pap Smear 10/17/2026 10/18/2023, 11/2019, 06/28/2016, Additional history exists Cervical Cancer [...] as of this encounter Visit Diagnoses Diagnosis Systemic lupus erythematosus, unspecified SLE type, unspecified organ involvement status (HCC)- Primary History of CVA (cerebrovascular accident) Transient ischemic [...] Power of Attor pat? No Care Teams Policeman Relationship Specialty Start Date End Date Hector Sullivan MD [address] [facility] [place] [facility] [place] [address] PCP - General Internal Medicine 06/24/17 documented as of this encounter
--- OUTSIDE RECORDS SUMMARY | 2024-07-11 11:37 | External Medical Summary ---
Author Name Unknown Address Unknown Organization K0G:[facility] [address] [place] [id number] Laboratory Report Ordering Provider Test Date Status LISSET CRAIG 07/04/2024 13:48:09 Final Please draw PT/INR every 1-4 weeks or as requested by the [facility] Coumadin Clinic

Warfarin Therapy
INR: 2.0-3.0 conventional anticoagulation
INR: 2.5-3.5 high intensity anticoagulation Observation Date Value Abnormality Reference (Units ) Status PT 07/04/2024 13:48:09 33.2 Above high normal 11 .6-15.2 (seconds) Final INR 07/04/2024 13:48:09 3.2 Above high normal 0. 8-1.2 Final Performing Location [facility] [address] [place] [id number]
--- OUTSIDE RECORDS SUMMARY | 2024-07-11 11:37 | External Medical Summary | Summary of Care ---
Author Name Unknown Organization [facility] Address [address] [facility] [place] [address] Phone [phone] Care Team Providers Care Bulk Sealer Operator Name Role Phone Hector Sullivan MD Primary Care Provider + Reason for Visit * Reason Comments eRx-Medication Refill Encounter Details Date Type Department Care Team (Late st Contact Info) Description 06/11/2024 Refill Nutrition & Weight Management, [facility] [address] [place] [address] Andreea Rivas CRNP [address] [facility] [place] [address] Postsurgical nonabsorption; Intestinal postoperative nonabsorption; S/P gastric bypass Allergies No known active allergiesdocumented as of this encounter (statuses as of 06/12/2024) Medications Glucose Blood In Vitro Strip Test once daily. Active Blood Glucose Monitoring Suppl (RELION CONFIRM GLUCOSE MONITOR) W/DEVICE KIT Use as directed. Active Aspirin 81 MG Tablet Take 1 Tablet by mouth at bedtime. Active Slow Magnesium/Calciu m 70-117 MG Oral Tablet Delayed Release (Magnesium Cl-Calcium Carbonate)Indica tions:Hypomagnes emia 2 tablets in PM 180 Tab 3 04/29/19 21 Active CPAP every night at bedtime. Active [...] bedtime. Active Cyanocobalamin 1000 MCG/ML Injection Solution (Cyanocobalamin) Indications:Post surgical nonabsorption,In testinal postoperative nonabsorption,S/ P gastric bypass Inject 1 mL into a large muscle every 3 months. 1 mL 5 03/10/20 24 Active Folic Acid 1 MG Oral Tablet Take 1 Tablet by mouth in the morning. 30 Tablet 1 03/16/20 24 Active Warfarin Sodium 5 MG Oral Tablet (Coumadin)Indica tions:Cerebrovas cular accident (CVA) due to other mechanism (HCC) Take 1 Tablet by mouth every evening Or as directed by antico clinic. 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 30 Capsule 03/31/19 25 Active Mometasone Furoate 0.1 % External OintmentIndicati ons:Vulvar pruritus,Vulvar dermatitis Apply topically to affected area daily. For up to 2 weeks at one time as needed. 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 S/P gastric bypass 01/03/2023 AMANDA (nonalcoholic steatohepatitis) 01/03/2023 Gastroesophageal reflux disease 01/03/2023 Former smoker 01/03/2023 Type 2 diabetes mellitus wit hout complication, with long-term current use of insulin 01/03/2023 AMANDA RESEARCH OTHER*[id number] 12/26/2022 Hemiplegia and hemiparesis f ollowing cerebral [...] as of this encounter (statuses as of 06/12/2024) Resolved Problems Problem Noted Date Diagnosed Date [...] 06/13/2016 01/15/2022 ACUTE PEPTIC ULCER NOS 06/01/200306/13 Hematuria 08/10/2001 10/31/2018 Overview (06/09/2015): ICD-10 update of inactive term Tension headache 06/05/1999 06/13/2016 History of tobacco use 04/26/199908/15 documented as of this encounter (statuses as of 06/12/2024) Immunizations Name Administration Dates Next Due COVID-19 mRNA, LNP-s, No Pre serve, 2-Dose Series (Moderna) 08/19/2020,07/22/2020 Hepatitis B, 20+ yrs 02/08/2017,09/06/2016,08/06 Pneumococcal Conjugate Vacci ne, 20-valent ([id number]) 09/05/2021 Pneumococcal Polysaccharide PPV23 (Pneumovax) 06/13/2016 Seasonal [...] Mariana Minaya RN documented in this encounter Miscellaneous Notes * Telephone Encounter - Mercedez Francis PA-C - 06/12/2024 10:47 AM EDTSigned Prescriptions: Disp Refills Luer Lock Safety Syringes 25G X 5/8" 3 ML *4 Each 0 Sig: USE FOR VITAMIN B12 INJECTIONS Authorizing Provider: MERCEDEZ FRANCIS * Telephone Encounter - Andreea Rivas CRNP - 06/12/2024 10:44 AM EDT Pending Prescriptions: Disp Refills Luer Lock Safety Syringes 25G X 5/8" 3 ML *4 Each 0 Sig: USE FOR VITAMIN B12 INJECTIONS * Telephone Encounter - Venus Posada RN - 06/12/2024 7:51 AM EDTPending Prescriptions: Disp Refills Luer Lock Safety Syringes 25G X 5/8" 3 ML *4 Each 0 Sig: USE FOR VITAMIN B12 INJECTIONS documented in this encounter Plan of Treatment Upcoming Encounters Date Type Department Care Team (Late st Contact Info) Description 06/15/2024 6:15 AM EDT Anticoagulation Centralized Clinical Pharmacy Services, Lucretia Pearl [address] [place] [address] [place] [address] [place] [address] 07/07/2024 2:30 PM EDT Office Visit Hematology/Oncology [facility] [address] [place] [phone] Rut Roberts CRNP [address] [facility] [place] [address] 08/21/2024 9:00 AM EDT Imaging Radiology [address] [place] [phone] 09/04/2024 10:20 AM EDT Office Visit Dermatology [place] [address] [place] [address] Shelia Cota PA-C [address] [place] [address] Scheduled Procedures Name Priority Associated Diagnoses Date/Ti [...] 09/15, 05/25/2023, Additional history exists Albumin/Creatinine Ratio 10/02/20242 024, 10/31/2022, 07/08/2021, Additional history exists B-12 [...] as of this encounter Visit Diagnoses Diagnosis Postsurgical nonabsorption Other and unspecified postsurgical nonabsorption Intestinal postoperative nonabsorption Other and unspecified postsurgical nonabsorption S/P gastric bypass Bariatric surgery status documented in this encounter Advance Directives * [...] Power of Attor pat? No Care Teams Bulk Sealer Operator Relationship Specialty Start Date End Date Hector Sullivan MD [address] [place] [address] PCP - General Internal Medicine 06/24/17 documented as of this encounter
--- OUTSIDE RECORDS SUMMARY | 2024-07-11 11:37 | External Medical Summary | Summary of Care ---
Author Name Unknown Organization [facility] Address [address] [facility] [place] [address] Phone [phone] Care Team Providers Care Rfid Developer Name Role Phone Hector Sullivan MD Primary Care Provider + Reason for Visit * Reason Comments Dosage Adjustment Via Phone (anticoag Cl inic) Encounter Details Date Type Department Care Team (Late st Contact Info) Description 06/15/2024 6:15 AM EDT Anticoagulation Centralized Clinical Pharmacy Services, Lucretia Pearl [address] [place] [address] [place] [address] [facility], [address] [place] [address] Systemic lupus erythematosus, unspecified SLE type, unspecified organ involvement status (HCC)*; History of CVA (cerebrovascular accident) Allergies No known active allergiesdocumented as of this encounter (statuses as of 06/15/2024) Medications Glucose Blood In Vitro Strip Test [...] BY MOUTH EVERY MORNING 90 Tablet 1 04/03/2024 3:20 PM EST 5 03/30/19 26 Active buPROPion HCl ER (XL) 150 MG Oral Tablet Extended Release 24 Hour (Wellbutrin XL)Indications:Ma lucia depressive disorder with single episode, in partial remission (HCC) TAKE ONE TABLET BY MOUTH EVERY MORNING 90 Tablet 1 04/03/2024 3:20 PM EST 5 03/30/19 26 Active Zinc Sulfate 220 [...] as of this encounter (statuses as of 06/15/2024) Active Problems Problem Noted Date Diagnosed Date 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 S/P gastric bypass 01/03/2023 AMANDA (nonalcoholic steatohepatitis) 01/03/2023 Gastroesophageal reflux disease 01/03/2023 Former smoker 01/03/2023 Type 2 diabetes mellitus wit hout complication, with long-term current use of insulin 01/03/2023 AMANDA RESEARCH OTHER*[id number] 12/26/2022 Hemiplegia and hemiparesis f ollowing cerebral [...] as of this encounter (statuses as of 06/15/2024) Resolved Problems Problem Noted Date Diagnosed Date Resolved Date Morbid obesity 01/03/2023 08/16/2023 Major depressive disorder 01/03/2023 Hypertension 01/03/2023 08/16/2023 Pre-operative examination 12/25/2022 PMB (postmenopausal bleeding) 01/19/2021 01/15/2022 Food insecurity 11/28/2020 12/29/2020 Overview: Per [facility] Protocol Neuropathy 03/23/2020 01/15/2022 Tobacco [...] as of this encounter (statuses as of 06/15/2024) Immunizations Name Administration Dates Next Due COVID-19 mRNA, LNP-s, No Pre serve, 2-Dose Series (Moderna) 08/19/2020,07/22/2020 Hepatitis B, 20+ yrs 02/08/2017,09/06/2016,08/06 Pneumococcal Conjugate Vacci ne, 20-valent ([id number]) 09/05/2021 Pneumococcal Polysaccharide PPV23 (Pneumovax) 06/13/2016 Seasonal [...] Assessment Author No 01/03/2023 6:47 PM EDT Minda Minaya RN * Do you have serious [...] documented in this encounter Progress Notes * Joann York CPhT - 06/15/2024 9:15 AM EDT Contacts Contact Date/Time Type Contact Phone/Fax 06/15/2024 04:16 AM EDT Email SMS () [phone] Patient not accepting updates 06/15/2024 09:14 AM EDT Phone (Outgoing) Colette Herrera (Self) [phone] (M) Spoke to Patient Subjective Patient Findings Negatives: Signs/symptoms of bleeding, Change in health, Change in activity, Upcoming invasive procedure, Missed doses, Extra doses, Change in medications, Change in diet/appetite, Bruising Advised patient to contact Anticoagulation Clinic if any unusual bruising or bleeding, recent illness, changes in medication, or questions/concerns. PT/INR results, Coumadin dose instructions, and next PT/INR date communicated as noted by Pharmacist: Yes Joann York CPhT 06/15/2024, 9:15 AM * Dalia Bauer [facility] - 06/15/2024 8:50 AM EDT Coumadin Clinic (region specific) Objective Current Warfarin Dose As of 06/15/2024 Warfarin maintenance plan: 2.5 mg (5 mg x 0.5) every Fri; 5 mg (5 mg x 1) all other days INR Result As of 06/15/2024 INR goal: 2.0-3.0 INR used for dosin.2 (06/13/2024) Assessment & Plan Warfarin Plan As of 06/15/2024 Full warfarin instructions: 2.5 mg every Fri; 5 mg all other days No change documented: Dalia Bauer RPh Next INR check: 07/04/2024 Repeat PT/INR in 3 week(s) Weekly dose: not changed Additional Dosing Information: Description [facility] Tech to contact patient with dose instructions as noted. Dalia Bauer RPh 06/15/2024, 8:50 AM documented in this encounter Plan of Treatment Upcoming Encounters Date Type Department Care Team (Late st Contact Info) Description 07/04/2024 8:00 AM EDT Laboratory Laboratory, Delio Jarquin [place] [address] [phone] [place] 132 [facility] [place] [address] 07/06/2024 6:15 AM EDT Anticoagulation Centralized Clinical Pharmacy Services, Lucretia Pearl [address] [place] [address] [place] [address] [place] [address] 07/07/2024 2:30 PM EDT Office Visit Hematology/Oncology [facility] [place] 200 [facility] [place] [address] Rut Roberts CRNP [address] [place], [place] [address] [address] 08/21/2024 9:00 AM EDT Imaging Radiology [facility] [facility], [place] [address] [place] [phone] 09/04/2024 10:20 AM EDT Office Visit [facility]at[facility] [address] [facility] [place] [address] Shelia Cota PA-C 200 [facility] [place] [address] Scheduled Procedures Name Priority Associated Diagnoses Date/Ti me COLONOSCOPY FLEXIBLE PROXIMAL DIAGNOSTIC Recall Screen for colon cancer Health Maintenance Due Date Last Done Comments Cologuard 2014 Fecal Occult Blood Test 2014 Sigmoidoscopy 2014 Depression Monitoring 05/08/2023 05/08/2022 Zoster Vaccines (2 of 2) 10/11/2023 08/16/2023 COVID-19 Vaccine (3 season) 2023 08/19/2020, 07/22/2020 Diabetic Eye Exam 07/09/2024 07/10/2023, , 07/06/2022, Additional history exists Diabetic Foot Exam 08/15/2024 08/16/2023, 0 04/20/2022, 04/20/2022, Additional history exists Mammogram 08/15/2024 08/16/2023, 07/17, 08/06/2022, Additional history exists HbA1c 09/11/2024 03/13/2024, 0710/2023, 05/25/2023, Additional history exists Albumin/Creatinine Ratio 10/02/2024 024, 10/31/2022, 07/08/2021, Additional history exists B-12 03/13/2025 03/13/2024, 03/0 11/2023, 10/31/2022, Additional history exists GFR 03/13/2025 03/13/2024, 12/0 09/2023, 10/03/2023, Additional history exists Colonoscopy 08/03/2025 08/03/2020, 07/16, 03/24/2019, Additional history exists Colorectal Cancer Screening 08/03/2025 Pap Smear 10/17/2026 10/18/2023, /11/2019, 06/28/2016, Additional history exists Cervical Cancer Screening [...] Power of Attor pat? No Care Teams Rfid Developer Relationship Specialty Start Date End Date Hector Sullivan MD 200 [place] [address] PCP - General Internal Medicine 06/24/17 documented as of this encounter
--- OUTSIDE RECORDS SUMMARY | 2024-07-11 11:37 | External Medical Summary | Summary of Care ---
Author Name Unknown Organization [facility] Address [address] [place] [address] Phone [phone] Care Team Providers Care Industrial Relations Counselor Name Role Phone Hector Sullivan MD Primary Care Provider + Reason for Visit * Reason Comments Outpatient Testing Encounter Details Date Type Department Care Team (Late st Contact Info) Description 06/13/2024 1:00 PM EDT Laboratory Laboratory, [facility] [address] [place] [phone] [facility] [address] [place] [address] History of CVA (cerebrovascular accident) Allergies No known active allergiesdocumented as of this encounter (statuses as of 06/13/2024) Medications Glucose Blood In Vitro Strip Test [...] mouth every evening Or as directed by anticoag clinic. 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 S/P gastric bypass 01/03/2023 AMANDA (nonalcoholic steatohepatitis) 01/03/2023 Gastroesophageal reflux disease 01/03/2023 Former smoker 01/03/2023 Type 2 diabetes mellitus wit hout complication, with long-term current use of insulin 01/03/2023 AMANDA RESEARCH OTHER*[id number] 12/26/2022 Hemiplegia and hemiparesis f ollowing cerebral [...] as of this encounter (statuses as of 06/13/2024) Resolved Problems Problem Noted Date Diagnosed Date [...] as of this encounter (statuses as of 06/13/2024) Immunizations Name Administration Dates Next Due COVID-19 mRNA, LNP-s, No Pre serve, 2-Dose Series (Moderna) 08/19/2020,07/22/2020 Hepatitis B, 20+ yrs 02/08/2017,09/06/2016,08/06 Pneumococcal Conjugate Vacci ne, 20-valent ([id number]) 09/05/2021 Pneumococcal Polysaccharide PPV23 (Pneumovax) 06/13/2016 Seasonal [...] Anticoagulation Centralized Clinical Pharmacy Services, Lucretia Pearl [address] [place] [address] [place] [address] [place] [address] 07/07/2024 2:30 PM EDT Office Visit Hematology/Oncology [facility] 200 [facility] [place] [phone] Rut Roberts CRNP [address] [place] [address] 08/21/2024 9:00 AM EDT Imaging Radiology [facility] [facility] [place] [address] [place] [phone] 09/04/2024 10:20 AM EDT Office Visit Dermatology [facility] [place] [address] [place] [address] Shelia Cota PA-C 200 [facility] [place] [address] Pending Results Name Type Priority Associated Diagnoses Date /Time PT INR Lab Routine History of CVA (cerebrovascular accident) 06/13/2024 12:25 PM EDT Scheduled Procedures Name Priority Associated [...] Power of Attor pat? No Care Teams Industrial Relations Counselor Relationship Specialty Start Date End Date Hector Sullivan MD [address] [place] [address] PCP - General Internal Medicine 06/24/17 documented as of this encounter
--- OUTSIDE RECORDS SUMMARY | 2024-07-11 11:37 | External Medical Summary | Summary of Care ---
Author Name Unknown Organization [facility] Address [address] [facility] [facility] [place] [address] Phone [phone] Care Team Providers Care Spring Tester Name Role Phone Hector Sullivan MD Primary Care Provider + Reason for Visit * Reason Comments Dosage Adjustment Via Phone (anticoag Cl inic) Encounter Details Date Type Department Care Team (Late st Contact Info) Description 05/25/2024 6:15 AM EDT Anticoagulation Centralized Clinical Pharm[facility] Services, Lucretia Pearl [address] [place] [address] [place] [address] [facility], [address] [place] [address] Systemic lupus erythematosus, unspecified SLE type, unspecified organ involvement status (HCC)*; History of CVA (cerebrovascular accident) Allergies No known active allergiesdocumented as of this encounter (statuses as of 05/26/2024) Medications Glucose Blood In Vitro Strip Test [...] 3 months. 1 mL 5 4 Active Syringe Luer Lock 25G X 5/8" 3 MLIndications:Pos tsurgical nonabsorption,Int estinal postoperative nonabsorption,S/P gastric bypass For vitamin B12 injections 4 Each 4 Active Folic Acid 1 MG Oral [...] in the morning. 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 S/P gastric bypass 01/03/2023 AMANDA (nonalcoholic steatohepatitis) 01/03/2023 Gastroesophageal reflux disease 01/03/2023 Former smoker 01/03/2023 Type 2 diabetes mellitus wit hout complication, with long-term current use of insulin 01/03/2023 AMANDA RESEARCH OTHER*[id number] 12/26/2022 Hemiplegia and hemiparesis f ollowing cerebral [...] as of this encounter (statuses as of 05/26/2024) Resolved Problems Problem Noted Date Diagnosed Date [...] as of this encounter (statuses as of 05/26/2024) Immunizations Name Administration Dates Next Due COVID-19 mRNA, LNP-s, No Pre serve, 2-Dose Series (Moderna) 08/19/2020,07/22/2020 Hepatitis B, 20+ yrs 02/08/2017,09/06/2016,08/06 Pneumococcal Conjugate Vacci ne, 20-valent ([id number]) 09/05/2021 Pneumococcal Polysaccharide PPV23 (Pneumovax) 06/13/2016 Seasonal [...] of Assessment Author No 01/03/2023 6:47 PM NISHAT Mariana Minaya RN * Do you have serious difficulty walking or climbing stairs? (5 years old or older) Answer Date of Assessment Author No 01/03/2023 6:47 PM NISHAT Mariana Minaya RN * Do you have [...] Progress Notes * Joann York CPhT - 05/25/2024 4:02 PM EDT Contacts Contact Date/Time Type Contact Phone/Fax 05/25/2024 04:02 PM EDT Phone (Outgoing) Colette Herrera (Self) [phone] (M) Spoke to Patient Subjective Patient Findings [...] noted by Pharmacist: Yes Joann York CPhT 05/25/2024, 4:02 PM * Dalia Bauer [facility] - 05/23/2024 2:25 PM EST Coumadin Clinic (region specific) Objective Current Warfarin Dose As of 05/25/2024 Warfarin maintenance plan: 2.5 mg (5 mg x 0.5) every Fri; 5 mg (5 mg x 1) all other days INR Result As of 05/25/2024 INR goal: 2.0-3.0 INR used for dosin.1 (05/22/2024) Assessment & Plan Warfarin Plan As of 05/25/2024 Full warfarin instructions: 2.5 mg every Fri; 5 mg all other days No change documented: Dalia Bauer RPh Next INR check: 06/05/2024 Repeat PT/INR in 2 week(s) Weekly dose: not changed Additional Dosing Information: Description [facility] to contact patient with dose instructions as noted. Dalia Bauer RPh 05/23/2024, 2:25 PM documented in this encounter Plan of Treatment Upcoming Encounters Date Type Department Care Team (Late st Contact Info) Description 06/05/2024 7:40 AM EDT Laboratory Laboratory, [facility] [address] [facility] [place] [phone] [facility] [address] [facility] [place] [address] 06/08/2024 6:15 AM EDT Anticoagulation Centralized Clinical Pharmacy Services, Lucretia Pearl [address] [place] [address] [place] [address] [place] [address] 07/07/2024 2:30 PM EDT Office Visit Hematology/Oncology [facility] [address] [facility] [place] [phone] Rut Roberts CRNP [address] [facility] [place] [address] 08/21/2024 9:00 AM EDT Imaging Radiology [facility] 1st [facility] [address] [place] [phone] Scheduled Procedures Name Priority Associated Diagnoses Date/Ti me COLONOSCOPY FLEXIBLE PROXIMAL DIAGNOSTIC Recall Screen for colon cancer Health Maintenance Due Date Last Done Comments Cologuard 2014 Fecal Occult Blood Test 2014 Sigmoidoscopy 2014 Depression Monitoring 05/08/2023 05/08/2022 Zoster Vaccines (2 of 2) 10/11/2023 08/16/2023 COVID-19 Vaccine (3 - 2023- season) 2023 08/19/2020, 07/22/2020 Diabetic Eye Exam 07/09/2024 07/10/2023, , 07/06/2022, Additional history exists Diabetic Foot Exam 08/15/2024 08/16/2023, 0 04/20/2022, 04/20/2022, Additional history exists Mammogram 08/15/2024 08/16/2023, 07/17, 08/06/2022, Additional history exists HbA1c 09/11/2024 03/13/2024, 09/15, 05/25/2023, Additional history exists Albumin/Creatinine Ratio 10/02/2024 024, 10/31/2022, 07/08/2021, Additional history exists B-12 03/13/2025 03/13/2024, 030 11/2023, 10/31/2022, Additional history exists GFR 03/13/2025 03/13/2024, 1209/2023, 10/03/2023, Additional history exists Colonoscopy 08/03/2025 08/03/2020, [...] Power of Attor pat? No Care Teams Spring Tester Relationship Specialty Start Date End Date Hector Sullivan MD [address] [place] [address] PCP - General Internal Medicine 06/24/17 documented as of this encounter
--- OUTSIDE RECORDS SUMMARY | 2024-07-11 11:38 | External Medical Summary | Summary of Care ---
Author Name Unknown Organization [facility] Address [address] [facility] [place] [address] Phone [phone] Care Team Providers Care Spinning Doffer Name Role Phone Hector Sullivan MD Primary Care Provider + Reason for Visit * Reason Comments Dosage Adjustment Via Phone (anticoag Cl inic) Encounter Details Date Type Department Care Team (Late st Contact Info) Description 05/11/2024 6:15 AM EST Anticoagulation Centralized Clinical Pharmacy Services, Lucretia Pearl [address] [place] [address] [place] [address] [place] [address] Systemic lupus erythematosus, unspecified SLE type, unspecified organ involvement status (HCC)*; History of CVA (cerebrovascular accident) Allergies No known active allergiesdocumented as of this encounter (statuses as of 05/12/2024) Medications Glucose Blood In Vitro Strip Test [...] as of this encounter (statuses as of 05/12/2024) Active Problems Problem Noted Date Diagnosed Date 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 S/P gastric bypass 01/03/2023 AMANDA (nonalcoholic steatohepatitis) 01/03/2023 Gastroesophageal reflux disease 01/03/2023 Former smoker 01/03/2023 Type 2 diabetes mellitus wit hout complication, with long-term current use of insulin 01/03/2023 AMANDA RESEARCH OTHER*[id number] 12/26/2022 Hemiplegia and hemiparesis f ollowing cerebral [...] as of this encounter (statuses as of 05/12/2024) Resolved Problems Problem Noted Date Diagnosed Date Resolved Date Morbid obesity 01/03/2023 08/16/2023 Major depressive disorder 01/03/2023 Hypertension 01/03/2023 08/16/2023 Pre-operative examination 12/25/2022 PMB (postmenopausal bleeding) 01/19/2021 01/15/2022 Food insecurity 11/28/2020 12/29/2020 Overview: Per [facility] Protocol Neuropathy 03/23/2020 01/15/2022 Tobacco [...] as of this encounter (statuses as of 05/12/2024) Immunizations Name Administration Dates Next Due COVID-19 mRNA, LNP-s, No Pre serve, 2-Dose Series (Moderna) 08/19/2020,07/22/2020 Hepatitis B, 20+ yrs 02/08/2017,09/06/2016,08/06 Pneumococcal Conjugate Vacci ne, 20-valent ([id number]) 09/05/2021 Pneumococcal Polysaccharide PPV23 (Pneumovax) 06/13/2016 Seasonal [...] 01/03/2023 6:47 PM NISHAT Mariana Minaya RN documented as of this encounter Mental Status * Because of a physical, mental, or emotional condition, do you have serious difficulty concentrating, remembering, or making decisions? (5 years old or older) Answer Entry Date Author No 01/03/2023 6:47 PM NISHAT Mariana Minaya RN documented in this encounter Progress Notes * Dalia Bauer RPh - 05/11/2024 3:17 PM EST Noted Dalia Bauer Rph, Pharm.D. Clinical Pharmacist Centralized [facility] Services ([facility]) [phone] 05/11/2024,3:17 PM * Zahida Lockhart [facility] - 05/11/2024 11:35 AM EST Contacts Contact Date/Time Type Contact Phone/Fax 05/11/2024 11:31 AM EST Phone (Outgoing) Colette Herrera (Self) [phone] (M) Spoke to Patient Subjective Patient Findings Positives: Missed doses (Pt reports holding dose on 05/08 after seeing INR result. Provided pt with new dose- 2.5 mg F and 5 mg all other days, but did not instruct patient to hold todays dose since she had held it on 05/08.Told patient to consult us before making changes.), Change in diet/appetite (Patient reports eating healthier, but remaining consistent with green, leafy vegetables.), Other complaints (Patient prefers you to speak in tablets) Negatives: Signs/symptoms of thrombosis, Signs/symptoms of bleeding, Change in health, Change in alcohol use, Change in activity, Upcoming invasive procedure, Extra doses, Change in medications, Bruising Advised patient to contact Anticoagulation Clinic if any unusual bruising or bleeding, recent illness, changes in medication, or questions/concerns. PT/INR results, Coumadin dose instructions, and next PT/INR date communicated as noted by Pharmacist: Yes Thank you, [facility] student admissions clerk Zahida Lockhart [facility] 05/11/2024, 11:35 AM * Dalia Bauer [facility] - 05/11/2024 8:56 AM EST Images from the original note were not included. Coumadin Clinic (region specific) Objective Current Warfarin Dose As of 05/11/2024 Warfarin maintenance plan: 5 mg (5 mg x 1) every day INR Result As of 05/11/2024 INR goal: 2.0-3.0 INR used for dosin.3 (05/08/2024) Assessment & Plan Warfarin Plan As of 05/11/2024 Full warfarin instructions: 05/11: Hold; Otherwise 2.5 mg every Fri; 5 mg all other days Next INR check: 05/22/2024 Repeat PT/INR in 2 week(s) Weekly dose: decreased Additional Dosing Information: Description [facility] to contact patient with dose instructions as noted. Dalia Bauer [facility] 05/11/2024, 8:56 AM documented in this encounter Plan of Treatment Upcoming Encounters Date Type Department Care Team (Late st Contact Info) Description 05/15/2024 1:30 PM EST Office Visit Gynecology/Obstetrics Ly Jarquin [address] [place] [address] Kesha Escobar PA-C 132 [place] [address] 05/22/2024 7:40 AM EST [facility] [address] [place] [phone] Elvira Jarquin [address] [place] [address] 05/25/2024 6:15 AM EDT Anticoagulation Centralized Clinical Pharmacy Services, Lucretia Pearl [address] [place] [address] [place] [address] [facility] [address] [place] [place] [address] 07/07/2024 2:30 PM EDT Office Visit Hematology/On[facility] [phone] Rut Roberts CRNP [address] [facility] [place] [address] 08/21/2024 9:00 AM EDT Imaging Radiology [facility] 1st [facility] [address] [place] [phone] Scheduled Procedures Name Priority Associated Diagnoses Date/Ti [...] 07/08/2021, Additional history exists B-12 03/13/2025 03/13/2024, 11/2023, 10/31/2022, Additional history exists GFR 03/13/2025 [...] Power of Attor pat? No Care Teams Spinning Doffer Relationship Specialty Start Date End Date Hector Sullivan MD [address] [facility] [place] [address] PCP - General Internal Medicine 06/24/17 documented as of this encounter
--- OUTSIDE RECORDS SUMMARY | 2024-07-11 11:38 | External Medical Summary | Summary of Care ---
Author Name Unknown Organization [facility] Address [address] [place] [address] Phone [phone] Care Team Providers Care Aeronautical Inspector Name Role Phone Hector Sullivan MD Primary Care Provider + Reason for Visit * Reason Comments Outpatient Testing Encounter Details Date Type Department Care Team (Late st Contact Info) Description 05/08/2024 7:40 AM EST Laboratory Laboratory, [facility] [address] [place] [phone] [facility] [address] [place] [address] History of CVA (cerebrovascular accident) Allergies No known active allergiesdocumented as of this encounter (statuses as of 05/08/2024) Medications Glucose Blood In Vitro Strip Test [...] as of this encounter (statuses as of 05/08/2024) Active Problems Problem Noted Date Diagnosed Date 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 S/P gastric bypass 01/03/2023 AMANDA (nonalcoholic steatohepatitis) 01/03/2023 Gastroesophageal reflux disease 01/03/2023 Former smoker 01/03/2023 Type 2 diabetes mellitus wit hout complication, with long-term current use of insulin 01/03/2023 AMANDA RESEARCH OTHER*[id number] 12/26/2022 Hemiplegia and hemiparesis f ollowing cerebral [...] as of this encounter (statuses as of 05/08/2024) Resolved Problems Problem Noted Date Diagnosed Date [...] as of this encounter (statuses as of 05/08/2024) Immunizations Name Administration Dates Next Due COVID-19 mRNA, LNP-s, No Pre serve, 2-Dose Series (Moderna) 08/19/2020,07/22/2020 Hepatitis B, 20+ yrs 02/08/2017,09/06/2016,08/06 Pneumococcal Conjugate Vacci ne, 20-valent ([id number]) 09/05/2021 Pneumococcal Polysaccharide PPV23 (Pneumovax) 06/13/2016 Seasonal [...] pur e alcohol) "once in a blue romnao" AUDIT-C Answer Date Recorded Frequency of Alcohol [...] Anticoagulation Centralized Clinical Pharmacy Services, Lucretia Pearl [address] [place] [address] [place] [address] [place] [address] 07/07/2024 2:30 PM EDT Office Visit Hematology/Oncology [facility] [address] [facility] [address] [place] [phone] Rut Roberts CRNP [address] [facility] [place] [address] 07/10/2024 3:30 PM EDT Office Visit Gynecology/Obstetrics [facility] [address] [place] [address] Kesha Escobar PA-C [address] [place] [address] 08/21/2024 9:00 AM EDT Imaging Radiology [facility] 1st [facility] [address] [place] [phone] Pending Results Name Type Priority Associated Diagnoses Date /Time PT INR Lab Routine History of CVA (cerebrovascular accident) 05/08/2024 7:25 AM EST Scheduled Procedures Name Priority Associated Diagnoses Date/Ti me COLONOSCOPY FLEXIBLE PROXIMAL DIAGNOSTIC Recall Screen for colon cancer Health Maintenance Due Date Last Done Comments Cologuard 2014 Fecal Occult Blood Test 2014 Sigmoidoscopy 2014 Depression Monitoring 05/08/2023 05/08/2022 Zoster Vaccines (2 of 2) 10/11/2023 08/16/2023 COVID-19 Vaccine ( - season) 2023 08/19/2020, 07/22/2020 Diabetic Eye Exam [...] Power of Attor pat? No Care Teams Aeronautical Inspector Relationship Specialty Start Date End Date Hector Sullivan MD [address] [place] [address] PCP - General Internal Medicine 06/24/17 documented as of this encounter
--- OUTSIDE RECORDS SUMMARY | 2024-07-11 11:38 | External Medical Summary | Summary of Care ---
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 Return Encounter Details Date Type Department Care Team (Late st Contact Info) Description 05/15/2024 1:30 PM EST Office Visit Gynecology/Obstetric s [facility] [address] [place] [address] Kesha Escobar PA-C [address] [place] [address] Vulvar itching*; Vaginal discharge Allergies No known active allergiesdocumented as of this encounter (statuses as of 05/15/2024) Medications Glucose Blood In Vitro Strip Test [...] as of this encounter (statuses as of 05/15/2024) Active Problems Problem Noted Date Diagnosed Date 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 S/P gastric bypass 01/03/2023 AMANDA (nonalcoholic steatohepatitis) 01/03/2023 Gastroesophageal reflux disease 01/03/2023 Former smoker 01/03/2023 Type 2 diabetes mellitus wit hout complication, with long-term current use of insulin 01/03/2023 AMANDA RESEARCH OTHER*[id number] 12/26/2022 Hemiplegia and hemiparesis f ollowing cerebral [...] as of this encounter (statuses as of 05/15/2024) Resolved Problems Problem Noted Date Diagnosed Date [...] as of this encounter (statuses as of 05/15/2024) Immunizations Name Administration Dates Next Due COVID-19 mRNA, LNP-s, No Pre serve, 2-Dose Series (Moderna) 08/19/2020,07/22/2020 Hepatitis B, 20+ yrs 02/08/2017,09/06/2016,08/06 Pneumococcal Conjugate Vacci ne, 20-valent ([id number]) 09/05/2021 Pneumococcal Polysaccharide PPV23 (Pneumovax) 06/13/2016 Seasonal [...] on file documented as of this encounter Last Filed Vital Signs Vital Sign Reading Time Taken Comments Blood Pressure 122/68 05/15/2024 1:23 PM EST Pulse - - Temperature - - Respiratory Rate - - Oxygen Saturation - - Inhaled Oxygen Concentration - - Weight 76.2 kg (168 lb) 05/15/2024 1:23 PM EST Height 157.5 cm (5' 2") 05/15/2024 1:23 PM EST Body Mass Index 30.73 05/15/2024 1:23 PM EST documented in this encounter Functional Status * Are you [...] 6:47 PM NISHAT Mariana Minaya RN * Because of a physical, mental, or emotional condition, do you have difficulty doing errands alone such as visiting a doctor’s office or shopping? (15 years old or older) Answer Date of Assessment Author No 01/03/2023 6:47 PM Mariana Rodriguez RN documented as of this encounter Mental Status * Because of a physical, mental, or emotional condition, do you have serious difficulty concentrating, remembering, or making decisions? (5 years old or older) Answer Entry Date Author No 01/03/2023 6:47 PM Mariana Rodriguez RN documented in this encounter Progress Notes * Kesha Escobar PA-C - 05/15/2024 2:43 PM EST Chief Complaint: Patient is here for punch biopsy. History of Present Illness: Patient is a here for punch biopsy. Discussed the benefits of punch biopsy. Discussed the risks of punch biopsy including but not limited to bleeding, infection, scarring, damage to surrounding tissues and structures. A ''time out'' was initiated by Kesha Escobar PA-C prior to procedure. The patient was identified by name and date of . The correct procedure, and correct site identified. Correct positioning (as applicable). There is availability of necessary equipment. Denies allergy to latex, betadine, or shellfish. Denies is taking Coumadin and desires to proceed and denies need for SBE prophylaxis. After informed consent was obtained. The area (lower left vulva) was prepped using Betadine x 3. Approximately 2 ML of 0.5% lidocaine with epinephrine was injected. A size 3 punch biopsy was used fortissue collection. Gentle pressure and silver nitrate applied to hemostasis. No bleeding noted. Plan: Vulvar itching (Primary) - SURGICAL PATHOLOGY - Bleeding precautions reviewed. Advised no intercourse x 7 days. - Follow up pending path. - Call with questions or concerns. 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 Patient reports chronic over several years that is worsening in last few months. Seen for annual DEVELOPMENT MGR exam last year 10/2023. Punch biopsy recommended based on symptoms and exam. Patient was to return but states transportation fell through. She would be agreeable to proceeding today with biopsy if needed. Has tried vagisil wash, vagisil cream, benadryl cream, other topicals with no relief. Has noticed some vaginal discharge, but denies any vaginal itching, odor. The discharge is abnormalfor her. Denies bleeding. She does have DM. On Coumadin, holding on Coumadin previously not recommended. Understands increased bleeding risk with procedure. Medications: Current Outpatient Medications Medication Sig Dispense Refill Glucose Blood In Vitro Strip Test once daily. (Patient not taking: Reported on 03/09/2024) Blood Glucose Monitoring Suppl ([employer] CONFIRM GLUCOSE MONITOR) W/DEVICE KIT Use as directed. (Patient not taking: Reported on 03/09/2024) Aspirin 81 MG Tablet Take 1 Tablet by mouth at bedtime. Slow Magnesium/Calcium 70-117 MG Oral Tablet Delayed Release (Magnesium Cl- Calcium Carbonate) 2 tablets in PM 180 Tab 3 CPAP every night at bedtime. (Patient not taking: Reported on 03/09/2024) B Complex Vitamins Oral Capsule Take 1 Capsule by mouth in the morning. Iron 325 (65 Fe) MG Oral Tablet Take 1 Tablet by mouth in the morning. Childrens Chewable Multi Vits Oral Tablet Chewable Take 1 Tablet by mouth in the morning and 1 Tablet before bedtime. Calcium Citrate+D3 Petites 200-6.25 MG-MCG Oral Tablet (Calcium Citrate-Vitamin D) Take 2 Tablets by mouth in the morning and 2 Tablets at noon and 2 Tablets before bedtime. Cyanocobalamin 1000 MCG/ML Injection Solution (Cyanocobalamin) Inject 1 mL into a large muscle every 3 months. 1 mL 5 Syringe Luer Lock 25G X 5/8" 3 ML For vitamin B12 injections 4 Each 0 Folic Acid 1 MG Oral Tablet Take 1 Tablet by mouth in the morning. 30 Tablet 1 Warfarin Sodium 5 MG Oral Tablet (Coumadin) Take 1 Tablet by mouth every evening Or as directed by anticoag clinic. 100 Tablet 3 Citalopram Hydrobromide 40 MG Oral Tablet (CeleXA) TAKE ONE TABLET BY MOUTH EVERY MORNING 90 Tablet1 buPROPion HCl ER (XL) 150 MG Oral Tablet Extended Release 24 Hour (Wellbutrin XL) TAKE ONE TABLET BY MOUTH EVERY MORNING 90 Tablet 1 Zinc Sulfate 220 (50 Zn) MG Oral Capsule Take 1 Capsule by mouth in the morning. 30 Capsule 0 No current facility-administered medications for this visit. Allergies: Review of patient's allergies indicates: No Known Allergies Patient Active Problem List Diagnosis CLASSICAL MIGRAINE WITHOU MENTION OF INTRACTABLE MIGRAINE OVARIAN CYST NEC-NOS Type 2 diabetes mellitus with hemoglobin A1c goal of less than 8.0% ([facility]) HTN, goal below 140/90 Hyperlipidemia Systemic lupus erythematosus, unspecified SLE type, unspecified organ involvement status ([facility]) DM type 2 with diabetic peripheral neuropathy ([facility]) Mixed conductive and sensorineural hearing loss of right ear with restricted hearing of left ear DAIN on CPAP History of CVA (cerebrovascular accident) Major depressive disorder with single episode, in partial remission ([facility]) APL (antiphospholipid syndrome) ([facility]) Light chain disease ([facility]) Hypomagnesemia Type 2 diabetes mellitus with diabetic neuropathy, without long-term current use of insulin ([facility]) Food insecurity Hemiplegia and hemiparesis following cerebral infarction affecting left non- dominant side ([facility]) AMANDA RESEARCH OTHER*[id number] S/P gastric bypass AMANDA (nonalcoholic steatohepatitis) Gastroesophageal reflux disease Former smoker Type 2 diabetes mellitus without complication, with long-term current use of insulin ([facility]) Light chain (AL) amyloidosis ([facility]) Past Medical History: Diagnosis Date CVA (cerebrovascular accident) ([facility]) 06/13/2016 x2 Hematuria 08/10/2001 ICD-10 update of inactive term History of CVA (cerebrovascular accident) 07/30/2017 HTN, goal below 140/90 06/13/2016 Hyperlipidemia Hypomagnesemia 12/18/2019 Light chain disease (HCC) 12/18/2019 Lupus unsure of type Migraine with aura DAIN on CPAP 01/08/2017 Ovarian cyst Stroke (HCC) 11/29/12 and 02/03/13 Tobacco abuse 09/17/2019 Type 2 diabetes mellitus with hemoglobin A1c goal of less than 8.0% ([facility]) 06/13/2016 OB History Para Term AB Living 2 2 2 2 SAB IAB Ectopic Multiple Live Births # Outcome Date GA Lbr Chase/2nd Weight Sex Type Anes PTL Lv 2 Term 1 Term Past Surgical History: Procedure Laterality Date COLONOSCOPY, DIAGNOSTIC (RECTUM) 03/24/2019 hyperplastic polyp, poor prep, repeat 1 yr/COLONOSCOPY FLEXIBLE PROXIMAL DIAGNOSTIC performed by Eileen Huff MD at ENDOSCOPY [facility] COLONOSCOPY, DIAGNOSTIC (RECTUM) 08/03/2020 normal / COLONOSCOPY FLEXIBLE PROXIMAL DIAGNOSTIC performed by Eileen Huff MD at ENDOSCOPY [facility] CYSTOSCOPY 04/14/2018 done in office, Dr Marinelli EGD, FLEXIBLE, DIAGNOSTIC N/A 01/03/2023 ESOPHAGOGASTRODUODENOSCOPY (EGD), FLEXIBLE, TRANSORAL, DIAGNOSTIC performed by Bernard Samuel MD at OR [facility] INCISION OF EARDRUM tubes placed bilaterally LAPAROSCOPE PROCEDURE, LIVER N/A 01/03/2023 UNLISTED LAPAROSCOPIC PROCEDURE LIVER performed by Bernard Samuel MD at [facility] LAPAROSCOPIC GASTRIC BYPASS/ROSANNA-EN-Y N/A 01/03/2023 ROBOTIC LAPAROSCOPIC GASTRIC RESTRICTIVE BYPASS ROSANNA EN Y performed by Bernard Samuel MD at OR [facility] REMOVE TONSILS & ADENOIDS, UNDER 12 Family History Problem Relation Name Age of Onset Diabetes Father Heart Disorder Father Irregular heart beat Hypertension Father Hypertension Sister Lupus Sister Hypertension Sister Thyroid Disorder Sister Hypertension Mother Other (Other) Mother Aneurysms Other (brain anerysm) Mother Other (brain anerysm) Grandparent (Maternal) Review of Systems: CONSTITUTIONAL ROS: No change in weight, No fevers, sweats, or chills CARDIOVASCULAR ROS: No chest pain, No shortness of breath GASTROINTESTINAL ROS: No abdominal pain, No change in bowel habits, No nausea, vomiting, diarrhea, or constipation. GENITO-URINARY FEMALE ROS: See HPI. No STDs, no dysuria, no irregular menstruation, No urgency and no vaginal discharge MSK/EXTREMITIES ROS: No pain, redness or swelling on the joints OBJECTIVE: BP 122/68 | Ht 1.575 m (5' 2") | Wt 76.2 kg (168 lb) | LMP 03/18/2013 | BMI 30.73 kg/m² | BSA 1.83m² General: awake, alert, and oriented x 3, normal affect, no acute distress External Genitalia/Vulva: anatomy is normal, bilateral vulva diffusely erythematous from clitoral burks to base of vulva with small excoriations present, no discharge on vulvar tissues, ulcers are absent, no condylomatous lesions Vagina: pale with loss of rugae, clumpy white discharge present possibly secondary to yeast Cervix: without lesions, no cervicitis, no discharge from os, no cervical motion tenderness. Manager Fine Dining Documentation Provider requested sales technician. Name of sales technician: Latesha Christine LPN ASSESSMENT/PLAN: Vulvar itching (Primary) Patient agreeable to proceed with punch biopsy today. See additional procedure note. - SURGICAL PATHOLOGY Vaginal discharge - VAGINOSIS PANEL, PCR RTO for annual DEVELOPMENT MGR exam when due or sooner if symptoms worsen or do not improve. Kesha Escobar PA-C documented in this encounter Nursing Notes * Latesha Allen LPN - 05/15/2024 1:23 PM EST ?lichens vs psoriasis. documented in this encounter Plan of Treatment Upcoming Encounters Date Type Department Care Team (Late st Contact Info) Description 05/22/2024 7:40 AM EST Laboratory Laboratory, [facility] [address] [place] [phone] Elvira Jarquin [address] [place] [address] 05/25/2024 6:15 AM EDT Anticoagulation Centralized Clinical Pharmacy Services, Lucretia Pearl [address] [place] [address] [place] [address] [place] [phone] 07/07/2024 2:30 PM EDT Office Visit Hematology/Oncology [facility] [address] [place] [address] Rut Roberts, VP [employer] [address] [place] [address] 08/21/2024 9:00 AM EDT Imaging Radiology [facility] [address] [place] [phone] Pending Results Name Type Priority Associated Diagnoses Date /Time SURGICAL PATHOLOGY Pathology Routine Vulvar itching 05/15/2024 2:32 PM EST VAGINOSIS PANEL, PCR Lab Routine Vaginal discharge 05/15/2024 2:32 PM EST Scheduled Procedures Name Priority Associated Diagnoses Date/Ti ny COLONOSCOPY FLEXIBLE PROXIMAL DIAGNOSTIC Recall Screen for [...] 07/08/2021, Additional history exists B-12 03/13/2025 03/13/2024, 0 11/2023, 10/31/2022, Additional history exists GFR 03/13/2025 [...] as of this encounter Visit Diagnoses Diagnosis Vulvar itching- Primary Pruritus of genital organs Vaginal discharge Leukorrhea, not specified as infective documented in this encounter Advance Directives * [...] Power of Attor pat? No Care Teams Planograph Operator Relationship Specialty Start Date End Date Hector Sullivan MD [address] [place] [address] PCP - General Internal Medicine 06/24/17 documented as of this encounter
--- OUTSIDE RECORDS SUMMARY | 2024-07-11 11:38 | External Medical Summary | Summary of Care ---
Author Name Unknown Organization [facility] Address [address] [place] [address] Phone [phone] Care Team Providers Care Range Management Specialist Name Role Phone Hector Sullivan MD Primary Care Provider + Reason for Visit * Reason Comments Outpatient Testing Encounter Details Date Type Department Care Team (Late st Contact Info) Description 05/22/2024 7:40 AM EST Laboratory Laboratory, 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 S/P gastric bypass 01/03/2023 AMANDA (nonalcoholic steatohepatitis) 01/03/2023 Gastroesophageal reflux disease 01/03/2023 Former smoker 01/03/2023 Type 2 diabetes mellitus wit hout complication, with long-term current use of insulin 01/03/2023 AMANDA RESEARCH OTHER*[id number] 12/26/2022 Hemiplegia and hemiparesis f ollowing cerebral [...] as of this encounter (statuses as of 05/22/2024) Resolved Problems Problem Noted Date Diagnosed Date [...] as of this encounter (statuses as of 05/22/2024) Immunizations Name Administration Dates Next Due COVID-19 mRNA, LNP-s, No Pre serve, 2-Dose Series (Moderna) 08/19/2020,07/22/2020 Hepatitis B, 20+ yrs 02/08/2017,09/06/2016,08/06 Pneumococcal Conjugate Vacci ne, 20-valent ([id number]) 09/05/2021 Pneumococcal Polysaccharide PPV23 (Pneumovax) 06/13/2016 Seasonal [...] AM EDT Anticoagulation Centralized Clinical Pharmacy Services, [facility] [address] [place] [address] [place] [address] [place] [address] 07/07/2024 2:30 PM EDT Office Visit Hematology/On[facility] [address] Rut Roberts CRNP [address] [facility] [place] [address] 08/21/2024 9:00 AM EDT Imaging Radiology [address] [place] [phone] Pending Results Name Type Priority Associated Diagnoses Date /Time PT INR Lab Routine History of CVA (cerebrovascular accident) 05/22/2024 7:41 AM EST Scheduled Procedures Name Priority Associated Diagnoses Date/Ti me COLONOSCOPY FLEXIBLE PROXIMAL DIAGNOSTIC Recall Screen for colon cancer Health Maintenance Due Date Last Done Comments Cologuard 2014 Fecal Occult Blood Test 2014 Sigmoidoscopy 2014 Depression Monitoring 05/08/2023 05/08/2022 Zoster Vaccines (2 of 2) 10/11/2023 08/16/2023 COVID-19 Vaccine (2023- season) 2023 08/19/2020, 07/22/2020 Diabetic Eye Exam [...] Cancer Screening 08/03/2025 Pap Smear 10/17/2026 10/18/2023, 060 11/2019, 06/28/2016, Additional history exists Cervical Cancer [...] Power of Attor pat? No Care Teams Range Management Specialist Relationship Specialty Start Date End Date Hector Sullivan MD [address] [facility] [place] [address] PCP - General Internal Medicine 06/24/17 documented as of this encounter
--- OUTSIDE RECORDS SUMMARY | 2024-07-11 11:38 | External Medical Summary ---
Author Name Unknown Address Unknown Organization [id number]:LABORATORY [facility] - [address] [facility] [place] [address] Laboratory Report Ordering Provider Test Date Status [id number] 05/15/2024 14:32:19 Final Observation Date Value Abnormality Reference (Units ) Status Bacterial vaginosis [Interpretation] in Vaginal fluid Qualitative 05/15/2024 14:32:19 Negative Negative Final Negative for Bacterial Vagin osis. Correlate results with other clinical findings. Khloe sp DNA [Presence] in Vaginal fluid by Probe 05/15/2024 14:32:19 Negative Negative Final No Khloe species group RNA detected. Correlate results with other clinical findings. Khloe glabrata RNA [Presen ce] in Vaginal fluid by NYASIA with probe detection 05/15/2024 14:32:19 Negative Negative Final No Khloe glabrata RNA dete cted. Correlate results with other clinical findings. Trichomonas vaginalis DNA [P resence] in Vaginal fluid by Probe 05/15/2024 14:32:19 Negative Negative Final No Trichomonas vaginalis RNA detected. Performing Location [facility] [address] [facility] [address] [place] [address]
--- OUTSIDE RECORDS SUMMARY | 2024-07-11 11:38 | External Medical Summary | Summary of Care ---
Author Name Unknown Organization [facility] Address [address] [facility] [place] [address] Phone [phone] Care Team Providers Care Civilian Technician Name Role Phone Hector Sullivan MD Primary Care Provider + Reason for Visit * Reason Comments Dosage Adjustment Via Phone (anticoag Cl inic) Encounter Details Date Type Department Care Team (Late st Contact Info) Description 04/20/2024 6:15 AM EST Anticoagulation Centralized Clinical Pharmacy Services, Lucretia Pearl [address] [place] [address] [place] [address] [place] [address] Systemic lupus erythematosus, unspecified SLE type, unspecified organ involvement status (HCC)*; History of CVA (cerebrovascular accident) Allergies No known active allergiesdocumented as of this encounter (statuses as of 04/21/2024) Medications Glucose Blood In Vitro Strip Test [...] in the morning. 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 S/P gastric bypass 01/03/2023 AMANDA (nonalcoholic steatohepatitis) 01/03/2023 Gastroesophageal reflux disease 01/03/2023 Former smoker 01/03/2023 Type 2 diabetes mellitus wit hout complication, with long-term current use of insulin 01/03/2023 AMANDA RESEARCH OTHER*[id number] 12/26/2022 Hemiplegia and hemiparesis f ollowing cerebral [...] as of this encounter (statuses as of 04/21/2024) Resolved Problems Problem Noted Date Diagnosed Date [...] as of this encounter (statuses as of 04/21/2024) Immunizations Name Administration Dates Next Due COVID-19 mRNA, LNP-s, No Pre serve, 2-Dose Series (Moderna) 08/19/2020,07/22/2020 Hepatitis B, 20+ yrs 02/08/2017,09/06/2016,08/06 Pneumococcal Conjugate Vacci ne, 20-valent ([id number]) 09/05/2021 Pneumococcal Polysaccharide PPV23 (Pneumovax) 06/13/2016 Seasonal [...] Progress Notes * Dalia Bauer RPh - 04/20/2024 12:43 PM EST Tracker updated Dalia Bauer Rph, Pharm.D. Clinical Pharmacist Centralized [facility] ([facility]) [phone] 04/20/2024,12:43 PM * Janeth Ríos, dairy scientist - 04/20/2024 8:54 AM EST Contacts Contact Date/Time Type Contact Phone/Fax 04/20/2024 08:50 AM EST Phone (Outgoing) Colette Herrera (Self) [phone] (M) Spoke to Patient Subjective Patient Findings Positives: Missed doses Negatives: Signs/symptoms of bleeding, Change in health, Change in activity, Upcoming invasive procedure, Extra doses, Change in medications, Change in diet/appetite, Bruising Comments: Pt has been sick. Pt stated she held on 04-17 after seeing high result. Spoke to [facility] who advised 5mg every day. Advised patient to contact Anticoagulation Clinic if any unusual bruising or bleeding, recent illness, changes in medication, or questions/concerns. PT/INR results, Coumadin dose instructions, and next PT/INR date communicated as noted by Pharmacist: Yes BRANDY Degroot 04/20/2024, 8:54 AM * Dalia Bauer RPh - 04/20/2024 8:26 AM EST Images from the original note were not included. Coumadin Clinic (region specific) Objective Current Warfarin Dose As of 04/20/2024 Warfarin maintenance plan: 5 mg (5 mg x 1) every day INR Result As of 04/20/2024 INR goal: 2.0-3.0 INR used for dosin.1 (04/17/2024) Assessment & Plan Warfarin Plan As of 04/20/2024 Full warfarin instructions: 2/3: Hold; Otherwise 5 mg every day Next INR check: 05/08/2024 Repeat PT/INR in 3 week(s) Weekly dose: not changed Additional Dosing Information: Description Bhanu Scott to contact patient with dose instructions as noted. Dalia Bauer RPh 04/20/2024, 8:26 AM documented in this encounter Plan of Treatment Upcoming Encounters Date Type Department Care Team (Late st Contact Info) Description 05/08/2024 7:30 AM EST Laboratory Laboratory State Leti Salcedo [address] [place] [phone] Elvira [address] [place] [address] 05/11/2024 6:15 AM EST Anticoagulation Centralized Clinical Pharmacy Services, Lucretia Pearl [address] [place] [address] [place] [address] [place] [address] 07/07/2024 2:30 PM EDT Office Visit [facility]ology[facility]On[facility] [place] [address] [place] [address] Rut Roberts CRNP [address] [place] [address] 07/10/2024 3:30 PM EDT Office Visit Gynecology/Obstetrics [facility] [address] [place] [address] Kesha Escobar PA-C [address] [place] [address] 08/21/2024 9:00 AM EDT Imaging Radiology [facility]st [facility] [address] [place] [phone] Scheduled Procedures Name Priority Associated Diagnoses Date/Ti [...] Power of Attor pat? No Care Teams Civilian Technician Relationship Specialty Start Date End Date Hector Sullivan MD [address] [place] [address] PCP - General Internal Medicine 06/24/17 documented as of this encounter
--- OUTSIDE RECORDS SUMMARY | 2024-07-11 11:38 | External Medical Summary ---
Author Name Unknown Address Unknown Organization [id number]:LABORATORY [place] [address] - [address] [place] [address] Laboratory Report Ordering Provider Test Date Status LISSET CRAIG 05/22/2024 07:41:52 Final Please draw PT/INR every 1-4 weeks or as requested by the [facility] Coumadin Clinic

Warfarin Therapy
INR: 2.0-3.0 conventional anticoagulation
INR: 2.5-3.5 high intensity anticoagulation Observation Date Value Abnormality Reference (Units ) Status PT 05/22/2024 07:41:52 23.6 Above high normal 11 .6-15.2 (seconds) Final INR 05/22/2024 07:41:52 2.1 Above high normal 0. 8-1.2 Final Performing Location LABORATORY [facility] 0 - [address] [place] [address]
--- OUTSIDE RECORDS SUMMARY | 2024-07-11 11:38 | External Medical Summary ---
Author Name Unknown Address Unknown Organization K0G:[facility] [address] [place] [address] Laboratory Report Ordering Provider Test Date Status LISSET CRAIG 05/08/2024 07:25:18 Final Please draw PT/INR every 1-4 weeks or as requested by the [facility] Coumadin [facility]

Warfarin Therapy
INR: 2.0-3.0 conventional anticoagulation
INR: 2.5-3.5 high intensity anticoagulation Observation Date Value Abnormality Reference (Units ) Status PT 05/08/2024 07:25:18 33.6 Above high normal 11 .6-15.2 (seconds) Final INR 05/08/2024 07:25:18 3.3 Above high normal 0. 8-1.2 Final Performing Location [facility] [address] [place] [address]
--- OUTSIDE RECORDS SUMMARY | 2024-07-11 11:39 | External Medical Summary | Summary of Care ---
Author Name Unknown Organization [facility] Address [address] [facility] [place] [address] Phone [phone] Care Team Providers Care Fabrics And Material Cutter Name Role Phone Hector Sullivan MD Primary Care Provider + Encounter Details Date Type Department Care Team (Late st Contact Info) Description 04/06/2024 Population Health External Data Unspecified Department Allergies No known active allergiesdocumented as of this encounter (statuses as of 04/06/2024) Medications Glucose Blood In Vitro Strip Test [...] 1,000 mcgIndications:Intestinal postoperative nonabsorption 1000 mcg IM [id number] 03/05/2023 04/28/19 25 Active documented as of this encounter (statuses as of 04/06/2024) Active Problems Problem Noted Date Diagnosed Date 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 S/P gastric bypass 01/03/2023 AMANDA (nonalcoholic steatohepatitis) 01/03/2023 Gastroesophageal reflux disease 01/03/2023 Former smoker 01/03/2023 Type 2 diabetes mellitus wit hout complication, with long-term current use of insulin 01/03/2023 AMANDA RESEARCH OTHER*[id number] 12/26/2022 Hemiplegia and hemiparesis f ollowing cerebral [...] as of this encounter (statuses as of 04/06/2024) Resolved Problems Problem Noted Date Diagnosed Date [...] as of this encounter (statuses as of 04/06/2024) Immunizations Name Administration Dates Next Due COVID-19 mRNA, LNP-s, No Pre serve, 2-Dose Series (Moderna) 08/19/2020,07/22/2020 Hepatitis B, 20+ yrs 02/08/2017,09/06/2016,08/06 Pneumococcal Conjugate Vacci ne, 20-valent ([id number]) 09/05/2021 Pneumococcal Polysaccharide PPV23 (Pneumovax) 06/13/2016 Seasonal [...] No 01/03/2023 6:47 PM Mariana Rodriguez RN * Do you have difficulty dressing [...] Care Team (Late st Contact Info) Description 04/17/2024 9:40 AM EST Laboratory Laboratory [facility] [address] [facility] [place] [phone] [place] [address] [facility] [place] [address] 04/20/2024 6:15 AM EST Anticoagulation Centralized Clinical Pharmacy Services, Lucretia Pearl [address] [place] [address] [place] [address] [place] [address] 07/07/2024 2:30 PM EDT Office Visit Hematology/Oncology [facility] [address] [place] [phone] Rut Roberts CRNP [address] [place] [address] [place] [address] Scheduled Procedures Name Priority Associated Diagnoses Date/Ti [...] 04/20/2022, Additional history exists Mammogram 08/15/2024 08/16/2023, 052 04/2022, 08/06/2022, Additional history exists HbA1c 09/11/2024 03/13/2024, [...] Not on filedocumented as of this encounter Advance Directives * Full Code [...] Power of Attor pat? No Care Teams Fabrics And Material Cutter Relationship Specialty Start Date End Date Hector Sullivan MD [address] [facility] [place] [address] PCP - General Internal Medicine 06/24/17 documented as of this encounter
--- OUTSIDE RECORDS SUMMARY | 2024-07-11 11:39 | External Medical Summary | Summary of Care ---
Author Name Unknown Organization [facility] Address [address] [facility] [place] [address] Phone [phone] Care Team Providers Care Tombstone Carver Name Role Phone Hector Sullivan MD Primary Care Provider + Reason for Visit * Reason Comments Dosage Adjustment Via Phone (anticoag Cl inic) Encounter Details Date Type Department Care Team (Late st Contact Info) Description 03/30/2024 6:15 AM EST Anticoagulation Centralized Clinical Pharm[facility] Services, Lucretia Pearl [address] [place] [address] [place] [address] [place] [address] Systemic lupus erythematosus, unspecified SLE type, unspecified organ involvement status (HCC)*; History of CVA (cerebrovascular accident) Allergies No known active allergiesdocumented as of this encounter (statuses as of 03/30/2024) Medications Glucose Blood In Vitro Strip Test [...] noon and 2 Tablets before bedtime. Active Citalopram Hydrobromide 40 MG Oral Tablet (CeleXA) TAKE ONE TABLET BY MOUTH EVERY MORNING 90 Tablet 3 01/02/2024 8:59 AM EDT 4 04/10/19 25 Active buPROPion HCl ER (XL) 150 MG Oral Tablet Extended Release 24 Hour (Wellbutrin XL)Indications:Ma lucia depressive disorder with single episode, in partial remission (HCC) TAKE ONE TABLET BY MOUTH EVERY MORNING 90 Tablet 3 01/02/2024 8:59 AM EDT 4 04/10/19 25 Active Cyanocobalamin 1000 MCG/ML Injection Solution (Cyanocobalamin)I [...] (HCC) Take 1 Tablet by mouth every evening. Or as directed by anticoag clinic. 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 S/P gastric bypass 01/03/2023 AMANDA (nonalcoholic steatohepatitis) 01/03/2023 Gastroesophageal reflux disease 01/03/2023 Former smoker 01/03/2023 Type 2 diabetes mellitus wit hout complication, with long-term current use of insulin 01/03/2023 AMANDA RESEARCH OTHER*[id number] 12/26/2022 Hemiplegia and hemiparesis f ollowing cerebral [...] as of this encounter (statuses as of 03/30/2024) Resolved Problems Problem Noted Date Diagnosed Date [...] as of this encounter (statuses as of 03/30/2024) Immunizations Name Administration Dates Next Due COVID-19 mRNA, LNP-s, No Pre serve, 2-Dose Series (Moderna) 08/19/2020,07/22/2020 Hepatitis B, 20+ yrs 02/08/2017,09/06/2016,08/06 Pneumococcal Conjugate Vacci ne, 20-valent ([id number]) 09/05/2021 Pneumococcal Polysaccharide PPV23 (Pneumovax) 06/13/2016 Seasonal [...] documented in this encounter Progress Notes * Jacquelyn Dash CPhT - 03/30/2024 9:33 AM EST Contacts Contact Date/Time Type Contact Phone/Fax 03/30/2024 09:30 AM EST Phone (Outgoing) Colette Herrera (Self) [phone] (M) Spoke to Patient Subjective Patient Findings [...] date communicated as noted by Pharmacist: Yes JACQUELYN DASH CPhT 03/30/2024, 9:33 AM * Dalia Bauer [facility] - 03/30/2024 9:19 AM EST Coumadin Clinic (region specific) Objective Current Warfarin Dose As of 03/30/2024 Warfarin maintenance plan: 5 mg (5 mg x 1) every day INR Result As of 03/30/2024 INR goal: 2.0-3.0 INR used for dosin.3 (03/27/2024) Assessment & Plan Warfarin Plan As of 03/30/2024 Full warfarin instructions: 5 mg every day No change documented: Dalia Bauer RPh Next INR check: 04/17/2024 Repeat PT/INR in 3 week(s) Weekly dose: not changed Additional Dosing Information: Description [facility] Tech to contact patient with dose instructions as noted. Dalia Bauer RPh 03/30/2024, 9:19 AM documented in this encounter Plan of Treatment Upcoming Encounters Date Type Department Care Team (Late st Contact Info) Description 07/07/2024 2:30 PM EDT Office Visit Hematology/Oncology [facility] [place] 200 [facility] [place] [phone] Rut Roberts CRNP [address] [place] [address] [place] [address] Scheduled Procedures Name Priority Associated Diagnoses Date/Ti [...] 09/15, 05/25/2023, Additional history exists Albumin/Creatinine Ratio 10/02/202410/02/2 024, 10/31/2022, 07/08/2021, Additional history exists B-12 [...] Power of Attor pat? No Care Teams Tombstone Carver Relationship Specialty Start Date End Date Hector Sullivan MD 200 [place] [address] PCP - General Internal Medicine 06/24/17 documented as of this encounter
--- OUTSIDE RECORDS SUMMARY | 2024-07-11 11:39 | External Medical Summary ---
Author Name Unknown Address Unknown Organization K0G:[facility] [address] [place] [address] Laboratory Report Ordering Provider Test Date Status KIARALISSET 04/17/2024 07:27:03 Final Please draw PT/INR every 1-4 weeks or as requested by the [facility] Coumadin Clinic

Warfarin Therapy
INR: 2.0-3.0 conventional anticoagulation
INR: 2.5-3.5 high intensity anticoagulation Observation Date Value Abnormality Reference (Units ) Status PT 04/17/2024 07:27:03 32.4 Above high normal 11 .6-15.2 (seconds) Final INR 04/17/2024 07:27:03 3.1 Above high normal 0. 8-1.2 Final Performing Location [facility] [address] [place] [address]
--- OUTSIDE RECORDS SUMMARY | 2024-07-11 11:39 | External Medical Summary | Summary of Care ---
Author Name Unknown Organization [facility] Address [address] [place] [address] Phone [phone] Care Team Providers Care Deputy City Clerk Name Role Phone Hector Sullivan MD Primary Care Provider + Reason for Visit * Reason Comments Medication Refill Encounter Details Date Type Department Care Team (Late st Contact Info) Description 03/30/2024 Refill General Internal Medicine [facility] [place] [address] [place] [address] Hector Sullivan MD 200 [place] [address] Major depressive disorder with single episode, in partial remission (HCC) Allergies No known active allergiesdocumented as of [...] months. 1 mL 5 03/10/20 24 Active Syringe Luer Lock 25G X 5/8" 3 MLIndications:Pos tsurgical nonabsorption,Int estinal postoperative nonabsorption,S/P gastric bypass For vitamin B12 injections 4 Each 03/10/20 24 Active Folic Acid 1 MG Oral Tablet Take 1 Tablet by mouth in the morning. 30 Tablet 1 03/16/20 24 Active Warfarin Sodium 5 MG Oral Tablet (Coumadin)Indicat ions:Cerebrovascu lar accident (CVA) due to other mechanism (HCC) Take 1 Tablet by mouth every evening Or as directed by anticoag clinic. 100 Tablet 3 03/27/19 25 026 Active Citalopram Hydrobromide 40 MG Oral Tablet (CeleXA) TAKE ONE TABLET BY MOUTH EVERY MORNING 90 Tablet 1 03/30/19 25 026 Active buPROPion HCl ER (XL) 150 MG Oral Tablet Extended Release 24 Hour (Wellbutrin XL)Indications:Ma lucia depressive disorder with single episode, in partial remission (HCC) TAKE ONE TABLET BY MOUTH EVERY MORNING 90 Tablet 1 03/30/19 25 026 Active Citalopram Hydrobromide 40 MG Oral Tablet (CeleXA) TAKE ONE TABLET BY MOUTH EVERY MORNING 90 Tablet 3 01/02/2024 8:59 AM EDT 04/11/19 24 025 Discontin ued(Refil l) buPROPion HCl ER (XL) 150 MG Oral Tablet Extended Release 24 Hour (Wellbutrin XL)Indications:Ma lucia depressive disorder with single episode, in partial remission (HCC) TAKE ONE TABLET BY MOUTH EVERY MORNING 90 Tablet 3 01/02/2024 8:59 AM EDT 04/11/19 24 025 Discontin ued(Refil l) Hospital, Clinic, or Other Facility Administered Medication Ordered Dose Route Frequency Start Date End Date Status vitamin b-12 (Cyanocobalamin) inj 1,000 mcgIndications:Intestinal postoperative nonabsorption 1000 mcg IM [id number] 03/05/2023 04/28/19 25 Active documented as of this encounter (statuses as of 03/30/2024) Active Problems Problem Noted Date Diagnosed Date 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 S/P gastric bypass 01/03/2023 AMANDA (nonalcoholic steatohepatitis) 01/03/2023 Gastroesophageal reflux disease 01/03/2023 Former smoker 01/03/2023 Type 2 diabetes mellitus wit hout complication, with long-term current use of insulin 01/03/2023 AMANDA RESEARCH OTHER*[id number] 12/26/2022 Hemiplegia and hemiparesis f ollowing cerebral [...] yrs 02/08/2017,09/06/2016,08/06 Pneumococcal Conjugate Vacci ne, 20-valent ([id number]) 09/05/2021 Pneumococcal Polysaccharide PPV23 (Pneumovax) 06/13/2016 Seasonal [...] Mariana Rodriguez RN documented in this encounter Miscellaneous Notes * Telephone Encounter - João Vo RPh - 03/30/2024 2:21 PM ESTSigned Prescriptions: Disp Refills Citalopram Hydrobromide 40 MG Oral Tablet *90 Tab*1 Sig: TAKE ONE TABLET BY MOUTH EVERY MORNING Authorizing Provider: HECTOR SULLIVAN Ordering User: JOÃO VO buPROPion HCl ER (XL) 150 MG Oral Tablet E*90 Tab*1 Sig: TAKE ONE TABLET BY MOUTH EVERY MORNING Authorizing Provider: HECTOR SULLIVAN Ordering User: Leobardo VO * Telephone Encounter - Transfer User, Rx Adt - 03/30/2024 12:17 AM ESTPending Prescriptions: Disp Refills Citalopram Hydrobromide 40 MG Oral Tablet *90 Tab*3 Sig: TAKE ONE TABLET BY MOUTH EVERY MORNING buPROPion HCl ER (XL) 150 MG Oral Tablet E*90 Tab*3 Sig: TAKE ONE TABLET BY MOUTH EVERY MORNING documented in this encounter Plan of Treatment Upcoming Encounters Date Type Department Care Team (Late st Contact Info) Description 04/17/2024 9:40 AM EST Laboratory Laboratory [facility] [place] [address] [facility] [place] [phone] Elvira Lim [facility] 200 [facility] [place] [address] 04/20/2024 6:15 AM EST Anticoagulation Centralized Clinical Pharmacy Services, Lucretia Pearl [address] [place] [address] [place] [address] [place] [address] 07/07/2024 2:30 PM EDT Office Visit Hematology/Oncology [facility] [place] [address] [facility] [place] [phone] Rut Roberts [facility]NP [address] [facility] [place] [address] Scheduled Procedures Name Priority Associated Diagnoses [...] as of this encounter Visit Diagnoses Diagnosis Major depressive disorder with single episode, in partial remission (HCC) documented in this encounter Advance Directives * [...] Power of Attor pat? No Care Teams Deputy City Clerk Relationship Specialty Start Date End Date Hector Sullivan MD [address] [place] [address] PCP - General Internal Medicine 06/24/17 documented as of this encounter
--- OUTSIDE RECORDS SUMMARY | 2024-07-11 11:39 | External Medical Summary | Summary of Care ---
Author Name Unknown Organization [facility] Address [address] [place] [address] Phone [phone] Care Team Providers Care Grip Name Role Phone Hector Sullivan MD Primary Care Provider + Reason for Visit * Reason Comments Outpatient Testing Encounter Details Date Type Department Care Team (Late st Contact Info) Description 04/17/2024 7:30 AM EST Laboratory Laboratory, [facility] [address] [place] [phone] [facility] [address] [place] [address] History of CVA (cerebrovascular accident) Allergies No known active allergiesdocumented as of this encounter (statuses as of 04/17/2024) Medications Glucose Blood In Vitro Strip Test [...] lar accident (CVA) due to other mechanism ([facility]) Take 1 Tablet by mouth every evening [...] 1,000 mcgIndications:Intestinal postoperative nonabsorption 1000 mcg IM [id number] 03/05/2023 04/28/19 25 Active documented as of this encounter (statuses as of 04/17/2024) Active Problems Problem Noted Date Diagnosed Date 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 S/P gastric bypass 01/03/2023 AMANDA (nonalcoholic steatohepatitis) 01/03/2023 Gastroesophageal reflux disease 01/03/2023 Former smoker 01/03/2023 Type 2 diabetes mellitus wit hout complication, with long-term current use of insulin 01/03/2023 AMANDA RESEARCH OTHER*[id number] 12/26/2022 Hemiplegia and hemiparesis f ollowing cerebral [...] as of this encounter (statuses as of 04/17/2024) Resolved Problems Problem Noted Date Diagnosed Date [...] as of this encounter (statuses as of 04/17/2024) Immunizations Name Administration Dates Next Due COVID-19 mRNA, LNP-s, No Pre serve, 2-Dose Series (Moderna) 08/19/2020,07/22/2020 Hepatitis B, 20+ yrs 02/08/2017,09/06/2016,08/06 Pneumococcal Conjugate Vacci ne, 20-valent ([id number]) 09/05/2021 Pneumococcal Polysaccharide PPV23 (Pneumovax) 06/13/2016 Seasonal [...] Centralized Clinical Pharmacy Services, Lucretia Pearl [address] [place] [address] [place] [address] [place] [address] 07/07/2024 2:30 PM EDT Office Visit Hematology/Oncology [facility] 200 [facility] [place] [phone] Rut Roberts CRNP [address] [facility] [place] [address] 07/10/2024 3:30 PM EDT Office Visit Gynecology/Obstetrics [facility] [address] [place] [address] Kesha Escobar PA-C [address] [place] [address] 08/21/2024 9:00 AM EDT Imaging Radiology [address] [place] [phone] Pending Results Name Type Priority Associated Diagnoses Date /Time PT INR Lab Routine History of CVA (cerebrovascular accident) 04/17/2024 7:27 AM EST Scheduled Procedures Name Priority Associated [...] Power of Attor pat? No Care Teams Grip Relationship Specialty Start Date End Date Hector Sullivan MD [address] [place] [address] PCP - General Internal Medicine 06/24/17 documented as of this encounter
--- OUTSIDE RECORDS SUMMARY | 2024-07-11 11:39 | External Medical Summary | Summary of Care ---
Author Name Unknown Organization [facility] Address [address] [facility] [place] [address] Phone [phone] Care Team Providers Care Chocolate Temperer Name Role Phone Hector Sullivan MD Primary Care Provider + Encounter Details Date Type Department Care Team (Late st Contact Info) Description 03/31/2024 Telephone Nutrition and Weight Management [address] [place] [address] Joann Brewer PA-C [address] [place] [address] Allergies No known active allergiesdocumented as of this encounter (statuses as of 03/31/2024) Medications Glucose Blood In Vitro Strip Test [...] MOUTH EVERY MORNING 90 Tablet 1 5 03/30/19 26 Active buPROPion HCl ER (XL) 150 MG Oral Tablet Extended Release 24 Hour (Wellbutrin XL)Indications:[place] lucia depressive disorder with single episode, in partial remission (HCC) TAKE ONE TABLET BY MOUTH EVERY MORNING 90 Tablet 1 5 03/30/19 26 Active Zinc Sulfate 220 (50 Zn) MG Oral Capsule Take 1 Capsule by mouth in the morning. 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 S/P gastric bypass 01/03/2023 AMANDA (nonalcoholic steatohepatitis) 01/03/2023 Gastroesophageal reflux disease 01/03/2023 Former smoker 01/03/2023 Type 2 diabetes mellitus wit hout complication, with long-term current use of insulin 01/03/2023 AMANDA RESEARCH OTHER*[id number] 12/26/2022 Hemiplegia and hemiparesis f ollowing cerebral [...] as of this encounter (statuses as of 03/31/2024) Resolved Problems Problem Noted Date Diagnosed Date [...] as of this encounter (statuses as of 03/31/2024) Immunizations Name Administration Dates Next Due COVID-19 mRNA, LNP-s, No Pre serve, 2-Dose Series (Moderna) 08/19/2020,07/22/2020 Hepatitis B, 20+ yrs 02/08/2017,09/06/2016,08/06 Pneumococcal Conjugate Vacci ne, 20-valent ([id number]) 09/05/2021 Pneumococcal Polysaccharide PPV23 (Pneumovax) 06/13/2016 Seasonal [...] Description 04/17/2024 9:40 AM EST Laboratory Laboratory [facility] [place] [address] [facility] [place] [phone] [place] [address] [place] [address] 04/20/2024 6:15 AM EST Anticoagulation Centralized Clinical Pharmacy Services, Leelupis Pearl [address] [place] [address] [place] [address] [place] [address] 07/07/2024 2:30 PM EDT Office Visit Hematology/Oncology [place] 200 [facility] [place] [phone] Rut Roberts CRNP [address] [place] [address] Scheduled Procedures Name Priority Associated Diagnoses Date/Ti [...] Power of Attor pat? No Care Teams Chocolate Temperer Relationship Specialty Start Date End Date Hector Sullivan MD 200 [place] [address] PCP - General Internal Medicine 06/24/17 documented as of this encounter
--- OUTSIDE RECORDS SUMMARY | 2024-07-11 11:40 | External Medical Summary ---
Author Name Unknown Address Unknown Organization : Laboratory Report Ordering Provider Test Date Status WILLY JAY 03/27/2024 09:42:05 Final Observation Date Value Abnormality Reference (Units ) Status Copper 03/27/2024 09:42:05 141 70-175 (mc g/dL) Final This test was developed and its analytical performance
characteristics have been determined by [facility] [place], [place]. It has
not been cleared or approved by the U.S. Food and Drug
Administration. This assay has been validated pursuant
to the CLIA regulations and is used for clinical
purposes.

Test Performed at:
[facility]
[address] [facility]
[place] [address]
Angel Flores M.D., Ph.D.,Director of Laboratories Performing Location
--- OUTSIDE RECORDS SUMMARY | 2024-07-11 11:40 | External Medical Summary | Summary of Care ---
Author Name Unknown Organization [facility] Address [address] [place] [address] Phone [phone] Care Team Providers Care Pipe Layer Name Role Phone Hector Sullivan MD Primary Care Provider + Reason for Visit * Reason Comments Medication Refill Encounter Details Date Type Department Care Team (Late st Contact Info) Description 03/26/2024 Refill General Internal Medicine [facility] [place] [address] [place] [address] Hector Sullivan MD [address] [place] [address] Cerebrovascular accident (CVA) due to other mechanism (HCC) Allergies No known active allergiesdocumented as of this encounter (statuses as of 03/26/2024) Medications Glucose Blood In Vitro Strip Test [...] 8:59 AM EDT 4 04/10/19 25 Active Warfarin Sodium 5 MG Oral Tablet (Coumadin)Indicat ions:Cerebrovascu lar accident (CVA) due to other mechanism (HCC) Take one to one and one-half tablets by mouth in the morning as directed. 100 Tablet 3 01/02/2024 8:17 AM EDT 4 10/01/19 25 Active Cyanocobalamin 1000 MCG/ML Injection Solution [...] the morning. 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 S/P gastric bypass 01/03/2023 AMANDA (nonalcoholic steatohepatitis) 01/03/2023 Gastroesophageal reflux disease 01/03/2023 Former smoker 01/03/2023 Type 2 diabetes mellitus wit hout complication, with long-term current use of insulin 01/03/2023 AMANDA RESEARCH OTHER*[id number] 12/26/2022 Hemiplegia and hemiparesis f ollowing cerebral [...] as of this encounter (statuses as of 03/26/2024) Resolved Problems Problem Noted Date Diagnosed Date [...] as of this encounter (statuses as of 03/26/2024) Immunizations Name Administration Dates Next Due COVID-19 mRNA, LNP-s, No Pre serve, 2-Dose Series (Moderna) 08/19/2020,07/22/2020 Hepatitis B, 20+ yrs 02/08/2017,09/06/2016,08/06 Pneumococcal Conjugate Vacci ne, 20-valent ([id number]) 09/05/2021 Pneumococcal Polysaccharide PPV23 (Pneumovax) 06/13/2016 Seasonal [...] Assessment Author No 01/03/2023 6:47 PM NISHAT Bagot, An dres A, RN * Do you have difficulty dressing [...] encounter Miscellaneous Notes * Telephone Encounter - Rajendra Jones RPh - 03/26/2024 3:37 PM ESTRefused Prescriptions: Disp Refills Warfarin Sodium 5 MG Oral Tablet (Coumadin)100 Ta*3 Sig: Take one to one and one-half tablets by mouth in the morning as directed.Refused By: RAJENDRA JONES for Refusal: Too soon documented in this encounter Plan of Treatment Upcoming Encounters Date Type Department Care Team (Late st Contact Info) Description 03/27/2024 9:40 AM EST Laboratory [facility], [facility] [address] [phone] Elvira Jarquin [address] [address] 03/30/2024 6:15 AM EST Anticoagulation [facility], Lucretia Pearl [address] [place] [address] [place] [address] [place] [address] 07/07/2024 2:30 PM EDT Office Visit Hematology/Oncology [facility] [place] [address] [place] [address] Rut Roberts CRNP [address] [place] [address] Scheduled Procedures Name Priority Associated Diagnoses [...] 10/17/2026 10/18/2023, 11/2019, 06/28/2016, Additional history exists Lipid Panel 10/02/2028 10/03/2023, 11/2023, 07/05/2022, Additional history exists Cervical Cancer Screening 10/17/2028 HPV/Co-Test 10/17/2028 10/18/2023 DTap/Tdap Vaccines (3 - Td or Tdap) [...] as of this encounter Visit Diagnoses Diagnosis Cerebrovascular accident (CVA) due to other mechanism (HCC) documented in this encounter Advance Directives [...] Power of Attor pat? No Care Teams Pipe Layer Relationship Specialty Start Date End Date Hector Sullivan MD [address] [place] [address] PCP - General Internal Medicine 06/24/17 documented as of this encounter
--- OUTSIDE RECORDS SUMMARY | 2024-07-11 11:40 | External Medical Summary | Summary of Care ---
Author Name Unknown Organization [facility] Address [address] [facility] [place] [address] Phone [phone] Care Team Providers Care Nuclear Equipment Operator Name Role Phone Hector Sullivan MD Primary Care Provider + Reason for Visit * Reason Comments Dosage Adjustment Via Phone (anticoag Cl inic) Encounter Details Date Type Department Care Team (Late st Contact Info) Description 03/13/2024 6:00 PM EST Anticoagulation [facility], Lucretia Pearl [address] [place] [address] [place] [address] [facility], [address] [place] [address] Systemic lupus erythematosus, unspecified SLE type, unspecified organ involvement status (HCC)*; History of CVA (cerebrovascular accident) Allergies No known active allergiesdocumented as of this encounter (statuses as of 03/13/2024) Medications Glucose Blood In Vitro Strip Test [...] vitamin B12 injections 4 Each 4 Active Hospital, Clinic, or Other Facility Administered Medication Ordered Dose Route Frequency Start Date End Date Status vitamin b-12 (Cyanocobalamin) inj 1,000 mcgIndications:Intestinal postoperative nonabsorption 1000 mcg IM [id number] 03/05/2023 04/28/19 25 Active documented as of this encounter (statuses as of 03/13/2024) Active Problems Problem Noted Date Diagnosed Date 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 S/P gastric bypass 01/03/2023 AMANDA (nonalcoholic steatohepatitis) 01/03/2023 Gastroesophageal reflux disease 01/03/2023 Former smoker 01/03/2023 Type 2 diabetes mellitus wit hout complication, with long-term current use of insulin 01/03/2023 AMANDA RESEARCH OTHER*[id number] 12/26/2022 Hemiplegia and hemiparesis f ollowing cerebral [...] as of this encounter (statuses as of 03/13/2024) Resolved Problems Problem Noted Date Diagnosed Date [...] as of this encounter (statuses as of 03/13/2024) Immunizations Name Administration Dates Next Due COVID-19 mRNA, LNP-s, No Pre serve, 2-Dose Series (Moderna) 08/19/2020,07/22/2020 Hepatitis B, 20+ yrs 02/08/2017,09/06/2016,08/06 Pneumococcal Conjugate Vacci ne, 20-valent ([id number]) 09/05/2021 Pneumococcal Polysaccharide PPV23 (Pneumovax) 06/13/2016 Seasonal [...] documented in this encounter Progress Notes * Andreea Liz RPh - 03/13/2024 11:33 AM EST Noted. Tracker updated. Thank You Tho RodriguezD Clinical Pharmacist [facility] ([facility]) [phone] / [phone] 03/13/2024, 11:34 AM * Osmany Liz CPhT - 03/13/2024 11:30 AM EST Contacts Contact Date/Time Type Contact Phone/Fax 03/13/2024 11:17 AM EST Phone (Outgoing) Colette Herrera (Self) [phone] (M) Spoke to Patient Subjective Patient Findings Positives: Change in health (bad head cold; no N/V/D; appetite good.), Change in medications (taking mony seltzer plus & nyquil for head cold. has been taking 7.5 mg every Tues; 5 mg all other days.) Negatives: Signs/symptoms of thrombosis, Signs/symptoms of bleeding, Change in alcohol use, Change in activity, Upcoming invasive procedure, Missed doses, Extra doses, Change in diet/appetite, Bruising Comments: Per Andreea Liz RPh, Hold today and then decrease to 5 mg daily. Advised patient to contact Anticoagulation Clinic if any unusual bruising or bleeding, recent illness, changes in medication, or questions/concerns. PT/INR results, Coumadin dose instructions, and next PT/INR date communicated as noted by Pharmacist: Yes (see comment above) Osmany Liz CPhT 03/13/2024, 11:30 AM * Andreea Liz RPh - 03/13/2024 10:35 AM EST Images from the original note were not included. Coumadin Clinic (region specific) Objective Current Warfarin Dose As of 03/13/2024 Warfarin maintenance plan: 7.5 mg (5 mg x 1.5) every Tue,; 5 mg (5 mg x 1) all other days INR Result As of 03/13/2024 INR goal: 2.0-3.0 INR used for dosin.6 (03/13/2024) Assessment & Plan Warfarin Plan As of 03/13/2024 Full warfarin instructions: 03/13: Hold; Otherwise 5 mg every day Next INR check: 03/27/2024 Repeat PT/INR in 2 week(s) Weekly dose: decreased Additional Dosing Information: Description [facility] to contact patient with dose instructions as noted. Andreea Liz RPh 03/13/2024, 10:35 AM documented in this encounter Plan of Treatment Upcoming Encounters Date Type Department Care Team (Late st Contact Info) Description 03/13/2024 2:20 PM EST Telemedicine Nutrition and Weight Management [address] [place] [address] Joann Brewer PA-C [address] [address] 03/30/2024 6:15 AM EST Anticoagulation [facility], Lucretia Pearl [address] [place] [address] [place] [address] [facility] [place] [address] 07/07/2024 2:30 PM EDT Office Visit Hematology/Oncology Bhanu Lim [place] [address] [facility] [place] [address] Rut Roberts, FORREST [address] [place] [address] Scheduled Procedures Name Priority Associated Diagnoses Date/Ti me COLONOSCOPY FLEXIBLE PROXIMAL DIAGNOSTIC Recall Screen for colon cancer Health Maintenance Due Date Last Done Comments Cologuard 2014 Fecal Occult Blood Test 2014 Sigmoidoscopy 2014 Depression Monitoring 05/08/2023 05/08/2022 Zoster Vaccines (2 of 2) 10/11/2023 08/16/2023 COVID-19 Vaccine ( season) 2023 08/19/2020, 07/22/2020 HbA1c 04/04/2024 10/03/2023, 030 11/2023, 12/25/2022, Additional history exists B-12 05/24/2024 05/25/2023, 10/16, 07/05/2022, Additional history exists Diabetic Eye Exam 07/09/2024 07/10/2023, , 07/06/2022, Additional history exists Diabetic Foot Exam 08/15/2024 08/16/2023, 0 04/20/2022, 04/20/2022, Additional history exists Mammogram 08/15/2024 08/16/2023, 07/17, 08/06/2022, Additional history exists Albumin/Creatinine Ratio 10/02/2024 024, 10/31/2022, 07/08/2021, Additional history exists GFR 03/13/2025 03/13/2024, 1209/2023, [...] Power of Attor pat? No Care Teams Nuclear Equipment Operator Relationship Specialty Start Date End Date Hector Sullivan MD [address] [place] [address] PCP - General Internal Medicine 06/24/17 documented as of this encounter
--- OUTSIDE RECORDS SUMMARY | 2024-07-11 11:40 | External Medical Summary | Summary of Care ---
Author Name Unknown Organization [facility] Address [address] [place] [place] [place] [address] Phone [phone] Care Team Providers Care Dredgemaster Name Role Phone Hector Sullivan MD Primary Care Provider + Encounter Details Date Type Department Care Team (Late st Contact Info) Description 03/27/2024 Orders Only Centralized Clinical Pharmacy Services, Lucretia Pearl [address] [place] [address] [place] [address] Tamia Elmore, [facility] [address] [place] [address] History of CVA (cerebrovascular accident)* Allergies No known active allergiesdocumented as of this encounter (statuses as of 03/27/2024) Medications Glucose Blood In Vitro Strip Test [...] 1,000 mcgIndications:Intestinal postoperative nonabsorption 1000 mcg IM [id number] 03/05/2023 04/28/19 25 Active documented as of this encounter (statuses as of 03/27/2024) Active Problems Problem Noted Date Diagnosed Date 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 S/P gastric bypass 01/03/2023 AMANDA (nonalcoholic steatohepatitis) 01/03/2023 Gastroesophageal reflux disease 01/03/2023 Former smoker 01/03/2023 Type 2 diabetes mellitus wit hout complication, with long-term current use of insulin 01/03/2023 AMANDA RESEARCH OTHER*[id number] 12/26/2022 Hemiplegia and hemiparesis f ollowing cerebral [...] as of this encounter (statuses as of 03/27/2024) Resolved Problems Problem Noted Date Diagnosed Date [...] as of this encounter (statuses as of 03/27/2024) Immunizations Name Administration Dates Next Due COVID-19 mRNA, LNP-s, No Pre serve, 2-Dose Series (Moderna) 08/19/2020,07/22/2020 Hepatitis B, 20+ yrs 02/08/2017,09/06/2016,08/06 Pneumococcal Conjugate Vacci ne, 20-valent ([id number]) 09/05/2021 Pneumococcal Polysaccharide PPV23 (Pneumovax) 06/13/2016 Seasonal [...] AM EST Anticoagulation Centralized Clinical Pharmacy Services, [facility] [place] [address] [place] [address] [place] [address] [place] [address] 07/07/2024 2:30 PM EDT Office Visit Hematology/Oncology [facility] [place] [address] [facility] [address] Rut Roberts CRNP [address] [place] [id number] Scheduled Orders Name Type Priority Associated Diagnoses Orde r Schedule PT INR Lab Routine History of CVA (cerebrovascular accident) Other, Please specify in Comments field for 26 Occurrences starting 03/27/2024 until 03/27/2025 Scheduled Procedures Name Priority Associated Diagnoses Date/Ti [...] 10/18/2023, 06/0 11/2019, 06/28/2016, Additional history exists Lipid Panel 10/02/2028 10/03/2023, 03/0 11/2023, 07/05/2022, Additional history exists Cervical Cancer [...] Visit Diagnoses Diagnosis History of CVA (cerebrovascular accident)- Primary Transient ischemic attack (TIA), and cerebral infarction [...] Power of Attor pat? No Care Teams Dredgemaster Relationship Specialty Start Date End Date Hector Sullivan MD [address] [facility] [place] [address] PCP - General Internal Medicine 06/24/17 documented as of this encounter
--- OUTSIDE RECORDS SUMMARY | 2024-07-11 11:40 | External Medical Summary ---
Author Name Unknown Address Unknown Organization : Laboratory Report Ordering Provider Test Date Status WILLY JAY 03/27/2024 09:42:05 Final Observation Date Value Abnormality Reference (Units ) Status Vitamin E, level 03/27/2024 09:42:05 9.1 5.7 -19.9 (mg/L) Final Levels of alpha-tocopherol < 5 mg/L are consistent
with Vitamin E deficiency in adults. Beta+gamma tocopherol [Mass/ volume] in Serum or Plasma 03/27/2024 09:42:05 <1.0 <=4.3 Final Vitamin supplementation with in 24 hours prior to
blood draw may affect the accuracy of the results.
This test was developed and its analytical performance
characteristics have been determined by [facility] [place]. It has
not been cleared or approved by the U.S. Food and Drug
Administration. This assay has been validated pursuant
to the CLIA regulations and is used for clinical
purposes.

Test Performed at:
[employer] [facility]
[address] [facility]
[place], [place] [address]
Angel Flores M.D., Ph.D.,Director of Laboratories Performing Location
--- OUTSIDE RECORDS SUMMARY | 2024-07-11 11:40 | External Medical Summary | Summary of Care ---
Author Name Unknown Organization [facility] Address [address] [facility] [place] [address] Phone [phone] Care Team Providers Care Wine Blender Name Role Phone Hector Sullivan MD Primary Care Provider + Encounter Details Date Type Department Care Team (Late st Contact Info) Description 03/13/2024 2:20 PM EST Telemedicine Nutrition and Weight Management [address] [facility] [place] [id number] Joann Brewer PA-C [address] [place] [phone] Intestinal postoperative nonabsorption*; S/P gastric bypass Allergies No known active [...] 1,000 mcgIndications:Intestinal postoperative nonabsorption 1000 mcg IM [id number] 03/05/2023 04/28/19 25 Active documented as of this encounter (statuses as of 03/13/2024) Active Problems Problem Noted Date Diagnosed Date 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 S/P gastric bypass 01/03/2023 AMANDA (nonalcoholic steatohepatitis) 01/03/2023 Gastroesophageal reflux disease 01/03/2023 Former smoker 01/03/2023 Type 2 diabetes mellitus wit hout complication, with long-term current use of insulin 01/03/2023 AMANDA RESEARCH OTHER*[id number] 12/26/2022 Hemiplegia and hemiparesis f ollowing cerebral [...] yrs 02/08/2017,09/06/2016,08/06 Pneumococcal Conjugate Vacci ne, 20-valent ([id number]) 09/05/2021 Pneumococcal Polysaccharide PPV23 (Pneumovax) 06/13/2016 Seasonal [...] Mariana Rodriguez RN * Do you have serious difficulty [...] in this encounter Progress Notes * Joann Brewer PA-C - 03/13/2024 2:20 PM EST [facility] Post Gastric Bypass Patient location: HOME. I was in a hospital or clinic location. After connecting through [place] Everywhereo,patient was verified with two unique identifiers. Patient (or authorized legal front office representative) was then informed that this was a Telemedicine visit and being conducted confidentially over secure lines. Methods to assure confidentiality were taken. Patient acknowledged consent and understanding of pr ivacy and security of the Telemedicine visit. The patient agreed to participate. There are no exam notes on file for this visit. Referring physician: Hector Sullivan MD Colette Herrera is a 54 year old female who presents in follow up to the comprehensive weight management clinic. HPI The patient is s/p Gastric Bypass by Dr. Samuel on January 03, 2023. - Initial clinic visit 04/12/22. Weight at that time was 207 lbs - Weight at the time of the surgery 198 lbs - Today's weight: 166 lbs - per patient - Total weight loss of -32 lbs since surgery, and -41 lbs since initial weight in clinic Last seen by provider 05/2023 via telemedicine. Was seen this week by ASHELY. Wt Readings from Last 5 Encounters: 03/09/24 75.4 kg (166 lb 3.2 oz) 03/09/24 75.8 kg (167 lb 1.6 oz) 11/13/23 72.7 kg (160 lb 3.2 oz) 10/18/23 71.2 kg (157 lb) 08/16/23 73.4 kg (161 lb 14.4 oz) Current recommended meal plan: Stage 4 Patient is getting 60 grams of protein a day. Patient is getting 64 ounces of fluid a day. Activity Level: Light activity TYPE/DURATION: walking Patient Active Problem List Diagnosis CLASSICAL MIGRAINE WITHOU MENTION OF INTRACTABLE MIGRAINE OVARIAN CYST NEC-NOS Type 2 diabetes mellitus with hemoglobin A1c goal of less than 8.0% ([facility]) HTN, goal below 140/90 Hyperlipidemia Systemic lupus erythematosus, unspecified SLE type, unspecified organ involvement status ([facility]) DM type 2 with diabetic peripheral neuropathy ([facility]) Mixed conductive and sensorineural hearing loss of right ear with restricted hearing of left ear DAIN on CPAP History of CVA (cerebrovascular accident) Major depressive disorder with single episode, in partial remission ([facility]) APL (antiphospholipid syndrome) ([facility]) Light chain disease ([facility]) Hypomagnesemia Type 2 diabetes mellitus with diabetic neuropathy, without long-term current use of insulin ([facility]) Food insecurity Hemiplegia and hemiparesis following cerebral infarction affecting left non- dominant side ([facility]) AMANDA RESEARCH OTHER*[id number] S/P gastric bypass AMANDA (nonalcoholic steatohepatitis) Gastroesophageal reflux disease Former smoker Type 2 diabetes mellitus without complication, with long-term current use of insulin ([facility]) Light chain (AL) amyloidosis ([facility]) Review of patient's allergies indicates: No Known Allergies Taking supplements as ordered for each of the following: Multivitamin Calcium citrate Vitamin D3 B12 injection B complex Iron Current Outpatient Medications Medication Sig Dispense Refill Glucose Blood In Vitro Strip Test once daily. (Patient not taking: Reported on 03/09/2024) Blood Glucose Monitoring Suppl ([employer] CONFIRM GLUCOSE MONITOR) W/DEVICE KIT Use as [...] at noon and 2 Tablets before bedtime. Citalopram Hydrobromide 40 MG Oral Tablet (CeleXA) TAKE ONE TABLET BY MOUTH EVERY MORNING 90 Tablet3 buPROPion HCl ER (XL) 150 MG Oral Tablet Extended Release 24 Hour (Wellbutrin XL) TAKE ONE TABLET BY MOUTH EVERY MORNING 90 Tablet 3 Warfarin Sodium 5 MG Oral Tablet (Coumadin) Take one to one and one-half tablets by mouth in the morning as directed. 100 Tablet 3 Cyanocobalamin 1000 MCG/ML Injection Solution (Cyanocobalamin) Inject 1 mL into a large muscle every 3 months. 1 mL 5 Syringe Luer Lock 25G X 5/8" 3 ML For vitamin B12 injections 4 Each 0 Current Facility-Administered Medications Medication Dose Route Frequency Provider Last Rate Last Admin vitamin b-12 (Cyanocobalamin) inj 1,000 mcg 1,000 mcg Intramuscular Q12 Weeks Kristal Lai PA-C 1,000 mcg at 07/24/23 1108 Review of Systems: No N/V/D, abdominal pain Physical Exam: LMP 03/18/2013 Physical Exam Constitutional: Appearance: Normal appearance. HENT: Head: Normocephalic and atraumatic. Pulmonary: Effort: Pulmonary effort is normal. Neurological: Mental Status: Patient is alert and oriented to person, place, and time. Psychiatric: Mood and Affect: Mood normal. Assessment/Plan: S/P Gastric Bypass Surgery: Diet Will continue Stage 4 diet guidelines lifelong. Vitamins Multivitamin Calcium citrate Vitamin D3 B12 injection B complex Iron GOALS - aim for 60-80 grams of protein a day - aim for 64oz of fluids a day - continue to increase physical activity DMII - off all medication - return to PCP for possible medication restart Hemoglobin AIC Results: Lab Results Component Value Date/Time HEMOGLOBIN A1C - [facility] 7.3 (H) 03/13/2024 09:12 AM HEMOGLOBIN A1C - [facility] 6.8 (H) 10/03/2023 11:43 AM HEMOGLOBIN A1C - [facility] 7.6 (H) 05/25/2023 08:23 AM HEMOGLOBIN A1C - [facility] 7.2 (H) 03/23/2020 04:26 PM HEMOGLOBIN A1C - [facility] 7.4 (H) 08/05/2019 03:40 PM HEMOGLOBIN A1C - [facility] 7.3 (H) 02/04/2019 05:13 PM HTN HLD AMANDA Lupus H/o CVA x6 DAIN GERD: asymptomatic TOBACCO USE: They understand that smoking cessation needs to be lifelong after the procedure because of the risk of ulcers, bleeding, and strictures in the post-surgical pouch. Lab work reviewed. Orders placed today. Poor post op follow up. The patient agreed to try the plan as discussed and return in 3-6 months in clinic closer to her home. They were encouraged to call or send a patient portal message in the meantime with any questionsor concerns prior to their next visit. I spent a total of 15 minutes on the date of service in preparation, delivery, and documentation ofthe care provided to Colette Herrera excluding any time spent in the performance of separately billed services. Joann Brewer PA-C documented in this encounter Plan of Treatment Upcoming Encounters Date Type Department Care Team (Late st Contact Info) Description 03/13/2024 6:00 PM EST Anticoagulation [facility], [address] [place] [address] [place] [address] Systemic lupus erythematosus, unspecified SLE type, unspecified organ involvement status (HCC)*; History of CVA (cerebrovascular accident) 03/27/2024 9:40 AM EST [facility] [address] [place] [id number] JarquinElvira melissas [address] [facility] [place] [address] 03/30/2024 6:15 AM EST Anticoagulation [facility], [address] [place] [address] [place] [address] 07/07/2024 2:30 PM EDT Office Visit Hematology/Oncology Bhanu Lim [place] [address] [facility] [place] [phone] Rut Roberts CRNP [address] [place] [address] Pending Results Name Type Priority Associated Diagnoses Date /Time FOLIC ACID Lab Routine Intestinal postoperative nonabsorption S/P gastric bypass 03/13/2024 9:12 AM EST IRON SCREEN, INCLUDING TIBC Lab Routine Intestinal postoperative nonabsorption S/P gastric bypass 03/13/2024 9:12 AM EST PTH Lab Routine Intestinal postoperative nonabsorption S/P gastric bypass 03/13/2024 9:12 AM EST 25-HYDROXY VITAMIN D Lab Routine Intestinal postoperative nonabsorption S/P gastric bypass 03/13/2024 9:12 AM EST FERRITIN Lab Routine Intestinal postoperative nonabsorption S/P gastric bypass 03/13/2024 9:12 AM EST VITAMIN B12 Lab Routine Intestinal postoperative nonabsorption S/P gastric bypass 03/13/2024 9:12 AM EST Scheduled Orders Name Type Priority Associated Diagnoses Orde r Schedule FOLIC ACID Lab Routine Intestinal postoperative nonabsorption S/P gastric bypass Expected: 06/11/2024, Expires: 03/13/2025 IRON SCREEN, INCLUDING TIBC Lab Routine Intestinal postoperative nonabsorption S/P gastric bypass Expected: 06/11/2024, Expires: 03/13/2025 VITAMIN A (RETINOL) Lab Routine Intestinal postoperative nonabsorption S/P gastric bypass Expected: 04/13/2024 (Approximate), Expires: 03/13/2025 VITAMIN E (TOCOPHEROL) Lab Routine Intestinal postoperative nonabsorption S/P gastric bypass Expected: 04/13/2024 (Approximate), Expires: 03/13/2025 VITAMIN B1 (THIAMINE), BLOOD, LC/MS/MS Lab Routine Intestinal postoperative nonabsorption S/P gastric bypass Expected: 06/11/2024 (Approximate), Expires: 03/13/2025 LIPID PANEL WITHOUT DIRECT LDL Lab Routine Intestinal postoperative nonabsorption S/P gastric bypass Expected: 04/13/2024 (Approximate), Expires: 07/11/2024 PTH Lab Routine Intestinal postoperative nonabsorption S/P gastric bypass Expected: 06/11/2024 (Approximate), Expires: 07/11/2024 25-HYDROXY VITAMIN D Lab Routine Intestinal postoperative nonabsorption S/P gastric bypass Expected: 06/11/2024 (Approximate), Expires: 07/11/2024 COPPER, SERUM OR PLASMA Lab Routine Intestinal postoperative nonabsorption S/P gastric bypass Expected: 04/13/2024 (Approximate), Expires: 03/13/2025 FERRITIN Lab Routine Intestinal postoperative nonabsorption S/P gastric bypass Expected: 06/11/2024 (Approximate), Expires: 03/13/2025 ZINC Lab Routine Intestinal postoperative nonabsorption S/P gastric bypass Expected: 04/13/2024 (Approximate), Expires: 03/13/2025 VITAMIN B12 Lab Routine Intestinal postoperative nonabsorption S/P gastric bypass Expected: 06/11/2024 (Approximate), Expires: 03/13/2025 Scheduled Procedures Name Priority Associated Diagnoses Date/Ti me COLONOSCOPY FLEXIBLE PROXIMAL DIAGNOSTIC Recall Screen for colon cancer Health Maintenance Due Date Last Done Comments Cologuard 2014 Fecal Occult Blood Test 2014 Sigmoidoscopy 2014 Depression Monitoring 05/08/2023 05/08/2022 Zoster Vaccines (2 of 2) 10/11/2023 08/16/2023 COVID-19 Vaccine ( season) 2023 08/19/2020, 07/22/2020 B-12 05/24/2024 05/25/2023, 10/16, 07/05/2022, Additional history exists Diabetic Eye Exam 07/09/2024 07/10/2023, , 07/06/2022, Additional history exists Diabetic Foot Exam 08/15/2024 08/16/2023, 0 04/20/2022, 04/20/2022, Additional history exists Mammogram 08/15/2024 08/16/2023, 07/17, 08/06/2022, Additional history exists HbA1c 09/11/2024 03/13/2024, 09/15, 05/25/2023, Additional history exists Albumin/Creatinine Ratio 10/02/2024 024, 10/31/2022, 07/08/2021, Additional history exists GFR 03/13/2025 03/13/2024, 09/2023, [...] Not on filedocumented as of this encounter Results * CBC (03/13/2024 9:12 AM EST) WBC 8.22 4.00 - 10.80 K/uL 03/13/2024 2:39 PM EST [facility] RBC 4.38 3.85 - 5.15 M/uL 03/13/2024 2:39 PM EST [facility] HGB 13.7 12.0 - 15.3 g/dL 03/13/2024 2:39 PM EST [facility] HCT 41.7 36.0 - 45.2 % 03/13/2024 2:39 PM EST [facility] MCV 95.2 81.5 - 97.5 fL 03/13/2024 2:39 PM EST [facility] MCH 31.3 27.0 - 34.0 pg 03/13/2024 2:39 PM EST [facility] MCHC 32.9 32.0 - 36.0 g/dL 03/13/2024 2:39 PM EST [facility] RDW 12.5 11.5 - 15.5 % 03/13/2024 2:39 PM EST [facility] PLT 211 140 - 400 K/uL 03/13/2024 2:39 PM EST [facility] MPV 11.7 6.6 - 11.1 fL 03/13/2024 2:39 PM EST [facility] nRBCs 0 <=0 /100 WBCs 03/13/2024 2:39 PM EST [facility] Blood Venous blood specimen / Unknown Venipuncture / Unknown 03/13/2024 9:12 AM EST 03/13/2024 9:12 AM EST Joann Brewer PA-C LAB BLOOD ORDERABLES Birgit l Result [facility] [address] [place] [address] documented in this encounter Visit Diagnoses Diagnosis Intestinal postoperative nonabsorption- Primary Other and unspecified postsurgical nonabsorption S/P gastric bypass Bariatric surgery status Systemic lupus erythematosus, unspecified SLE type, unspecified [...] Power of Attor pat? No Care Teams Wine Blender Relationship Specialty Start Date End Date Hector Sullivan MD [address] [place] [address] PCP - General Internal Medicine 06/24/17 documented as of this encounter
--- OUTSIDE RECORDS SUMMARY | 2024-07-11 11:40 | External Medical Summary | Summary of Care ---
Author Name Unknown Organization [facility] Address [address] [place] [address] Phone [phone] Care Team Providers Care Woolen Suiting Shrinker Name Role Phone Hector Sullivan MD Primary Care Provider + Reason for Visit * Reason Onset Date Comments Return Visit 6 mo return, no new concerns. Medication Administration 03/09/2024 Flu an d/or Pneumo Inj Encounter Details Date Type Department Care Team (Late st Contact Info) Description 03/09/2024 12:40 PM EST Office Visit General Internal Medicine [facility] [address] [place] [address] Hector Sullivan MD [address] [place] [address] HTN, goal below 140/90*; Type 2 diabetes mellitus with hemoglobin A1c goal of less than 8.0% ([facility]); Hypomagnesemia; S/P gastric bypass; Hemiplegia and hemiparesis following cerebral infarction affecting left non-dominant side (HCC); Light chain (AL) amyloidosis ([facility]); Need for prophylactic vaccination and inoculation against influenza; Elevated LFTs Allergies No known active allergiesdocumented as of this encounter (statuses as of 03/19/2024) Medications Glucose Blood In Vitro Strip Test once daily. Active Blood Glucose Monitoring Suppl ([employer] CONFIRM GLUCOSE MONITOR) W/DEVICE KIT Use as [...] 8:17 AM EDT 4 10/01/19 25 Active Hospital, Clinic, or Other Facility Administered Medication Ordered Dose Route Frequency Start Date End Date Status vitamin b-12 (Cyanocobalamin) inj 1,000 mcgIndications:Intestinal postoperative nonabsorption 1000 mcg IM [id number] 03/05/2023 04/28/19 25 Active documented as of this encounter (statuses as of 03/19/2024) Active Problems Problem Noted Date Diagnosed Date 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 S/P gastric bypass 01/03/2023 AMANDA (nonalcoholic steatohepatitis) 01/03/2023 Gastroesophageal reflux disease 01/03/2023 Former smoker 01/03/2023 Type 2 diabetes mellitus wit hout complication, with long-term current use of insulin 01/03/2023 AMANDA RESEARCH OTHER*[id number] 12/26/2022 Hemiplegia and hemiparesis f ollowing cerebral [...] as of this encounter (statuses as of 03/19/2024) Resolved Problems Problem Noted Date Diagnosed Date [...] as of this encounter (statuses as of 03/19/2024) Immunizations Name Administration Dates Next Due COVID-19 mRNA, LNP-s, No Pre serve, 2-Dose Series (Moderna) 08/19/2020,07/22/2020 Hepatitis B, 20+ yrs 02/08/2017,09/06/2016,08/06 Pneumococcal Conjugate Vacci ne, 20-valent ([id number]) 09/05/2021 Pneumococcal Polysaccharide PPV23 (Pneumovax) 06/13/2016 Seasonal Influenza, PF, 6 M & above, IM , (FluLaval or Fluzone) 01/06/2023,12/18/2021,12/12/2020,12/17,02/04/2019,01/30/2017 Seasonal Influenza, Trivalen t, (IIV3), PF, (Fluzone) 03/09/2024 TD - Tetanus/Diptheria (ADULT) 09/26/1998 TDAP (age 10 and older)(Boostrix) 08/16/2023 TDAP, [...] Sign Reading Time Taken Comments Blood Pressure 126/86 03/09/2024 12:24 PM EST Pulse 72 03/09/2024 12:24 PM EST Temperature 36.3 °C (97.4 °F) 03/09/2024 12:[address] Respiratory Rate - - Oxygen Saturation 99% 03/09/2024 12:24 PM EST Inhaled Oxygen Concentration - - Weight 75.8 kg (167 lb 1.6 oz) 03/09/2024 12:24 PM EST Height - - Body Mass Index 30.56 10/18/2023 11:26 AM EDT documented in this encounter Functional Status * Are you deaf or do you have serious difficulty hearing? Answer Date of Assessment Author No 01/03/2023 6:47 PM NISHAT Mariana Minaya RN * Are you blind [...] 01/03/2023 6:47 PM Mariana Rodriguez RN * Because of a physical, mental, [...] documented in this encounter Progress Notes * Hector Sullivan MD - 03/09/2024 12:50 PM EST Chief Complaint Patient presents with Return Visit 6 mo return, no new concerns. Medication Administration Flu and/or Pneumo Inj SUBJECTIVE: Colette Herrera is a 54 year old female with PMH as below who presents for f/u htn, DM, magnesium. No cp, sob, strong, no falls and walking better, mood is good. She notes weight up, munching more, plans to stop now. Avoiding tobacco. Patient Active Problem List Diagnosis CLASSICAL MIGRAINE WITHOU MENTION OF INTRACTABLE MIGRAINE OVARIAN CYST NEC-NOS Type 2 diabetes mellitus with hemoglobin A1c goal of less than 8.0% (HCC) HTN, goal below 140/90 Hyperlipidemia Systemic lupus erythematosus, unspecified SLE type, unspecified organ involvement status (HCC) DM type 2 with diabetic peripheral neuropathy (HCC) Mixed conductive and sensorineural hearing loss of right ear with restricted hearing of left ear DAIN on CPAP History of CVA (cerebrovascular accident) Major depressive disorder with single episode, in partial remission (HCC) APL (antiphospholipid syndrome) (HCC) Light chain disease (HCC) Hypomagnesemia Type 2 diabetes mellitus with diabetic neuropathy, without long-term current use of insulin (HCC) Food insecurity Hemiplegia and hemiparesis following cerebral infarction affecting left non- dominant side ([facility]) AMANDA RESEARCH OTHER*[id number] S/P gastric bypass AMANDA (nonalcoholic steatohepatitis) Gastroesophageal reflux disease Former smoker Type 2 diabetes mellitus without complication, with long-term current use of insulin (HCC) Light chain (AL) amyloidosis ([facility]) Current Outpatient Medications Medication Sig Dispense Refill Aspirin 81 MG Tablet Take 1 Tablet by mouth at bedtime. Slow Magnesium/Calcium 70-117 MG Oral Tablet Delayed Release (Magnesium Cl- Calcium Carbonate) 2 tablets in PM 180 Tab 3 B Complex Vitamins Oral Capsule Take 1 [...] the morning as directed. 100 Tablet 3 Glucose Blood In Vitro Strip Test once daily. (Patient not taking: Reported on 03/09/2024) Blood Glucose Monitoring Suppl ([employer] CONFIRM GLUCOSE MONITOR) W/DEVICE KIT Use as directed. (Patient not taking: Reported on 03/09/2024) CPAP every night at bedtime. (Patient not taking: Reported on 03/09/2024) Current Facility-Administered Medications Medication Dose Route Frequency Provider Last Rate Last Admin vitamin b-12 (Cyanocobalamin) inj 1,000 mcg 1,000 mcg Intramuscular Q12 Weeks Kristal Lai PA-C 1,000 mcg at 07/24/23 1108 Review of patient's allergies indicates: No Known Allergies Health Maintenance Due Topic Date Due Depression Monitoring 05/08/2023 Zoster Vaccines (2 of 2) 10/11/2023 COVID-19 Vaccine (3 - season) 2023 HbA1c 04/04/2024 ROS: CONSTITUTIONAL: No weakness, No fatigue, and No fevers, sweats, or chills PULMONARY: No cough, sputum, or hemoptysis, No wheezing, No rales, No shortness of breath, and No recent change in breathing CARDIOVASCULAR: No chest pain, No shortness of breath, No dyspnea on exertion, No orthopnea, No paroxysmal nocturnal dyspnea, No edema, No palpitations, and No syncope ALL OTHER SYSTEMS NEGATIVE I reviewed social, PMH, PSH, and family history and updated where needed. Social History Socioeconomic History Marital status: Spouse name: Not on file Number of children: Not on file Years of education: Not on file Highest education level: Not on file Occupational History Occupation: disabled Tobacco Use Smoking status: Former Current packs/day: 0.00 Average packs/day: 0.5 packs/day for 35.0 years (17.5 ttl pk-yrs) Types: Cigarettes Start date: 04/01/2022 Quit date: 06/2022 Years since quittin.7 Smokeless tobacco: Never Vaping Use Vaping status: Never Used Substance and Sexual Activity Alcohol use: Not Currently Comment: "once in a blue romano" Drug use: No Sexual activity: Not Currently Partners: Male Comment: had vasectomy Other Topics Concern Not on file Social History Narrative Not working. Lives with for 32 years. Social Needs Financial Resource Strain: Not on file Food Insecurity: No Food Insecurity (01/03/2023) Food Insecurity Do you need food for this week? (Adult - for ages 18 years and over): No Are you able to get enough food for your family? (Household - for ages 0-17 years): Not on file Does your family need food this week? (Household - for ages 0-17 years): Not on file Do you always have enough food for your family? (Household - for ages 0-17 years): Not on file Transportation Needs: No Transportation Needs (01/03/2023) Transportation Needs Do you have trouble getting a ride to medical visits or work? (Adult - for ages 18 years and over):Never True Does your family have a hard time getting a ride to doctors’ visits? (Household - for ages 0-17 years): Not on file Has lack of transportation kept you from medical appointments, meetings, work, or from getting things needed for daily living? Check all that apply. (Adult - for ages 18 years and over): Not on file Do you (or your family) have trouble finding or paying for a ride (transportation)? (Household - for ages 0-17 years): Not on file Social Connections: Unknown (09/03/2023) Social Connections How often do you feel lonely or isolated from those around you? (Adult - for ages 18 years and over): Not on file Housing Stability: Low Risk (01/03/2023) Housing Stability Do you currently live in a intermediate or have no steady place to sleep at night? (Adult - for ages 18 years and over): Not on file Do you think you are at risk of becoming homeless? (Adult - for ages 18 years and over): No Does your family worry about paying for your home or becoming homeless? (Household - for ages 0-17 years): Not on file Are you homeless or worried that you might be in the future? (Adult - for ages 18 years and over): Not on file Are you (or your family) homeless or worried that you might be in the future? (Household - for ages0-17 years): Not on file Past Medical History: Diagnosis Date CVA (cerebrovascular accident) (HCC) 06/13/2016 x2 Hematuria 08/10/2001 ICD-10 update of inactive term History of CVA (cerebrovascular accident) 07/30/2017 HTN, goal below 140/90 06/13/2016 Hyperlipidemia Hypomagnesemia 12/18/2019 Light chain disease (HCC) 12/18/2019 Lupus (HCC) unsure of type Migraine with aura DAIN on CPAP 01/08/2017 Ovarian cyst Stroke (HCC) 11/29/12 and 02/03/13 Tobacco abuse 09/17/2019 Type 2 diabetes mellitus with hemoglobin A1c goal of less than 8.0% (HCC) 06/13/2016 Past Surgical History: Procedure Laterality Date COLONOSCOPY, DIAGNOSTIC (RECTUM) 03/24/2019 hyperplastic polyp, poor prep, repeat 1 yr/COLONOSCOPY FLEXIBLE PROXIMAL DIAGNOSTIC performed by Eileen Huff MD at ENDOSCOPY [facility] COLONOSCOPY, DIAGNOSTIC (RECTUM) 08/03/2020 normal / COLONOSCOPY FLEXIBLE PROXIMAL DIAGNOSTIC performed by Eileen Huff MD at ENDOSCOPY [facility] CYSTOSCOPY 04/14/2018 done in office, Dr Marinelli EGD, FLEXIBLE, DIAGNOSTIC N/A 01/03/2023 ESOPHAGOGASTRODUODENOSCOPY (EGD), FLEXIBLE, TRANSORAL, DIAGNOSTIC performed by Bernard Samuel MD at OR [facility] INCISION OF EARDRUM tubes placed bilaterally LAPAROSCOPE PROCEDURE, LIVER N/A 01/03/2023 UNLISTED LAPAROSCOPIC PROCEDURE LIVER performed by Bernard Samuel MD at [facility] LAPAROSCOPIC GASTRIC BYPASS/ROSANNA-EN-Y N/A 01/03/2023 ROBOTIC LAPAROSCOPIC GASTRIC RESTRICTIVE BYPASS ROSANNA EN Y performed by Bernard Samuel MD at OR [facility] REMOVE TONSILS & ADENOIDS, UNDER 12 Family History Problem Relation Name Age of Onset Diabetes Father Heart Disorder Father Irregular heart beat Hypertension Father Hypertension Sister Lupus Sister Hypertension Sister Thyroid Disorder Sister Hypertension Mother Other (Other) Mother Aneurysms Other (brain anerysm) Mother Other (brain anerysm) Grandparent (Maternal) OBJECTIVE: PHYSICAL EXAM: BP 126/86 | Pulse 72 | Temp 97.4 °F (36.3 °C) (Tympanic) | Wt 167 lb 1.6 oz (75.8 kg) | LMP 03/18/2013 | SpO2 99% | BMI 30.56 kg/m² | BSA 1.82 m² General: alert, healthy, and no distress Head: Normocephalic, No masses, lesions, tenderness or abnormalities Eye Exam: conjunctiva are pink and non-injected, sclera clear Heart: regular rate & rhythm, no murmur, no gallops, PMI non-displaced, S-1 normal, and S-2 normal Lungs: normal respiratory rate and rhythm, lungs clear to auscultation Neuro Exam: alert with fluent speech, gait normal Psych: normal affect, no flight of ideas or tangential thought, good eye contact, no pressured speech I reviewed last lipid, gfr, lft, A1c ASSESSMENT: (I10) HTN, goal below 140/90 (primary encounter diagnosis) (E11.9) Type 2 diabetes mellitus with hemoglobin A1c goal of less than 8.0% (HCC) (E83.42) Hypomagnesemia (Z98.84) S/P gastric bypass (I69.354) Hemiplegia and hemiparesis following cerebral infarction affecting left non-dominant side(HCC) (E85.81) Light chain (AL) amyloidosis (HCC) (Z23) Need for prophylactic vaccination and inoculation against influenza PLAN: HTN, goal below 140/90 (Primary) Diet again discussed Seeing gi nutrition today May need to add back med if rises Type 2 diabetes mellitus with hemoglobin A1c goal of less than 8.0% (HCC) - HEMOGLOBIN A1C; Future; Expected date: 03/09/2024 - COMPREHENSIVE METABOLIC PANEL; Future; Expected date: 03/09/2024 Await labs Hypomagnesemia - MAGNESIUM; Future; Expected date: 03/09/2024 Recheck Cont supplement S/P gastric bypass Await gi today Hemiplegia and hemiparesis following cerebral infarction affecting left non- dominant side (HCC) Walking well! Light chain (AL) amyloidosis (HCC) Sees heme onc Need for prophylactic vaccination and inoculation against influenza - INFLUENZA VAC, TRIVALENT, (IIV3), PF, 0.5 ML (FLUZONE) Follow Up: Return if symptoms worsen or fail to improve, for Labs Today. | For: Labs Today Hector Sullivan MD * Yomi Obregon CMA - 03/09/2024 12:28 PM EST PRE - ADMINISTRATION DOCUMENTATION Are you experiencing any cold symptoms or fever? No Have you had Guillain-[place] Syndrome (an illness that causes paralysis) within the last 6 weeks? No Have you had the flu shot in the past? YES Have you ever had a reaction to the flu shot? No Yomi Obregon CMA, 03/09/2024 12:28 PM Immunization Administration Documentation Time Out Procedure Performed: Yes Patient Identified (Ask Name/Date of ): Yes Does the patient have a fever greater than 101 degrees today? No Patient allergic to latex? No VFC Stock: No Immunization(s) verified: Yes, Immunization Name: Flu, VIS Sheet(s) given: Yes Verified Side and Site: Yes Verified Shot(s) with Parent(s)/Patient: Yes documented in this encounter Nursing Notes * Yomi Obregon CMA - 03/09/2024 12:23 PM EST The patient has been properly identified by confirmation of name and date of . Chief Complaint Patient presents with Return Visit 6 mo return, no new concerns. documented in this encounter Miscellaneous Notes * Addendum Note - Hector Sullivan MD - 03/19/2024 8:21 AM ESTAddended by: HECTOR SULLIVAN on: 03/19/2024 08:21 AM Modules accepted: Orders documented in this encounter Plan of Treatment Upcoming Encounters Date Type Department Care Team (Late st Contact Info) Description 03/27/2024 9:40 AM EST Laboratory [facility], [facility] [address] [facility] [id number] [facility] [address] [facility] [address] 03/30/2024 6:15 AM EST [facility] Clinical Pharmacy Services, Lucretia Pearl [address] [place] [address] [place] [address] [place] [address] 07/07/2024 2:30 PM EDT Office Visit Hematology/Oncology [facility] [address] [facility] [place] [phone] Rut Roberts CRNP [address] [place] [address] Scheduled Orders Name Type Priority Associated Diagnoses Orde r Schedule HEMOGLOBIN A1C Lab Routine Type 2 diabetes mellitus with hemoglobin A1c goal of less than 8.0% (HCC) Expected: 06/17/2024 (Approximate), Expires: 03/19/2025 COMPREHENSIVE METABOLIC PANEL Lab Routine Elevated LFTs Expected: 06/17/2024 (Approximate), Expires: 03/19/2025 Scheduled Procedures Name Priority Associated Diagnoses Date/Ti [...] 10/03/2023, Additional history exists Colonoscopy 08/03/2025 08/03/2020, 1 11/2020, 03/24/2019, Additional history exists Colorectal Cancer Screening [...] filedocumented as of this encounter Results * MAGNESIUM (03/13/2024 9:12 AM EST) Pathologist [facility] Magnesium 1.9 1.5 - 2.6 mg/dL 03/13/2024 12:43 PM EST LABORATORY [facility] Blood Venous blood specimen / Unknown Venipuncture / Unknown 03/13/2024 9:12 AM EST 03/13/2024 9:12 AM EST us Hector Sullivan MD LAB BLOOD ORDERABLES Fin al Result LABORATORY [facility] [address] [place] [address] * (ABNORMAL) COMPREHENSIVE METABOLIC PANEL (03/13/2024 9:12 AM EST) Pathologist [facility] BUN 10 6 - 20 mg/dL 03/13/2024 10:50 AM EST LAB[facility]ORY [facility] CREATININE 0.9 0.5 - 1.0 mg/dL 03/13/2024 10:50 AM EST LAB[facility] EGFR 73 >=60 mL/min 03/13/2024 10:50 AM EST LAB[facility] Comment:eGFR is calculated b ased on the CKD-EPI 2020 equation. SODIUM 140 135 - 146 mmol/L 03/13/2024 10:50 AM EST [facility] POTASSIUM 4.5 3.5 - 5.1 mmol/L 03/13/2024 10:50 AM EST [facility] CHLORIDE 100 98 - 107 mmol/L 03/13/2024 10:50 AM EST [facility] CO2 30 22 - 32 mmol/L 03/13/2024 10:50 AM EST [facility] ANION GAP 10 7 - 15 mmol/L 03/13/2024 10:50 AM EST [facility] GLUCOSE 173(H) 70 - 120 mg/dL 03/13/2024 10:50 AM EST LAB[facility] Albumin 4.0 3.8 - 5.0 g/dL 03/13/2024 10:50 AM EST [facility] AST 33 10 - 35 U/L 03/13/2024 10:50 AM EST [facility] Alkaline Phosphatase 138(H) 35 - 130 U/L 03/13/2024 10:50 AM EST [facility] Bilirubin, Total 0.2 <=1.2 mg/dL 03/13/2024 10:50 AM EST [facility] CALCIUM 8.9 8.4 - 10.2 mg/dL 03/13/2024 10:50 AM EST [facility] Protein 6.5 6.0 - 8.3 g/dL 03/13/2024 10:50 AM EST LAB[facility] ALT 45(H) 10 - 35 U/L 03/13/2024 10:50 AM EST LAB[facility] Blood Venous blood specimen / Unknown Venipuncture / Unknown 03/13/2024 9:12 AM EST 03/13/2024 9:12 AM EST Hector Sullivan MD LAB BLOOD ORDERABLES Fin al Result [facility]ATORY [facility] [place] [address] * (ABNORMAL) HEMOGLOBIN A1C (03/13/2024 9:12 AM EST) Hemoglobin A1C 7.3(H) 4.0 - 5.6 % 03/13/2024 12:54 PM EST LABORATORY [facility] Comment:The use of HbA1c to monitor glycemic status is based on normal hemoglobin and HbA composition. This test should not be used in patients with abnormal hemoglobin that affects the half life of the red blood cell or the in vivo glycation rates. Estimated Average Glucose 163(H) <126 mg/dL 03/13/2024 12:54 PM EST LABORATORY [facility] Blood Venous blood specimen / Unknown Venipuncture / Unknown 03/13/2024 9:12 AM EST 03/13/2024 9:12 AM EST Hector Sullivan MD LAB BLOOD ORDERABLES Fin al Result LABORATORY [facility] [address] [place] [address] documented in this encounter Visit Diagnoses Diagnosis HTN, goal below 140/90- Primary Unspecified essential hypertension Type 2 diabetes mellitus with hemoglobin A1c goal of less than 8.0% (HCC) Hypomagnesemia Disorders of magnesium metabolism S/P gastric bypass Bariatric surgery status Hemiplegia and hemiparesis following cerebral infarction affecting left non- dominant side (HCC) Light chain (AL) amyloidosis (HCC) Need for prophylactic vaccination and inoculation against influenza Elevated LFTs Other abnormal blood chemistry documented in this encounter Advance Directives * [...] Power of Attor pat? No Care Teams [employer]en [employer]ing Shrinker Relationship Specialty Start Date End Date Hector Sullivan MD [address] [facility] [place] [address] PCP - General Internal Medicine 06/24/17 documented as of this encounter
--- OUTSIDE RECORDS SUMMARY | 2024-07-11 11:40 | External Medical Summary ---
Author Name Unknown Address Unknown Organization [id number]:[facility]AT[facility] [place] [address] Laboratory Report Ordering Provider Test Date Status ABDULAZIZ GRANT 03/27/2024 09:42:05 Final Associated diagnosis code [id number] was changed to [id number] on 12/17/23 as a result of a periodic change by regulatory authority.

Warfarin Therapy
INR: 2.0-3.0 conventional anticoagulation
INR: 2.5-3.5 high intensity anticoagulation Observation Date Value Abnormality Reference (Units ) Status PT 03/27/2024 09:42:05 25.5 Above high normal 11 .6-15.2 (seconds) Final INR 03/27/2024 09:42:05 2.3 Above high normal 0. 8-1.2 Final Performing Location [facility]AT[facility] - [address] [place] [address]
--- OUTSIDE RECORDS SUMMARY | 2024-07-11 11:40 | External Medical Summary | Summary of Care ---
Author Name Unknown Organization [facility] Address [address] [place] [address] Phone [phone] Care Team Providers Care Rn Tele Name Role Phone Hector Sullivan MD Primary Care Provider + Reason for Visit * Reason Comments Outpatient Testing Encounter Details Date Type Department Care Team (Latest Contact Info) Description 03/27/2024 9:40 AM EST Laboratory Laboratory, [facility] [address] [place] [phone] [facility] [address] [place] [address] Anticoagulation management encounter; Lupus; History of CVA (cerebrovascular accident); joint terminal attack controller current use of anticoagulant therapy; Intestinal postoperative nonabsorption; S/P gastric bypass Allergies [...] 1,000 mcgIndications:Intestinal postoperative nonabsorption 1000 mcg IM [id number] 03/05/2023 04/28/19 25 Active documented as of this encounter (statuses as of 03/27/2024) Active Problems Problem Noted Date Diagnosed Date 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 S/P gastric bypass 01/03/2023 AMANDA (nonalcoholic steatohepatitis) 01/03/2023 Gastroesophageal reflux disease 01/03/2023 Former smoker 01/03/2023 Type 2 diabetes mellitus wit hout complication, with long-term current use of insulin 01/03/2023 AMANDA RESEARCH OTHER*[id number] 12/26/2022 Hemiplegia and hemiparesis f ollowing cerebral [...] yrs 02/08/2017,09/06/2016,08/06 Pneumococcal Conjugate Vacci ne, 20-valent ([id number]) 09/05/2021 Pneumococcal Polysaccharide PPV23 (Pneumovax) 06/13/2016 Seasonal [...] Anticoagulation Centralized Clinical Pharmacy Services, Lucretia Pearl [address] [place] [address] [place] [address] [place] [address] 07/07/2024 2:30 PM EDT Office Visit Hematology/Oncology [address] [phone] Rut Roberts CRNP [address] [place] [address] Pending Results Name Type Priority Associated Diagnoses Date /Time PT INR Lab Routine Anticoagulation management encounter Lupus History of CVA (cerebrovascular accident) joint terminal attack controller current use of anticoagulant therapy 03/27/2024 9:42 AM EST VITAMIN A (RETINOL) Lab Routine Intestinal postoperative nonabsorption S/P gastric bypass 03/27/2024 9:42 AM EST VITAMIN E (TOCOPHEROL) Lab Routine Intestinal postoperative nonabsorption S/P gastric bypass 03/27/2024 9:42 AM EST LIPID PANEL WITHOUT DIRECT LDL Lab Routine Intestinal postoperative nonabsorption S/P gastric bypass 03/27/2024 9:42 AM EST COPPER, SERUM OR PLASMA Lab Routine Intestinal postoperative nonabsorption S/P gastric bypass 03/27/2024 9:42 AM EST ZINC Lab Routine Intestinal postoperative nonabsorption S/P gastric bypass 03/27/2024 9:42 AM EST Scheduled Procedures Name Priority Associated [...] as of this encounter Visit Diagnoses Diagnosis Anticoagulation management encounter Encounter for therapeutic drug monitoring Lupus Systemic lupus erythematosus History of CVA (cerebrovascular accident) Transient ischemic attack (TIA), and cerebral infarction without residual deficits joint terminal attack controller current use of anticoagulant therapy Intestinal postoperative nonabsorption Other and unspecified postsurgical [...] Power of Attor pat? No Care Teams Rn Tele Relationship Specialty Start Date End Date Hector Sullivan MD [address] [facility] [place] [address] PCP - General Internal Medicine 06/24/17 documented as of this encounter
--- OUTSIDE RECORDS SUMMARY | 2024-07-11 11:40 | External Medical Summary | Summary of Care ---
Author Name Unknown Organization [facility] Address [address] [facility] [place] [address] Phone [phone] Care Team Providers Care Molding Line Assistant Name Role Phone Hector Sullivan MD Primary Care Provider + Encounter Details Date Type Department Care Team (Late st Contact Info) Description 03/16/2024 Telephone Nutrition & Weight Management, [facility] [place] [address] [place] [phone] Joann Brewer PA-C [address] [place] [address] [place] [address] Allergies No known active allergiesdocumented as of this encounter (statuses as of 03/16/2024) Medications Glucose Blood In Vitro Strip Test [...] 1,000 mcgIndications:Intestinal postoperative nonabsorption 1000 mcg IM [id number] 03/05/2023 04/28/19 25 Active documented as of this encounter (statuses as of 03/16/2024) Active Problems Problem Noted Date Diagnosed Date 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 S/P gastric bypass 01/03/2023 AMANDA (nonalcoholic steatohepatitis) 01/03/2023 Gastroesophageal reflux disease 01/03/2023 Former smoker 01/03/2023 Type 2 diabetes mellitus wit hout complication, with long-term current use of insulin 01/03/2023 AMANDA RESEARCH OTHER*[id number] 12/26/2022 Hemiplegia and hemiparesis f ollowing cerebral [...] as of this encounter (statuses as of 03/16/2024) Resolved Problems Problem Noted Date Diagnosed Date [...] as of this encounter (statuses as of 03/16/2024) Immunizations Name Administration Dates Next Due COVID-19 mRNA, LNP-s, No Pre serve, 2-Dose Series (Moderna) 08/19/2020,07/22/2020 Hepatitis B, 20+ yrs 02/08/2017,09/06/2016,08/06 Pneumococcal Conjugate Vacci ne, 20-valent ([id number]) 09/05/2021 Pneumococcal Polysaccharide PPV23 (Pneumovax) 06/13/2016 Seasonal [...] Minda Minaya RN * Do you have difficulty [...] Description 03/27/2024 9:40 AM EST Laboratory Laboratory, [facility] [id number] [facility] [address] 03/30/2024 6:15 AM EST Anticoagulation Centralized Clinical Pharmacy Services, [address] [place] [address] [place] [address] 07/07/2024 2:30 PM EDT Office Visit Hematology/Oncology [facility] 200 [facility] [place] [address] Rut Roberts CRNP [address] [place] [address] Scheduled Procedures Name Priority Associated Diagnoses Date/Ti me COLONOSCOPY FLEXIBLE PROXIMAL DIAGNOSTIC Recall Screen for colon cancer Health Maintenance Due Date Last Done Comments Cologuard 2014 Fecal Occult Blood Test 2014 Sigmoidoscopy 2014 Depression Monitoring 05/08/2023 05/08/2022 Zoster Vaccines (2 of 2) 10/11/2023 08/16/2023 COVID-19 Vaccine (3 - season) 2023 08/19/2020, 07/22/2020 Diabetic Eye [...] Power of Attor pat? No Care Teams Molding Line Assistant Relationship Specialty Start Date End Date Hector Sullivan MD 200 [place] [address] PCP - General Internal Medicine 06/24/17 documented as of this encounter
--- OUTSIDE RECORDS SUMMARY | 2024-07-11 11:40 | External Medical Summary ---
Author Name Unknown Address Unknown Organization : Laboratory Report Ordering Provider Test Date Status WILLY JAY 03/27/2024 09:42:05 Final Observation Date Value Abnormality Reference (Units ) Status Zinc, level 03/27/2024 09:42:05 50 Below low normal 6 0-130 (mcg/dL) Final This test was developed and its analytical performance
characteristics have been determined by [facility]
[place] It has
not been cleared or approved by the U.S. Food and Drug
Administration. This assay has been validated pursuant
to the CLIA regulations and is used for clinical
purposes.

Test Performed at:
[email or web address] [place]
[address] [facility]
[place] [address]
Angel Flores M.D., Ph.D.,Director of Laboratories Performing Location
--- OUTSIDE RECORDS SUMMARY | 2024-07-11 11:40 | External Medical Summary ---
Author Name Unknown Address Unknown Organization K01:LABORATORY [facility] [place] - [address] [place] [address] Laboratory Report Ordering Provider Test Date Status WILLY JAY 03/13/2024 09:12:12 Final Observation Date Value Abnormality Reference (Units ) Status Folic Acid 03/13/2024 09:12:12 4.2 Below low normal >4 .5 (ng/mL) Final Performing Location LABORATORY [facility] - [address] [place] [address]
--- OUTSIDE RECORDS SUMMARY | 2024-07-11 11:40 | External Medical Summary | Summary of Care ---
Author Name Unknown Organization [facility] Address [address] [place] [address] Phone [phone] Care Team Providers Care Civil Engineering Director Name Role Phone Hector Sullivan MD Primary Care Provider + Reason for Visit * Reason Comments Medication Refill Encounter Details Date Type Department Care Team (Late st Contact Info) Description 03/27/2024 Refill General Internal Medicine [facility] [place] [address] [facility] [place] [address] Hector Sullivan MD 200 [place] [address] Cerebrovascular accident (CVA) due to other mechanism [...] 01/02/2024 8:59 AM EDT 04/11/19 24 025 Active buPROPion HCl ER (XL) 150 MG Oral Tablet Extended Release 24 Hour (Wellbutrin XL)Indications:[place] luc[place] depressive disorder with single episode, in partial remission (HCC) TAKE ONE TABLET BY MOUTH EVERY MORNING 90 Tablet 3 01/02/2024 8:59 AM EDT 04/11/19 24 025 Active Cyanocobalamin 1000 MCG/ML Injection Solution (Cyanocobalamin)I [...] 100 Tablet 3 03/27/19 25 026 Active Warfarin Sodium 5 MG Oral Tablet (Coumadin)Indicat ions:Cerebrovascu lar accident (CVA) due to other mechanism (HCC) Take one to one and one-half tablets by mouth in the morning as directed. 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 S/P gastric bypass 01/03/2023 AMANDA (nonalcoholic steatohepatitis) 01/03/2023 Gastroesophageal reflux disease 01/03/2023 Former smoker 01/03/2023 Type 2 diabetes mellitus wit hout complication, with long-term current use of insulin 01/03/2023 AMANDA RESEARCH OTHER*[id number] 12/26/2022 Hemiplegia and hemiparesis f ollowing cerebral [...] yrs 02/08/2017,09/06/2016,08/06 Pneumococcal Conjugate Vacci ne, 20-valent ([id number]) 09/05/2021 Pneumococcal Polysaccharide PPV23 (Pneumovax) 06/13/2016 Seasonal [...] encounter Miscellaneous Notes * Telephone Encounter - Lola Valdes RPh - 03/27/2024 2:32 PM ESTSigned Prescriptions: Disp Refills Warfarin Sodium 5 MG Oral Tablet (Coumadin)100 Ta*3 Sig: Take 1 Tablet by mouth every evening. Or as directed by [facility].Authorizing Provider: HECTOR SULLIVAN User: LOLA VALDES * Telephone Encounter - Linda Reyna CPhT - 03/27/2024 11:33 AM EST Per MO needs new script called in for 90ds only 130 tabs remain on script Did you pend patient's preferred pharmacy and medication before forwarding?yes Pharmacy: [facility] Pending Prescriptions: Disp Refills Warfarin Sodium 5 MG Oral Tablet (Coumadi*100 Ta*3 Sig: Take one to one and one-half tablets by mouth in the morning as directed. Last Visit: 03/09/2024 (in office), 07/10/2019 (telemedicine) Next Visit: Visit date not found If no future appointments scheduled, and last appointment is greater than a year ago, please schedule patient for a follow-up appointment Last date the medication was ordered: 10/01/23 Is this request for a controlled substance?No Urine Drug Screen:No results found. However, due to the size of the patient record, not all encounters were searched. Please check Results Review for a complete set of results. Patient Phone Numbers Labs: Lab Results Component Value Date/Time CREAT 0.9 03/13/2024 09:12 AM CREAT 0.9 03/23/2020 04:26 PM POTASSIUM 4.5 03/13/2024 09:12 AM POTASSIUM 4.6 03/23/2020 04:26 PM TSH 2.68 07/05/2022 10:14 AM TSH 2.660 08/04/2018 12:00 AM TSH 2.63 02/04/2018 04:09 PM LDL 85 10/03/2023 11:43 AM LDL 62 08/05/2019 03:40 PM LDL 52 02/04/2018 04:02 PM LDLCALC 25 08/04/2018 12:00 AM ALT 45 (H) 03/13/2024 09:12 AM ALT 25 03/23/2020 04:26 PM HGBA1C 7.3 (H) 03/13/2024 09:12 AM HGBA1C 7.2 (H) 03/23/2020 04:26 PM documented in this encounter Plan of Treatment Upcoming Encounters Date Type Department Care Team (Late st Contact Info) Description 03/30/2024 6:15 AM EST Anticoagulation Centralized Clinical Pharmacy Services, [place] Pearl [address] [place] [address] [place] [address] [place] [address] 07/07/2024 2:30 PM EDT Office Visit Hematology/Oncology [facility] [place] 200 [facility] [place] [address] Rut Roberts CRNP [address] [place] [address] Scheduled Procedures Name Priority Associated Diagnoses Date/Ti [...] Power of Attor pat? No Care Teams Civil Engineering Director Relationship Specialty Start Date End Date Hector Sullivan MD 200 [facility], [place] [id number] PCP - General Internal Medicine 06/24/17 documented as of this encounter
--- OUTSIDE RECORDS SUMMARY | 2024-07-11 11:40 | External Medical Summary | Summary of Care ---
Author Name Unknown Organization [facility] Address [address] [facility] [place] [address] Phone [phone] Care Team Providers Care Connie Scratcher Name Role Phone Hector Sullivan MD Primary Care Provider + Reason for Visit * Reason Comments Outpatient Testing Encounter Details Date Type Department Care Team (Latest Contact Info) Description 03/13/2024 9:10 AM EST Laboratory Laboratory, [facility] [address] [place] [id number] [facility] [address] [place] [address] Anticoagulation management encounter; Lupus; History of CVA (cerebrovascular accident); 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; Type 2 diabetes mellitus with hemoglobin A1c goal of less than 8.0% ([facility]); Hypomagnesemia Allergies No known active allergiesdocumented as of [...] 1,000 mcgIndications:Intestinal postoperative nonabsorption 1000 mcg IM [id number] 03/05/2023 04/28/19 25 Active documented as of this encounter (statuses as of 03/13/2024) Active Problems Problem Noted Date Diagnosed Date 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 [place] [address] [facility] [place] [address] Joann Brewer PA-C [address] [place] [address] 03/16/2024 6:15 AM EST Anticoagulation Centralized Clinical Pharmacy Services, [place] Ryanne [address] [place] [address] [place] [address] [place] [address] 07/07/2024 2:30 PM EDT Office Visit Hematology/Oncology [facility] [place] [address] [place] [address] Rut Roberts CRNP [address] [place] [address] Pending Results Name Type Priority Associated Diagnoses Date /Time PT INR Lab Routine Anticoagulation management encounter Lupus History of CVA (cerebrovascular accident) residential current use of anticoagulant therapy 03/13/2024 9:12 AM EST HEMOGLOBIN A1C Lab Routine Type 2 diabetes mellitus with hemoglobin A1c goal of less than 8.0% ([facility]) 03/13/2024 9:12 AM EST COMPREHENSIVE METABOLIC PANEL Lab Routine Type 2 diabetes mellitus with hemoglobin A1c goal of less than 8.0% ([facility]) 03/13/2024 9:12 AM EST MAGNESIUM Lab Routine Hypomagnesemia 03/13/2024 9:12 AM EST Scheduled Procedures Name Priority Associated Diagnoses Date/Ti me COLONOSCOPY FLEXIBLE PROXIMAL DIAGNOSTIC Recall Screen for colon cancer Health Maintenance Due Date Last Done Comments Cologuard 2014 Fecal Occult Blood Test 2014 Sigmoidoscopy 2014 Depression Monitoring 05/08/2023 05/08/2022 Zoster Vaccines (2 of 2) 10/11/2023 08/16/2023 COVID-19 Vaccine ( season) 2023 08/19/2020, 07/22/2020 HbA1c 04/04/2024 10/03/2023, 03/0 11/2023, 12/25/2022, Additional history exists B-12 05/24/2024 05/25/2023, 10/16, 07/05/2022, Additional history exists Diabetic Eye Exam 07/09/2024 07/10/2023, , 07/06/2022, Additional history exists Diabetic Foot Exam 08/15/2024 08/16/2023, 0 04/20/2022, 04/20/2022, Additional history exists Mammogram 08/15/2024 08/16/2023, 07/17, 08/06/2022, Additional history exists Albumin/Creatinine Ratio 10/02/2024 024, 10/31/2022, 07/08/2021, Additional history exists GFR 02/21/2025 02/22/2024, 09/15, 07/08/2023, Additional history exists Colonoscopy 08/03/2025 08/03/2020, 07/16, [...] (TIA), and cerebral infarction without residual deficits 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 No Care Teams Connie Scratcher Relationship Specialty Start Date End Date Hector Sullivan MD [address] [place] [address] PCP - General Internal Medicine 06/24/17 documented as of this encounter
--- OUTSIDE RECORDS SUMMARY | 2024-07-11 11:40 | External Medical Summary ---
Author Name Unknown Address Unknown Organization K01:LABORATORY [facility] [place] - [address] [facility] [place] [address] Laboratory Report Ordering Provider Test Date Status WILLY JAY 03/27/2024 09:42:05 Final Observation Date Value Abnormality Reference (Units ) Status Triglyceride 03/27/2024 09:42:05 156 <=174 ( mg/dL) Final Triglyceride Reference Range s (mg/dL):
<150 Acceptable
150-174 Borderline high
175-499 High
>=500 Very high Cholesterol 03/27/2024 09:42:05 177 <200 (mg /dL) Final Total Cholesterol Reference Ranges (mg/dL):
<200 Desirable
200-239 Borderline high
>=240 High HDL 03/27/2024 09:42:05 44 Below low normal >49 (mg/dL) Final HDL Cholesterol Reference Ra nges (mg/dL):
>=60 High (Desirable)
<50 Low (Undesirable) For Females
<40 Low (Undesirable) For Males NON-HDL CHOLESTEROL 03/27/2024 09:42:05 133 <=159 (mg/dL) Final Non-HDL Cholesterol Referenc e Range (mg/dL):
<100 Target level for high risk ASCVD patient
<130 Optimal for general population
130-159 Near optimal for general population
160-189 Borderline High
190-219 High
>=220 Very High LDL, (calculated) 03/27/2024 09:42:05 102 <= 129 (mg/dL) Final LDL Cholesterol Reference Ra nges (mg/dL):
<70 Target level for high risk ASCVD patient
<100 Optimal for general population
100-129 Near optimal for general population
130-159 Borderline high
160-189 High
>=190 Very high LDL CHOLESTEROL 03/27/2024 09:42:05 Final Uninterpretable, recommend d irect LDL cholesterol testing. Performing Location LABORATORY [facility] - [address] [place] [facility] [address]
--- OUTSIDE RECORDS SUMMARY | 2024-07-11 11:41 | External Medical Summary ---
Author Name Unknown Address Unknown Organization K01:[place]ORY [facility] [place] [address] [place] [address] Laboratory Report Ordering Provider Test Date Status MISTYWILLY 03/13/2024 09:12:12 Final Deficient: <20 ng/mL
Ins ufficient: 20-29 ng/mL
Recommended/Optimum:30-50 ng/mL

Vitamin D intoxication is rare. If suspicious of Vitamin D toxicity, evaluation of serum Calcium and PTH is recommended. Observation Date Value Abnormality Reference (Units ) Status 25-OH Vitamin D total 03/13/2024 09:12:12 22 >19 (ng/mL) Final Performing Location LABORATORY C - [address] [place] [address]
--- OUTSIDE RECORDS SUMMARY | 2024-07-11 11:41 | External Medical Summary | Summary of Care ---
Author Name Unknown Organization [facility] Address [address] [facility] [place] [address] Phone [phone] Care Team Providers Care Fire Prevention Captain Name Role Phone Hector Sullivan MD Primary Care Provider + Encounter Details Date Type Department Care Team (Late st Contact Info) Description 03/11/2024 Orders Only PATIENT PORTAL DO NOT DELETE THIS DEPT USED BY [place] [phone] Allergies No known active allergiesdocumented as of this encounter (statuses as of 03/11/2024) Medications Glucose Blood In Vitro Strip Test [...] Oral Tablet Extended Release 24 Hour (Wellbutrin XL)Indications:[place] myers depressive disorder with single episode, in partial [...] 1,000 mcgIndications:Intestinal postoperative nonabsorption 1000 mcg IM [id number] 03/05/2023 04/28/19 25 Active documented as of this encounter (statuses as of 03/11/2024) Active Problems Problem Noted Date Diagnosed Date 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 S/P gastric bypass 01/03/2023 AMANDA (nonalcoholic steatohepatitis) 01/03/2023 Gastroesophageal reflux disease 01/03/2023 Former smoker 01/03/2023 Type 2 diabetes mellitus wit hout complication, with long-term current use of insulin 01/03/2023 AMANDA RESEARCH OTHER*[id number] 12/26/2022 Hemiplegia and hemiparesis f ollowing cerebral [...] as of this encounter (statuses as of 03/11/2024) Resolved Problems Problem Noted Date Diagnosed Date [...] as of this encounter (statuses as of 03/11/2024) Immunizations Name Administration Dates Next Due COVID-19 mRNA, LNP-s, No Pre serve, 2-Dose Series (Moderna) 08/19/2020,07/22/2020 Hepatitis B, 20+ yrs 02/08/2017,09/06/2016,08/06 Pneumococcal Conjugate Vacci ne, 20-valent ([id number]) 09/05/2021 Pneumococcal Polysaccharide PPV23 (Pneumovax) 06/13/2016 Seasonal [...] PM EST Telemedicine Nutrition and Weight Management [facility] [place] [address] [facility] [place] [address] Joann Brewer PA-C [address] [place] [address] 03/16/2024 6:15 AM EST Anticoagulation Centralized Clinical Pharmacy Services, [address] [place] [address] [place] [address] 07/07/2024 2:30 PM EDT Office Visit Hematology/Oncology [facility] [address] Rut Robrets CRNP 400 [facility] [place] [address] Scheduled Procedures Name Priority [...] 08/03/2020, 03/24/2019, Additional history exists Pneumococcal Vaccine: Pediatrics (0 to 5 Years) and At-Risk Patients (6 to 64 Years) Completed 09/05/2021, 06/13/2016 Influenza Vaccine (FLU shot) [...] Power of Attor pat? No Care Teams Fire Prevention Captain Relationship Specialty Start Date End Date Hector Sullivan MD 200 [facility] [place] [address] PCP - General Internal Medicine 06/24/17 documented as of this encounter
--- OUTSIDE RECORDS SUMMARY | 2024-07-11 11:41 | External Medical Summary ---
Author Name Unknown Address Unknown Organization K01:LABORATORY [facility] [place] - [facility] [address] [place] [address] Laboratory Report Ordering Provider Test Date Status WILLY JAY 03/13/2024 09:12:12 Final Observation Date Value Abnormality Reference (Units ) Status WBC, Total 03/13/2024 09:12:12 8.22 4.00-10.80 (K/uL) Final RBC 03/13/2024 09:12:12 4.38 3.85-5.15 (M/uL) Final Hemoglobin 03/13/2024 09:12:12 13.7 12.0-15.3 (g/dL) Final HCT 03/13/2024 09:12:12 41.7 36.0-45.2 (%) Final MCV 03/13/2024 09:12:12 95.2 81.5-97.5 (fL) Final MCH 03/13/2024 09:12:12 31.3 27.0-34.0 (pg) Final MCHC 03/13/2024 09:12:12 32.9 32.0-36.0 (g/dL) Final RDW 03/13/2024 09:12:12 12.5 11.5-15.5 (%) Final Platelets 03/13/2024 09:12:12 211 140-400 (K/uL) Final MPV 03/13/2024 09:12:12 11.7 6.6-11.1 (fL) Final Nucleated erythrocytes/100 leukocytes [Ratio] in Blood by Automated count 03/13/2024 09:12:12 0 <=0 (/100 WBCs) Final Performing Location LABORATORY [facility] [place] - [address] [place] [address]
--- OUTSIDE RECORDS SUMMARY | 2024-07-11 11:41 | External Medical Summary ---
Author Name Unknown Address Unknown Organization K0G:LABORATORY [facility] - [address] [place] [address] Laboratory Report Ordering Provider Test Date Status ABDULAZIZ GRANT 03/13/2024 09:12:12 Final Associated diagnosis code [id number] was changed to [id number] on 12/17/23 as a result of a periodic change by regulatory authority.

Warfarin Therapy
INR: 2.0-3.0 conventional anticoagulation
INR: 2.5-3.5 high intensity anticoagulation Observation Date Value Abnormality Reference (Units ) Status PT 03/13/2024 09:12:12 36.3 Above high normal 11 .6-15.2 (seconds) Final INR 03/13/2024 09:12:12 3.6 Above high normal 0. 8-1.2 Final Performing Location LABORATORY [facility] [address] - [address] [place] [address]
--- OUTSIDE RECORDS SUMMARY | 2024-07-11 11:41 | External Medical Summary | Summary of Care ---
Author Name Unknown Organization [facility] Address [address] [place] [address] Phone [phone] Care Team Providers Care Flask Cleaner Name Role Phone Hector Sullivan MD Primary Care Provider + Reason for Visit * Reason Comments Re-Check Pt here for follow u p; pt a little disappointed that her weight is up more than she would like; states with it being winter, she is snacking more Encounter Details Date Type Department Care Team (Latest Contact Info) Description 03/09/2024 1:50 PM EST Nutrition Services Nutrition & Weight Management, [facility] [address] [place] [address] Kinza Gaspar RDN [address] [place] [address] Abnormal weight gain*; Intestinal postoperative nonabsorption; S/P gastric bypass Allergies No known active allergiesdocumented as of this encounter (statuses as of 03/09/2024) Medications Glucose Blood In Vitro Strip Test [...] 3 01/02/2024 8:59 AM EDT 4 04/10/19 Active buPROPion HCl ER (XL) 150 MG Oral Tablet Extended Release 24 Hour (Wellbutrin XL)Indications:Ma lucia depressive disorder with single episode, in partial remission (HCC) TAKE ONE TABLET BY MOUTH EVERY MORNING 90 Tablet 3 01/02/2024 8:59 AM EDT 4 04/10/19 Active Warfarin Sodium 5 MG Oral Tablet (Coumadin)Indicat ions:Cerebrovascu lar accident (CVA) due to other mechanism (HCC) Take one to one and one-half tablets by mouth in the morning as directed. 100 Tablet 3 01/02/2024 8:17 AM EDT 4 10/01/19 Active Hospital, Clinic, or Other Facility Administered Medication Ordered Dose Route Frequency Start Date End Date Status vitamin b-12 (Cyanocobalamin) inj 1,000 mcgIndications:Intestinal postoperative nonabsorption 1000 mcg IM [id number] 03/05/2023 04/28/19 Active documented as of this encounter (statuses as of 03/09/2024) Active Problems Problem Noted Date Diagnosed Date 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 S/P gastric bypass 01/03/2023 AMANDA (nonalcoholic steatohepatitis) 01/03/2023 Gastroesophageal reflux disease 01/03/2023 Former smoker 01/03/2023 Type 2 diabetes mellitus wit hout complication, with long-term current use of insulin 01/03/2023 AMANDA RESEARCH OTHER*[id number] 12/26/2022 Hemiplegia and hemiparesis f ollowing cerebral [...] as of this encounter (statuses as of 03/09/2024) Resolved Problems Problem Noted Date Diagnosed Date [...] as of this encounter (statuses as of 03/09/2024) Immunizations Name Administration Dates Next Due COVID-19 mRNA, LNP-s, No Pre serve, 2-Dose Series (Moderna) 08/19/2020,07/22/2020 Hepatitis B, 20+ yrs 02/08/2017,09/06/2016,08/06 Pneumococcal Conjugate Vacci ne, 20-valent ([id number]) 09/05/2021 Pneumococcal Polysaccharide PPV23 (Pneumovax) 06/13/2016 Seasonal [...] Sign Reading Time Taken Comments Blood Pressure 124/68 03/09/2024 1:39 PM EST Pulse 93 03/09/2024 1:39 PM EST Temperature 36.6 °C (97.9 °F) 03/09/2024 1:39 PM ES T Respiratory Rate 16 03/09/2024 1:39 PM EST Oxygen Saturation 93% 03/09/2024 1:39 PM EST Inhaled Oxygen Concentration - - Weight 75.4 kg (166 lb 3.2 oz) 03/09/2024 1:39 P M EST Height - - Body Mass Index 30.4 10/18/2023 11:26 AM EDT documented in this [...] documented in this encounter Progress Notes * Kinza Gaspar RDN - 03/09/2024 1:50 PM EST Nutrition & Weight Management / Bariatric Surgery Nutrition Post-Operative Follow-up Name: Colette Herrera Location: NUTRITION & WEIGHT MANAGEMENT, [facility] Date: 03/09/2024 Time: 12:21 PM Patient was identified at visit by name and date. Patient was seen [id number] in the clinic. Surgery: s/p RYGB with Dr. Samuel 01/03/23 03/09/2024 1 yr post op Pt NS'd her 8 m post op visit, cancelled her 11 m visits Due for labs Has had some wt regain, pt admitting to eating more tastycakes, drinking more alcohol, some fast food 05/24/2023 -5 months post op 168 -feeling well! Initial weight: 207 lbs Presurgery weight: 198 lbs Weight today: 166 lbs Weight at last visit: 168 lbs Date: 05/24/2023 Weight Changes from previous visit: -2 lbs Total weight loss since surgery: -32 lbs Total weight loss using initial weight: -41 lbs Lowest weight since surgery: 157 lbs Date: 10/2023 Wt Readings from Last 10 Encounters: 11/13/23 72.7 kg (160 lb 3.2 oz) 10/18/23 71.2 kg (157 lb) 08/16/23 73.4 kg (161 lb 14.4 oz) 07/24/23 73.4 kg (161 lb 12.8 oz) 07/08/23 74.3 kg (163 lb 12.8 oz) 03/05/23 82 kg (180 lb 12.8 oz) 03/05/23 82 kg (180 lb 12.8 oz) 02/04/23 84.6 kg (186 lb 8 oz) 01/18/23 88.4 kg (194 lb 12.8 oz) 01/10/23 88.5 kg (195 lb 3.2 oz) Food intolerances: none N/V: no Dumping syndrome: no Bowel patterns/Constipation/Diarrhea: n Lightheadedness/Dizziness upon standing: no Other issues: some hair loss Exercise: 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 Son works transportation clerk so daytime time to exercise is a challenge Describes typical diet history/24 hr recall Breakfast: bkfst sandwich 2 sli ham 1 egg 1 sli cook islander cheese on onion bagel Snacks: cheese or meat Lunch: salad with protein Snacks: Dinner: hamburger or chix Snacks: sometimes a sweet or a few chips Drinks: Gold Peak Sweet tea zero sugar can drink (caffeinated) ~4 bottles, water 24 oz Alcohol: does consume alcohol Restaurant meals: maybe once a week, will bring home Wally[employer] 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 RN will send msg to provider pool to sign off on new Rx, pt will order picker this week from pharmacy. Other supplements: PES: Impaired nutrient utilization related to bariatric surgery as evidenced by need for specialized diet guidelines and vitamin supplementation. Assessed needs per bariatric surgery protocol: Overall doing fine, needs to tighten up overall dietintake, pt sharing she is disappointed in herself for gaining ~10 lbs since her la wt since surgery. Advised pt to be more mindful of the fast food her can bring home, the alcohol intake, and sweet treats, advised on less caffeine, needs to inc MVI Plan: 1. Continue Stage 4 diet. 2. Continue supplementation as prescribed 3. Continue Vitamin B-12 injections every three months. 4. Increase exercise - work for regular routine of 30-60 min most days per week. 5. Return to clinic in 6 months - Patient advised to use [employer] portal to send any follow up questions. Time spent: 30 Kinza Gaspar RDN documented in this encounter Nursing Notes * Venus Posada RN - 03/09/2024 1:41 PM EST Chief Complaint Patient presents with Re-Check Pt here for follow up; pt a little disappointed that her weight is up more than she would like; states with it being winter, she is snacking more documented in this encounter Plan of Treatment Upcoming Encounters Date Type Department Care Team (Late st Contact Info) Description 03/13/2024 2:20 PM EST Telemedicine Nutrition and Weight Management [address] [place] [address] Joann Brewer PA-C [address] [place] [address] 03/16/2024 6:15 AM EST Anticoagulation Centralized Clinical Pharmacy Services, Lucretia Pearl [address] [place] [address] [place] [address] Ccps, [address] [place] [address] 07/07/2024 2:30 PM EDT Office Visit Hematology/Oncology Bhanu [place] 200 [facility] [place] [address] Rut Roberts CRNP [address] [place] [address] Scheduled Procedures Name Priority Associated Diagnoses Date/Ti me COLONOSCOPY FLEXIBLE PROXIMAL DIAGNOSTIC Recall Screen for colon cancer Health Maintenance Due Date Last Done Comments Cologuard 2014 Fecal Occult Blood Test 2014 Sigmoidoscopy 2014 Depression Monitoring 05/08/2023 05/08/2022 Zoster Vaccines (2 of 2) 10/11/2023 08/16/2023 COVID-19 Vaccine (3 - 2023- season) 2023 08/19/2020, 07/22/2020 HbA1c 04/04/2024 10/03/2023, [...] Cancer Screening 08/03/2025 Pap Smear 10/17/2026 10/18/2023, 0611/2019, 06/28/2016, Additional history exists Lipid Panel 10/02/2028 10/03/2023, 030 11/2023, 07/05/2022, Additional history exists Cervical Cancer [...] as of this encounter Visit Diagnoses Diagnosis Abnormal weight gain- Primary Intestinal postoperative nonabsorption Other and unspecified postsurgical [...] Power of Attor pat? No Care Teams Flask Cleaner Relationship Specialty Start Date End Date Hector Sullivan MD [address] [place] [address] PCP - General Internal Medicine 06/24/17 documented as of this encounter
--- OUTSIDE RECORDS SUMMARY | 2024-07-11 11:41 | External Medical Summary ---
Author Name Unknown Address Unknown Organization K01:[facility]ATORY [facility] [place] - [address] [place] [address] Laboratory Report Ordering Provider Test Date Status MISTY,REED 03/13/2024 09:12:12 Final Observation Date Value Abnormality Reference (Units ) Status Ferritin 03/13/2024 09:12:12 83 13-150 (ng /mL) Final Postmenopausal women have hi gher ferritin levels than pre-menopausal women. The above reference interval is based on pre-menopausal women. Performing Location [facility] [place] - [address] [place] [address]
--- OUTSIDE RECORDS SUMMARY | 2024-07-11 11:41 | External Medical Summary | Summary of Care ---
Author Name Unknown Organization [facility] Address [address] [place] [place] [place] [address] Phone [phone] Care Team Providers Care Merchandise Appraiser Name Role Phone Hector Sullivan MD Primary Care Provider + Reason for Visit * Reason Onset Date Comments Medication Refill 03/09/2024 Encounter Details Date Type Department Care Team (Late st Contact Info) Description 03/09/2024 Refill Nutrition & Weight Management, [facility] [address] [facility] [place] [address] Venus Posada RN Postsurgical nonabsorption*; Intestinal postoperative nonabsorption; S/P gastric bypass Allergies No known active allergiesdocumented as of this encounter (statuses as of 03/10/2024) Medications Glucose Blood In Vitro Strip Test [...] 1,000 mcgIndications:Intestinal postoperative nonabsorption 1000 mcg IM [id number] 03/05/2023 04/28/19 25 Active documented as of this encounter (statuses as of 03/10/2024) Active Problems Problem Noted Date Diagnosed Date 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 S/P gastric bypass 01/03/2023 AMANDA (nonalcoholic steatohepatitis) 01/03/2023 Gastroesophageal reflux disease 01/03/2023 Former smoker 01/03/2023 Type 2 diabetes mellitus wit hout complication, with long-term current use of insulin 01/03/2023 AMANDA RESEARCH OTHER*[id number] 12/26/2022 Hemiplegia and hemiparesis f ollowing cerebral [...] as of this encounter (statuses as of 03/10/2024) Resolved Problems Problem Noted Date Diagnosed Date [...] as of this encounter (statuses as of 03/10/2024) Immunizations Name Administration Dates Next Due COVID-19 mRNA, LNP-s, No Pre serve, 2-Dose Series (Moderna) 08/19/2020,07/22/2020 Hepatitis B, 20+ yrs 02/08/2017,09/06/2016,08/06 Pneumococcal Conjugate Vacci ne, 20-valent ([id number]) 09/05/2021 Pneumococcal Polysaccharide PPV23 (Pneumovax) 06/13/2016 Seasonal [...] encounter Miscellaneous Notes * Telephone Encounter - Venus Posada RN - 03/10/2024 8:53 AM EST Pt called and instructed to do B12 injection in 3 weeks and then Q3 months moving forward. * Telephone Encounter - Venus Posada RN - 03/10/2024 8:51 AM ESTSigned Prescriptions: Disp Refills Cyanocobalamin 1000 MCG/ML Injection Solut*1 mL 5 Sig: Inject 1 mL into a large muscle every 3 months.Authorizing Provider: STEF COONEY Syringe Luer Lock 25GX 5/8" 3 ML 4 Each 0 Sig: For vitamin B12 injectionsAuthorizing Provider: STEF COONEY-------- * Telephone Encounter - Stef Cooney CRNP - 03/10/2024 8:02 AM ESTSigned Prescriptions: Disp Refills Cyanocobalamin 1000 MCG/ML Injection Solut*1 mL 5 Sig: Inject 1 mL into a large muscle every 3 months.Authorizing Provider: STEF COONEY Syringe Luer Lock 25GX 07/23" 3 ML 4 Each 0 Sig: For vitamin B12 injectionsAuthorizing Provider: STEF COONEY------- documented in this encounter Plan of Treatment Upcoming Encounters Date Type Department Care Team (Late st Contact Info) Description 03/13/2024 2:20 PM EST Telemedicine Nutrition and Weight Management [place] [address] [address] Joann Brewer PA-C [address] [place] [address] 03/16/2024 6:15 AM EST Anticoagulation Centralized Clinical Pharmacy Services, Lucretia Pearl [address] [place] [address] [place] [address] Ccps, [address] [place] [address] 07/07/2024 2:30 PM EDT Office Visit Hematology/Oncology Bhanu Lim [place] 200 [facility] [place] [address] Rut Roberts CRNP [address] [place] [address] Scheduled Procedures Name Priority [...] of this encounter Visit Diagnoses Diagnosis Postsurgical nonabsorption- Primary Other and unspecified postsurgical nonabsorption Intestinal postoperative [...] Power of Attor pat? No Care Teams Merchandise Appraiser Relationship Specialty Start Date End Date Hector Sullivan MD [address] [place] [address] PCP - General Internal Medicine 06/24/17 documented as of this encounter
--- OUTSIDE RECORDS SUMMARY | 2024-07-11 11:41 | External Medical Summary | Summary of Care ---
Author Name Unknown Organization [facility] Address [address] [place] [place] [address] Phone [phone] Care Team Providers Care Honing Job Setter Name Role Phone Hector Sullivan MD Primary Care Provider + Reason for Visit * Reason Onset Date Comments Medication Refill 03/09/2024 Encounter Details Date Type Department Care Team (Late st Contact Info) Description 03/09/2024 Refill Nutrition & Weight Management, [facility] 132 [facility] [place] [address] Venus Posada RN Postsurgical nonabsorption*; Intestinal postoperative [...] 1,000 mcgIndications:Intestinal postoperative nonabsorption 1000 mcg IM [id number] 03/05/2023 04/28/19 25 Active documented as of this encounter (statuses as of 03/10/2024) Active Problems Problem Noted Date Diagnosed Date 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 S/P gastric bypass 01/03/2023 AMANDA (nonalcoholic steatohepatitis) 01/03/2023 Gastroesophageal reflux disease 01/03/2023 Former smoker 01/03/2023 Type 2 diabetes mellitus wit hout complication, with long-term current use of insulin 01/03/2023 AMANDA RESEARCH OTHER*[id number] 12/26/2022 Hemiplegia and hemiparesis f ollowing cerebral [...] yrs 02/08/2017,09/06/2016,08/06 Pneumococcal Conjugate Vacci ne, 20-valent ([id number]) 09/05/2021 Pneumococcal Polysaccharide PPV23 (Pneumovax) 06/13/2016 Seasonal [...] of Assessment Author No 01/03/2023 6:47 PM NISHAMariana Monroe RN * Because of a physical, mental, [...] MCG/ML Injection Solut*1 mL 5 Sig: Inject 1mL into a large muscle every 3 months.Authorizing Provider: STEF COONEY Syringe Luer Lock 25G X 5/8" 3 ML 4 Each 0 Sig: For vitamin B12 injectionsAuthorizing Provider: STEF COONEY------- * Telephone Encounter - Stef Cooney CRNP - 03/10/2024 8:02 AM ESTSigned Prescriptions: Disp Refills Cyanocobalamin 1000 MCG/ML Injection Solut*1 mL 5 Sig: Inject 1 mL into a large muscle every 3 months.Authorizing Provider: STEF COONEY Syringe Luer Lock 25GX 5/8" 3 ML 4 Each 0 Sig: For vitamin B12 injectionsAuthorizing Provider: STEF COONEY-------- documented in this encounter Plan of Treatment Upcoming Encounters Date Type Department Care Team (Late st Contact Info) Description 03/13/2024 2:20 PM EST Telemedicine Nutrition and Weight Management [address] [facility] [place] [address] Joann Brewer PA-C [address] [place] [address] 03/16/2024 6:15 AM EST Anticoagulation Centralized Clinical Pharmacy Services, Lucretia Pearl [address] [place] [address] [place] [address] Ccps, [address] [place] [address] 07/07/2024 2:30 PM EDT Office Visit Hematology/Oncology [facility] [place] [facility] [address] Rut Roberts CRNP [address] [place] [address] Scheduled Procedures Name Priority [...] 12/25/2022, Additional history exists B-12 05/24/2024 05/25/2023, 0808/2022, 07/05/2022, Additional history exists Diabetic Eye Exam [...] 10/18/2023, 060 11/2019, 06/28/2016, Additional history exists Lipid Panel [...] Power of Attor pat? No Care Teams Honing Job Setter Relationship Specialty Start Date End Date Hector Sullivan MD [address] [place] [address] PCP - General Internal Medicine 06/24/17 documented as of this encounter
--- OUTSIDE RECORDS SUMMARY | 2024-07-11 11:41 | External Medical Summary | Summary of Care ---
Author Name Unknown Organization [facility] Address [address] [place] [address] Phone [phone] Care Team Providers Care Manager Of Network Name Role Phone Hector Sullivan MD Primary Care Provider + Reason for Visit * Reason Onset Date Comments Return Visit 6 mo return, no new concerns. Medication Administration 03/09/2024 Flu an d/or Pneumo Inj Encounter Details Date Type Department Care Team (Late st Contact Info) Description 03/09/2024 12:40 PM EST Office Visit General Internal Medicine [facility] 200 [facility] [address] Hector Sullivan MD 200 [place] [address] HTN, goal below 140/90*; Type 2 diabetes mellitus with hemoglobin A1c goal of less than 8.0% ([facility]); Hypomagnesemia; S/P gastric bypass; Hemiplegia and hemiparesis following cerebral infarction affecting left non-dominant side ([facility]); Light chain (AL) amyloidosis ([facility]); Need for prophylactic vaccination and inoculation against influenza Allergies No known active allergiesdocumented as of this encounter (statuses as of 03/09/2024) Medications Glucose Blood In Vitro Strip Test once daily. 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 S/P gastric bypass 01/03/2023 AMANDA (nonalcoholic steatohepatitis) 01/03/2023 Gastroesophageal reflux disease 01/03/2023 Former smoker 01/03/2023 Type 2 diabetes mellitus wit hout complication, with long-term current use of insulin 01/03/2023 AMANDA RESEARCH OTHER*[id number] 12/26/2022 Hemiplegia and hemiparesis f ollowing cerebral [...] yrs 02/08/2017,09/06/2016,08/06 Pneumococcal Conjugate Vacci ne, 20-valent ([id number]) 09/05/2021 Pneumococcal Polysaccharide PPV23 (Pneumovax) 06/13/2016 Seasonal [...] 01/03/2023 6:47 PM Mariana Rodriguez RN * Are you blind or do [...] infarction affecting left non- dominant side (HCC) AMANDA RESEARCH OTHER*[id number] S/P gastric bypass AMANDA (nonalcoholic steatohepatitis) Gastroesophageal reflux disease Former smoker Type 2 diabetes mellitus without complication, with long-term current use of insulin (HCC) Light chain (AL) amyloidosis (HCC) Current Outpatient Medications Medication Sig Dispense Refill [...] Reported on 03/09/2024) Blood Glucose Monitoring Suppl ([employer] CONFIRM GLUCOSE MONITOR) W/DEVICE KIT Use as [...] Stability Do you currently live in a mcc or have no steady place to sleep [...] performed by Eileen Huff MD at ENDOSCOPY [facility] COLONOSCOPY, DIAGNOSTIC (RECTUM) 08/03/2020 normal / COLONOSCOPY FLEXIBLE PROXIMAL DIAGNOSTIC performed by Eileen Huff MD at ENDOSCOPY [facility] CYSTOSCOPY 04/14/2018 done in office, Dr Marinelli EGD, FLEXIBLE, DIAGNOSTIC N/A 01/03/2023 ESOPHAGOGASTRODUODENOSCOPY (EGD), FLEXIBLE, TRANSORAL, DIAGNOSTIC performed by Bernard Samuel MD at OR [facility] INCISION OF EARDRUM tubes placed bilaterally LAPAROSCOPE PROCEDURE, LIVER N/A 01/03/2023 UNLISTED LAPAROSCOPIC PROCEDURE LIVER performed by Bernard Samuel MD at [facility] LAPAROSCOPIC GASTRIC BYPASS/ROSANNA-EN-Y N/A 01/03/2023 ROBOTIC LAPAROSCOPIC GASTRIC RESTRICTIVE BYPASS ROSANNA EN Y performed by Bernard Samuel MD at OR [facility] REMOVE TONSILS & ADENOIDS, UNDER 12 Family [...] hemoglobin A1c goal of less than 8.0% ([facility]) - HEMOGLOBIN A1C; Future; Expected date: 03/09/2024 [...] symptoms or fever? No Have you had Guillain-Ozark Syndrome (an illness that causes paralysis) within [...] no new concerns. documented in this encounter Plan of Treatment Upcoming Encounters Date Type Department Care Team (Late st Contact Info) Description 03/09/2024 1:50 PM EST Nutrition Services Nutrition & Weight Management, [facility] [address] [facility] [place] [address] Kinza Gaspar RDN [address] [place] [address] 03/16/2024 6:15 AM EST Anticoagulation Centralized Clinical Pharmacy Services, Lucretia Pearl [address] [place] [address] [place] [address] [place] [address] 07/07/2024 2:30 PM EDT Office Visit Hematology/Oncology [facility] [id number] Rut Roberts CRNP [address] [place] [address] Scheduled Orders Name Type Priority Associated Diagnoses Orde r Schedule HEMOGLOBIN A1C Lab Routine Type 2 diabetes mellitus with hemoglobin A1c goal of less than 8.0% (HCC) Expected: 03/09/2024 (Approximate), Expires: 03/09/2025 COMPREHENSIVE METABOLIC PANEL Lab Routine Type 2 diabetes mellitus with hemoglobin A1c goal of less than 8.0% (HCC) Expected: 03/09/2024 (Approximate), Expires: 03/09/2025 MAGNESIUM Lab Routine Hypomagnesemia Expected: 03/09/2024 (Approximate), Expires: 03/09/2025 Scheduled Procedures Name Priority Associated Diagnoses Date/Ti me COLONOSCOPY FLEXIBLE PROXIMAL DIAGNOSTIC Recall Screen for colon cancer Health Maintenance Due Date Last Done Comments Cologuard 2014 Fecal Occult Blood Test 2014 Sigmoidoscopy 2014 Depression Monitoring 05/08/2023 05/08/2022 Zoster Vaccines (2 of 2) 10/11/2023 08/16/2023 COVID-19 Vaccine (3 - season) 2023 08/19/2020, 07/22/2020 HbA1c 04/04/2024 10/03/2023, [...] as of this encounter Visit Diagnoses Diagnosis HTN, goal below 140/90- Primary Unspecified essential hypertension Type 2 diabetes mellitus with hemoglobin A1c goal of less than 8.0% (HCC) Hypomagnesemia Disorders of magnesium metabolism S/P gastric bypass Bariatric surgery status Hemiplegia and hemiparesis following cerebral infarction affecting left non- dominant side (HCC) Light chain (AL) amyloidosis (HCC) Need for prophylactic vaccination and inoculation against influenza documented in this encounter Advance Directives * [...] Power of Attor pat? No Care Teams Manager Of Network Relationship Specialty Start Date End Date Hector Sullivan MD 200 [facility], [place] [id number] PCP - General Internal Medicine 06/24/17 documented as of this encounter
--- OUTSIDE RECORDS SUMMARY | 2024-07-11 11:41 | External Medical Summary ---
Author Name Unknown Address Unknown Organization K01:[facility] [place] [address] [place] [address] Laboratory Report Ordering Provider Test Date Status WILLY JAY 03/13/2024 09:12:12 Final Observation Date Value Abnormality Reference (Units ) Status Parathyrin.intact [Mass/volume] in Serum or Plasma 03/13/2024 09:12:12 87 Above high normal 15-65 (pg/mL) Final Performing Location [facility] [place] [address] [place] [address]
--- OUTSIDE RECORDS SUMMARY | 2024-07-11 11:41 | External Medical Summary | Summary of Care ---
Author Name Unknown Organization [facility] Address [address] [place] [facility] [place] [address] Phone [phone] Care Team Providers Care Steward Racetrack Name Role Phone Hector Sullivan MD Primary Care Provider + Reason for Visit * Reason Onset Date Comments Medication Refill 03/09/2024 Encounter Details Date Type Department Care Team (Late st Contact Info) Description 03/09/2024 Refill Nutrition & Weight Management, [facility] 132 [facility] [place] [address] Venus Posada RN Postsurgical nonabsorption*; Intestinal postoperative [...] 1,000 mcgIndications:Intestinal postoperative nonabsorption 1000 mcg IM [id number] 03/05/2023 04/28/19 25 Active documented as of this encounter (statuses as of 03/10/2024) Active Problems Problem Noted Date Diagnosed Date 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 S/P gastric bypass 01/03/2023 AMANDA (nonalcoholic steatohepatitis) 01/03/2023 Gastroesophageal reflux disease 01/03/2023 Former smoker 01/03/2023 Type 2 diabetes mellitus wit hout complication, with long-term current use of insulin 01/03/2023 AMANDA RESEARCH OTHER*[id number] 12/26/2022 Hemiplegia and hemiparesis f ollowing cerebral [...] yrs 02/08/2017,09/06/2016,08/06 Pneumococcal Conjugate Vacci ne, 20-valent ([id number]) 09/05/2021 Pneumococcal Polysaccharide PPV23 (Pneumovax) 06/13/2016 Seasonal [...] encounter Miscellaneous Notes * Telephone Encounter - Stef Cooney CRNP [...] PM EST Telemedicine Nutrition and Weight Management [address] [facility] [place] [address] Joann Brewer PA-C [address] [place] [address] 03/16/2024 6:15 AM EST Anticoagulation Centralized Clinical Pharmacy Services, [place] [address] [place] [address] [place] [address] [place] [address] 07/07/2024 2:30 PM EDT Office Visit Hematology/Oncology Bhanu Lim [place] 200 [facility] [place] [address] Rut Roberts CRNP [address] [place] [id number] Scheduled Procedures Name Priority Associated Diagnoses Date/Ti [...] Additional history exists Lipid Panel 10/02/2028 10/03/2023, 0311/2023, 07/05/2022, Additional history exists Cervical Cancer Screening [...] Power of Attor pat? No Care Teams Steward Racetrack Relationship Specialty Start Date End Date Hector Sullivan MD [address] [place] [address] PCP - General Internal Medicine 06/24/17 documented as of this encounter
--- OUTSIDE RECORDS SUMMARY | 2024-07-11 11:41 | External Medical Summary ---
Author Name Unknown Address Unknown Organization K01:[facility] - [address] [place] [address] Laboratory Report Ordering Provider Test Date Status SANTOSH GUY 03/13/2024 09:12:12 Final Observation Date Value Abnormality Reference (Units ) Status Magnesium 03/13/2024 09:12:12 1.9 1.5-2.6 (m g/dL) Final Performing Location [facility] - [address] [place] [address]
--- OUTSIDE RECORDS SUMMARY | 2024-07-11 11:41 | External Medical Summary ---
Author Name Unknown Address Unknown Organization K01[facility] [place] [address] [place] [address] Laboratory Report Ordering Provider Test Date Status WILLY JAY 03/13/2024 09:12:12 Final Observation Date Value Abnormality Reference (Units ) Status Vitamin B12 03/13/2024 09:12:12 [phone] (pg/mL) Final Performing Location [facility] [place] [address] [place] [address]
--- OUTSIDE RECORDS SUMMARY | 2024-07-11 11:42 | External Medical Summary ---
Author Name Unknown Address Unknown Organization K0G:[facility] [place] [address] - [address] [place] [address] Laboratory Report Ordering Provider Test Date Status KALLIE MANUEL 02/22/2024 08:50:22 Final Observation Date Value Abnormality Reference (Units ) Status BUN 02/22/2024 08:50:22 12 6-20 (mg/dL) Final Creatinine 02/22/2024 08:50:22 0.9 0.5-1.0 (mg/dL) Final Glomerular filtration rate/1.73 sq M.predicted [Volume Rate/Area] in Serum, Plasma or Blood by Creatinine-based formula (CKD-EPI) 02/22/2024 08:50:22 74 >=60 (mL/min) Final eGFR is calculated based on the CKD-EPI 2020 equation. Sodium 02/22/2024 08:50:22 140 135-146 (m mol/L) Final Potassium 02/22/2024 08:50:22 4.6 3.5-5.1 (m mol/L) Final Cl 02/22/2024 08:50:22 100 98-107 (mm ol/L) Final CO2 02/22/2024 08:50:22 29 22-32 (mmo l/L) Final Anion gap 02/22/2024 08:50:22 11 7-15 (mmol /L) Final Glucose 02/22/2024 08:50:22 125 Above high normal 70 -120 (mg/dL) Final Albumin 02/22/2024 08:50:22 4.5 3.8-5.0 (g /dL) Final AST (Aspartate aminotransferase) 02/22/2024 08:50:22 24 10-35 (U/L) Fin al Results may be falsely eleva mahi due to hemolysis. Alk Phos 02/22/2024 08:50:22 151 Above high normal 35 -130 (U/L) Final Bilirubin, Total 02/22/2024 08:50:22 0.3 <=1 .2 (mg/dL) Final Calcium 02/22/2024 08:50:22 9.6 8.4-10.2 ( mg/dL) Final Protein 02/22/2024 08:50:22 7.0 6.0-8.3 (g /dL) Final ALT (Alanine aminotransferase) 02/22/2024 08:50:22 31 10-35 (U/L) Pedro guajardo Per[facility] - [address] [place] [address]
--- OUTSIDE RECORDS SUMMARY | 2024-07-11 11:42 | External Medical Summary ---
Author Name Unknown Address Unknown Organization K0G:[facility] - [address] [place] [address] Laboratory Report Ordering Provider Test Date Status KALLIE MANUEL 02/22/2024 08:50:22 Final Observation Date Value Abnormality Reference (Units ) Status SYNC LEUKOCYTES IN BLOOD BY AUTOMATED COUNT 02/22/2024 08:50:22 6.69 4.00-10.80 (K/uL) Final Segs 02/22/2024 08:50:22 67.6 40.0-75.0 (%) Final Lymphs % 02/22/2024 08:50:22 25.1 18.0-42.0 (%) Final Monos 02/22/2024 08:50:22 5.1 1.0-11.0 (%) Final Eosinophils 02/22/2024 08:50:22 1.9 0.0-6.0 (%) Final Basos 02/22/2024 08:50:22 0.3 0.0-2.0 (%) Final Absolute Segs 02/22/2024 08:50:22 4.52 1.80-7.70 (K/uL) Final Lymphs, absolute 02/22/2024 08:50:22 1.68 1.00-4.80 (K/ul) Final Monos, Abs 02/22/2024 08:50:22 0.34 0.00-1.10 (K/uL) Final Eos, Abs 02/22/2024 08:50:22 0.13 0.00-0.70 (K/uL) Final Basos, Abs 02/22/2024 08:50:22 0.02 0.00-0.20 (K/uL) Final Performing Location [facility] [address] - [address] [place] [address]
--- OUTSIDE RECORDS SUMMARY | 2024-07-11 11:42 | External Medical Summary ---
Author Name Unknown Address Unknown Organization K0G:[facility] - [address] [place] [address] Laboratory Report Ordering Provider Test Date Status ABDULAZIZ GRANT 02/22/2024 08:50:22 Final Associated diagnosis code [id number] was changed to [id number] on 12/17/23 as a result of a periodic change by regulatory authority.

Warfarin Therapy
INR: 2.0-3.0 conventional anticoagulation
INR: 2.5-3.5 high intensity anticoagulation Observation Date Value Abnormality Reference (Units ) Status PT 02/22/2024 08:50:22 35.3 Above high normal 11 .6-15.2 (seconds) Final INR 02/22/2024 08:50:22 3.5 Above high normal 0. 8-1.2 Final Performing Location [facility] [address] 0 - [address] [place] [address]
--- OUTSIDE RECORDS SUMMARY | 2024-07-11 11:42 | External Medical Summary ---
Author Name Unknown Address Unknown Organization K01:[facility]ATORY [facility] [place] - [address] [place] [address] Laboratory Report Ordering Provider Test Date Status KALLIE MANUEL 02/22/2024 08:50:22 Final Observation Date Value Abnormality Reference (Units ) Status IgG 02/22/2024 08:50:22 6657 179-9183 ( mg/dL) Final IgA 02/22/2024 08:50:22 250 70-400 (mg /dL) Final IgM 02/22/2024 08:50:22 123 40-230 (mg /dL) Final Performing Location LAB[facility]ATORY [facility] - [address] [place] [address]
--- OUTSIDE RECORDS SUMMARY | 2024-07-11 11:42 | External Medical Summary ---
Author Name Unknown Address Unknown Organization K01[facility] [place] [facility] [place] [address] Laboratory Report Ordering Provider Test Date Status KALLIE MANUEL 02/22/2024 08:50:22 Final Observation Date Value Abnormality Reference (Units ) Status [place] light chains, Free, Serum 02/22/2024 08:50:22 27.13 Above high normal 3.30-19.40 (mg/L) Final Lambda light chains, free, Serum 02/22/2024 08:50:22 20.49 5.71-26.30 (mg/L) Final KAPPA LAMBDA FLC RATIO 02/22/2024 08:50:22 1.32 0.26-1.65 Final Performing Location [facility] [place] [address] [place] [address]
--- OUTSIDE RECORDS SUMMARY | 2024-07-11 11:42 | External Medical Summary | Summary of Care ---
Author Name Unknown Organization [facility] Address [address] [facility] [place] [address] Phone [phone] Care Team Providers Care Grant Writer Name Role Phone Hector Sullivan MD Primary Care Provider + Reason for Visit * Reason Comments Dosage Adjustment Via Phone (anticoag Cl inic) Encounter Details Date Type Department Care Team (Late st Contact Info) Description 02/24/2024 6:15 AM EST Anticoagulation Centralized Clinical Pharmacy Services, [facility] Pearl [address] [place] [address] [place] [address] [place] [address] Systemic lupus erythematosus, unspecified SLE type, unspecified organ involvement status (HCC)*; History of CVA (cerebrovascular accident) Allergies No known active allergiesdocumented as of this encounter (statuses as of 02/24/2024) Medications Glucose Blood In Vitro Strip Test [...] 1,000 mcgIndications:Intestinal postoperative nonabsorption 1000 mcg IM [id number] 03/05/2023 04/28/19 25 Active documented as of this encounter (statuses as of 02/24/2024) Active Problems Problem Noted Date Diagnosed Date 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 S/P gastric bypass 01/03/2023 AMANDA (nonalcoholic steatohepatitis) 01/03/2023 Gastroesophageal reflux disease 01/03/2023 Former smoker 01/03/2023 Type 2 diabetes mellitus wit hout complication, with long-term current use of insulin 01/03/2023 AMANDA RESEARCH OTHER*[id number] 12/26/2022 Hemiplegia and hemiparesis f ollowing cerebral [...] as of this encounter (statuses as of 02/24/2024) Resolved Problems Problem Noted Date Diagnosed Date [...] as of this encounter (statuses as of 02/24/2024) Immunizations Name Administration Dates Next Due COVID-19 mRNA, LNP-s, No Pre serve, 2-Dose Series (Moderna) 08/19/2020,07/22/2020 Hepatitis B, 20+ yrs 02/08/2017,09/06/2016,08/06 Pneumococcal Conjugate Vacci ne, 20-valent ([id number]) 09/05/2021 Pneumococcal Polysaccharide PPV23 (Pneumovax) 06/13/2016 Seasonal Influenza, PF, 6 M & above, IM , (FluLaval or Fluzone) 01/06/2023,12/18/2021,12/12/2020,12/17,02/04/2019,01/30/2017 TDAP, Age 7 and older, IM (Adacel) 03/26/2011 documented as of this encounter Social History [...] y our heating, water, or electric bill? (Adult - for ages 18 years and over) Not on file 01/06/2024 Is your family able to pay t he heat, water, or electric bill? (Household - for ages 0-17 years) Not on file 01/06/2024 Does your family have access to good internet? (Household - for ages 0-17 years) Not on file 01/06/2024 Social Connections Answer Date Recorded How often do you feel lonely or isolated from those around you? (Adult - for ages 18 years and over) Not on file 09/03/2023 Transportation Needs Answer Date Record ed READ [...] 18 years and over) Not on file 3 Are you (or your family) lorna eless [...] documented in this encounter Progress Notes * Catalina Cuevas CPhT - 02/24/2024 2:41 PM EST Contacts Contact Date/Time Type Contact Phone/Fax 02/24/2024 02:39 PM EST Phone (Outgoing) SharonColette Minda (Self) [phone] (M) Spoke to Patient Subjective Patient Findings [...] date communicated as noted by Pharmacist: Yes CATALINA CUEVAS CPhT 02/24/2024, 2:41 PM * Dalia Bauer [facility] - 02/24/2024 12:08 PM EST Images from the original note were not included. Coumadin Clinic (region specific) Objective Current Warfarin Dose As of 02/24/2024 Warfarin maintenance plan: 7.5 mg (5 mg x 1.5) every Tue, Meli, Sat; 5 mg (5 mg x 1) all other days INR Result As of 02/24/2024 INR goal: 2.0-3.0 INR used for dosin.5 (02/22/2024) Assessment & Plan Warfarin Plan As of 02/24/2024 Full warfarin instructions: 02/23: Hold; Otherwise 7.5 mg every Tue, Meli, Sat; 5 mg all other days Next INR check: 03/07/2024 Repeat PT/INR in 2 week(s) Weekly dose: not changed Additional Dosing Information: Description Bhanu Scott to contact patient with dose instructions as noted. Dalia Bauer RPh 02/24/2024, 12:08 PM documented in this encounter Plan of Treatment Upcoming Encounters Date Type Department Care Team (Late st Contact Info) Description 03/07/2024 8:50 AM EST Laboratory Laboratory, [facility] 132 [facility] [place] [phone] [facility] [place] [address] 03/09/2024 6:15 AM EST Anticoagulation Centralized Clinical Pharmacy Services, [facility] [place] [address] [place] [address] [place] [address] [place] [address] 03/09/2024 12:40 PM EST Office Visit General Internal Medicine [facility] 200 [facility] [place] [address] Hector Sullivan MD 200 [facility] [place] [address] 03/09/2024 1:50 PM EST Nutrition Services Nutrition & Weight Management, [facility] 132 [facility] [place] [address] Kinza Gaspar RDN 132 [facility] [place] [address] 07/07/2024 2:30 PM EDT Office Visit Hematology/Oncology [facility] 200 [facility] [place] [phone] Rut Roberts CRNP [address] [place] [address] Scheduled Procedures Name Priority Associated Diagnoses Date/Ti me COLONOSCOPY FLEXIBLE PROXIMAL DIAGNOSTIC Recall Screen for colon cancer Health Maintenance Due Date Last Done Comments Cologuard 2014 Fecal Occult Blood Test 2014 Sigmoidoscopy 2014 DTap/Tdap Vaccines (2 - Td or Tdap) 03/26/2021 03/26/2011, 09/26/1998 Depression Monitoring 05/08/2023 05/08/2022 Zoster Vaccines (2 of 2) 10/11/2023 08/16/2023 COVID-19 Vaccine (3 - season) 2023 08/19/2020, 07/22/2020 Influenza Vaccine (FLU shot) (#1) 2023 01/06/2023, 12/18/2021, 12/12/2020, Additional history exists HbA1c 04/04/2024 10/03/2023, 03/0 11/2023, 12/25/2022, Additional [...] Cervical Cancer Screening 10/17/2028 HPV/Co-Test 10/17/2028 10/18/2023 Hepatitis B Vaccine Completed 02/08/2017, 09/06/2016, 08/06/2016 RETIRED - COLONOSCOPY-ANNUAL AGES 18-100 Discontinued 08/03/2020, 08/03/2020, 03/24/2019, Additional history exists RETIRED - COLONOSCOPY-EVERY 5 YRS AGES 18-100 Discontinued 08/03/2020, 08/03/2020, 03/24/2019, Additional history exists Pneumococcal Vaccine: Pediatrics (0 to 5 Years) and At-Risk Patients (6 to 64 Years) Completed 09/05/2021, 06/13/2016 HPV (Gardasil) Vaccine Aged Out No lo [...] Power of Attor pat? No Care Teams Grant Writer Relationship Specialty Start Date End Date Hector Sullivan MD 200 [facility] [place] [address] PCP - General Internal Medicine 06/24/17 documented as of this encounter
--- OUTSIDE RECORDS SUMMARY | 2024-07-11 11:42 | External Medical Summary | Summary of Care ---
Author Name Unknown Organization [facility] Address [address] [place] [address] Phone [phone] Care Team Providers Care Accounts Specialist Name Role Phone Hector Sullivan MD Primary Care Provider + Reason for Visit * Reason Comments Outpatient Testing Encounter Details Date Type Department Care Team (Latest Contact Info) Description 02/03/2024 8:30 AM EST Laboratory Laboratory [facility] [address] [place] [phone] [facility] [address] [place] [address] Anticoagulation management encounter; Lupus; History of CVA (cerebrovascular accident); 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 Allergies No known active allergiesdocumented as of this encounter (statuses as of 02/03/2024) Medications Glucose Blood In Vitro Strip Test [...] 1,000 mcgIndications:Intestinal postoperative nonabsorption 1000 mcg IM [id number] 03/05/2023 04/28/19 25 Active documented as of this encounter (statuses as of 02/03/2024) Active Problems Problem Noted Date Diagnosed Date 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 S/P gastric bypass 01/03/2023 AMANDA (nonalcoholic steatohepatitis) 01/03/2023 Gastroesophageal reflux disease 01/03/2023 Former smoker 01/03/2023 Type 2 diabetes mellitus wit hout complication, with long-term current use of insulin 01/03/2023 AMANDA RESEARCH OTHER*[id number] 12/26/2022 Hemiplegia and hemiparesis f ollowing cerebral [...] as of this encounter (statuses as of 02/03/2024) Resolved Problems Problem Noted Date Diagnosed Date [...] as of this encounter (statuses as of 02/03/2024) Immunizations Name Administration Dates Next Due COVID-19 mRNA, LNP-s, No Pre serve, 2-Dose Series (Moderna) 08/19/2020,07/22/2020 Hepatitis B, 20+ yrs 02/08/2017,09/06/2016,08/06 Pneumococcal Conjugate Vacci ne, 20-valent ([id number]) 09/05/2021 Pneumococcal Polysaccharide PPV23 (Pneumovax) 06/13/2016 Seasonal [...] Care Team (Late st Contact Info) Description 02/17/2024 6:45 PM EST Anticoagulation Centralized Clinical Pharmacy Services, Lucretia Pearl [address] [place] [address] [place] [address] [place] [address] 03/09/2024 12:40 PM EST Office Visit General Internal Medicine [facility] 200 [facility] [place] [address] Hector Sullivan MD 200 [facility] [place] [address] 03/09/2024 1:50 PM EST Nutrition Services Nutrition & Weight Management, [facility] [address] [facility] [address] Kinza Gaspar RDN [facility] [address] 07/07/2024 2:30 PM EDT Office Visit Hematology/Oncology [facility] 200 [facility] [place] [phone] Rut Roberts CRNP 400 [facility] [place] [address] Pending Results Name Type Priority Associated Diagnoses Date /Time PT INR Lab Routine Anticoagulation management encounter Lupus History of CVA (cerebrovascular accident) jail current use of anticoagulant therapy 02/03/2024 8:18 AM EST Scheduled Procedures Name Priority Associated [...] 024, 10/31/2022, 07/08/2021, Additional history exists GFR 10/02/2024 10/03/2023, 06/17, 05/25/2023, Additional history exists Colonoscopy 08/03/2025 08/03/2020, 07/16, [...] (TIA), and cerebral infarction without residual deficits jail current use of anticoagulant therapy documented in this encounter Advance Directives * [...] Power of Attor pat? No Care Teams Accounts Specialist Relationship Specialty Start Date End Date Hector Sullivan MD 200 [place] [address] PCP - General Internal Medicine 06/24/17 documented as of this encounter
--- OUTSIDE RECORDS SUMMARY | 2024-07-11 11:42 | External Medical Summary ---
Author Name Unknown Address Unknown Organization K01:LABORATORY [facility] [place] - [address] [place] [place] [address] Laboratory Report Ordering Provider Test Date Status KALLIE MANUEL 02/22/2024 08:50:22 Final Observation Date Value Abnormality Reference (Units) Status PARAPROTEIN NORMAL/ABNORMAL 02/22/2024 08:50:22 Abnormal Abnormal Normal Final Immunofixation for Serum or Plasma 02/22/2024 08:50:22 Abnormal, monoclonal free lambda light chains are present, consistent with free light chain disease. Final Performing Location LABORATORY [facility] [place] - [address] [place] [address]
--- OUTSIDE RECORDS SUMMARY | 2024-07-11 11:42 | External Medical Summary | Summary of Care ---
Author Name Unknown Organization [facility] Address [address] [facility] [place] [address] Phone [phone] Care Team Providers Care Contact Representative Name Role Phone Hector Sullivan MD Primary Care Provider + Reason for Visit * Reason Comments Outpatient Testing Encounter Details Date Type Department Care Team (Latest Contact Info) Description 02/22/2024 8:50 AM EST Laboratory Laboratory, [facility] [address] [place] [phone] [facility] [address] [place] [address] Anticoagulation management encounter; Lupus; History of CVA (cerebrovascular accident); 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; MGUS (monoclonal gammopathy of unknown significance) Allergies No known active allergiesdocumented as of this encounter (statuses as of 02/22/2024) Medications Glucose Blood In Vitro Strip Test [...] 1,000 mcgIndications:Intestinal postoperative nonabsorption 1000 mcg IM [id number] 03/05/2023 04/28/19 25 Active documented as of this encounter (statuses as of 02/22/2024) Active Problems Problem Noted Date Diagnosed Date 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 S/P gastric bypass 01/03/2023 AMANDA (nonalcoholic steatohepatitis) 01/03/2023 Gastroesophageal reflux disease 01/03/2023 Former smoker 01/03/2023 Type 2 diabetes mellitus wit hout complication, with long-term current use of insulin 01/03/2023 AMANDA RESEARCH OTHER*[id number] 12/26/2022 Hemiplegia and hemiparesis f ollowing cerebral [...] as of this encounter (statuses as of 02/22/2024) Resolved Problems Problem Noted Date Diagnosed Date [...] as of this encounter (statuses as of 02/22/2024) Immunizations Name Administration Dates Next Due COVID-19 mRNA, LNP-s, No Pre serve, 2-Dose Series (Moderna) 08/19/2020,07/22/2020 Hepatitis B, 20+ yrs 02/08/2017,09/06/2016,08/06 Pneumococcal Conjugate Vacci ne, 20-valent ([id number]) 09/05/2021 Pneumococcal Polysaccharide PPV23 (Pneumovax) 06/13/2016 Seasonal [...] the money to buy more. Sometimes true 02 /05/2022 Within the past 12 months, t he [...] Care Team (Late st Contact Info) Description 03/02/2024 8:30 AM EST Laboratory Laboratory [facility] [address] [facility] [place] [phone] [address] [place] [address] 03/03/2024 6:15 AM EST Anticoagulation Centralized Clinical Pharm[facility] Services, [address] [place] [address] [place] [address] 03/09/2024 12:40 PM EST Office Visit General Internal Medicine [address] [place] [address] Hector Sullivan MD [address] [facility] [place] [address] 03/09/2024 1:50 PM EST Nutrition Services Nutrition & Weight Management, [facility] 132 [facility] [place] [address] Kinza Gaspar RDN 132 [facility] [place] [address] 07/07/2024 2:30 PM EDT Office Visit Hematology/Oncology [address] [place] [phone] Rut Roberts CRNP [address] [place] [phone] Pending Results Name Type Priority Associated Diagnoses Date /Time PT INR Lab Routine Anticoagulation management encounter Lupus History of CVA (cerebrovascular accident) correction current use of anticoagulant therapy 02/22/2024 8:50 AM EST CBC WITH WBC DIFFERENTIAL Lab STAT MGUS (monoclonal gammopathy of unknown significance) 02/22/2024 8:50 AM EST COMPREHENSIVE METABOLIC PANEL Lab STAT MGUS (monoclonal gammopathy of unknown significance) 02/22/2024 8:50 AM EST SERUM PROTEIN ELECTROPHORESIS REFLEX PROFILE Lab STAT MGUS (monoclonal gammopathy of unknown significance) 02/22/2024 8:50 AM EST SERUM FREE LIGHT CHAINS Lab STAT MGUS (monoclonal gammopathy of unknown significance) 02/22/2024 8:50 AM EST IMMUNOGLOBULIN QUANTITATIVE Lab STAT MGUS (monoclonal gammopathy of unknown significance) 02/22/2024 8:50 AM EST CBC Lab STAT MGUS (monoclonal gammopathy of unknown significance) 02/22/2024 8:50 AM EST DIFFERENTIAL, AUTOMATED Lab STAT MGUS (monoclonal gammopathy of unknown significance) 02/22/2024 8:50 AM EST Scheduled Procedures Name Priority Associated Diagnoses Date/Ti me COLONOSCOPY FLEXIBLE PROXIMAL DIAGNOSTIC Recall Screen for colon cancer Health Maintenance Due Date Last Done Comments Cologuard 2014 Fecal Occult Blood Test 2014 Sigmoidoscopy 2014 DTap/Tdap Vaccines (2 - Td or Tdap) 03/26/2021 03/26/2011, 09/26/1998 Depression Monitoring 05/08/2023 05/08/2022 Zoster Vaccines (2 of 2) 10/11/2023 08/16/2023 COVID-19 Vaccine ( season) 2023 08/19/2020, 07/22/2020 Influenza Vaccine (FLU [...] (TIA), and cerebral infarction without residual deficits 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 No Care Teams Contact Representative Relationship Specialty Start Date End Date Hector Sullivan MD [address] [place] [address] PCP - General Internal Medicine 06/24/17 documented as of this encounter
--- OUTSIDE RECORDS SUMMARY | 2024-07-11 11:42 | External Medical Summary | Summary of Care ---
Author Name Unknown Organization [facility] Address [address] [facility] [place] [address] Phone [phone] Care Team Providers Care Frame Pulley Mortising Machine Operator Name Role Phone Hector Sullivan MD Primary Care Provider + Reason for Visit * Reason Comments Dosage Adjustment Via Phone (anticoag Cl inic) Encounter Details Date Type Department Care Team ([facility] st Contact Info) Description 02/04/2024 6:15 AM EST Anticoagulation Centralized Clinical Pharmacy Services, Lucretia Pearl [address] [place] [address] [place] [address] [place] [address] Systemic lupus erythematosus, unspecified SLE type, unspecified organ involvement status (HCC)*; History of CVA (cerebrovascular accident) Allergies No known active allergiesdocumented as of this encounter (statuses as of 02/04/2024) Medications Glucose Blood In Vitro Strip Test [...] 1,000 mcgIndications:Intestinal postoperative nonabsorption 1000 mcg IM [id number] 03/05/2023 04/28/19 25 Active documented as of this encounter (statuses as of 02/04/2024) Active Problems Problem Noted Date Diagnosed Date 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 S/P gastric bypass 01/03/2023 AMANDA (nonalcoholic steatohepatitis) 01/03/2023 Gastroesophageal reflux disease 01/03/2023 Former smoker 01/03/2023 Type 2 diabetes mellitus wit hout complication, with long-term current use of insulin 01/03/2023 AMANDA RESEARCH OTHER*[id number] 12/26/2022 Hemiplegia and hemiparesis f ollowing cerebral [...] as of this encounter (statuses as of 02/04/2024) Resolved Problems Problem Noted Date Diagnosed Date [...] as of this encounter (statuses as of 02/04/2024) Immunizations Name Administration Dates Next Due COVID-19 mRNA, LNP-s, No Pre serve, 2-Dose Series (Moderna) 08/19/2020,07/22/2020 Hepatitis B, 20+ yrs 02/08/2017,09/06/2016,08/06 Pneumococcal Conjugate Vacci ne, 20-valent ([id number]) 09/05/2021 Pneumococcal Polysaccharide PPV23 (Pneumovax) 06/13/2016 Seasonal [...] documented in this encounter Progress Notes * Lola Cordero CPhT - 02/04/2024 8:16 AM EST Contacts Contact Date/Time Type Contact Phone/Fax 02/04/2024 08:15 AM EST Phone (Outgoing) Colette Herrera Minda (Self) [phone] (M) Spoke to Patient Subjective Patient Findings Negatives: Signs/symptoms of thrombosis, Signs/symptoms of bleeding, [...] date communicated as noted by Pharmacist: Yes LOLA CORDERO CPhT 02/04/2024, 8:16 AM * Dalia Bauer RPh - 02/04/2024 8:11 AM EST Coumadin Clinic (region specific) Objective Current Warfarin Dose As of 02/04/2024 Warfarin maintenance plan: 7.5 mg (5 mg x 1.5) every Tue, Meli, Sat; 5 mg (5 mg x 1) all other days INR Result As of 02/04/2024 INR goal: 2.0-3.0 INR used for dosin.0 (02/03/2024) Assessment & Plan Warfarin Plan As of 02/04/2024 Full warfarin instructions: 7.5 mg every Tue, Meli, Sat; 5 mg all other days No change documented: Dalia Bauer [facility] Next INR check: 03/02/2024 Repeat PT/INR in 4 week(s) Weekly dose: not changed Additional Dosing Information: Tech to contact patient with dose instructions as noted. Dalia Bauer RPh 02/04/2024, 8:11 AM documented in this encounter Plan of Treatment Upcoming Encounters Date Type Department Care Team (Late st Contact Info) Description 03/09/2024 12:40 PM EST Office Visit General Internal Medicine [facility] [address] [facility] [place] [address] Hector Sullivan MD [address] [facility] [place] [address] 03/09/2024 1:50 PM EST Nutrition Services Nutrition & Weight Management, [facility] [address] Kinza Gaspar RDN [address] [facility] [place] [address] 07/07/2024 2:30 PM EDT Office Visit Hematology/Oncology [facility] [address] [facility] [place] [phone] Rut Roberts CRNP [address] [place] [address] Scheduled Procedures Name Priority Associated Diagnoses Date/Ti [...] Power of Attor pat? No Care Teams Frame Pulley Mortising Machine Operator Relationship Specialty Start Date End Date Hector Sullivan MD [address] [place] [place] [address] PCP - General Internal Medicine 06/24/17 documented as of this encounter
--- OUTSIDE RECORDS SUMMARY | 2024-07-11 11:42 | External Medical Summary ---
Author Name Unknown Address Unknown Organization [id number]:[facility] [address] [place] [address] Laboratory Report Ordering Provider Test Date Status KALLIE MANUEL 02/22/2024 08:50:22 Final Observation Date Value Abnormality Reference (Units ) Status WBC, Total 02/22/2024 08:50:22 6.69 4.00-10.8 0 (K/uL) Final RBC 02/22/2024 08:50:22 4.52 3.85-5.15 (M/uL) Final Hemoglobin 02/22/2024 08:50:22 14.4 12.0-15.3 (g/dL) Final HCT 02/22/2024 08:50:22 42.1 36.0-45.2 (%) Final MCV 02/22/2024 08:50:22 93.1 81.5-97.5 (fL) Final MCH 02/22/2024 08:50:22 31.9 27.0-34.0 (pg) Final MCHC 02/22/2024 08:50:22 34.2 32.0-36.0 (g/dL) Final RDW 02/22/2024 08:50:22 12.8 11.5-15.5 (%) Final Platelets 02/22/2024 08:50:22 242 140-400 (K /uL) Final MPV 02/22/2024 08:50:22 11.5 6.6-11.1 ( fL) Final Performing Location [facility] [address] [place] [address]
--- OUTSIDE RECORDS SUMMARY | 2024-07-11 11:43 | External Medical Summary | Summary of Care ---
Author Name Unknown Organization [facility] Address [address] [place] [address] Phone [phone] Care Team Providers Care Mock Up Assembler Name Role Phone Hector Sullivan MD Primary Care Provider + Reason for Visit * Reason Comments Outpatient Testing Encounter Details Date Type Department Care Team (Latest Contact Info) Description 02/03/2024 8:30 AM EST Laboratory Laboratory [facility] [address] [place] [phone] [facility] [address] [place] [address] Anticoagulation management encounter; Lupus; History of CVA (cerebrovascular accident); 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 Allergies No [...] 1,000 mcgIndications:Intestinal postoperative nonabsorption 1000 mcg IM [id number] 03/05/2023 04/28/19 25 Active documented as of this encounter (statuses as of 02/03/2024) Active Problems Problem Noted Date Diagnosed Date 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 S/P gastric bypass 01/03/2023 AMANDA (nonalcoholic steatohepatitis) 01/03/2023 Gastroesophageal reflux disease 01/03/2023 Former smoker 01/03/2023 Type 2 diabetes mellitus wit hout complication, with long-term current use of insulin 01/03/2023 AMANDA RESEARCH OTHER*[id number] 12/26/2022 Hemiplegia and hemiparesis f ollowing cerebral [...] yrs 02/08/2017,09/06/2016,08/06 Pneumococcal Conjugate Vacci ne, 20-valent ([id number]) 09/05/2021 Pneumococcal Polysaccharide PPV23 (Pneumovax) 06/13/2016 Seasonal [...] Anticoagulation Centralized Clinical Pharmacy Services, Lucretia Pearl [address] [place] [address] [place] [address] [place] [address] 03/09/2024 12:40 PM EST Office Visit General Internal Medicine [facility] 200 [facility] [place] [address] Hector Sullivan MD [address] [facility] [place] [address] 03/09/2024 1:50 PM EST Nutrition Services Nutrition & Weight Management, [facility] [address] [facility] [address] Kinza Gaspar RDN [address] [facility] [address] 07/07/2024 2:30 PM EDT Office Visit Hematology/Oncology [facility] 200 [facility] [place] [phone] Rut Roberts CRNP 400 [facility] [place] [address] Pending Results Name Type Priority Associated Diagnoses Date /Time PT INR Lab Routine Anticoagulation management encounter Lupus History of CVA (cerebrovascular accident) long-term current use of anticoagulant therapy 02/03/2024 8:18 [...] (TIA), and cerebral infarction without residual deficits long-term current use of anticoagulant therapy documented in [...] Power of Attor pat? No Care Teams Mock Up Assembler Relationship Specialty Start Date End Date Hector Sullivan MD 200 [place] [address] PCP - General Internal Medicine 06/24/17 documented as of this encounter
--- OUTSIDE RECORDS SUMMARY | 2024-07-11 11:43 | External Medical Summary ---
Author Name Unknown Address Unknown Organization K09:[facility] [place] [address] Laboratory Report Ordering Provider Test Date Status ABDULAZIZ GRANT 02/03/2024 08:18:27 Final Associated diagnosis code [id number] was changed to [id number] on 12/17/23 as a result of a periodic change by regulatory authority.

Warfarin Therapy
INR: 2.0-3.0 conventional anticoagulation
INR: 2.5-3.5 high intensity anticoagulation Observation Date Value Abnormality Reference (Units ) Status PT 02/03/2024 08:18:27 31.8 Above high normal 11 .6-15.2 (seconds) Final INR 02/03/2024 08:18:27 3.0 Above high normal 0. 8-1.2 Final Performing Location [facility] [place] [address]
[2024-07-11 12:01] LABS: Appearance Urine Clear (Clear); Basophils # (auto) 0.04 K/uL (0.00-0.20); Basophils % (auto) 0.6 %; Bilirubin Urine Negative (Negative); Blood Urine Negative (Negative); Color Urine Yellow; Eosinophils # (auto) 0.13 K/uL (0.00-0.50); Glucose Urine UA 2+ (Negative); Hematocrit (blood only) 40.9 % (37.0-47.0); Hemoglobin 13.8 g/dl (12.0-16.0); Immature Granulocytes # (auto) 0.02 K/uL (0.01-0.20); Immature Granulocytes % (auto) 0.3 %; Ketones Urine Negative (Negative); Leukocyte Esterase Urine Negative (Negative); Lymphocytes # (auto) 1.42 K/uL (1.20-3.40); Lymphocytes % (auto) 22.2 %; Mean Corpuscular Hemoglobin 30.7 pg (25.0-34.0); Mean Corpuscular Hgb Conc 33.7 g/dL (32.0-36.0); Mean Corpuscular Volume 91.1 fL (80.0-100.0); Monocytes # (auto) 0.36 K/uL (0.11-0.59); Monocytes % (auto) 5.6 %; Neutrophils # (auto) 4.42 K/uL (1.40-6.50); Neutrophils % (auto) 69.3 %; Nitrite Urine Negative (Negative); Platelet Count 216 K/uL (130-400); Protein Urine Negative (Negative); RDW Coefficient of Variation 12.6 % (11.5-14.5); Red Blood Count 4.49 M/uL (4.20-5.40); Urobilinogen Urine Negative (Negative); White Blood Count 6.39 K/ul (4.8-10.8); pH Urine 5.5 (4.5-7.5)
[2024-07-11 12:19] LABS: Albumin Globulin Ratio 1.4 (0.9-2); Albumin Level 3.9 gm/dl (3.4-5.0); BUN Creatinine Ratio 12.2 (10-20); Bilirubin,Total 0.4 mg/dl (0.2-1.0); Calcium 8.4 mg/dl (8.6-10.3); Creatinine Clr Calc Pharmacy 68.9 ml/min; Globulin 2.8 gm/dl (2.5-4.0); Potassium 3.5 mmol/L (3.5-5.1); Total Protein 6.7 gm/dl (6.0-8.3)
[2024-07-11 12:33] LABS: INR 1.6 (0.9-1.1); Prothrombin Time 16.6 Seconds (9.0-12.0); Thyroid Stimulating Hormone 1.98 uIu/ml (0.300-4.500)
[2024-07-11 12:40] LABS: Acetaminophen < 3 ug/ml (10-30); Amphetamines+Metham, Urine Neg (Neg); Barbiturates, Urine Neg (Neg); Benzodiazepine, Urine Neg (Neg); Cocaine, Urine Neg (Neg); Fentanyl, Urine Neg (Neg); MDMA (Ecstacy), Urine Neg (Neg); Marijuana, Urine Neg (Neg); Methadone, Urine Neg (Neg); Opiate, Urine Neg (Neg); Phencyclidine, Urine Neg (Neg); Salicylate < 3.0 mg/dl (3.0-30)
--- NOTE | 2024-07-11 13:18 | Emergency Department Note ---
Impression & Plan Intentional overdose of warfarin, Alcohol intoxication ED Provider Note NAME: MARGE MAI AGE: 54 SEX: F : 1970 ARRIVES VIA: Ambulance INFORMANT: Patient, ED PROVIDER(S): Anna Barlow MD CHIEF COMPLAINT: Intentional overdose HPI: This is a 54-year-old female present for intentional overdose. Patient states that she is at numerous stressors in her life. She has the of her father in the beginning of the month. She then had a of a friend recently. She notes her sister is another stressor in her life due to the final failures with her father. She states that today she had an off of it and drank half a bottle of vodka and then took 2 handfuls of 5 mg of warfarin. She reports "I want to end it all". Patient is tearful. Patient has history of ROS: See above HPI for pertinent positives & negatives. A total of 10 systems reviewed and were otherwise negative. PAST MEDICAL HISTORY: See Below PAST SURGICAL HISTORY: See Below FAMILY HISTORY: See Below SOCIAL HISTORY: See Below HOME MEDICATIONS: See Below ALLERGIES: See Below VITALS: See Below PHYSICAL EXAMINATION: General: Tearful Head: Normocephalic and atraumatic Eyes: Normal inspection, extraocular muscles intact Ear, nose, throat: Normal external exam Neck: Normal range of motion Respiratory: lungs clear to auscultation bilaterally Cardiovascular: Regular rate/rhythm, no murmur GI: soft, nontender, no guarding or rebound Extremities: nontender, moves all extremities Neuro: The patient awake and alert, appropriately conversive, no focal deficits, symmetric faces Skin: Warm, dry, and intact MEDICAL DECISION MAKING: This is a 54-year-old female presenting for intentional overdose. Patient drank half a bottle of vodka and then took "2 handfuls "of warfarin. She does not know the set amount in pill form. Will do INR, alcohol level and basic blood work. -INR returns at 1.6. Alcohol level about 100. -Patient required admission for repeat INR checks at least daily - Discussed with poison center who recommends if low, could be discharged home. Out of an abundance of precaution; will admit the patient due to the unknown amount of warfarin she took. Differential diagnosis: Suicide attempt, warfarin overdose, alcohol overdose Independent History obtained from: Diagnostics interpreted by me: ECG: ECG independently interpreted by me with normal sinus rhythm, rate of 67, normal axis, normal IN, normal QRS, normal QTc, no ST segment elevations consistent with STEMI criteria Cardiac Monitoring: An order was placed for continuous cardiac monitoring. The monitor shows a rate of 60 with sinus rhythm. Past Med/Surg History Problem List Alcohol intoxication (Acute) Intentional overdose of warfarin (Acute) Warfarin overdosage Suicidal ideation Encounter for pre-operative examination Stroke-like symptoms CVA (cerebral infarction) (Chronic) Ovarian cyst (Chronic) Ataxia (Acute) Headache (Acute) Paresthesias (Acute) Hypomagnesemia (Acute) Subtherapeutic international normalized ratio (INR) (Acute) Dizziness History of CVA (cerebrovascular accident) DVT prophylaxis DAIN on CPAP (Chronic) Depression (Chronic) History of cystoscopy (Chronic) Hypertension (Chronic) Dyslipidemia (Chronic) Migraine with aura (Chronic) hx DM type 2 (diabetes mellitus, type 2) (Chronic) IDDM Hearing loss (Chronic) "R ear" Antiphospholipid antibody syndrome (Chronic) On Coumadin H/O tympanostomy (Chronic) bilateral S/P tonsillectomy and adenoidectomy (Chronic) Medical History Aortic aneurysm CT of abdomen and pelvis from 08/09/20- "No abdominal aortic aneurysm" Light chain disease Follows with oncology/hematology [facility] Lupus Hypomagnesemia On supplement - magnesium WNL 12/2020 CVA (cerebral vascular accident) Multiple strokes -- November 2012 -> left side mild weakness, uses cane. January 2013--> speech deficit, which has since resolved 3rd stroke 2013, no new deficits. no neurology - follows with PCP Surgical History History of cardiac cath ~2012 at [facility] History of colonoscopy Family History Father Diabetes Hypertension Mother Aneurysm brain and aortic Hypertension Sister Lupus Sister Thyroid disease Grandmother (Maternal) Stroke Social History Smoking Status: Current every day smoker Tobacco Type: Cigarettes and E-cigarettes / Vaping Age Started Using Tobacco: 11; packs per day: 0.5; Cigarettes Per Day: 10; Second Hand Exposure: Yes; Do You Dip or Chew Tobacco: No; Hx Alcohol Use: Yes Alcohol type: hard liquor Hx Substance Use: No Preferred Language: Turkmen Communication Ability: Effective Collaborative Teacher Required: No Beliefs That Will Affect Care: None marital status: Current Living Situation: Spouse and Family Feels Safe at Home: Yes Safety Concerns: Feels Safe At This Time Assistive Devices: Denture - Upper, Denture - Lower and Glasses Allergies Allergies Allergy/AdvReac Type Severity Reaction Status Date / Time No Known Allergies Allergy Verified 04/28/21 05:41 Home Meds Home Medications Medication Instructions Recorded Confirmed aspirin 81 mg tablet,delayed 81 mg PO QPM 08/03/18 04/28/21 release (Nick Low Dose Aspirin) atorvastatin 40 mg tablet 40 mg PO QPM 08/03/18 04/28/21 lisinopril 10 mg tablet 10 mg PO QPM 08/03/18 04/28/21 metformin 500 mg tablet 1,000 mg PO BID 08/03/18 04/28/21 warfarin 5 mg tablet 5 mg PO QPM 08/03/18 04/28/21 citalopram 40 mg tablet 40 mg PO QPM 04/21/21 04/28/21 insulin NPH-regular hum semi-syn 15 ml subcut BID 04/21/21 04/28/21 100 unit/mL (70-30) subcutaneous soln magnesium chloride 64 mg 128 mg PO TID 04/21/21 04/28/21 tablet,extended release Previous Rx's Medication Instructions Recorded acetaminophen 500 mg capsule 1,000 mg (2 x 500 mg) PO Q6H PRN 04/28/21 pain #30 caps amoxicillin 875 mg-potassium 1 tab PO BID #20 tabs 01/26/22 clavulanate 125 mg tablet oxycodone 5 mg tablet 5 mg PO Q4H PRN pain #15 tabs 10/29/23 Results & Data (ED) Vital Signs Vital Signs - 24 hr 07/11/24 11:43 07/11/24 11:43 07/11/24 11:43 Temperature 36.7 C Temperature Source Oral Pulse Rate 74 Respiratory Rate 18 Blood Pressure 129/78 Blood Pressure Mean 95 Pulse Oximetry 99 Oxygen Delivery Method Room Air Room Air Room Air Sepsis New/Unexplained Change in Mental Status No Sepsis Action Taken by Nursing No Action Required 07/11/24 12:17 Temperature Temperature Source Pulse Rate 67 Respiratory Rate Blood Pressure Blood Pressure Mean Pulse Oximetry Oxygen Delivery Method Sepsis New/Unexplained Change in Mental Status Sepsis Action Taken by Nursing Laboratory Data 07/11/24 11:45 07/11/24 11:45 Lab Results 07/11/24 07/11/24 Range/Units 11:45 12:01 WBC 6.39 (4.8-10.8) K/ul RBC 4.49 (4.20-5.40) M/uL Hgb 13.8 (12.0-16.0) g/dl Hct 40.9 (37.0-47.0) % MCV 91.1 (80.0-100.0) fL MCH 30.7 (25.0-34.0) pg MCHC 33.7 (32.0-36.0) g/dL RDW Std Deviation 42.0 (36.4-46.3) fL RDW Coeff of Angelica 12.6 (11.5-14.5) % Plt Count 216 (130-400) K/uL MPV 11.0 (9.4-12.4) fL Immature Gran % (Auto) 0.3 % Neut % (Auto) 69.3 % Lymph % (Auto) 22.2 % [place] % (Auto) 5.6 % Eos % (Auto) 2.0 % Baso % (Auto) 0.6 % Neut # (Auto) 4.42 (1.40-6.50) K/uL Lymph # (Auto) 1.42 (1.20-3.40) K/uL [place] # (Auto) 0.36 (0.11-0.59) K/uL Eos # (Auto) 0.13 (0.00-0.50) K/uL Baso # (Auto) 0.04 (0.00-0.20) K/uL Immature Gran # (Auto) 0.02 (0.01-0.20) K/uL PT 16.6 H (9.0-12.0) Seconds INR 1.6 H (0.9-1.1) Sodium 142 (136-145) mmol/L Potassium 3.5 (3.5-5.1) mmol/L Chloride 112 H (98-107) mmol/L Carbon Dioxide 24 (21-32) mmol/L Anion Gap 6 (3-11) BUN 10 (6-23) mg/dl Creatinine 0.82 (0.6-1.2) mg/dl Est Cr Clr Drug Dosing 68.9 ml/min eGFR 84.42 BUN/Creatinine Ratio 12.2 (10-20) Glucose 131 H (70-99(Fasting)) mg/dl Calcium 8.4 L (8.6-10.3) mg/dl Total Bilirubin 0.4 (0.2-1.0) mg/dl AST 81 H (13-39) U/L ALT 47 (7-52) U/L Alkaline Phosphatase 104 (34-104) U/L Total Protein 6.7 (6.0-8.3) gm/dl Albumin 3.9 (3.4-5.0) gm/dl Globulin 2.8 (2.5-4.0) gm/dl Albumin/Globulin Ratio 1.4 (0.9-2) TSH 1.980 (0.300-4.500) uIu/ml Urine Color Yellow Urine Appearance Clear (Clear) Urine pH 5.5 (4.5-7.5) Ur Specific [place] 1.010 (1.000-1.030) Urine Protein Negative (Negative) Urine Glucose (UA) 2+ H (Negative) Urine Ketones Negative (Negative) Urine Blood Negative (Negative) Urine Nitrite Negative (Negative) Urine Bilirubin Negative (Negative) Urine Urobilinogen Negative (Negative) Ur Leukocyte Esterase Negative (Negative) Salicylates < 3.0 L (3.0-30) mg/dl Urine Opiates Screen Neg (Neg) Ur Methadone, Qual Neg (Neg) Urine Fentanyl Screen Neg (Neg) Acetaminophen < 3 L (10-30) ug/ml Urine Barbiturates Neg (Neg) Ur Phencyclidine (PCP) Neg (Neg) U Amphetamin/Meth Scrn Neg (Neg) MDMA (Ecstasy) Screen Neg (Neg) U Benzodiazepines Scrn Neg (Neg) Ur Cocaine Metabolite Neg (Neg) U Marijuana (THC) Screen Neg (Neg) Ethyl Alcohol mg/dL 101.8 H (<10.0) mg/dl SARS-CoV-2, RNA, NAAT NEGATIVE (NEGATIVE) Administered Medications Potassium Chloride/Dextrose/Sod Cl (D5nss + 20meq Kcl) 20 meq in 1,000 mls @ 80 mls/hr IV .[id number] [facility] Stop: 07/13/24 02:44 Last Admin: 07/11/24 13:39 Dose: 80 mls/hr Documented By: ARELI Insulin Aspart (Insulin Aspart Per Unit Charge) 0 units SC ACHS [facility] Stop: 08/10/24 16:29 Last Admin: 07/11/24 17:12 Dose: Not Given Documented By: NICK Insulin Human NPH (Insulin Human Nph) 11 units SC BIDM [facility] Stop: 08/10/24 16:59 Last Admin: 07/11/24 17:13 Dose: Not Given Documented By: NICK Discontinued Medications Insulin Human Regular (Insulin Human Regular) 4 units SC BIDM [facility] Stop: 08/10/24 16:59 Last Admin: 07/11/24 17:13 Dose: Not Given Documented By: NICK Discharge Plan Visit Data Chief Complaint: Overdose (Intentional) Stated Complaint: OVERDOSE ED Provider: Anna Barlow Discharge Problem: Intentional overdose of warfarin, Alcohol intoxication Patient Disposition: Admitted As Inpatient Discharge Instructions Interventions: ED Discharge Assessment Last Done: 07/11/24 15:12 Discharge Problem: Alcohol intoxication Qualifiers: Complication of substance-induced condition: uncomplicated Qualified Code(s): F 10.920 - Alcohol use, unspecified with intoxication, uncomplicated
[2024-07-11] MEDS: D5NSS + 20MEQ KCL 20 MEQ/1,000 ML BAG IV SCH (13:39)
--- NOTE | 2024-07-11 13:42 | History & Physical Report ---
Date of Service July 11, 2024 Assessment & Plan (1) Warfarin overdosage: Plan: History of anxiety and depression Going through a lot of stress with family matters recently Wanted to kill herself by taking handful of warfarin with alcohol sometime this morning No evidence of bleeding and INR is 1.6 Poison center advised INR and CBC q12 h for 48 to 72 hours and call them if any bleeding for [phone] Will give a small amount of intravenous fluid for rapid clearance of warfarin (2) Suicidal ideation: Plan: Suicidal ideation with warfarin overdose with alcohol The patient remains calm and quiet Will put her on one-to-one sitter and a psychiatric evaluation No evidence of withdrawal symptoms [facility] (3) History of CVA (cerebrovascular accident): Plan: Has been on aspirin Will hold aspirin for now (4) DAIN on CPAP: Plan: She should be using her own CPAP (5) Depression: Plan: Will continue with current dose of antidepressant medications Await psychiatric evaluation for any change of medications (6) Hypertension: Plan: Will continue current dose of NT hypertensive medication lisinopril (7) DM type 2 (diabetes mellitus, type 2): Plan: She has not been taking her insulin for the last 2 years Hold metformin Will put her on sliding scale insulin coverage (8) Antiphospholipid antibody syndrome: Plan: Has been on warfarin Will hold warfarin for now and monitor INR (9) Dyslipidemia: Plan: Continue statin DVT prophylaxis SCDs for now CODE STATUS full History of Present Illness Chief Complaint: Suicidal overdose of warfarin Primary Care Provider: Hector Sullivan MD she is a 54-year-old female with significant past medical history of anxiety/depression, 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 She could not take any longer and wanted to kill herself by taking a handful of warfarin and also drinking alcohol with it. She cannot remember exactly what time she took it and she was brought into the emergency room by the . She denies any symptoms and does not have any evidence of bleeding from anywhere and her INR is 1.6. She denies any other significant symptoms and she is willing to have psychiatric evaluation. she will be admitted to [facility] with telemetry unit with one-to-one sitter for now. Allergies Allergy/AdvReac Type Severity Reaction Status Date / Time No Known Allergies Allergy Verified 04/28/21 05:41 Home Medications Medication Instructions Recorded Confirmed Type aspirin 81 mg tablet,delayed 81 mg PO QPM 08/03/18 04/28/21 History release (Nick Low Dose Aspirin) atorvastatin 40 mg tablet 40 mg PO QPM 08/03/18 04/28/21 History lisinopril 10 mg tablet 10 mg PO QPM 08/03/18 04/28/21 History metformin 500 mg tablet 1,000 mg PO BID 08/03/18 04/28/21 History warfarin 5 mg tablet 5 mg PO QPM 08/03/18 04/28/21 History citalopram 40 mg tablet 40 mg PO QPM 04/21/21 04/28/21 History insulin NPH-regular hum semi-syn 15 ml subcut BID 04/21/21 04/28/21 History 100 unit/mL (70-30) subcutaneous soln magnesium chloride 64 mg 128 mg PO TID 04/21/21 04/28/21 History tablet,extended release acetaminophen 500 mg capsule 1,000 mg (2 x 500 mg) PO Q6H PRN 04/28/21 Rx pain #30 caps amoxicillin 875 mg-potassium 1 tab PO BID #20 tabs 01/26/22 Rx clavulanate 125 mg tablet oxycodone 5 mg tablet 5 mg PO Q4H PRN pain #15 tabs 10/29/23 Rx Past Med/Surg History Problem List Alcohol intoxication (Acute) Intentional overdose of warfarin (Acute) Warfarin overdosage Suicidal ideation Encounter for pre-operative examination Stroke-like symptoms CVA (cerebral infarction) (Chronic) Ovarian cyst (Chronic) Ataxia (Acute) Headache (Acute) Paresthesias (Acute) Hypomagnesemia (Acute) Subtherapeutic international normalized ratio (INR) (Acute) Dizziness History of CVA (cerebrovascular accident) DVT prophylaxis DAIN on CPAP (Chronic) Depression (Chronic) History of cystoscopy (Chronic) Hypertension (Chronic) Dyslipidemia (Chronic) Migraine with aura (Chronic) hx DM type 2 (diabetes mellitus, type 2) (Chronic) IDDM Hearing loss (Chronic) "R ear" Antiphospholipid antibody syndrome (Chronic) On Coumadin H/O tympanostomy (Chronic) bilateral S/P tonsillectomy and adenoidectomy (Chronic) Medical History Aortic aneurysm CT of abdomen and pelvis from 08/09/20- "No abdominal aortic aneurysm" Light chain disease Follows with oncology/[facility]ology [facility] Lupus Hypomagnesemia On supplement - magnesium WNL 12/2020 CVA (cerebral vascular accident) Multiple strokes -- November 2012 -> left side mild weakness, uses cane. January 2013--> speech deficit, which has since resolved 3rd stroke 2013, no new deficits. no neurology - follows with PCP Surgical History History of cardiac cath ~2012 at [facility] History of colonoscopy Family History Father Diabetes Hypertension Mother Aneurysm brain and aortic Hypertension Sister Lupus Sister Thyroid disease Grandmother (Maternal) Stroke Social History Smoking Status: Current every day smoker Tobacco Type: Cigarettes and E-cigarettes / Vaping Age Started Using Tobacco: 11; packs per day: 0.5; Cigarettes Per Day: 10; Second Hand Exposure: Yes; Do You Dip or Chew Tobacco: No; Hx Alcohol Use: Yes Alcohol type: hard liquor Hx Substance Use: No Preferred Language: Micronesian Communication Ability: Effective Debrander Required: No Beliefs That Will Affect Care: None marital status: Current Living Situation: Spouse and Family Feels Safe at Home: Yes Safety Concerns: Feels Safe At This Time Assistive Devices: Denture - Upper, Denture - Lower and Glasses Review of Systems Review of Systems: All systems reviewed and are unremarkable except as noted below Physical Exam Physical Exam: sitting on bed without any apparent distress but looks depressed and anxious Constitutional: well developed, well nourished and + ill appearing Eyes: PERRL, conjunctivae normal, anicteric sclerae ENMT: external ear and nose normal, oropharynx normal Neck: trachea midline, no thyromegaly Respiratory: no respiratory distress Auscultation: lungs clear to auscultation bilaterally Cardiovascular: Rate/Rhythm: regular rate and regular rhythm; not tachycardic Heart Sounds: normal S1 and normal S2; no murmur Gastrointestinal (Abdomen): Inspection/Auscultation: normal bowel sounds; abdomen not distended Percussion/Palpation: abdomen soft; abdomen nontender Musculoskeletal: No acute arthritis involving any of the joint Neurologic: normal touch/pain/proprioception and moves all extremities; no focal motor deficits Psychiatric: Orientation: oriented x 3 Affect: + depressed affect Mood: + depressed mood and + anxious mood Lymphatic: no cervical or axillary lymphadenopathy Results & Data Results & Data Vital Signs (Past 12 Hours) Vital Signs Temp Pulse Pulse Resp BP BP Pulse Ox 07/11/24 13:21 66 22 121/75 99 07/11/24 12:17 67 07/11/24 11:43 07/11/24 11:43 07/11/24 11:43 36.7 C 74 18 129/78 99 O2 Del Method 07/11/24 13:21 Room Air 07/11/24 12:17 07/11/24 11:43 Room Air 07/11/24 11:43 Room Air 07/11/24 11:43 Room Air Laboratory Results Short CBC 07/11/24 Range/Units 11:45 WBC 6.39 (4.8-10.8) K/ul Hgb 13.8 (12.0-16.0) g/dl Hct 40.9 (37.0-47.0) % Plt Count 216 (130-400) K/uL BMP 07/11/24 11:45 Sodium 142 Potassium 3.5 Chloride 112 H Carbon Dioxide 24 BUN 10 Creatinine 0.82 Glucose 131 H Calcium 8.4 L Liver Function 07/11/24 Range/Units 11:45 Total Bilirubin 0.4 (0.2-1.0) mg/dl AST 81 H (13-39) U/L ALT 47 (7-52) U/L Alkaline Phosphatase 104 (34-104) U/L Albumin 3.9 (3.4-5.0) gm/dl Urine 07/11/24 Range/Units 11:45 Urine Color Yellow Urine Appearance Clear (Clear) Urine pH 5.5 (4.5-7.5) Ur Specific [place] 1.010 (1.000-1.030) Urine Protein Negative (Negative) Urine Glucose (UA) 2+ H (Negative) Medications Administered Current Inpatient Medications Potassium Chloride/Dextrose/Sod Cl (D5nss + 20meq Kcl) 20 meq in 1,000 mls @ 80 mls/hr IV .[id number] [facility] Stop: 07/13/24 02:44 Code Status & VTE Plan VTE Prophylaxis Plan VTE Prophylaxis will be ordered: Yes
[2024-07-11 14:24] LABS: INR 1.6 (0.9-1.1)
[2024-07-11] MEDS ORDERED: ACETAMINOPHEN 500 MG TAB PO PRN (15:41)
[2024-07-11] MEDS ORDERED: GLUCOSE 10 TAB/TUBE PO PRN (16:00)
[2024-07-11] MEDS ORDERED: CARBOHYDRATES FOR HYPOGLYCEMIA PO PRN (16:00)
[2024-07-11] MEDS ORDERED: DEXTROSE 50% 50 ML SYRINGE IV PRN (16:00)
[2024-07-11] MEDS ORDERED: GLUCAGON FOR INJ 1 MG VIAL SQ PRN (16:00)
[2024-07-11] MEDS ORDERED: GLUCOSE 40% GEL 15 GM TUBE PO PRN (16:00)
[2024-07-11 16:22] LABS: INR 1.7 (0.9-1.1); Prothrombin Time 17.2 Seconds (9.0-12.0)
[2024-07-11] MEDS: INSULIN ASPART PER UNIT CHARGE SC SCH (17:12)
[2024-07-11] MEDS: INSULIN HUMAN NPH SC SCH (17:13)
[2024-07-11] MEDS: INSULIN HUMAN REGULAR SC SCH (17:13)
[2024-07-11 18:16] LABS: INR 1.7 (0.9-1.1)
[2024-07-11 19:04] LABS: Basophils # (auto) 0.04 K/uL (0.00-0.20); Basophils % (auto) 0.6 %; Eosinophils # (auto) 0.22 K/uL (0.00-0.50); Eosinophils % (auto) 3.4 %; Hematocrit (blood only) 40.1 % (37.0-47.0); Hemoglobin 13.7 g/dl (12.0-16.0); Immature Granulocytes # (auto) 0.03 K/uL (0.01-0.20); Immature Granulocytes % (auto) 0.5 %; Lymphocytes # (auto) 2.52 K/uL (1.20-3.40); Lymphocytes % (auto) 39.1 %; Mean Corpuscular Hgb Conc 34.2 g/dL (32.0-36.0); Mean Corpuscular Volume 90.7 fL (80.0-100.0); Mean Platelet Volume 11.4 fL (9.4-12.4); Monocytes # (auto) 0.34 K/uL (0.11-0.59); Monocytes % (auto) 5.3 %; Neutrophils % (auto) 51.1 %; Platelet Count 215 K/uL (130-400); RDW Coefficient of Variation 12.5 % (11.5-14.5); RDW Standard Deviation 41.7 fL (36.4-46.3); Red Blood Count 4.42 M/uL (4.20-5.40); White Blood Count 6.45 K/ul (4.8-10.8)
[2024-07-11] MEDS: HYDROmorphone INJ 0.5 MG/0.5 ML SYR ONE (19:06)
[2024-07-11] MEDS: HYDROmorphone INJ 0.5 MG/0.5 ML SYR IV STA (19:06)
[2024-07-11] MEDS: ONDANSETRON INJ 2 MG/ML 2 ML VIAL IV STA (19:50)
[2024-07-11] MEDS: lisinopril 10 MG TAB PO SCH (20:15)
[2024-07-11] MEDS: ATORVASTATIN 40 MG TAB PO SCH (20:15)
[2024-07-11] MEDS: CITALOPRAM 40 MG TAB PO SCH (20:15)
[2024-07-11] MEDS: MAGNESIUM CHLORIDE W/CALCIUM 64MG DELAYED REL TAB PO SCH (20:15)
[2024-07-12 05:57] LABS: Basophils # (auto) 0.03 K/uL (0.00-0.20); Basophils % (auto) 0.5 %; Eosinophils # (auto) 0.14 K/uL (0.00-0.50); Eosinophils % (auto) 2.1 %; Hematocrit (blood only) 39.3 % (37.0-47.0); Hemoglobin 13.4 g/dl (12.0-16.0); Immature Granulocytes # (auto) 0.02 K/uL (0.01-0.20); Immature Granulocytes % (auto) 0.3 %; Lymphocytes # (auto) 2.44 K/uL (1.20-3.40); Lymphocytes % (auto) 36.6 %; Mean Corpuscular Hemoglobin 31.5 pg (25.0-34.0); Mean Corpuscular Hgb Conc 34.1 g/dL (32.0-36.0); Mean Corpuscular Volume 92.5 fL (80.0-100.0); Mean Platelet Volume 11.3 fL (9.4-12.4); Monocytes # (auto) 0.37 K/uL (0.11-0.59); Monocytes % (auto) 5.6 %; Neutrophils # (auto) 3.66 K/uL (1.40-6.50); Neutrophils % (auto) 54.9 %; Platelet Count 212 K/uL (130-400); RDW Coefficient of Variation 12.7 % (11.5-14.5); RDW Standard Deviation 43.4 fL (36.4-46.3); Red Blood Count 4.25 M/uL (4.20-5.40); White Blood Count 6.66 K/ul (4.8-10.8)
[2024-07-12 06:24] LABS: Albumin Globulin Ratio 1.5 (0.9-2); Albumin Level 3.7 gm/dl (3.4-5.0); BUN Creatinine Ratio 9.3 (10-20); Bilirubin,Total 0.2 mg/dl (0.2-1.0); Calcium 8.6 mg/dl (8.6-10.3); Creatinine Clr Calc Pharmacy 80.2 ml/min; Globulin 2.5 gm/dl (2.5-4.0); INR 3.1 (0.9-1.1); Magnesium 1.7 mg/dl (1.7-2.4); Potassium 4.7 mmol/L (3.5-5.1); Prothrombin Time 30.7 Seconds (9.0-12.0); Total Protein 6.2 gm/dl (6.0-8.3)
[2024-07-12] MEDS ORDERED: Ativan IV Alcohol Withdrawal--Active Protocol IV PRN (07:41)
[2024-07-12] MEDS ORDERED: LORazepam 2 MG/1 ML VIAL IV PRN ×3 (07:41)
[2024-07-12 08:25] LABS: Estimated Average Glucose 151 mg/dl; Hemoglobin A1C 6.9 % (4.5-5.6)
[2024-07-12] MEDS: FOLIC ACID 1 MG TAB PO SCH (10:11)
[2024-07-12] MEDS: THIAMINE HCL 100 MG TAB PO SCH (10:11)
--- NOTE | 2024-07-12 13:09 | Electrocardiogram Report ---
Test Reason : Blood Pressure : */* mmHG Vent. Rate : 67 BPM Atrial Rate : 67 BPM P-R Int : 180 ms QRS Dur : 84 ms QT Int : 420 ms P-R-T Axes : 59 25 41 degrees QTcB Int : 443 ms Normal sinus rhythm Low voltage QRS Cannot rule out Anterior infarct , age undetermined Abnormal ECG When compared with ECG of 28-Apr-2021 06:07, No significant change was found Confirmed by Magdaleno Cisneros ([id number]) on 07/12/2024 1:09:31 PM Referred By: Confirmed By: Magdaleno Cisneros
--- NOTE | 2024-07-12 14:12 | Hospitalist Progress Note ---
Date of Service July 12, 2024 Assessment & Plan (1) Warfarin overdosage: (2) Suicidal ideation: (3) History of CVA (cerebrovascular accident): (4) DAIN on CPAP: (5) Depression: (6) Hypertension: (7) DM type 2 (diabetes mellitus, type 2): (8) Antiphospholipid antibody syndrome: (9) Dyslipidemia: Plan Ms. 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 Patient mentions significant stressors and reports impulsive decision was made in the setting of acute alcohol intoxication. She states she does not have active plan and feels attempt was situation. Long discussion was had about ongoing issues, including recent deaths and ongoing conflict with sister Patient reports plan to distance self from sister and is aware she needs to work on coping mechanisms She also notes she is not an active drinker--she drinks maybe 1-2 times every few months or more. #Intentional overdose iso suicide attempt #Wafarin overdose #anxiety and depression Poison control contacted in ED: continue INR and CBC q12 hours for 48-72 hours, call if any bleeding for [phone] INR 3.1 Will avoid reversal agent given history of APS and proclivity for hypercoagulability and hx of strokes -Will add vit k po for INR > 6.0 Continue gentle IVF for now continue one-to-one sitter and await psychiatric evaluation #Supratherapeutic INR #Antiphospholipid antibody syndrome: INR uptrending 2/2 above INR q 12 hours Will correct if >6.0 given high risk for stroke/clots if overcorrected #Acute alcohol intoxication ETOH level 101 on admission No evidence of withdrawal symptoms, minimal alcohol history AWSS for monitoring but no taper planned at this time given no strong etoh history #prior CVA (cerebrovascular accident): hold ASA for now, resume when coags stable # DAIN on CPAP: noncompliant # Hypertension: continue home meds # DM type 2 (diabetes mellitus, type 2): A1C 6.9%, SSI while admitted #Dyslipidemia: Continue statin DVT prophylaxis SCDs for now CODE STATUS full Admission and Anticipated Discharge Date Admission Date: July 11, 2024 Subjective Reports feeling much better mood puente today Denies any active SI at this time and reports that she feels that she was just at a point where she impulsively made the decision to take the pills She states she does not want to or wish to harm self or others She reports just being exhausted and overwhelmed from so much at home with of mother and friend, as well as further pressure from conflict with sister denies any ongoing alcohol use at home other kwame feels well with no acute concerns Physical Exam Constitutional: WD/WN, vitals as above Respiratory: normal respiratory effort, lungs clear to auscultation Cardiovascular: RRR, no murmur, no edema Gastrointestinal (Abdomen): normal bowel sounds, soft, nontender, no hepatosplenomegaly Results & Data Results & Data Vital Signs (Past 12 Hours) Vital Signs Temp Pulse Pulse Resp BP Pulse Ox O2 Del Method 07/12/24 13:08 36.8 C 65 18 149/70 H 98 Room Air 07/12/24 07:00 58 L 07/12/24 06:59 36.6 C 49 L 16 127/73 99 Room Air 07/12/24 03:56 36.5 C 60 16 114/73 96 Room Air Laboratory Results Short CBC 07/11/24 07/12/24 Range/Units 18:50 05:31 WBC 6.45 6.66 (4.8-10.8) K/ul Hgb 13.7 13.4 (12.0-16.0) g/dl Hct 40.1 39.3 (37.0-47.0) % Plt Count 215 212 (130-400) K/uL BMP 07/12/24 05:31 Sodium 140 Potassium 4.7 D Chloride 107 Carbon Dioxide 31 BUN 7 Creatinine 0.75 Glucose 146 H Calcium 8.6 Liver Function 07/12/24 Range/Units 05:31 Total Bilirubin 0.2 (0.2-1.0) mg/dl AST 21 (13-39) U/L ALT 31 (7-52) U/L Alkaline Phosphatase 89 (34-104) U/L Albumin 3.7 (3.4-5.0) gm/dl Medications Administered Home Medications Medication Instructions Recorded Confirmed Last Taken aspirin 81 mg tablet,delayed 81 mg PO QPM 08/03/18 04/28/21 04/26/21 release (Nick Low Dose Aspirin) atorvastatin 40 mg tablet 40 mg PO QPM 08/03/18 04/28/21 04/27/21 20:30 lisinopril 10 mg tablet 10 mg PO QPM 08/03/18 04/28/21 04/27/21 20:30 metformin 500 mg tablet 1,000 mg PO BID 08/03/18 04/28/21 04/27/21 20:30 warfarin 5 mg tablet 5 mg PO QPM 08/03/18 04/28/21 04/26/21 19:00 citalopram 40 mg tablet 40 mg PO QPM 04/21/21 04/28/21 04/27/21 20:30 insulin NPH-regular hum semi-syn 15 ml subcut BID 04/21/21 04/28/21 04/28/21 04:00 100 unit/mL (70-30) subcutaneous 7.5 units soln magnesium chloride 64 mg 128 mg PO TID 04/21/21 04/28/21 04/26/21 tablet,extended release acetaminophen 500 mg capsule 1,000 mg (2 x 500 mg) PO Q6H PRN 04/28/21 Unknown pain #30 caps amoxicillin 875 mg-potassium 1 tab PO BID #20 tabs 01/26/22 Unknown clavulanate 125 mg tablet oxycodone 5 mg tablet 5 mg PO Q4H PRN pain #15 tabs 10/29/23 Unknown Active Medications Generic Name Dose Route Start Last Admin Trade Name Freq PRN Reason Stop Dose Admin Atorvastatin Calcium 40 mg 07/11/24 21:00 07/11/24 20:15 Atorvastatin 40 Mg Tab PO 08/10/24 20:59 40 mg QPM ANTWAN Administration Citalopram Hydrobromide 40 mg 07/11/24 21:00 07/11/24 20:15 Citalopram 40 Mg Tab PO 08/10/24 20:59 40 mg QPM ANTWAN Administration Folic Acid 1 mg 07/12/24 09:00 07/12/24 10:11 Folic Acid 1 Mg Tab PO 08/11/24 08:59 1 mg QAM ANTWAN Administration Potassium Chloride/Dextrose/Sod Cl 20 meq in 1,000 mls @ 80 mls/hr 07/11/24 13:15 07/12/24 13:56 D5nss + 20meq Kcl IV 07/13/24 02:44 80 mls/hr .[id number] ANTWAN Administration Insulin Aspart 0 units 07/11/24 16:30 07/12/24 12:20 Insulin Aspart Per Unit Charge SC 08/10/24 16:29 Not Given ACHS ANTWAN Insulin Human NPH 11 units 07/11/24 17:00 07/12/24 07:11 Insulin Human Nph SC 08/10/24 16:59 Not Given BIDM ANTWAN Lisinopril 10 mg 07/11/24 21:00 07/11/24 20:15 Lisinopril 10 Mg Tab PO 08/10/24 20:59 10 mg QPM ANTWAN Administration Magnesium Chloride 128 mg 07/11/24 21:00 07/12/24 13:57 Magnesium Chloride W/Calcium 64mg Delayed Rel Tab PO 08/10/24 20:59 Not Given TID ANTWAN Thiamine HCl 100 mg 07/12/24 09:00 07/12/24 10:11 Thiamine Hcl 100 Mg Tab PO 08/11/24 08:59 100 mg QAM ANTWAN Administration
[2024-07-12 17:39] LABS: Basophils # (auto) 0.03 K/uL (0.00-0.20); Basophils % (auto) 0.4 %; Eosinophils % (auto) 2.4 %; Hematocrit (blood only) 39.5 % (37.0-47.0); Hemoglobin 13.3 g/dl (12.0-16.0); Immature Granulocytes # (auto) 0.03 K/uL (0.01-0.20); Immature Granulocytes % (auto) 0.4 %; Lymphocytes # (auto) 2.66 K/uL (1.20-3.40); Lymphocytes % (auto) 32.4 %; Mean Corpuscular Hemoglobin 31.1 pg (25.0-34.0); Mean Corpuscular Hgb Conc 33.7 g/dL (32.0-36.0); Mean Corpuscular Volume 92.5 fL (80.0-100.0); Mean Platelet Volume 11.5 fL (9.4-12.4); Monocytes # (auto) 0.31 K/uL (0.11-0.59); Monocytes % (auto) 3.8 %; Neutrophils # (auto) 4.97 K/uL (1.40-6.50); Neutrophils % (auto) 60.6 %; Platelet Count 215 K/uL (130-400); RDW Coefficient of Variation 12.6 % (11.5-14.5); RDW Standard Deviation 42.7 fL (36.4-46.3); Red Blood Count 4.27 M/uL (4.20-5.40)
[2024-07-12 18:14] LABS: Prothrombin Time 58.3 Seconds (9.0-12.0)
[2024-07-12 18:17] LABS: INR 6.3 (0.9-1.1)
[2024-07-12] MEDS ORDERED: PHYTONADIONE 5 MG TAB PO STA (19:01)
[2024-07-12] MEDS ORDERED: PHYTONADIONE PED 1 MG, ORA-SWEET SYRUP 2.25 ML, ORA-PLUS SUSP VEHICLE 2.25 ML, BARCODE ... PO STA (19:07)
[2024-07-12] MEDS: PHYTONADIONE PED 1 MG, ORA-SWEET SYRUP 2.25 ML, ORA-PLUS SUSP VEHICLE 2.25 ML, BARCODE ... PO STA (19:34)
[2024-07-13 06:24] LABS: Basophils # (auto) 0.03 K/uL (0.00-0.20); Basophils % (auto) 0.5 %; Eosinophils # (auto) 0.17 K/uL (0.00-0.50); Eosinophils % (auto) 2.9 %; Hematocrit (blood only) 39.3 % (37.0-47.0); Hemoglobin 13.3 g/dl (12.0-16.0); Immature Granulocytes # (auto) 0.03 K/uL (0.01-0.20); Immature Granulocytes % (auto) 0.5 %; Lymphocytes # (auto) 2.29 K/uL (1.20-3.40); Lymphocytes % (auto) 39.2 %; Mean Corpuscular Hemoglobin 31.2 pg (25.0-34.0); Mean Corpuscular Hgb Conc 33.8 g/dL (32.0-36.0); Mean Corpuscular Volume 92.3 fL (80.0-100.0); Mean Platelet Volume 11.2 fL (9.4-12.4); Monocytes # (auto) 0.33 K/uL (0.11-0.59); Monocytes % (auto) 5.7 %; Neutrophils # (auto) 2.99 K/uL (1.40-6.50); Neutrophils % (auto) 51.2 %; Platelet Count 197 K/uL (130-400); RDW Coefficient of Variation 12.6 % (11.5-14.5); Red Blood Count 4.26 M/uL (4.20-5.40); White Blood Count 5.84 K/ul (4.8-10.8)
[2024-07-13 06:58] LABS: Prothrombin Time > 90.0 Seconds (9.0-12.0)
[2024-07-13 07:01] LABS: INR > 9.5 (0.9-1.1)
[2024-07-13] MEDS: PHYTONADIONE 5 MG in DEXTROSE 5% 50 ML IV ONE (09:03)
--- NOTE | 2024-07-13 12:27 | Hospitalist Progress Note ---
Date of Service July 13, 2024 Assessment & Plan (1) Warfarin overdosage: (2) Suicidal ideation: (3) History of CVA (cerebrovascular accident): (4) DAIN on CPAP: (5) Depression: (6) Hypertension: (7) DM type 2 (diabetes mellitus, type 2): (8) Antiphospholipid antibody syndrome: (9) Dyslipidemia: Plan Ms. 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 Patient mentions significant stressors and reports impulsive decision was made in the setting of acute alcohol intoxication. She states she does not have active plan and feels attempt was situation. Long discussion was had about ongoing issues, including recent deaths and ongoing conflict with sister Patient reports plan to distance self from sister and is aware she needs to work on coping mechanisms She also notes she is not an active drinker--she drinks maybe 1-2 times every few months or more. INR 6.3 on 07/12 and received 1po K; however, vit K >9.5 on 07/13 and now s/p 5mg IV K. Psych evaluated and determined no further 1:1 or concern for involuntary commitment. #Intentional overdose iso suicide attempt #Warfarin overdose #anxiety and depression Poison control contacted in ED: continue INR and CBC q12 hours for 48-72 hours, call if any bleeding for [phone] INR 3.1 Will avoid reversal agent given history of APS and proclivity for hypercoagulability and hx of strokes -Will add vit k po for INR > 6.0 discontinue fluids encourage po s/p 1po vit K and 5mg IV Trend INR q 12 #Supratherapeutic INR #Antiphospholipid antibody syndrome: INR uptrending 2/2 above INR q 12 hours Will correct if >6.0 given high risk for stroke/clots if overcorrected INR >9.5, s/p 6mg total vit k #Acute alcohol intoxication ETOH level 101 on admission No evidence of withdrawal symptoms, minimal alcohol history AWSS for monitoring but no taper planned at this time given no strong etoh history #prior CVA (cerebrovascular accident): hold ASA for now, resume when coags stable # DAIN on CPAP: noncompliant # Hypertension: continue home meds # DM type 2 (diabetes mellitus, type 2): A1C 6.9%, SSI while admitted #Dyslipidemia: Continue statin DVT prophylaxis SCDs for now CODE STATUS full Admission and Anticipated Discharge Date Admission Date: July 11, 2024 Subjective NAEO Denies any acute concerns at this time Physical Exam Constitutional: WD/WN, vitals as above Respiratory: normal respiratory effort, lungs clear to auscultation Cardiovascular: RRR, no murmur, no edema Gastrointestinal (Abdomen): normal bowel sounds, soft, nontender, no hepatosplenomegaly Results & Data Results & Data Vital Signs (Past 12 Hours) Vital Signs Temp Pulse Pulse Resp BP BP Pulse Ox 07/13/24 08:55 36.6 C 63 18 120/78 100 07/13/24 05:44 53 L 07/13/24 03:20 36.7 C 69 18 110/71 97 O2 Del Method 07/13/24 08:55 Room Air 07/13/24 05:44 07/13/24 03:20 Room Air Laboratory Results Short CBC 07/12/24 07/13/24 Range/Units 16:50 06:02 WBC 8.20 5.84 (4.8-10.8) K/ul Hgb 13.3 13.3 (12.0-16.0) g/dl Hct 39.5 39.3 (37.0-47.0) % Plt Count 215 197 (130-400) K/uL Medications Administered Home Medications Medication Instructions Recorded Confirmed Last Taken aspirin 81 mg tablet,delayed 81 mg PO QPM 08/03/18 04/28/21 04/26/21 release (Nick Low Dose Aspirin) atorvastatin 40 mg tablet 40 mg PO QPM 08/03/18 04/28/21 04/27/21 20:30 lisinopril 10 mg tablet 10 mg PO QPM 08/03/18 04/28/21 04/27/21 20:30 metformin 500 mg tablet 1,000 mg PO BID 08/03/18 04/28/21 04/27/21 20:30 warfarin 5 mg tablet 5 mg PO QPM 08/03/18 04/28/21 04/26/21 19:00 citalopram 40 mg tablet 40 mg PO QPM 04/21/21 04/28/2122 20:30 insulin NPH-regular hum semi-syn 15 ml subcut BID 04/21/21 04/28/21 04/28/21 04:00 100 unit/mL (70-30) subcutaneous 7.5 units soln magnesium chloride 64 mg 128 mg PO TID 04/21/21 04/28/21 04/26/21 tablet,extended release acetaminophen 500 mg capsule 1,000 mg (2 x 500 mg) PO Q6H PRN 04/28/21 Unknown pain #30 caps amoxicillin 875 mg-potassium 1 tab PO BID #20 tabs 01/26/22 Unknown clavulanate 125 mg tablet oxycodone 5 mg tablet 5 mg PO Q4H PRN pain #15 tabs 10/29/23 Unknown Active Medications Generic Name Dose Route Start Last Admin Trade Name Freq PRN Reason Stop Dose Admin Atorvastatin Calcium 40 mg 07/11/24 21:00 07/12/24 22:07 Atorvastatin 40 Mg Tab PO 08/10/24 20:59 Not Given QPM ANTWAN Citalopram Hydrobromide 40 mg 07/11/24 21:00 07/12/24 20:30 Citalopram 40 Mg Tab PO 08/10/24 20:59 40 mg QPM ANTWAN Administration Folic Acid 1 mg 07/12/24 09:00 07/13/24 09:05 Folic Acid 1 Mg Tab PO 08/11/24 08:59 1 mg QAM ANTWAN Administration Insulin Aspart 0 units 07/11/24 16:30 07/13/24 08:54 Insulin Aspart Per Unit Charge [place] 08/10/24 16:29 Not Given ACHS [facility] Insulin Human NPH 11 units 07/11/24 17:00 07/13/24 08:55 Insulin Human Nph [place] 08/10/24 16:59 Not Given BIDM ANTWAN Lisinopril 10 mg 07/11/24 21:00 07/12/24 22:07 Lisinopril 10 Mg Tab PO 08/10/24 20:59 Not Given QPM ANTWAN Magnesium Chloride 128 mg 07/11/24 21:00 07/13/24 09:04 Magnesium Chloride W/Calcium 64mg Delayed Rel Tab PO 08/10/24 20:59 128 mg TID ANTWAN Administration Thiamine HCl 100 mg 07/12/24 09:00 07/13/24 09:05 Thiamine Hcl 100 Mg Tab PO 08/11/24 08:59 100 mg QAM ANTWAN Administration
--- NOTE | 2024-07-13 15:40 | Psychiatric Consultation ---
Date of Consultation July 13, 2024 Impression / Recommendations Impression Colette Herrera is a 54-year-old female with history of depression, CVA (3), DAIN on CPAP, hypertension, dyslipidemia, migraine with aura, lupus who presents with intentional overdose of her warfarin in the context of escalating and relationship stressors and alcohol intoxication. Psychiatry consulted for evaluation and safety assessment. She presents a h/o MDD however not currently in an active episode. Appears ingestion was impulsive event in context of escalating life stressors and alcohol intoxication. Denies past suicide attempts, and denies current ideation. No h/o alcohol or drug use disorder. She presents regret for her decision, is future oriented, presents a rational future plan, presents intact reality testing recognizing what she wants to live for. Does not want inpatient psychiatry admission. Doesn't meet criteria for involuntary commitment at this time. No acute safety concerns. No sitter required. Recommend to continue home Citalopram and re-establish outpatient counseling. Overall, I spent a total of 80 minutes with this case including review of chart records, nursing report, review of lab work, direct evaluation of the patient at bedside, counseling the patient, discussion of the patient with the hospitalist provider, discussion with the psychiatric liaison during clinical rounds, and documentation in the electronic health record. (1) Intentional overdose of warfarin: (2) MDD (major depressive disorder), recurrent, in full remission: (3) Alcohol abuse: (4) History of CVA (cerebrovascular accident): (5) Elevated INR: Plan No indication for bedside sitter Not interested in inpatient psychiatry and can f/u outpatient Referral to outpatient counseling Continue home Citalopram Psych History Identifying Data Colette Herrera is a 54-year-old female with history of depression, CVA (3), DAIN on CPAP, hypertension, dyslipidemia, migraine with aura, lupus who presents with intentional overdose of her warfarin in the context of escalating and relationship stressors and alcohol intoxication. Psychiatry consulted for evaluation and safety assessment. Chief Complaint "Pretty good" History of Present Illness Patient reports being stressed about her mother's health. They are concerned about Alzheimer's dementia. Has been in regular discussion with her sisters to manage their mother and to handle their fathers belongings. Reports that an argument with her sister on their group chat had escalated. In addition her friend recently . She started to drink to escape her anxiety. She reports once intoxicated she impulsively took warfarin and does not remember what her intention or plan was at that moment. Says that it was a "stupid mistake". She did not count how many pills she took and reports taking multiple handfuls. Reports being unsure what happened next. had called EMS for assistance. She reports regret for her actions and denies current suicidal ideation. Denies having a past alcohol or drug problem and reports she rarely drinks. She denies past suicide attempt or steps towards it. Says that in the past when she was stressed she made an endorsement but was a fleeting thought. She reports having history of depression with past major depressive episodes and reports good stability on her citalopram 40 mg. Endorses fair sleep, energy, appetite, self-esteem, interest in activities. Reports during past major depressive episodes were triggered by a loss of function after her strokes. She denies an increase in impulsivity after her strokes and reports that she has become more "mellow". She reports multiple future plans including going on a cruise with her friend, attending to her pets, spending more time with her , focusing on self-care. Not currently interested in inpatient psychiatry admission. Wants to engage in outpatient counseling to process her loss. Denies family psychiatric history. Aware of her health situation. Allergies Allergy/AdvReac Type Severity Reaction Status Date / Time No Known Allergies Allergy Verified 04/28/21 05:41 Home Medications Medication Instructions Recorded Confirmed Type aspirin 81 mg tablet,delayed 81 mg PO QPM 08/03/18 04/28/21 History release (Nick Low Dose Aspirin) atorvastatin 40 mg tablet 40 mg PO QPM 08/03/18 04/28/21 History lisinopril 10 mg tablet 10 mg PO QPM 08/03/18 04/28/21 History metformin 500 mg tablet 1,000 mg PO BID 08/03/18 04/28/21 History warfarin 5 mg tablet 5 mg PO QPM 08/03/18 04/28/21 History citalopram 40 mg tablet 40 mg PO QPM 04/21/21 04/28/21 History insulin NPH-regular hum semi-syn 15 ml subcut BID 04/21/21 04/28/21 History 100 unit/mL (70-30) subcutaneous soln magnesium chloride 64 mg 128 mg PO TID 04/21/21 04/28/21 History tablet,extended release acetaminophen 500 mg capsule 1,000 mg (2 x 500 mg) PO Q6H PRN 04/28/21 Rx pain #30 caps amoxicillin 875 mg-potassium 1 tab PO BID #20 tabs 01/26/22 Rx clavulanate 125 mg tablet oxycodone 5 mg tablet 5 mg PO Q4H PRN pain #15 tabs 10/29/23 Rx Patient History Medical History Aortic aneurysm CT of abdomen and pelvis from 08/09/20- "No abdominal aortic aneurysm" Light chain disease Follows with oncology/hematology [facility] Lupus Hypomagnesemia On supplement - magnesium WNL 12/2020 CVA (cerebral vascular accident) Multiple strokes -- November 2012 -> left side mild weakness, uses cane. January 2013--> speech deficit, which has since resolved 3rd stroke 2013, no new deficits. no neurology - follows with PCP Surgical History History of cardiac cath ~2012 at [facility] History of colonoscopy Family History Father Diabetes Hypertension Mother Aneurysm brain and aortic Hypertension Sister Lupus Sister Thyroid disease Grandmother (Maternal) Stroke Social History Smoking Status: Current every day smoker Tobacco Type: Cigarettes and E-cigarettes / Vaping Age Started Using Tobacco: 11; packs per day: 0.5; Cigarettes Per Day: 10; Second Hand Exposure: Yes; Do You Dip or Chew Tobacco: No; Hx Alcohol Use: Yes Alcohol type: hard liquor Hx Substance Use: No Preferred Language: Luxembourgish Communication Ability: Effective Animal Care Worker Required: No Beliefs That Will Affect Care: None marital status: Current Living Situation: Spouse and Family Feels Safe at Home: Yes Safety Concerns: Feels Safe At This Time Assistive Devices: Denture - Upper, Denture - Lower and Glasses Physical Exam Mental Examination: Appearance: Well Groomed Eye Contact: Maintains Eye Contact Motor Behavior: Unremarkable Speech: Normal Mood: Euthymic, Calm and Anxious Affect: Appropriate Thought Process: Intact and Linear Thought Content: Intact Hallucinations: None Insight: Fair Judgement: Poor (recent intoxication and intentional OD) Vital Signs (Past 24 Hours): Last Vital Signs Temp 37.0 C 07/13/24 12:27 Pulse 62 07/13/24 13:00 Resp 18 07/13/24 12:27 BP 115/78 07/13/24 12:27 Pulse Ox 98 07/13/24 12:27 O2 Del Method Room Air 07/13/24 12:27 Results & Data (PSY) Medications Administered Atorvastatin Calcium (Atorvastatin 40 Mg Tab) 40 mg PO QPM ANTWAN Stop: 08/10/24 20:59 Last Admin: 07/12/24 22:07 Dose: Not Given Documented By: Admin: 07/11/24 20:15 Dose: 40 mg Documented By: SARA Citalopram Hydrobromide (Citalopram 40 Mg Tab) 40 mg PO QPM ANTWAN Stop: 08/10/24 20:59 Last Admin: 07/12/24 20:30 Dose: 40 mg Documented By: Admin: 07/11/24 20:15 Dose: 40 mg Documented By: SARA Folic Acid (Folic Acid 1 Mg Tab) 1 mg PO QAM ANTWAN Stop: 08/11/24 08:59 Last Admin: 07/13/24 09:05 Dose: 1 mg Documented By: [facility] Admin: 07/12/24 10:11 Dose: 1 mg Documented By: NICK Insulin Aspart (Insulin Aspart Per Unit Charge) 0 units SC ACHS [facility] Stop: 08/10/24 16:29 Last Admin: 07/13/24 12:40 Dose: Not Given Documented By: [facility] Admin: 07/13/24 08:54 Dose: Not Given Documented By: SAFETY COORDINATOR Admin: 07/12/24 20:28 Dose: Not Given Documented By: Admin: 07/12/24 17:21 Dose: Not Given Documented By: [facility] Admin: 07/12/24 12:20 Dose: Not Given Documented By: [facility] Admin: 07/12/24 08:17 Dose: Not Given Documented By: Admin: 07/11/24 20:16 Dose: Not Given Documented By: Admin: 07/11/24 17:12 Dose: Not Given Documented By: NICK Insulin Human NPH (Insulin Human Nph) 11 units SC BIDM [facility] Stop: 08/10/24 16:59 Last Admin: 07/13/24 08:55 Dose: Not Given Documented By: SAFETY COORDINATOR Admin: 07/12/24 17:22 Dose: Not Given Documented By: Admin: 07/12/24 07:11 Dose: Not Given Documented By: Admin: 07/11/24 17:13 Dose: Not Given Documented By: NICK Lisinopril (Lisinopril 10 Mg Tab) 10 mg PO QPM ANTWAN Stop: 08/10/24 20:59 Last Admin: 07/12/24 22:07 Dose: Not Given Documented By: Admin: 07/11/24 20:15 Dose: 10 mg Documented By: SARA Magnesium Chloride (Magnesium Chloride W/Calcium 64mg Delayed Rel Tab) 128 mg PO TID ANTWAN Stop: 08/10/24 20:59 Last Admin: 07/13/24 13:44 Dose: 128 mg Documented By: Admin: 07/13/24 09:04 Dose: 128 mg Documented By: Admin: 07/12/24 22:07 Dose: Not Given Documented By: Admin: 07/12/24 13:57 Dose: Not Given Documented By: Admin: 07/12/24 07:11 Dose: Not Given Documented By: Admin: 07/11/24 20:15 Dose: 128 mg Documented By: SARA Thiamine HCl (Thiamine Hcl 100 Mg Tab) 100 mg PO QAM [facility] Stop: 08/11/24 08:59 Last Admin: 07/13/24 09:05 Dose: 100 mg Documented By: Admin: 07/12/24 10:11 Dose: 100 mg Documented By: NICK [place] [address] IN/OBS CONSULT LVL 5,80M Patient Type New History Detailed Exam Detailed Medical Decision Making Moderate Complexity Diagnoses Intentional overdose of warfarin T45.512A MDD (major depressive disorder), recurrent, in full remission F33.42 Alcohol abuse F10.10 History of CVA (cerebrovascular accident) Z86.73 Elevated INR R79.1
[2024-07-13 17:58] LABS: Basophils # (auto) 0.04 K/uL (0.00-0.20); Basophils % (auto) 0.5 %; Eosinophils # (auto) 0.15 K/uL (0.00-0.50); Eosinophils % (auto) 1.8 %; Hematocrit (blood only) 40.5 % (37.0-47.0); Hemoglobin 14.1 g/dl (12.0-16.0); Immature Granulocytes # (auto) 0.03 K/uL (0.01-0.20); Immature Granulocytes % (auto) 0.4 %; Lymphocytes # (auto) 2.45 K/uL (1.20-3.40); Lymphocytes % (auto) 28.9 %; Mean Corpuscular Hemoglobin 31.7 pg (25.0-34.0); Mean Corpuscular Hgb Conc 34.8 g/dL (32.0-36.0); Mean Platelet Volume 11.3 fL (9.4-12.4); Monocytes # (auto) 0.42 K/uL (0.11-0.59); Neutrophils # (auto) 5.39 K/uL (1.40-6.50); Neutrophils % (auto) 63.4 %; Platelet Count 206 K/uL (130-400); RDW Coefficient of Variation 12.2 % (11.5-14.5); RDW Standard Deviation 41.1 fL (36.4-46.3); Red Blood Count 4.45 M/uL (4.20-5.40); White Blood Count 8.48 K/ul (4.8-10.8)
[2024-07-13 23:10] VITALS: TEMP 97.7
[2024-07-14 00:25] LABS: INR 1.8 (0.9-1.1); Prothrombin Time 18.3 Seconds (9.0-12.0)
[2024-07-14 03:38] VITALS: RESP 18; O2SAT 99
[2024-07-14 06:36] LABS: Basophils # (auto) 0.02 K/uL (0.00-0.20); Basophils % (auto) 0.3 %; Eosinophils # (auto) 0.15 K/uL (0.00-0.50); Hematocrit (blood only) 39.9 % (37.0-47.0); Immature Granulocytes # (auto) 0.03 K/uL (0.01-0.20); Immature Granulocytes % (auto) 0.4 %; Lymphocytes # (auto) 1.97 K/uL (1.20-3.40); Lymphocytes % (auto) 26.5 %; Mean Corpuscular Hemoglobin 31.5 pg (25.0-34.0); Mean Corpuscular Hgb Conc 35.1 g/dL (32.0-36.0); Mean Corpuscular Volume 89.7 fL (80.0-100.0); Mean Platelet Volume 11.4 fL (9.4-12.4); Monocytes # (auto) 0.43 K/uL (0.11-0.59); Monocytes % (auto) 5.8 %; Neutrophils # (auto) 4.83 K/uL (1.40-6.50); Platelet Count 191 K/uL (130-400); RDW Coefficient of Variation 12.4 % (11.5-14.5); RDW Standard Deviation 40.7 fL (36.4-46.3); Red Blood Count 4.45 M/uL (4.20-5.40); White Blood Count 7.43 K/ul (4.8-10.8)
[2024-07-14 06:59] LABS: BUN Creatinine Ratio 23.5 (10-20); Calcium 8.9 mg/dl (8.6-10.3); Creatinine Clr Calc Pharmacy 88.5 ml/min; Potassium 4.1 mmol/L (3.5-5.1)
[2024-07-14 07:02] LABS: INR 1.8 (0.9-1.1); Prothrombin Time 18.3 Seconds (9.0-12.0)
[2024-07-14] MEDS ORDERED: ENOXAPARIN 1 MG/KG SQ SCH (07:15)
--- NOTE | 2024-07-14 08:59 | Discharge Summary ---
Discharge Summary Date of Service July 14, 2024 Principal Dx & Hospital Course #1 = Principal Diagnosis (1) Warfarin overdosage: (2) Suicidal ideation: (3) History of CVA (cerebrovascular accident): (4) DAIN on CPAP: (5) Depression: (6) Hypertension: (7) DM type 2 (diabetes mellitus, type 2): (8) Antiphospholipid antibody syndrome: (9) Dyslipidemia: Plan Ms. 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 Patient mentions significant stressors and reports impulsive decision was made in the setting of acute alcohol intoxication. She states she does not have active plan and feels attempt was situation. Long discussion was had about ongoing issues, including recent deaths and ongoing conflict with sister Patient reports plan to distance self from sister and is aware she needs to work on coping mechanisms She also notes she is not an active drinker--she drinks maybe 1-2 times every few months or more. INR 6.3 on 07/12 and received 1po K; however, vit K >9.5 on 07/13 and now s/p 5mg IV K. Psych evaluated and determined no further 1:1 or concern for involuntary commitment. On day of discharge, patient was with INR of 1.8 x 2 and started on lovenox BID with plans to resume coumadin at previously prescribed dosing. Patient to follow up closely with anticoagulation clinic. Patient denies any further SI/HI. She reports feeling optimistic and eager to return home. #Intentional overdose iso suicide attempt #Warfarin overdose #anxiety and depression Poison control contacted in ED: continue INR and CBC q12 hours for 48-72 hours, call if any bleeding for [phone] INR 3.1 Will avoid reversal agent given history of APS and proclivity for hypercoagulability and hx of strokes -Will add vit k po for INR > 6.0 discontinue fluids encourage po INR 1.8 x 2 on d/c Started Lovenox BID for bridging iso APS Resume home coumadin dosing and follow up with AC clinic #Supratherapeutic INR #Antiphospholipid antibody syndrome: INR >9.5, s/p 6mg total vit k, corrected to 1.8 #Acute alcohol intoxication ETOH level 101 on admission No evidence of withdrawal symptoms, minimal alcohol history AWSS for monitoring but no taper planned at this time given no strong etoh history #prior CVA (cerebrovascular accident): resume home meds # DAIN on CPAP: noncompliant # Hypertension: continue home meds # DM type 2 (diabetes mellitus, type 2): A1C 6.9%, resume home regimen #Dyslipidemia: Continue statin Notes For Next Care Provider attempted OD, situation SI, resolved Medication Changes From Visit Lovenox BID x 5 for bridging s/p 9mg Vit K resue home coumadin Admission HPI Per Admitting Provider she is a 54-year-old female with significant past medical history of anxiety/depression, 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 She could not take any longer and wanted to kill herself by taking a handful of warfarin and also drinking alcohol with it. She cannot remember exactly what time she took it and she was brought into the emergency room by the . She denies any symptoms and does not have any evidence of bleeding from anywhere and her INR is 1.6. She denies any other significant symptoms and she is willin g to have psychiatric evaluation. she will be admitted to [facility] with telemetry unit with one-to-one sitter for now. Admission Exam Per Admitting Provider sitting on bed without any apparent distress but looks depressed and anxious Constitutional: well developed, well nourished and + ill appearing Eyes: PERRL, conjunctivae normal, anicteric sclerae ENMT: external ear and nose normal, oropharynx normal Neck: trachea midline, no thyromegaly Respiratory: no respiratory distress Auscultation: lungs clear to auscultation bilaterally Cardiovascular: Rate/Rhythm: regular rate and regular rhythm; not tachycardic Heart Sounds: normal S1 and normal S2; no murmur Gastrointestinal (Abdomen): Inspection/Auscultation: normal bowel sounds; abdomen not distended Percussion/Palpation: abdomen soft; abdomen nontender Musculoskeletal: No acute arthritis involving any of the joint Neurologic: normal touch/pain/proprioception and moves all extremities; no focal motor deficits Psychiatric: Orientation: oriented x 3 Affect: + depressed affect Mood: + depressed mood and + anxious mood Lymphatic: no cervical or axillary lymphadenopathy Discharge Exam Constitutional WD/WN, vitals as above Respiratory normal respiratory effort, lungs clear to auscultation Cardiovascular RRR, no murmur, no edema Gastrointestinal (Abdomen) normal bowel sounds, soft, nontender, no hepatosplenomegaly Updated Medication List Medication Instructions Recorded Confirmed Type aspirin 81 mg tablet,delayed 81 mg PO QPM 08/03/18 04/28/21 History release (Nick Low Dose Aspirin) atorvastatin 40 mg tablet 40 mg PO QPM 08/03/18 04/28/21 History lisinopril 10 mg tablet 10 mg PO QPM 08/03/18 04/28/21 History metformin 500 mg tablet 1,000 mg PO BID 08/03/18 04/28/21 History warfarin 5 mg tablet 5 mg PO QPM 08/03/18 04/28/21 History citalopram 40 mg tablet 40 mg PO QPM 04/21/21 04/28/21 History insulin NPH-regular hum semi-syn 15 ml subcut BID 04/21/21 04/28/21 History 100 unit/mL (70-30) subcutaneous soln magnesium chloride 64 mg 128 mg PO TID 04/21/21 04/28/21 History tablet,extended release acetaminophen 500 mg capsule 1,000 mg (2 x 500 mg) PO Q6H PRN 04/28/21 Rx pain #30 caps enoxaparin 80 mg/0.8 mL 70 mg (0.7 mL) subcut Q12H 5 days 07/14/24 Rx subcutaneous syringe #7 mL Hospital Stay Data Consultations 07/11/24 13:11 ED Decision to Admit Stat 07/11/24 13:21 Consult Psychiatry Routine Pending Results Patient Have Any Pending Studies at Discharge: No Discharge Instructions Given to Patient (Per Discharging Provider) You were admitted due to intentional warfarin overdose. You were evaluated by Psychiatry who did not feel you needed inpatient psychiatric care at this time.However it is important you establish follow up with your psychitarist. You were noted to have an INR over 9.5. You recieved vitamin k with resolution of your levels to 1.8 You will discharge with 5 days of lovenox and close follow up with your Anticoag ulation clinic Please take lovenox two times a day and resume your coumadin. Do not stop the lovenox until your INR is in range 2-3, as determined by the anticoagulation clinic Total Time Total Time Spent Total Time Spent (In Minutes): 35
[2024-07-14] MEDS: ENOXAPARIN 80 MG/0.8 ML SYR SQ SCH (09:39)
[2024-07-14 10:40] VITALS: BP 120/78
[2024-07-14 10:51] VITALS: PULSE 58
== END 2024-07-14 11:36 | disposition home or self-care (01) | DRG 918 ==
LOC: ED 11:32 → SUATTDRO 13:17 → 2W 13:17